=== PATIENT | female | born 1965 | race Caucasian/White ===

== ENCOUNTER 2016-09-25 17:52 | Emergency (ER) | payer MEDICARE, OTHER ==
[2016-09-25 17:58] VITALS: BP 140/72; PULSE 78; RESP 16; TEMP 98.2
--- NOTE | 2016-09-25 20:16 | ED ---
General Adult HPI - General Chief complaint: Chest Pain Stated complaint: chest pain Time Seen by Provider: 09/25/16 20:15 Source: patient, RN notes reviewed, old records reviewed Mode of arrival: ambulatory Limitations: no limitations - History of Present Illness Initial comments: This is a 51-year-old female here for evaluation of chest pain. Nonspecific chest pain. History of possible high blood pressure possible high cholesterol asked history of smoking may be high cholesterol. Patient takes no medication is not follow-up with family doctor. Patient's 3 stressful situations up-to- date cause pain in her back. No shortness of breath. No diaphoresis patient at this time is chest pain-free. States she is having increased stress lately - Related Data Home Medications Medication Instructions Recorded Confirmed Diazepam [Valium] 5 mg PO TID PRN 03/16/14 09/25/16 Fish Oil/Dha/Epa [Fish Oil 1,200 1 cap PO QAM 09/30/15 09/25/16 mg Fish Oil] Latanoprost Ophth [Xalatan 0.005%] 1 drops BOTH EYES DAILY 09/30/15 09/25/16 Olopatadine HCl [Pataday] 1 drop BOTH EYES DAILY 09/30/15 09/25/16 Aspirin 81 mg PO DAILY 02/17/16 09/25/16 Acetaminophen Tab [Tylenol Tab] 325 mg PO Q6H PRN 09/25/16 09/25/16 Albuterol Inhaler [Ventolin Hfa 2 puff INHALATION RT-Q6H PRN 09/25/16 09/25/16 Inhaler] Ergocalciferol [Vitamin D2] 50,000 unit PO Q14D 09/25/16 09/25/16 Fluticasone Nasal [place] [Flonase 1 spray EA NOSTRIL DAILY 09/25/16 09/25/16 Nasal [place]] Ibuprofen [Motrin] 600 mg PO DAILY PRN 09/25/16 09/25/16 Naphazoline HCl/Glycerin [Clear 1 drop BOTH EYES QID PRN 09/25/16 09/25/16 Eyes Max Redness Rlf Drp] Allergies Allergy/AdvReac Type Severity Reaction Status Date / Time cashew nut Allergy Unknown Verified 09/25/16 20:40 cocoa Allergy Dyspnea Verified 09/25/16 20:40 and heart racing corn Allergy Inflammatio Verified 09/25/16 20:40 n erythromycin base Allergy Swelling, Verified 09/25/16 20:40 [Erythromycin Base] itching & arthraligia latex Allergy Dyspnea Verified 09/25/16 20:40 strawberry Allergy Unknown Verified 09/25/16 20:40 wheat Allergy Constipatio Verified 09/25/16 20:40 n Review of Systems ROS Statement: Those systems with pertinent positive or pertinent negative responses have been documented in the HPI. ROS Other: All systems not noted in ROS Statement are negative. Past Medical History Past Medical History: Asthma, COPD, Deep Vein Thrombosis (DVT), Eye Disorder, GERD/Reflux, Memory Impairment, Myocardial Infarction ([place]) Additional Past Medical History / Comment(s): glaucoma, multiple concussions, bilateral tinnunitus, DVT in ankles & inside of thighs after hysterectomy; fungal infections "off & on diflucan for 7 years", hx. irregular heart beat-to have stress test & echo soon Last Myocardial Infarction Date:: 04/2006 History of Any Multi-Drug Resistant Organisms: None Reported Past Surgical History: Hysterectomy, Tonsillectomy Additional Past Surgical History / Comment(s): egd Past Anesthesia/Blood Transfusion Reactions: Motion Sickness Past Psychological History: ADD/ADHD, Depression Additional Psychological History / Comment(s): "cognitive disorder" Smoking Status: Former smoker Past Alcohol Use History: None Reported Additional Past Alcohol Use History / Comment(s): smoking: Started 1979 stopped 2007 Past Drug Use History: None Reported Additional Drug Use History / Comment(s): cocaine 04/2004 - 06/2004, 11/2004-2005 - Past Family History Mother Additional Family Medical History / Comment(s): depression Father Family Medical History: Coronary Artery Disease (CAD) General Exam Limitations: no limitations General appearance: alert, in no apparent distress Head exam: Present: atraumatic, normocephalic, normal inspection Eye exam: Present: normal appearance, PERRL, EOMI. Absent: scleral icterus, conjunctival injection, periorbital swelling ENT exam: Present: normal exam, mucous membranes moist Neck exam: Present: normal inspection. Absent: tenderness, meningismus, lymphadenopathy Respiratory exam: Present: normal lung sounds bilaterally. Absent: respiratory distress, wheezes, rales, rhonchi, stridor Cardiovascular Exam: Present: regular rate, normal rhythm, normal heart sounds. Absent: systolic murmur, diastolic murmur, rubs, gallop, clicks GI/Abdominal exam: Present: soft, normal bowel sounds. Absent: distended, tenderness, guarding, rebound, rigid Extremities exam: Present: normal inspection, full ROM, normal capillary refill. Absent: tenderness, pedal edema, joint swelling, calf tenderness Back exam: Present: normal inspection Neurological exam: Present: alert, oriented X3, CN II-XII intact Psychiatric exam: Present: normal affect, normal mood Skin exam: Present: warm, dry, intact, normal color. Absent: rash Course Vital Signs 09/25/16 17:54 Temperature 98.2 F Pulse Rate 78 Respiratory 16 Rate Blood Pressure 140/72 O2 Sat by Pulse 98 Oximetry - Reevaluation(s) Reevaluation #1: 09/25/16 21:45 Patient had lab drawn at 2-1/2 hours, troponin is negative EKG is negative EKG Findings - EKG Comments: EKG Findings:: EKG shows normal sinus rhythm rate of 64, DC 170, QRS 90, QTC 427 Medical Decision Making - Medical Decision Making 51 female here for evaluation of nonspecific chest pain anxiety reaction. Patient will be discharged home - Lab Data Result diagrams: 09/25/16 20:56 09/25/16 20:56 Lab Results 09/25/16 09/25/16 09/25/16 Range/Units 20:56 20:56 20:56 WBC 7.3 (3.8-10.6) k/uL RBC 4.77 (3.80-5.40) m/uL Hgb 14.6 (11.4-16.0) gm/dL Hct 42.4 (34.0-46.0) % MCV 88.9 (80.0-100.0) fL MCH 30.6 (25.0-35.0) pg MCHC 34.4 (31.0-37.0) g/dL RDW 13.6 (11.5-15.5) % Plt Count 260 (150-450) k/uL Neutrophils % 43 % Lymphocytes % 42 % Monocytes % 6 % Eosinophils % 3 % Basophils % 1 % Neutrophils # 3.1 (1.3-7.7) k/uL Lymphocytes # 3.1 (1.0-4.8) k/uL Monocytes # 0.4 (0-1.0) k/uL Eosinophils # 0.2 (0-0.7) k/uL Basophils # 0.1 (0-0.2) k/uL PT (9.0-12.0) sec INR (<1.1) APTT (22.0-30.0) sec D-Dimer (<0.60) mg/L FEU Sodium 142 (137-145) mmol/L Potassium 3.8 (3.5-5.1) mmol/L Chloride 107 (98-107) mmol/L Carbon Dioxide 28 (22-30) mmol/L Anion Gap 7 mmol/L BUN 19 H (7-17) mg/dL Creatinine 0.90 (0.52-1.04) mg/dL Est GFR (MDRD) Af Amer >60 (>60 ml/min/1.73 sqM) Est GFR (MDRD) Non-Af >60 (>60 ml/min/1.73 sqM) Glucose 84 (74-99) mg/dL Calcium 9.6 (8.4-10.2) mg/dL Magnesium 2.2 (1.6-2.3) mg/dL Total Bilirubin 0.4 (0.2-1.3) mg/dL AST 16 (14-36) U/L ALT 29 (9-52) U/L Alkaline Phosphatase 94 (38-126) U/L Total Creatine Kinase 67 (30-135) U/L CK-MB (CK-2) 0.7 (0.0-2.4) ng/mL CK-MB (CK-2) Rel Index 1.0 Troponin I <0.012 (0.000-0.034) ng/mL Total Protein 7.1 (6.3-8.2) g/dL Albumin 4.2 (3.5-5.0) g/dL Lipase 216 (23-300) U/L 09/25/16 Range/Units 20:56 WBC (3.8-10.6) k/uL RBC (3.80-5.40) m/uL Hgb (11.4-16.0) gm/dL Hct (34.0-46.0) % MCV (80.0-100.0) fL MCH (25.0-35.0) pg MCHC (31.0-37.0) g/dL RDW (11.5-15.5) % Plt Count (150-450) k/uL Neutrophils % % Lymphocytes % % Monocytes % % Eosinophils % % Basophils % % Neutrophils # (1.3-7.7) k/uL Lymphocytes # (1.0-4.8) k/uL Monocytes # (0-1.0) k/uL Eosinophils # (0-0.7) k/uL Basophils # (0-0.2) k/uL PT 10.3 (9.0-12.0) sec INR 1.0 (<1.1) APTT 25.3 (22.0-30.0) sec D-Dimer 0.25 (<0.60) mg/L FEU Sodium (137-145) mmol/L Potassium (3.5-5.1) mmol/L Chloride (98-107) mmol/L Carbon Dioxide (22-30) mmol/L Anion Gap mmol/L BUN (7-17) mg/dL Creatinine (0.52-1.04) mg/dL Est GFR (MDRD) Af Amer (>60 ml/min/1.73 sqM) Est GFR (MDRD) Non-Af (>60 ml/min/1.73 sqM) Glucose (74-99) mg/dL Calcium (8.4-10.2) mg/dL Magnesium (1.6-2.3) mg/dL Total Bilirubin (0.2-1.3) mg/dL AST (14-36) U/L ALT (9-52) U/L Alkaline Phosphatase (38-126) U/L Total Creatine Kinase (30-135) U/L CK-MB (CK-2) (0.0-2.4) ng/mL CK-MB (CK-2) Rel Index Troponin I (0.000-0.034) ng/mL Total Protein (6.3-8.2) g/dL Albumin (3.5-5.0) g/dL Lipase (23-300) U/L - Radiology Data Radiology results: report reviewed (Chest x-ray is negative for acute disease), image reviewed Disposition Clinical Impression: Chest pain, Atypical chest pain Disposition: HOME SELF-CARE Condition: Good Instructions: Chest Pain (ED)
[2016-09-25 21:08] LABS: Basophils # (A) 0.1 k/uL (0-0.2); Basophils % (A) 1 %; CH 30.9; CHCM 34.9; Eosinophils # (A) 0.2 k/uL (0-0.7); Eosinophils % (A) 3 %; HCT 42.4 % (34.0-46.0); HDW 2.88; HGB 14.6 gm/dL (11.4-16.0); Luc # (Auto) 0.31; Luc % (Auto) 4; Lymphocytes # (A) 3.1 k/uL (1.0-4.8); Lymphocytes % (A) 42 %; MCH 30.6 pg (25.0-35.0); MCHC 34.4 g/dL (31.0-37.0); MCV 88.9 fL (80.0-100.0); Mean Platelet Volume 6.8; Monocytes # (A) 0.4 k/uL (0-1.0); Monocytes % (A) 6 %; Neutrophils # (A) 3.1 k/uL (1.3-7.7); Neutrophils % (A) 43 %; RBC 4.77 m/uL (3.80-5.40); RDW 13.6 % (11.5-15.5); WBC 7.3 k/uL (3.8-10.6); WBC (Perox) 7.39
[2016-09-25 21:15] LABS: ALT 29 U/L (9-52); AST 16 U/L (14-36); Alkaline Phosphatase 94 U/L (38-126); Anion Gap 7 mmol/L; Blood Urea Nitrogen 19 mg/dL (7-17); Calcium 9.6 mg/dL (8.4-10.2); Carbon Dioxide 28 mmol/L (22-30); Chloride 107 mmol/L (98-107); Glucose 84 mg/dL (74-99); Magnesium 2.2 mg/dL (1.6-2.3); Non-African American GFR(MDRD) >60 (>60 ml/min/1.73 sqM); Potassium 3.8 mmol/L (3.5-5.1); Sodium 142 mmol/L (137-145); Total Bilirubin 0.4 mg/dL (0.2-1.3); Total Protein 7.1 g/dL (6.3-8.2)
[2016-09-25 21:19] LABS: Partial Thromboplastin Time 25.3 sec (22.0-30.0); Prothrombin Time 10.3 sec (9.0-12.0)
--- NOTE | 2016-09-25 21:25 | XR ---
EXAMINATION TYPE: XR chest 2V DATE OF EXAM: 09/25/2016 9:15 PM COMPARISON: 06/08/2015 HISTORY: Chest pain TECHNIQUE: Frontal and lateral views of the chest are obtained. FINDINGS: Heart and mediastinum are normal. Lungs are clear. Diaphragm is normal. Bony thorax appear s normal. IMPRESSION: Normal chest. No change
[2016-09-25 21:27] LABS: Creatine Kinase 67 U/L (30-135)
[2016-09-25 21:40] LABS: Creatine Kinase MB 0.7 ng/mL (0.0-2.4); Troponin I <0.012 ng/mL (0.000-0.034)
== END 2016-09-25 22:06 | disposition home or self-care (01) ==
LOC: EC 17:52
DX: R07.89 Other chest pain (principal); J45.909 Unspecified asthma, uncomplicated; J44.9 Chronic obstructive pulmonary disease, unspecified; Z87.891 Personal history of nicotine dependence; Z79.82 Long term (current) use of aspirin; Z79.899 Other long term (current) drug therapy; Z91.018 Allergy to other foods; Z88.1 Allergy status to other antibiotic agents; Z86.69 Personal history of other diseases of the nervous system and sense organs
CPT/HCPCS: 36415; 71020; 80053; 82550; 82553; 83690; 83735; 84484; 85025; 85379; 85610; 85730; 99285

== ENCOUNTER 2016-11-13 08:13 | Emergency (ER) | payer MEDICARE, OTHER ==
--- NOTE | 2016-11-13 08:41 | ED ---
General Adult HPI - General Chief complaint: Extremity Problem,Nontraumatic Stated complaint: rt calf pain Time Seen by Provider: 11/13/16 08:29 Source: patient, RN notes reviewed Mode of arrival: ambulatory Limitations: no limitations - History of Present Illness Initial comments: Patient 51-year-old female who presents emergency room today with chief complaint of having some pain to the posterior right calf. She admits that she did not sleep very well last night woke up this morning noticed some pain to the right calf when she was ambulating. States it seems to be a little bit better at this time but still feeling it with certain movements. Denies any injury or trauma. She does admit that she also felt a little nauseated this morning. She states she took a probiotic waited 45 minutes and a breakfast is beginning to feel better at this time. She denies any other complaints currently. She does admit to a history of blood clot after hysterectomy. States she is currently not on any blood thinners. Patient denies any recent fever, chills, shortness of breath, chest pain, back pain, abdominal pain, vomiting, numbness or tingling, dysuria or hematuria, constipation or diarrhea, headaches or visual changes, or any other complaints. - Related Data Home Medications Medication Instructions Recorded Confirmed Diazepam [Valium] 5 mg PO TID PRN 03/16/14 11/13/16 Fish Oil/Dha/Epa [Fish Oil 1,200 1 cap PO QAM 09/30/15 11/13/16 mg Fish Oil] Latanoprost Ophth [Xalatan 0.005%] 1 drops BOTH EYES HS 09/30/15 11/13/16 Olopatadine HCl [Pataday] 1 drop BOTH EYES DAILY 09/30/15 11/13/16 Aspirin 81 mg PO DAILY 02/17/16 11/13/16 Acetaminophen Tab [Tylenol Tab] 325 mg PO Q6H PRN 09/25/16 11/13/16 Albuterol Inhaler [Ventolin Hfa 2 puff INHALATION RT-Q6H PRN 09/25/16 11/13/16 Inhaler] Ergocalciferol [Vitamin D2] 50,000 unit PO Q14D 09/25/16 11/13/16 Fluticasone Nasal [place] [Flonase 1 spray EA NOSTRIL DAILY 09/25/16 11/13/16 Nasal [place]] Ibuprofen [Motrin] 600 mg PO DAILY PRN 09/25/16 11/13/16 Naphazoline HCl/Glycerin [Clear 1 drop BOTH EYES QID PRN 09/25/16 11/13/16 Eyes Max Redness Rlf Drp] Allergies Allergy/AdvReac Type Severity Reaction Status Date / Time cashew nut Allergy Unknown Verified 11/13/16 08:44 cocoa Allergy Dyspnea Verified 11/13/16 08:44 and heart racing corn Allergy Inflammatio Verified 11/13/16 08:44 n erythromycin base Allergy Swelling, Verified 11/13/16 08:44 [Erythromycin Base] itching & arthraligia latex Allergy Dyspnea Verified 11/13/16 08:44 strawberry Allergy Unknown Verified 11/13/16 08:44 wheat Allergy Constipatio Verified 11/13/16 08:44 n Review of Systems ROS Statement: Those systems with pertinent positive or pertinent negative responses have been documented in the HPI. ROS Other: All systems not noted in ROS Statement are negative. Past Medical History Past Medical History: Asthma, COPD, Deep Vein Thrombosis (DVT), Eye Disorder, GERD/Reflux, Memory Impairment, Myocardial Infarction ([place]) Additional Past Medical History / Comment(s): glaucoma, multiple concussions, bilateral tinnunitus, DVT in ankles & inside of thighs after hysterectomy; fungal infections "off & on diflucan for 7 years", hx. irregular heart beat-to have stress test & echo soon Last Myocardial Infarction Date:: 04/2006 History of Any Multi-Drug Resistant Organisms: None Reported Past Surgical History: Hysterectomy, Tonsillectomy Additional Past Surgical History / Comment(s): egd Past Anesthesia/Blood Transfusion Reactions: Motion Sickness Past Psychological History: ADD/ADHD, Depression Additional Psychological History / Comment(s): "cognitive disorder" Smoking Status: Former smoker Past Alcohol Use History: None Reported Additional Past Alcohol Use History / Comment(s): smoking: Started 1979 stopped 2007 Past Drug Use History: None Reported Additional Drug Use History / Comment(s): cocaine 04/2004 - 06/2004, 11/2004-2005 - Past Family History Mother Additional Family Medical History / Comment(s): depression Father Family Medical History: Coronary Artery Disease (CAD) General Exam - General Exam Comments Initial Comments: General: The patient is awake and alert, in no distress, and does not appear acutely ill. Eye: Pupils are equal, round and reactive to light, extra-ocular movements are intact. No nystagmus. There is normal conjunctiva bilaterally. No signs of icterus. Ears, nose, mouth and throat: There are moist mucous membranes and no oral lesions. Neck: The neck is supple, there is no tenderness or JVD. Cardiovascular: There is a regular rate and rhythm. No murmur, rub or gallop is appreciated. Respiratory: Lungs are clear to auscultation, respirations are non-labored, breath sounds are equal. No wheezes, stridor, rales, or rhonchi. Musculoskeletal: Normal ROM. Mild tenderness to the posterior aspect of the proximal right calf. No Swelling appreciated. Strength 5/5. Sensation intact. Pulses equal bilaterally 2+. Neurological: A&O x 3. CN II-XII intact, There are no obvious motor or sensory deficits. Coordination appears grossly intact. Speech is normal. Skin: Skin is warm and dry and no rashes or lesions are noted. Psychiatric: Cooperative, appropriate mood & affect, normal judgment. Limitations: no limitations Course Vital Signs 11/13/16 11/13/16 08:25 09:24 Temperature 97.1 F L Pulse Rate 87 72 Respiratory 16 18 Rate Blood Pressure 135/72 113/61 O2 Sat by Pulse 97 98 Oximetry Medical Decision Making - Medical Decision Making Patient's ultrasound negative for any evidence of DVT. Results were discussed with the patient. Patient declined nausea medication for her nausea symptoms. She states she feels better after she ate breakfast. Patient will be discharged home advised follow-up family doctor advised increased fluids. Advised return for any other concerns. Disposition Clinical Impression: Muscle strain Disposition: HOME SELF-CARE Condition: Good Instructions: Muscle Strain (ED) Additional Instructions: Please use medication as discussed. Please follow-up with family doctor in the next 2 days of symptoms have not improved. Please return to emergency room if the symptoms increase or worsen or for any other concerns. Referrals: Albina Fu MD [Primary Care Provider] - 1-2 days Time of Disposition: 09:37
--- NOTE | 2016-11-13 09:30 | US ---
EXAMINATION TYPE: US venous doppler duplex LE RT DATE OF EXAM: 11/13/2016 9:12 AM COMPARISON: NONE CLINICAL HISTORY: Pain. Patient reports tightness behind knee SIDE PERFORMED: Right TECHNIQUE: The lower extremity deep venous system is examined utilizing real time linear array sonog chapo with graded compression, doppler sonography and color-flow sonography. VESSELS IMAGED: External Iliac Vein (EIV) Common Femoral Vein Deep Femoral Vein Greater Saphenous Vein * Femoral Vein Popliteal Vein Small Saphenous Vein * Proximal Calf Veins (* superficial vessels) Right Leg: Negative for DVT No popliteal fossa lesion is identified. IMPRESSION: THIS EXAMINATION IS NEGATIVE FOR DVT WITHIN THE RIGHT LEG.
[2016-11-13 10:08] VITALS: BP 113/58; PULSE 62; RESP 16; TEMP 97.7
== END 2016-11-13 10:06 | disposition home or self-care (01) ==
LOC: EC 08:13
DX: S86.911A Strain of unspecified muscle(s) and tendon(s) at lower leg level, right leg, initial encounter (principal); R11.0 Nausea; J45.909 Unspecified asthma, uncomplicated; J44.9 Chronic obstructive pulmonary disease, unspecified; H40.9 Unspecified glaucoma; Z87.891 Personal history of nicotine dependence; Z79.899 Other long term (current) drug therapy; Z91.018 Allergy to other foods; Z88.1 Allergy status to other antibiotic agents; Z91.040 Latex allergy status; X58.XXXA Exposure to other specified factors, initial encounter
CPT/HCPCS: 99283

== ENCOUNTER 2017-01-28 23:23 | Observation (INO) | payer MEDICARE, OTHER ==
[2017-01-28 23:28] VITALS: RESP 18
[2017-01-28] MEDS ORDERED: HEPARIN SODIUM,PORCINE 5,000 UNIT/ML 1 ML VIAL IV ONE (23:36)
[2017-01-28] MEDS ORDERED: ASPIRIN 81 MG PO STA (23:36)
[2017-01-28] MEDS ORDERED: NITROGLYCERIN SL TABS 0.4 MG TAB SUBLINGUAL PRN (23:36)
[2017-01-28] MEDS ORDERED: HEPARIN SODIUM,PORCINE 5,000 UNIT/ML 1 ML VIAL IV PRN (23:36)
[2017-01-28] MEDS ORDERED: SODIUM CHLORIDE 0.9% 1,000 ML IV STA (23:36)
[2017-01-28] MEDS ORDERED: LORazepam 2 MG/ML SYRINGE IV STA (23:38)
--- NOTE | 2017-01-28 23:40 | ED ---
General Adult HPI - General Chief complaint: Chest Pain Stated complaint: Back Pain/Heart Palp Time Seen by Provider: 01/28/17 23:30 Source: patient, RN notes reviewed, old records reviewed Mode of arrival: ambulatory Limitations: no limitations - History of Present Illness Initial comments: This is a 51-year-old female here for evaluation of chest pain. Patient is anterior chest pain ranger backward into her shoulders. Patient does have a for anxiety, patient has history of DVT. Patient has history of COPD and asthma. Hasn't had symptoms was earlier today that resolved and recurred again tonight. Mild shortness of breath worse with exertion. No recent fever or cough or congestion. She has had prior cardiac workup which she believes was negative. No recent change in medication although she seems take aspirin which she has not been doing - Related Data Home Medications Medication Instructions Recorded Confirmed Diazepam [Valium] 5 mg PO TID PRN 03/16/14 11/13/16 Fish Oil/Dha/Epa [Fish Oil 1,200 1 cap PO QAM 09/30/15 11/13/16 mg Fish Oil] Latanoprost Ophth [Xalatan 0.005%] 1 drops BOTH EYES HS 09/30/15 11/13/16 Olopatadine HCl [Pataday] 1 drop BOTH EYES DAILY 09/30/15 11/13/16 Aspirin 81 mg PO DAILY 02/17/16 11/13/16 Acetaminophen Tab [Tylenol Tab] 325 mg PO Q6H PRN 09/25/16 11/13/16 Albuterol Inhaler [Ventolin Hfa 2 puff INHALATION RT-Q6H PRN 09/25/16 11/13/16 Inhaler] Ergocalciferol [Vitamin D2] 50,000 unit PO Q14D 09/25/16 11/13/16 Fluticasone Nasal [place] [Flonase 1 spray EA NOSTRIL DAILY 09/25/16 11/13/16 Nasal [place]] Ibuprofen [Motrin] 600 mg PO DAILY PRN 09/25/16 11/13/16 Naphazoline HCl/Glycerin [Clear 1 drop BOTH EYES QID PRN 09/25/16 11/13/16 Eyes Max Redness Rlf Drp] Allergies Allergy/AdvReac Type Severity Reaction Status Date / Time cashew nut Allergy Unknown Verified 08/24/17 23:27 cocoa Allergy Dyspnea Verified 01/28/17 23:27 and heart racing corn Allergy Inflammatio Verified 01/28/17 23:27 n erythromycin base Allergy Swelling, Verified 01/28/17 23:27 [Erythromycin Base] itching & arthraligia latex Allergy Dyspnea Verified 01/28/17 23:27 strawberry Allergy Unknown Verified 01/28/17 23:27 wheat Allergy Constipatio Verified 01/28/17 23:27 n Review of Systems ROS Statement: Those systems with pertinent positive or pertinent negative responses have been documented in the HPI. ROS Other: All systems not noted in ROS Statement are negative. Past Medical History Past Medical History: Asthma, COPD, Deep Vein Thrombosis (DVT), Eye Disorder, GERD/Reflux, Memory Impairment, Myocardial Infarction ([place]) Additional Past Medical History / Comment(s): glaucoma, multiple concussions, bilateral tinnunitus, DVT in ankles & inside of thighs after hysterectomy; fungal infections "off & on diflucan for 7 years", hx. irregular heart beat-to have stress test & echo soon Last Myocardial Infarction Date:: 04/2006 History of Any Multi-Drug Resistant Organisms: None Reported Past Surgical History: Hysterectomy, Tonsillectomy Additional Past Surgical History / Comment(s): egd Past Anesthesia/Blood Transfusion Reactions: Motion Sickness Past Psychological History: ADD/ADHD, Anxiety, Depression Smoking Status: Former smoker Past Alcohol Use History: None Reported Past Drug Use History: None Reported - Past Family History Mother Additional Family Medical History / Comment(s): depression Father Family Medical History: Coronary Artery Disease (CAD) General Exam Limitations: no limitations General appearance: alert, in no apparent distress, anxious Head exam: Present: atraumatic, normocephalic, normal inspection Eye exam: Present: normal appearance, PERRL, EOMI. Absent: scleral icterus, conjunctival injection, periorbital swelling ENT exam: Present: normal exam, mucous membranes moist Neck exam: Present: normal inspection. Absent: tenderness, meningismus, lymphadenopathy Respiratory exam: Present: normal lung sounds bilaterally. Absent: respiratory distress, wheezes, rales, rhonchi, stridor Cardiovascular Exam: Present: regular rate, normal rhythm, normal heart sounds. Absent: systolic murmur, diastolic murmur, rubs, gallop, clicks GI/Abdominal exam: Present: soft, normal bowel sounds. Absent: distended, tenderness, guarding, rebound, rigid Extremities exam: Present: normal inspection, full ROM, normal capillary refill. Absent: tenderness, pedal edema, joint swelling, calf tenderness Back exam: Present: normal inspection Neurological exam: Present: alert, oriented X3, CN II-XII intact Psychiatric exam: Present: normal affect, normal mood Skin exam: Present: warm, dry, intact, normal color. Absent: rash Course Vital Signs 01/28/17 23:24 Temperature 98.1 F Pulse Rate 78 Respiratory 18 Rate Blood Pressure 151/68 O2 Sat by Pulse 98 Oximetry - Reevaluation(s) Reevaluation #1: 01/28/17 23:39 Medical records reviewed Reevaluation #2: 01/28/17 23:39 Patient still chest pain despite despite anxiolysis Medical Decision Making - Medical Decision Making [id number] and ER for evaluation of chest pain, anxiety. Patient has history of anxiety, coming in today with what she feels like is having heart attack. EKG and troponin are negative times, patient will be admitted for cardiac observation - Radiology Data Radiology results: report reviewed (Chest x-ray is negative for acute disease), image reviewed Critical Care Time Critical Care Time: Yes Total Critical Care Time: 31 Disposition Clinical Impression: Chest pain Disposition: ADMITTED IP TO THIS HOSP Condition: Undetermined Instructions: Chest Pain (ED) Referrals: Albina Fu MD [Primary Care Provider] - 1-2 days
[2017-01-28] MEDS ORDERED: HEPARIN SODIUM,PORCINE/D5W PMX 25,000 UNIT in DEXTROSE/WATER 1 500ML.BAG IV SCH (23:45)
[2017-01-29 00:14] LABS: Basophils # (A) 0.1 k/uL (0-0.2); Basophils % (A) 2 %; CH 31.8; CHCM 34.3; Eosinophils # (A) 0.4 k/uL (0-0.7); Eosinophils % (A) 5 %; HCT 45.2 % (34.0-46.0); HDW 2.61; HGB 14.8 gm/dL (11.4-16.0); Luc # (Auto) 0.25; Luc % (Auto) 3; Lymphocytes # (A) 3.1 k/uL (1.0-4.8); Lymphocytes % (A) 40 %; MCH 30.6 pg (25.0-35.0); MCHC 32.8 g/dL (31.0-37.0); MCV 93.2 fL (80.0-100.0); Mean Platelet Volume 7.2; Monocytes # (A) 0.5 k/uL (0-1.0); Monocytes % (A) 6 %; Neutrophils # (A) 3.4 k/uL (1.3-7.7); Neutrophils % (A) 44 %; RBC 4.85 m/uL (3.80-5.40); RDW 14.5 % (11.5-15.5); WBC 7.7 k/uL (3.8-10.6); WBC (Perox) 7.25
--- NOTE | 2017-01-29 00:19 | XR ---
EXAM: XR Chest, 2 Views CLINICAL HISTORY: Chest pain. TECHNIQUE: Frontal and lateral views of the chest. COMPARISON: Chest radiograph dated 09/25/16. FINDINGS: Lungs: No airspace consolidation. Pleural space: No significant pleural effusion. No pneumothorax. Heart: Normal cardiac silhouette. Mediastinum: Unremarkable. Bones/joints: Degenerative changes of the thoracolumbar spine. IMPRESSION: No acute findings.
[2017-01-29 00:21] LABS: ALT 39 U/L (9-52); AST 21 U/L (14-36); Alkaline Phosphatase 104 U/L (38-126); Anion Gap 10 mmol/L; Blood Urea Nitrogen 19 mg/dL (7-17); Calcium 9.8 mg/dL (8.4-10.2); Carbon Dioxide 23 mmol/L (22-30); Chloride 109 mmol/L (98-107); Glucose 112 mg/dL (74-99); Magnesium 2.2 mg/dL (1.6-2.3); Non-African American GFR(MDRD) >60 (>60 ml/min/1.73 sqM); Potassium 4.1 mmol/L (3.5-5.1); Sodium 142 mmol/L (137-145); Total Bilirubin 0.5 mg/dL (0.2-1.3); Total Protein 7.2 g/dL (6.3-8.2)
[2017-01-29 00:23] LABS: Partial Thromboplastin Time 25.8 sec (22.0-30.0)
[2017-01-29 00:29] LABS: Creatine Kinase 76 U/L (30-135)
[2017-01-29 00:42] LABS: Creatine Kinase MB 0.6 ng/mL (0.0-2.4); Troponin I <0.012 ng/mL (0.000-0.034)
[2017-01-29 01:39] VITALS: BMI 34.2
[2017-01-29 06:10] LABS: Mean Platelet Volume 7.1
[2017-01-29 06:29] LABS: Cholesterol 171 mg/dL (<200); HDL Cholesterol 46 mg/dL (40-60)
[2017-01-29 06:37] LABS: Creatine Kinase 61 U/L (30-135)
[2017-01-29 06:49] LABS: Creatine Kinase MB 0.6 ng/mL (0.0-2.4); Troponin I <0.012 ng/mL (0.000-0.034)
[2017-01-29] MEDS ORDERED: ALBUTEROL NEBULIZED 2.5 MG/3 ML INHALATION PRN (08:14)
[2017-01-29] MEDS ORDERED: ARTIFICIAL TEARS-HYPROMELLOSE DROPS 15 ML BTL BOTH EYES PRN (08:14)
[2017-01-29] MEDS ORDERED: DIAZEPAM 5 MG TAB PO PRN (08:14)
[2017-01-29] MEDS ORDERED: ACETAMINOPHEN TAB 325 MG TAB PO PRN (08:14)
[2017-01-29] MEDS ORDERED: ASPIRIN 325 MG TAB PO SCH (09:00)
[2017-01-29] MEDS ORDERED: KETOTIFEN 0.025% OPHTH DROPS 5 ML BTL BOTH EYES SCH (09:00)
[2017-01-29] MEDS ORDERED: ATORVASTATIN 80 MG TAB PO SCH (09:00)
[2017-01-29] MEDS ORDERED: FLUTICASONE 50MCG/SPRAY NASAL 16GM EA NOSTRIL SCH (09:00)
[2017-01-29 09:13] VITALS: TEMP 97
[2017-01-29 11:17] LABS: Creatine Kinase 58 U/L (30-135)
[2017-01-29 11:31] LABS: Creatine Kinase MB 0.6 ng/mL (0.0-2.4); Troponin I <0.012 ng/mL (0.000-0.034)
[2017-01-29 11:58] VITALS: BP 121/63; PULSE 74
--- NOTE | 2017-01-29 12:10 | P.CRDCN ---
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 irregular heart beat-to have stress test & echo soon Last Myocardial Infarction Date:: 04/2006 History of Any Multi-Drug Resistant Organisms: None Reported Past Surgical History: Hysterectomy, Tonsillectomy Additional Past Surgical History / Comment(s): egd Past Anesthesia/Blood Transfusion Reactions: Motion Sickness Past Psychological History: ADD/ADHD, Anxiety, Depression Additional Psychological History / Comment(s): DYSLEXIA Smoking Status: Former smoker Past Alcohol Use History: None Reported Additional Past Alcohol Use History / Comment(s): smoking: Started 1979 stopped 2007 Past Drug Use History: None Reported Additional Drug Use History / Comment(s): cocaine 04/2004 - 06/2004, 11/2004-2005 - Past Family History Mother Additional Family Medical History / Comment(s): depression Father Family Medical History: Coronary Artery Disease (CAD) Medications and Allergies Home Medications Medication Instructions Recorded Confirmed Type Latanoprost Ophth [Xalatan 0.005%] 1 drops BOTH EYES HS 09/30/15 01/29/17 History Albuterol Inhaler [Ventolin Hfa 2 puff INHALATION RT-Q6H PRN 09/25/16 01/29/17 History Inhaler] Ergocalciferol [Vitamin D2] 50,000 unit PO Q14D 09/25/16 01/29/17 History Naphazoline HCl/Glycerin [Clear 1 drop BOTH EYES QID PRN 09/25/16 01/29/17 History Eyes Max Redness Rlf Drp] Allergies Allergy/AdvReac Type Severity Reaction Status Date / Time cashew nut Allergy Unknown Verified 01/29/17 08:27 cocoa Allergy Dyspnea Verified 01/29/17 08:27 and heart racing corn Allergy Inflammatio Verified 01/29/17 08:27 n erythromycin base Allergy Swelling, Verified 01/29/17 08:27 [Erythromycin Base] itching & arthraligia latex Allergy Dyspnea Verified 01/29/17 08:27 strawberry Allergy Unknown Verified 01/29/17 08:27 wheat Allergy Constipatio Verified 01/29/17 08:27 n Physical Exam Vitals: Vital Signs Temp Pulse Pulse Resp BP BP Pulse Ox 01/29/17 11:56 74 18 121/63 97 01/29/17 08:00 97 F L 70 18 121/73 97 01/29/17 04:00 96.3 F L 69 18 137/72 96 01/29/17 00:48 98.4 F 75 18 150/77 98 01/29/17 00:45 96.3 F L 74 18 138/80 95 01/29/17 00:06 78 01/28/17 23:59 85 18 137/93 96 01/28/17 23:24 98.1 F 78 18 151/68 98 Intake and Output 01/28/17 01/29/17 01/29/17 22:59 06:59 14:59 Intake Total 152.008 Output Total 1200 Balance -1047.992 Intake: Intake, IV Titration 152.008 Amount Heparin Sodium,Porcine/ 152.008 D5w Pmx 25,000 unit In Dextrose/Water 1 500ml. bag @ 12 UNITS/KG/HR 18.5 mls/hr IV .Q24H [facility] Rx#: [id number] Output: Urine 1200 Other: Voiding Method Toilet # Voids 1 1 # Bowel Movements 0 Weight 80.1 kg Results 01/29/17 05:52 01/28/17 23:55 Cardiac Enzymes 01/28/17 01/28/17 01/29/17 Range/Units 23:55 23:55 05:52 AST 21 (14-36) U/L CK-MB (CK-2) 0.6 0.6 (0.0-2.4) ng/mL Troponin I <0.012 <0.012 (0.000-0.034) ng/mL 01/29/17 Range/Units 10:37 AST (14-36) U/L CK-MB (CK-2) 0.6 (0.0-2.4) ng/mL Troponin I <0.012 (0.000-0.034) ng/mL Coagulation 01/28/17 01/29/17 Range/Units 23:55 05:52 PT 10.0 (9.0-12.0) sec APTT 25.8 39.0 H (22.0-30.0) sec Lipids 01/29/17 Range/Units 05:52 Triglycerides 127 (<150) mg/dL Cholesterol 171 (<200) mg/dL HDL Cholesterol 46 (40-60) mg/dL CBC 01/28/17 01/29/17 Range/Units 23:55 05:52 WBC 7.7 (3.8-10.6) k/uL RBC 4.85 (3.80-5.40) m/uL Hgb 14.8 (11.4-16.0) gm/dL Hct 45.2 (34.0-46.0) % Plt Count 289 244 (150-450) k/uL Comprehensive Metabolic Panel 01/28/17 Range/Units 23:55 Sodium 142 (137-145) mmol/L Potassium 4.1 (3.5-5.1) mmol/L Chloride 109 H (98-107) mmol/L Carbon Dioxide 23 (22-30) mmol/L BUN 19 H (7-17) mg/dL Creatinine 0.70 (0.52-1.04) mg/dL Glucose 112 H (74-99) mg/dL Calcium 9.8 (8.4-10.2) mg/dL AST 21 (14-36) U/L ALT 39 (9-52) U/L Alkaline Phosphatase 104 (38-126) U/L Total Protein 7.2 (6.3-8.2) g/dL Albumin 4.5 (3.5-5.0) g/dL Current Medications Generic Name Dose Route Start Last Admin Trade Name Freq PRN Reason Stop Dose Admin Acetaminophen 325 mg 01/29/17 08:14 Tylenol Tab PO Q6H PRN Pain Albuterol Sulfate 2.5 mg 01/29/17 08:14 Ventolin Nebulized INHALATION RT-Q6H PRN Cough Artificial Tears 1 drops 01/29/17 08:14 Artificial Tear Drops BOTH EYES QID PRN Dry Eye(s) Aspirin 325 mg 01/29/17 09:00 01/29/17 08:59 Aspirin PO 325 mg DAILY [facility] Administration Atorvastatin Calcium 80 mg 01/29/17 09:00 01/29/17 08:59 Lipitor PO 80 mg DAILY [facility] Administration Diazepam 5 mg 01/29/17 08:14 Valium PO TID PRN Anxiety Fluticasone Propionate 1 spray 01/29/17 09:00 01/29/17 09:01 Flonase Nasal [place] EA NOSTRIL Not Given DAILY [facility] Ketotifen Fumarate 1 drops 01/29/17 09:00 01/29/17 09:01 Zaditor BOTH EYES Not Given DAILY [facility] Latanoprost 1 drops 01/29/17 21:00 Xalatan 0.005% BOTH EYES HS [facility] Nitroglycerin 0.4 mg 01/28/17 23:36 Nitrostat SUBLINGUAL Q5M PRN Chest Pain Intake and Output 01/28/17 01/29/17 01/29/17 22:59 06:59 14:59 Intake Total 152.008 Output Total 1200 Balance -1047.992 Intake: Intake, IV Titration 152.008 Amount Heparin Sodium,Porcine/ 152.008 D5w Pmx 25,000 unit In Dextrose/Water 1 500ml. bag @ 12 UNITS/KG/HR 18.5 mls/hr IV .Q24H [facility] Rx#: [id number] Output: Urine 1200 Other: Voiding Method Toilet # Voids 1 1 # Bowel Movements 0 Weight 80.1 kg 01/29/17 05:52 01/28/17 23:55
--- NOTE | 2017-01-29 13:29 | P.CRDCN ---
History of Present Illness Consult date: 01/29/17 Reason for Consult (text): chest pain Chief complaint: back pain History of present illness: This is a pleasant 51-year-old female patient with a history of COPD, asthma, GERD, questionable history of [place] and previous episodes of chest discomfort. She presented to the emergency department after complaining of low back pain by left arm and ankle pain and subsequently upper back pain. EKG on admission showed normal sinus rhythm, troponins negative 3, chest x-ray was negative for acute cardiopulmonary process. Cardiac testing from previous admission in February 2016 was reviewed patient underwent regular stress echo at that time that was negative for stress-induced ischemia. Upon examination, patient is resting comfortably in bed. She denies further complaints of back arm or ankle pain. Denies complaints of shortness of breath, dizziness, palpitations or syncope. Her vital signs are stable blood pressure is normal. Past Medical History Past Medical History: Asthma, COPD, Deep Vein Thrombosis (DVT), Eye Disorder, GERD/Reflux, Memory Impairment, Myocardial Infarction ([place]) Additional Past Medical History / Comment(s): glaucoma, multiple concussions, bilateral tinnunitus, DVT in ankles & inside of thighs after hysterectomy; fungal infections "off & on diflucan for 7 years", hx. irregular heart beat-to have stress test & echo soon Last Myocardial Infarction Date:: 04/2006 History of Any Multi-Drug Resistant Organisms: None Reported Past Surgical History: Hysterectomy, Tonsillectomy Additional Past Surgical History / Comment(s): egd Past Anesthesia/Blood Transfusion Reactions: Motion Sickness Past Psychological History: ADD/ADHD, Anxiety, Depression Additional Psychological History / Comment(s): DYSLEXIA Smoking Status: Former smoker Past Alcohol Use History: None Reported Additional Past Alcohol Use History / Comment(s): smoking: Started 1979 stopped 2007 Past Drug Use History: None Reported Additional Drug Use History / Comment(s): cocaine 04/2004 - 06/2004, 11/2004-2005 - Past Family History Mother Additional Family Medical History / Comment(s): depression Father Family Medical History: Coronary Artery Disease (CAD) Medications and Allergies Home Medications Medication Instructions Recorded Confirmed Type Latanoprost Ophth [Xalatan 0.005%] 1 drops BOTH EYES HS 09/30/15 01/29/17 History Albuterol Inhaler [Ventolin Hfa 2 puff INHALATION RT-Q6H PRN 09/25/16 01/29/17 History Inhaler] Ergocalciferol [Vitamin D2 50,000 unit PO Q14D 09/25/16 01/29/17 History (DRISDOL)] Naphazoline HCl/Glycerin [Clear 1 drop BOTH EYES QID PRN 09/25/16 01/29/17 History Eyes Max Redness Rlf Drp] Allergies Allergy/AdvReac Type Severity Reaction Status Date / Time cashew nut Allergy Unknown Verified 01/29/17 08:27 cocoa Allergy Dyspnea Verified 01/29/17 08:27 and heart racing corn Allergy Inflammatio Verified 01/29/17 08:27 n erythromycin base Allergy Swelling, Verified 01/29/17 08:27 [Erythromycin Base] itching & arthraligia latex Allergy Dyspnea Verified 01/29/17 08:27 strawberry Allergy Unknown Verified 01/29/17 08:27 wheat Allergy Constipatio Verified 01/29/17 08:27 n Physical Exam Vitals: Vital Signs Temp Pulse Pulse Resp BP BP Pulse Ox 01/29/17 11:56 74 18 121/63 97 01/29/17 08:00 97 F L 70 18 121/73 97 01/29/17 04:00 96.3 F L 69 18 137/72 96 01/29/17 00:48 98.4 F 75 18 150/77 98 01/29/17 00:45 96.3 F L 74 18 138/80 95 01/29/17 00:06 78 01/28/17 23:59 85 18 137/93 96 01/28/17 23:24 98.1 F 78 18 151/68 98 Intake and Output 01/28/17 01/29/17 01/29/17 22:59 06:59 14:59 Intake Total 152.008 Output Total 1200 Balance -1047.992 Intake: Intake, IV Titration 152.008 Amount Heparin Sodium,Porcine/ 152.008 D5w Pmx 25,000 unit In Dextrose/Water 1 500ml. bag @ 12 UNITS/KG/HR 18.5 mls/hr IV .Q24H [facility] Rx#: [id number] Output: Urine 1200 Other: Voiding Method Toilet # Voids 1 1 # Bowel Movements 0 Weight 80.1 kg PHYSICAL EXAMINATION: HEENT: Head is atraumatic, normocephalic. Pupils equal, round. Neck is supple. There is no elevated jugular venous pressure. HEART EXAMINATION: Heart sounds regular, S1 and S2 normal. No murmur or gallop heard. CHEST EXAMINATION: Lungs are clear to auscultation and precussion. No chest wall tenderness is noted on palpation or with deep breathing. ABDOMEN: Soft, nontender. Bowel sounds are heard. No organomegaly noted. EXTREMITIES: 2+ peripheral pulses with no evidence of peripheral edema and no calf tenderness noted. NEUROLOGIC patient is awake, alert and oriented x3. . Results 01/29/17 05:52 01/28/17 23:55 Cardiac Enzymes 01/28/17 01/28/17 01/29/17 Range/Units 23:55 23:55 05:52 AST 21 (14-36) U/L CK-MB (CK-2) 0.6 0.6 (0.0-2.4) ng/mL Troponin I <0.012 <0.012 (0.000-0.034) ng/mL 01/29/17 Range/Units 10:37 AST (14-36) U/L CK-MB (CK-2) 0.6 (0.0-2.4) ng/mL Troponin I <0.012 (0.000-0.034) ng/mL Coagulation 01/28/17 01/29/17 Range/Units 23:55 05:52 PT 10.0 (9.0-12.0) sec APTT 25.8 39.0 H (22.0-30.0) sec Lipids 01/29/17 Range/Units 05:52 Triglycerides 127 (<150) mg/dL Cholesterol 171 (<200) mg/dL HDL Cholesterol 46 (40-60) mg/dL CBC 01/28/17 01/29/17 Range/Units 23:55 05:52 WBC 7.7 (3.8-10.6) k/uL RBC 4.85 (3.80-5.40) m/uL Hgb 14.8 (11.4-16.0) gm/dL Hct 45.2 (34.0-46.0) % Plt Count 289 244 (150-450) k/uL Comprehensive Metabolic Panel 01/28/17 Range/Units 23:55 Sodium 142 (137-145) mmol/L Potassium 4.1 (3.5-5.1) mmol/L Chloride 109 H (98-107) mmol/L Carbon Dioxide 23 (22-30) mmol/L BUN 19 H (7-17) mg/dL Creatinine 0.70 (0.52-1.04) mg/dL Glucose 112 H (74-99) mg/dL Calcium 9.8 (8.4-10.2) mg/dL AST 21 (14-36) U/L ALT 39 (9-52) U/L Alkaline Phosphatase 104 (38-126) U/L Total Protein 7.2 (6.3-8.2) g/dL Albumin 4.5 (3.5-5.0) g/dL Current Medications Generic Name Dose Route Start Last Admin Trade Name Freq PRN Reason Stop Dose Admin Acetaminophen 325 mg 01/29/17 08:14 Tylenol Tab PO Q6H PRN Pain Albuterol Sulfate 2.5 mg 01/29/17 08:14 Ventolin Nebulized INHALATION RT-Q6H PRN Cough Artificial Tears 1 drops 01/29/17 08:14 Artificial Tear Drops BOTH EYES QID PRN Dry Eye(s) Aspirin 325 mg 01/29/17 09:00 01/29/17 08:59 Aspirin PO 325 mg DAILY [facility] Administration Atorvastatin Calcium 80 mg 01/29/17 09:00 01/29/17 08:59 Lipitor PO 80 mg DAILY [facility] Administration Diazepam 5 mg 01/29/17 08:14 Valium PO TID PRN Anxiety Fluticasone Propionate 1 spray 01/29/17 09:00 01/29/17 09:01 Flonase Nasal [place] EA NOSTRIL Not Given DAILY [facility] Ketotifen Fumarate 1 drops 01/29/17 09:00 01/29/17 09:01 Zaditor BOTH EYES Not Given DAILY [facility] Latanoprost 1 drops 01/29/17 21:00 Xalatan 0.005% BOTH EYES HS [facility] Nitroglycerin 0.4 mg 01/28/17 23:36 Nitrostat SUBLINGUAL Q5M PRN Chest Pain Intake and Output 01/28/17 01/29/17 01/29/17 22:59 06:59 14:59 Intake Total 152.008 Output Total 1200 Balance -1047.992 Intake: Intake, IV Titration 152.008 Amount Heparin Sodium,Porcine/ 152.008 D5w Pmx 25,000 unit In Dextrose/Water 1 500ml. bag @ 12 UNITS/KG/HR 18.5 mls/hr IV .Q24H [facility] Rx#: [id number] Output: Urine 1200 Other: Voiding Method Toilet # Voids 1 1 # Bowel Movements 0 Weight 80.1 kg 01/29/17 05:52 01/28/17 23:55 EKG Interpretations (text) Normal sinus rhythm Assessment and Plan Plan: Assessment and plan #1 neck pain, troponins negative 3 and normal stress echo in February 2016. #2 history of GERD #3 COPD From cardiology perspective, obtain a 2-D echo with Doppler. 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 HVAC MECHANICAL ENGINEER note has been reviewed, I agree with a documented findings and plan of care. Patient was seen and examined.
--- NOTE | 2017-01-29 14:39 | P.HPIM ---
History of Present Illness H&P Date: 01/29/17 Chief Complaint: Chest pain, back pain, leg pain HISTORY AND PHYSICAL AND DISCHARGE SUMMARY: This is a 51-year-old female patient of Dr. Joseph with a past mental history significant for [place], asthma and COPD, DVT completed course of anticoagulation, glaucoma, gastroesophageal reflux disease, memory impairment thought to be due to head concussion and/or drug related, remote history of tobacco use and dependence, history of cocaine use with abstinent since 2005. Patient states that yesterday she developed low back pain and she thought if she ate something she might feel better so she had some cereal and a doughnut. She went to [place] and apparently she had more pain. She did have episode of sharp pain in the morning and took 2 aspirin. She also had sharp pains on and off in bilateral thighs. She had chest pain last Wednesday and Wednesday as well. She did take another dose of 2 baby aspirins and then came into [facility] emergency center for evaluation. She states she had a stress test done at cardiology office a couple months ago and she does not recall the name of her hot dip galvanizer. Troponins were negative on 3 draws. Triglyceride 127, cholesterol 171, LDL 100 and HDL 46. Chest x-ray shows no acute findings. EKG was in normal sinus rhythm. Patient was seen by Dr. Martino from cardiology and cleared for discharge home. Patient has been instructed to follow-up with Dr. Fu and with her hot dip galvanizer. Review of Systems All systems: negative Constitutional: Denies chills, Denies fever Eyes: denies blurred vision, denies pain Ears, nose, mouth and throat: Denies headache, Denies sore throat Cardiovascular: Reports chest pain, Denies shortness of breath Respiratory: Denies cough Gastrointestinal: Denies abdominal pain, Denies diarrhea, Denies nausea, Denies vomiting Genitourinary: Denies dysuria, Denies hematuria Musculoskeletal: Reports low back pain, Denies myalgias Integumentary: Denies pruritus, Denies rash Neurological: Denies numbness, Denies weakness Psychiatric: Denies anxiety, Denies depression Endocrine: Denies fatigue, Denies weight change Past Medical History Past Medical History: Asthma, COPD, Deep Vein Thrombosis (DVT), Eye Disorder, GERD/Reflux, Memory Impairment, Myocardial Infarction ([place]) Additional Past Medical History / Comment(s): glaucoma, multiple concussions, bilateral tinnunitus, DVT in ankles & inside of thighs after hysterectomy; fungal infections "off & on diflucan for 7 years", hx. irregular heart beat Last Myocardial Infarction Date:: 04/2006 History of Any Multi-Drug Resistant Organisms: None Reported Past Surgical History: Hysterectomy, Tonsillectomy Additional Past Surgical History / Comment(s): egd Past Anesthesia/Blood Transfusion Reactions: Motion Sickness Past Psychological History: ADD/ADHD, Anxiety, Depression Additional Psychological History / Comment(s): DYSLEXIA Smoking Status: Former smoker Past Alcohol Use History: None Reported Additional Past Alcohol Use History / Comment(s): smoked one and half packs per day from 1979 stopped 2007 Past Drug Use History: None Reported Additional Drug Use History / Comment(s): cocaine 04/2004 - 06/2004, 11/2004-2005 - Past Family History Mother Additional Family Medical History / Comment(s): Mother at age 31 as she was hit by a motor vehicle with history of depression. Father Family Medical History: Coronary Artery Disease (CAD) Additional Family Medical History / Comment(s): Father at age 54 after his third heart surgery. Sister(s) Additional Family Medical History / Comment(s): Patient has 3 sisters and one from a staph infection. Brother(s) Additional Family Medical History / Comment(s): Patient has 2 brothers and one has history of blood clots and anxiety. Patient has 3 children with no major medical problems. Medications and Allergies Home Medications Medication Instructions Recorded Confirmed Type Latanoprost Ophth [Xalatan 0.005%] 1 drops BOTH EYES HS 09/29/01/29/17 History Albuterol Inhaler [Ventolin Hfa 2 puff INHALATION RT-Q6H PRN 09/25/16 01/29/17 History Inhaler] Ergocalciferol [Vitamin D2 50,000 unit PO Q14D 09/25/16 01/29/17 History (DRISDOL)] Naphazoline HCl/Glycerin [Clear 1 drop BOTH EYES QID PRN 09/25/16 01/29/17 History Eyes Max Redness Rlf Drp] Allergies Allergy/AdvReac Type Severity Reaction Status Date / Time cashew nut Allergy Unknown Verified 01/29/17 08:27 cocoa Allergy Dyspnea Verified 01/29/17 08:27 and heart racing corn Allergy Inflammatio Verified 01/29/17 08:27 n erythromycin base Allergy Swelling, Verified 01/29/17 08:27 [Erythromycin Base] itching & arthraligia latex Allergy Dyspnea Verified 01/29/17 08:27 strawberry Allergy Unknown Verified 01/29/17 08:27 wheat Allergy Constipatio Verified 01/29/17 08:27 n Physical Exam Vitals: Vital Signs Temp Pulse Pulse Resp BP BP Pulse Ox 01/29/17 11:56 74 18 121/63 97 01/29/17 08:00 97 F L 70 18 121/73 97 01/29/17 04:00 96.3 F L 69 18 137/72 96 01/29/17 00:48 98.4 F 75 18 150/77 98 01/29/17 00:45 96.3 F L 74 18 138/80 95 01/29/17 00:06 78 01/28/17 23:59 85 18 137/93 96 01/28/17 23:24 98.1 F 78 18 151/68 98 Intake and Output 01/28/17 01/29/17 01/29/17 22:59 06:59 14:59 Intake Total 152.008 Output Total 1200 Balance -1047.992 Intake: Intake, IV Titration 152.008 Amount Heparin Sodium,Porcine/ 152.008 D5w Pmx 25,000 unit In Dextrose/Water 1 500ml. bag @ 12 UNITS/KG/HR 18.5 mls/hr IV .Q24H [facility] Rx#: [id number] Output: Urine 1200 Other: Voiding Method Toilet # Voids 1 1 # Bowel Movements 0 Weight 80.1 kg Gen: This is a 51-year-old obese female. She is sitting up in bed and appears to be in no acute distress. HEENT: Head is atraumatic, normocephalic. Pupils equal, round. Sclerae is anicteric. NECK: Supple. No JVD. No lymphadenopathy. No thyromegaly. LUNGS: Clear to auscultation. No wheezes or rhonchi. No intercostal retractions. HEART: Regular rate and rhythm. No murmur. ABDOMEN: Soft. Bowel sounds are present. No masses. No tenderness. EXTREMITIES: No pedal edema. No calf tenderness. NEUROLOGICAL: Patient is awake, alert and oriented x3. Cranial nerves 2 through 12 are grossly intact. Results CBC & Chem 7: 01/29/17 05:52 01/28/17 23:55 Labs: Abnormal Lab Results - Last 24 Hours (Table) 01/28/17 01/29/17 01/29/17 Range/Units 23:55 05:52 05:52 APTT 39.0 H (22.0-30.0) sec Chloride 109 H (98-107) mmol/L BUN 19 H (7-17) mg/dL Glucose 112 H (74-99) mg/dL LDL Cholesterol, Calc 100 H (0-99) mg/dL Thrombosis Risk Factor Assmnt - DVT/VTE Prophylaxis DVT/VTE Prophylaxis: Pharmacologic Prophylaxis ordered - Choose All That Apply Each Factor Represents 1 point: Age 41-60 years, Obesity (BMI >25) Each Risk Factor Represents 3 Points: History of DVT/PE Thrombosis Risk Factor Assessment Total Risk Factor Score: 5 Thrombosis Risk Factor Assessment Level: High Risk Assessment and Plan Plan: 1. Chest pain last week. Patient to follow-up with her hot dip galvanizer and primary care. 2. Low back pain which is improved without treatment. 3. Bilateral thigh pain possibly related to the low back pain the patient states it did not happen at the same time. Further workup as an outpatient. 4. Glaucoma. Continue eyedrops. 5. Mild intermittent asthma and possible COPD with previous history of smoking , stable without exacerbation. Patient placed on the observation unit. Discharge plan: Return home Impression and plan of care have been directed as dictated by the signing physician. Jazzy Bianchi nurse practitioner acting as scribe for signing physician.
--- NOTE | 2017-01-29 16:47 | ECHOF ---
Referral Reason:chest pain MEASUREMENTS -------- HEIGHT: 152.4 cm WEIGHT: 79.8 kg BP: 137/72 RVIDd: 2.6 cm (< 3.3) IVSd: 1.0 cm (0.6 - 1.1) LVIDd: 3.4 cm (3.9 - 5.3) LVPWd: 1.3 cm (0.6 - 1.1) IVSs: 1.3 cm LVIDs: 2.8 cm LVPWs: 1.4 cm LA Diam: 2.9 cm (2.7 - 3.8) LAESV Index (A-L): 23.47 ml/m Ao Diam: 3.1 cm (2.0 - 3.7) AV Cusp: 1.8 cm (1.5 - 2.6) LA Diam: 3.1 cm (2.7 - 3.8) MV EXCURSION: 12.451 mm (> 18.000) MV EF SLOPE: 75 mm/s (70 - 150) EPSS: 0.4 cm MV E Ralph: 0.62 m/s MV DecT: 268 ms MV A Ralph: 0.65 m/s MV E/A Ratio: 0.95 RAP: 5.00 mmHg RVSP: 13.38 mmHg FINDINGS -------- Sinus rhythm. This was a technically good study. LV size, wall thickness and systolic function are normal, with an EF greater than 55%. The right ventricle is normal in size. The left atrial size is normal. The right atrial size is normal. The aortic valve is trileaflet, and appears structurally normal. No aortic stenosis or regurgitation. Mild mitral regurgitation is present. Mild tricuspid regurgitation present. There is no evidence of pulmonary hypertension. The right ventricular systolic pressure, as measured by Doppler, is 13.38mmHg. There is no pulmonic regurgitation present. The aortic root size is normal. There is no pericardial effusion. CONCLUSIONS -------- 1. LV size, wall thickness and systolic function are normal, with an EF greater than 55%. 2. There is no pericardial effusion. 3. The right ventricle is normal in size. 4. The aortic valve is trileaflet, and appears structurally normal. No aortic stenosis or regurgitation. 5. Mild mitral regurgitation is present. 6. Mild tricuspid regurgitation present. 7. There is no evidence of pulmonary hypertension. 8. The right ventricular systolic pressure, as measured by Doppler, is 13.38mmHg. 9. There is no pulmonic regurgitation present. 10. The aortic root size is normal. SWEATBAND CUTTING MACHINE OPERATOR: Lela Villa RDCS
[2017-01-29] MEDS ORDERED: LATANOPROST 0.005% OPHTH DROPS 2.5 ML BTL BOTH EYES SCH (21:00)
== END 2017-01-29 14:09 | disposition home or self-care (01) ==
LOC: EC 23:23 → 6SEL 23:39
PROVIDERS: ADMIT Family Medicine; ATTEND Family Medicine
DX: R07.89 Other chest pain (principal); M54.5 Low back pain; M79.651 Pain in right thigh; M79.652 Pain in left thigh; H40.9 Unspecified glaucoma; J45.20 Mild intermittent asthma, uncomplicated; M54.2 Cervicalgia; M54.6 Pain in thoracic spine; Z87.891 Personal history of nicotine dependence; K21.9 Gastro-esophageal reflux disease without esophagitis; Z88.1 Allergy status to other antibiotic agents; Z91.040 Latex allergy status; Z91.018 Allergy to other foods; Z82.49 Family history of ischemic heart disease and other diseases of the circulatory system; F41.9 Anxiety disorder, unspecified; I25.2 Old myocardial infarction; E66.9 Obesity, unspecified; Z68.34 Body mass index [BMI] 34.0-34.9, adult; Z86.718 Personal history of other venous thrombosis and embolism; Z79.82 Long term (current) use of aspirin; Z79.51 Long term (current) use of inhaled steroids; Z79.899 Other long term (current) drug therapy; Z81.8 Family history of other mental and behavioral disorders
CPT/HCPCS: 99291; 96361 ×2; 96376 ×2; 96365; 96366; 36415; 93005; 93306; 83880; 80061; 80053; 82550 ×2; 82553 ×2; 83690; 83735; 84484 ×2; 85025; 85049; 85610; 85730 ×2; 71020; G0378 ×2; J1644 ×2

== ENCOUNTER 2017-05-31 17:35 | Emergency (ER) | payer MEDICARE, OTHER ==
[2017-05-31] MEDS ORDERED: SODIUM CHLORIDE 0.9% 1,000 ML IV STA ×2 (17:38)
[2017-05-31 17:41] VITALS: RESP 18; TEMP 97.2
--- NOTE | 2017-05-31 17:41 | ED ---
Chest Pain HPI - General Stated Complaint: chest pain Time Seen by Provider: 05/31/17 17:35 Source: patient, EMS, RN notes reviewed, old records reviewed Mode of arrival: EMS - History of Present Illness Initial Comments: This is a 52-year-old female with a history of heart disease who is brought in because of the onset of sharp chest pain prior to admission 10/10 severity and lasted about 5 seconds. It was substernal nonradiating. Per paramedics there was some reproducibility to palpation over the mid sternum. Patient has any fevers chills nausea vomiting sweats she does believe she ate some mushrooms today because her have an upset stomach she did take 2 Benadryl's. Patient complains of dry mouth. She also believes she may have messed up the floor and her stomach by medication she was taking. She did take up higher today but did not take her other probiotics. She has any fevers chills nausea vomiting sweats cough or phlegm production. Per paramedics she does have a history of anxiety and was in a stressful situation apparently today with a lot of family members present. She has no complaints of any chest pain this time she was noted be tachycardic on the initial presentation of paramedics now the heart rate is much improved. Area was apparently as high as 150. MD Complaint: chest pain - Related Data Home Medications Medication Instructions Recorded Confirmed Latanoprost Ophth [Xalatan 0.005%] 1 drops BOTH EYES HS 09/30/15 05/31/17 Albuterol Inhaler [Ventolin Hfa 2 puff INHALATION RT-Q6H PRN 09/25/16 05/31/17 Inhaler] Ergocalciferol [Vitamin D2 50,000 unit PO Q14D 09/25/16 05/31/17 (DRISDOL)] Aspirin 81 mg PO DAILY 05/19/17 05/31/17 Diazepam [Valium] 5 mg PO BID PRN 05/19/17 05/31/17 Multivitamins, Thera [Multivitamin 1 tab PO DAILY 05/19/17 05/31/17 (formulary)] Olopatadine HCl [Pataday] 1 drop BOTH EYES DAILY 05/19/17 05/31/17 Tetrahydrozoline 0.05% Ophth 1 drop BOTH EYES QID PRN 05/19/17 05/31/17 [Visine Eye Drops] Cider Vinegar [Apple Cider Vinegar] 300 mg PO DAILY 05/31/17 05/31/17 Cyanocobalamin (Vitamin B-12) 1,000 mcg PO DAILY 05/31/17 05/31/17 [Vitamin B-12] [place]-3 Fatty Acids/Fish Oil [Fish 1 cap PO DAILY 05/31/17 05/31/17 Oil 1,000 mg Softgel] Previous Rx's Medication Instructions Recorded Potassium Chloride ER [K-Dur 20] 20 meq PO BID #14 tab 05/31/17 Allergies Allergy/AdvReac Type Severity Reaction Status Date / Time cashew nut Allergy Unknown Verified 05/31/17 18:12 chocolate flavor Allergy Dyspnea & Verified 05/31/17 18:12 heart racing cocoa Allergy Dyspnea Verified 05/31/17 18:12 and heart racing corn Allergy Inflammatio Verified 05/31/17 18:12 n erythromycin base Allergy Swelling, Verified 05/31/17 18:12 [Erythromycin Base] itching & arthraligia latex Allergy Dyspnea Verified 05/31/17 18:12 strawberry Allergy Unknown Verified 05/31/17 18:12 wheat Allergy Constipatio Verified 05/31/17 18:12 n Review of Systems ROS Statement: Those systems with pertinent positive or pertinent negative responses have been documented in the HPI. ROS Other: All systems not noted in ROS Statement are negative. EKG Findings - EKG Results: EKG: interpreted by KEREN, sinus rhythm (Sinus tachycardia with a rate of 117. We'll 162 QRS duration 94 daily since QTC 348/45 sinus tachycardiac be right bundle-branch block nonspecific ST configuration.) Past Medical History Past Medical History: Asthma, COPD, Deep Vein Thrombosis (DVT), Eye Disorder, GERD/Reflux, Memory Impairment, Myocardial Infarction ([place]) Additional Past Medical History / Comment(s): glaucoma, multiple concussions, bilateral tinnunitus, DVT in ankles & inside of thighs after hysterectomy; fungal infections "off & on diflucan for 7 years", hx. irregular heart beat Last Myocardial Infarction Date:: 04/2006 History of Any Multi-Drug Resistant Organisms: None Reported Past Surgical History: Hysterectomy, Tonsillectomy Additional Past Surgical History / Comment(s): egd Past Anesthesia/Blood Transfusion Reactions: Motion Sickness Past Psychological History: ADD/ADHD, Anxiety, Depression Smoking Status: Former smoker Past Alcohol Use History: None Reported Past Drug Use History: None Reported - Past Family History Mother Additional Family Medical History / Comment(s): Mother at age 31 as she was hit by a motor vehicle with history of depression. Father Family Medical History: Coronary Artery Disease (CAD) Additional Family Medical History / Comment(s): Father at age 54 after his third heart surgery. Sister(s) Additional Family Medical History / Comment(s): Patient has 3 sisters and one from a staph infection. Brother(s) Additional Family Medical History / Comment(s): Patient has 2 brothers and one has history of blood clots and anxiety. Patient has 3 children with no major medical problems. General Exam - General Exam Comments Initial Comments: This is a well-developed well-nourished awake alert oriented 3 female she is anxious General appearance: alert, anxious Head exam: Present: atraumatic, normocephalic, normal inspection Eye exam: Present: normal appearance, PERRL, EOMI. Absent: scleral icterus, conjunctival injection, periorbital swelling ENT exam: Present: mucous membranes dry Neck exam: Present: normal inspection. Absent: tenderness, meningismus, lymphadenopathy Respiratory exam: Present: normal lung sounds bilaterally. Absent: respiratory distress, wheezes, rales, rhonchi, stridor Cardiovascular Exam: Present: normal rhythm, tachycardia, normal heart sounds. Absent: systolic murmur, diastolic murmur, rubs, gallop, clicks GI/Abdominal exam: Present: soft, normal bowel sounds. Absent: distended, tenderness, guarding, rebound, rigid Extremities exam: Present: normal inspection, full ROM, normal capillary refill. Absent: tenderness, pedal edema, joint swelling, calf tenderness Back exam: Present: normal inspection Neurological exam: Present: alert, oriented X3, CN II-XII intact Psychiatric exam: Present: normal affect, normal mood Skin exam: Present: warm, dry, intact, normal color. Absent: rash Course Vital Signs 05/31/17 05/31/17 05/31/17 17:35 18:11 18:44 Temperature 97.2 F L Pulse Rate 110 H 100 Pulse Rate [ 126 H Admitting Interviewer ] Respiratory 18 18 Rate Blood Pressure 163/81 133/72 O2 Sat by Pulse 99 99 Oximetry Chest Pain MDM - MDM The patient is feeling much improved this time I did discuss the findings with her. The presentation is consistent with an anxiety reaction. She will be discharged she also has hypokalemia she'll be placed on potassium supplementation Disposition Clinical Impression: Anxiety, Hypokalemia, Dehydration Disposition: HOME SELF-CARE Condition: Good Instructions: Chest Pain (ED), Anxiety (ED), Dehydration (ED), Hypokalemia (ED) Prescriptions: Potassium Chloride ER [K-Dur 20] 20 meq PO BID #14 tab Referrals: Albina Fu MD [Primary Care Provider] - 1-2 days
[2017-05-31 18:00] LABS: Basophils # (A) 0.1 k/uL (0-0.2); Basophils % (A) 1 %; CHCM 34.7; Eosinophils # (A) 0.3 k/uL (0-0.7); Eosinophils % (A) 4 %; HCT 41.6 % (34.0-46.0); HDW 2.89; HGB 14.1 gm/dL (11.4-16.0); Luc # (Auto) 0.24; Luc % (Auto) 3; Lymphocytes % (A) 49 %; MCH 30.3 pg (25.0-35.0); MCHC 33.8 g/dL (31.0-37.0); MCV 89.8 fL (80.0-100.0); Mean Platelet Volume 6.8; Monocytes # (A) 0.3 k/uL (0-1.0); Monocytes % (A) 4 %; Neutrophils # (A) 3.2 k/uL (1.3-7.7); Neutrophils % (A) 40 %; RBC 4.64 m/uL (3.80-5.40); RDW 13.2 % (11.5-15.5); WBC 8.2 k/uL (3.8-10.6)
[2017-05-31 18:08] LABS: ALT 36 U/L (9-52); AST 17 U/L (14-36); Alkaline Phosphatase 96 U/L (38-126); Amylase 56 U/L (30-110); Anion Gap 13 mmol/L; Blood Urea Nitrogen 17 mg/dL (7-17); Calcium 9.7 mg/dL (8.4-10.2); Carbon Dioxide 22 mmol/L (22-30); Chloride 106 mmol/L (98-107); Glucose 196 mg/dL (74-99); Magnesium 1.9 mg/dL (1.6-2.3); Non-African American GFR(MDRD) >60 (>60 ml/min/1.73 sqM); Sodium 141 mmol/L (137-145); Total Bilirubin 0.3 mg/dL (0.2-1.3); Total Protein 6.6 g/dL (6.3-8.2)
[2017-05-31 18:18] LABS: Partial Thromboplastin Time 24.2 sec (22.0-30.0); Prothrombin Time 9.9 sec (9.0-12.0)
[2017-05-31 18:25] LABS: Creatine Kinase 88 U/L (30-135)
[2017-05-31] MEDS ORDERED: POTASSIUM CHLORIDE ER 20 MEQ TAB.ER PO STA (18:36)
--- NOTE | 2017-05-31 18:36 | XR ---
EXAMINATION TYPE: XR chest 2V DATE OF EXAM: 05/31/2017 COMPARISON: 05/19/2017 INDICATION: Chest pain TECHNIQUE: Frontal and lateral views of the chest are obtained. FINDINGS: The heart size is normal. The pulmonary vasculature is normal. The lungs are clear. IMPRESSION: 1. No acute pulmonary process.
[2017-05-31 18:37] LABS: Creatine Kinase MB 1.1 ng/mL (0.0-2.4); Troponin I <0.012 ng/mL (0.000-0.034)
[2017-05-31 18:44] VITALS: BP 133/72; PULSE 100
== END 2017-05-31 19:12 | disposition home or self-care (01) ==
LOC: EC 17:35
DX: E86.0 Dehydration (principal); E87.6 Hypokalemia; F41.9 Anxiety disorder, unspecified; R07.2 Precordial pain; H40.9 Unspecified glaucoma; I25.2 Old myocardial infarction; Z87.891 Personal history of nicotine dependence; Z79.82 Long term (current) use of aspirin; Z79.899 Other long term (current) drug therapy; Z88.1 Allergy status to other antibiotic agents; Z91.02 Food additives allergy status; Z91.018 Allergy to other foods; Z91.040 Latex allergy status; Z82.49 Family history of ischemic heart disease and other diseases of the circulatory system; Z81.8 Family history of other mental and behavioral disorders
CPT/HCPCS: 36415; 71020; 80053; 82150; 82550; 82553; 83690; 83735; 83880; 84484; 85025; 85379; 85610; 85730; 93005; 96360; 99285

== ENCOUNTER 2017-06-16 01:53 | Emergency (ER) | payer MEDICARE, OTHER ==
[2017-06-16 02:07] VITALS: TEMP 97.5
[2017-06-16] MEDS ORDERED: MECLIZINE 12.5 MG TAB PO STA (02:31)
--- NOTE | 2017-06-16 02:43 | ED ---
Dizziness HPI - General Chief Complaint: Dizziness Stated Complaint: "not feeling well" Time Seen by Provider: 06/16/17 02:17 Source: patient, RN notes reviewed Mode of arrival: ambulatory Limitations: no limitations - History of Present Illness Initial Comments: This is a 52-year-old female who states she's had some intermittent dizziness for the past 2-3 days and about 1:20 AM this morning she felt not quite right she felt dizzy especially with moving her left eye she stated she ate some rice caking blueberries and did not feel any better she states. She states she has some slight fever yesterday of fevers chills or sweats today no sinusitis symptoms reported no rhinorrhea cough or earache sore throat. She has no other complaints this time denies any focal deficits. MD Complaint: dizziness - Related Data Home Medications Medication Instructions Recorded Confirmed Latanoprost Ophth [Xalatan 0.005%] 1 drops BOTH EYES HS 09/30/15 06/16/17 Albuterol Inhaler [Ventolin Hfa 2 puff INHALATION RT-Q6H PRN 09/25/16 06/16/17 Inhaler] Aspirin 81 mg PO DAILY 05/19/17 06/16/17 Diazepam [Valium] 5 mg PO BID PRN 05/19/17 06/16/17 Olopatadine HCl [Pataday] 1 drop BOTH EYES DAILY 05/19/17 06/16/17 Tetrahydrozoline 0.05% Ophth 1 drop BOTH EYES QID PRN 05/19/17 06/16/17 [Visine Eye Drops] Cider Vinegar [Apple Cider Vinegar] 300 mg PO DAILY 05/31/17 06/16/17 Cyanocobalamin (Vitamin B-12) 1,000 mcg PO DAILY 05/31/17 06/16/17 [Vitamin B-12] [place]-3 Fatty Acids/Fish Oil [Fish 1 cap PO DAILY 05/31/17 06/16/17 Oil 1,000 mg Softgel] Previous Rx's Medication Instructions Recorded Meclizine [Antivert] 25 mg PO TID #20 tab 06/16/17 Allergies Allergy/AdvReac Type Severity Reaction Status Date / Time cashew nut Allergy Unknown Verified 05/31/17 18:12 chocolate flavor Allergy Dyspnea & Verified 05/31/17 18:12 heart racing cocoa Allergy Dyspnea Verified 05/31/17 18:12 and heart racing corn Allergy Inflammatio Verified 05/31/17 18:12 n erythromycin base Allergy Swelling, Verified 05/31/17 18:12 [Erythromycin Base] itching & arthraligia latex Allergy Dyspnea Verified 05/31/17 18:12 strawberry Allergy Unknown Verified 05/31/17 18:12 wheat Allergy Constipatio Verified 05/31/17 18:12 n Review of Systems ROS Statement: Those systems with pertinent positive or pertinent negative responses have been documented in the HPI. ROS Other: All systems not noted in ROS Statement are negative. Past Medical History Past Medical History: Asthma, COPD, Deep Vein Thrombosis (DVT), Eye Disorder, GERD/Reflux, Memory Impairment, Myocardial Infarction ([place]) Additional Past Medical History / Comment(s): glaucoma, multiple concussions, bilateral tinnunitus, DVT in ankles & inside of thighs after hysterectomy; fungal infections "off & on diflucan for 7 years", hx. irregular heart beat Last Myocardial Infarction Date:: 04/2006 History of Any Multi-Drug Resistant Organisms: None Reported Past Surgical History: Hysterectomy, Tonsillectomy Additional Past Surgical History / Comment(s): egd Past Anesthesia/Blood Transfusion Reactions: Motion Sickness Past Psychological History: ADD/ADHD, Anxiety, Depression Smoking Status: Former smoker Past Alcohol Use History: None Reported Past Drug Use History: None Reported - Past Family History Mother Additional Family Medical History / Comment(s): Mother at age 31 as she was hit by a motor vehicle with history of depression. Father Family Medical History: Coronary Artery Disease (CAD) Additional Family Medical History / Comment(s): Father at age 54 after his third heart surgery. Sister(s) Additional Family Medical History / Comment(s): Patient has 3 sisters and one from a staph infection. Brother(s) Additional Family Medical History / Comment(s): Patient has 2 brothers and one has history of blood clots and anxiety. Patient has 3 children with no major medical problems. General Exam - General Exam Comments Initial Comments: This is a well-developed well-nourished awake alert oriented 3 female Limitations: no limitations General appearance: alert, in no apparent distress Head exam: Present: atraumatic, normocephalic, normal inspection Eye exam: Present: normal appearance, PERRL, EOMI. Absent: scleral icterus, conjunctival injection, periorbital swelling ENT exam: Present: normal exam, mucous membranes moist Neck exam: Present: normal inspection. Absent: tenderness, meningismus, lymphadenopathy Respiratory exam: Present: normal lung sounds bilaterally. Absent: respiratory distress, wheezes, rales, rhonchi, stridor Cardiovascular Exam: Present: regular rate, normal rhythm, normal heart sounds. Absent: systolic murmur, diastolic murmur, rubs, gallop, clicks GI/Abdominal exam: Present: soft, normal bowel sounds. Absent: distended, tenderness, guarding, rebound, rigid Extremities exam: Present: normal inspection, full ROM, normal capillary refill. Absent: tenderness, pedal edema, joint swelling, calf tenderness Back exam: Present: normal inspection Neurological exam: Present: alert, oriented X3, CN II-XII intact Psychiatric exam: Present: normal affect, normal mood Skin exam: Present: warm, dry, intact, normal color. Absent: rash Course Vital Signs 06/16/17 02:03 Temperature 97.5 F L Pulse Rate 65 Respiratory 20 Rate Blood Pressure 144/74 O2 Sat by Pulse 98 Oximetry EKG Findings - EKG Results: EKG: interpreted by DEVONTE VELIZ, sinus rhythm, normal axis, normal QRS, normal ST/ T, no acute changes (Normal sinus rhythm rate is 64 [place] interval 170 QRS duration 92 QT since QTC of 414/427 this is a normal-appearing EKG.) Medical Decision Making - Medical Decision Making I did discuss the findings with the patient she presents with evidence of vertigo likely from a URI she'll be placed on Antivert she is discharged follow- up with her doctor return when necessary Disposition Clinical Impression: Vertigo, Upper respiratory infection, Dizziness Disposition: HOME SELF-CARE Condition: Good Instructions: Dizziness (ED), Vertigo (ED) Prescriptions: Meclizine [Antivert] 25 mg PO TID #20 tab Referrals: Albina Fu MD [Primary Care Provider] - 1-2 days
[2017-06-16 02:51] LABS: Glucose,Whole Blood 121 mg/dL (75-99)
[2017-06-16 02:52] VITALS: BP 128/78; PULSE 66; RESP 18
== END 2017-06-16 03:11 | disposition home or self-care (01) ==
LOC: EC 01:53
DX: R42 Dizziness and giddiness (principal); J06.9 Acute upper respiratory infection, unspecified; Z87.891 Personal history of nicotine dependence; Z88.1 Allergy status to other antibiotic agents; Z91.040 Latex allergy status; Z91.018 Allergy to other foods; Z91.02 Food additives allergy status; Z79.82 Long term (current) use of aspirin; Z79.899 Other long term (current) drug therapy
CPT/HCPCS: 36415; 99284

== ENCOUNTER 2017-06-19 12:13 | Emergency (ER) | payer MEDICARE, OTHER ==
--- NOTE | 2017-06-19 13:13 | ED ---
Headache HPI - General Chief Complaint: Headache Stated Complaint: Facial Numbness Left Side Time Seen by Provider: 06/19/17 12:59 Mode of arrival: ambulatory Limitations: no limitations - History of Present Illness Initial Comments: 52-year-old female complaining of left-sided head pain for the last 3-4 weeks. Patient states it got worse over last few days. Patient having pain on her temporal region. She denies any visual changes. Patient did state she felt dizzy earlier today but that has subsided. No neck pain no shortness of breath no chest pain. Patient denies any jaw clenching her TMJ in the recent past. No recent dental cleaning no recent fevers. Patient denies any sinus congestion. No hearing loss or pain on that side. Patient states she ate normal today. But felt like she needed to a little more when the symptoms occurred today. Patient follows with family doctor Dr. Fu on a regular basis. Patient does have a history of drug abuse. Patient denies any syncopal episode no passing out. No visual changes however patient does admit to needing glasses she just cannot see the eye doctor until September of this year. -: week(s) Onset Description: gradual Location: left, frontal, temporal Severity scale (1-10): 7 Quality: aching, constant Improves With: nothing Context: occurred at rest Treatments Prior to Arrival: other (Yoana) - Related Data Home Medications Medication Instructions Recorded Confirmed Latanoprost Ophth [Xalatan 0.005%] 1 drops BOTH EYES HS 09/30/15 06/19/17 Albuterol Inhaler [Ventolin Hfa 2 puff INHALATION RT-Q6H PRN 09/25/16 06/19/17 Inhaler] Aspirin 81 mg PO DAILY 05/19/17 06/19/17 Diazepam [Valium] 5 mg PO BID PRN 05/19/17 06/19/17 Olopatadine HCl [Pataday] 1 drop BOTH EYES DAILY 05/19/17 06/19/17 Tetrahydrozoline 0.05% Ophth 1 drop BOTH EYES QID PRN 05/19/17 06/19/17 [Visine Eye Drops] Cider Vinegar [Apple Cider Vinegar] 300 mg PO DAILY 05/31/17 06/19/17 Cyanocobalamin (Vitamin B-12) 1,000 mcg PO DAILY 05/31/17 06/19/17 [Vitamin B-12] [place]-3 Fatty Acids/Fish Oil [Fish 1 cap PO DAILY 05/31/17 06/19/17 Oil 1,000 mg Softgel] Yoana 500 mg PO ONCE 06/19/17 06/19/17 L.acidoph,Paracasei, B.lactis 1 cap PO ONCE 06/19/17 06/19/17 [Probiotic] Previous Rx's Medication Instructions Recorded Meclizine [Antivert] 25 mg PO TID #20 tab 06/16/17 Allergies Allergy/AdvReac Type Severity Reaction Status Date / Time cashew nut Allergy Unknown Verified 06/19/17 12:54 chocolate flavor Allergy Dyspnea & Verified 06/19/17 12:54 heart racing cocoa Allergy Dyspnea Verified 06/19/17 12:54 and heart racing corn Allergy Inflammatio Verified 06/19/17 12:54 n erythromycin base Allergy Swelling, Verified 06/19/17 12:54 [Erythromycin Base] itching & arthraligia latex Allergy Dyspnea Verified 06/19/17 12:54 strawberry Allergy Unknown Verified 06/19/17 12:54 wheat Allergy Constipatio Verified 06/19/17 12:54 n Review of Systems ROS Statement: Those systems with pertinent positive or pertinent negative responses have been documented in the HPI. ROS Other: All systems not noted in ROS Statement are negative. Constitutional: Denies: fever, chills ENT: Denies: ear pain Respiratory: Denies: as per HPI, cough, dyspnea Cardiovascular: Denies: chest pain, palpitations Endocrine: Denies: fatigue Gastrointestinal: Denies: abdominal pain, nausea, vomiting Neurological: Reports: headache. Denies: weakness, numbness, paresthesias, abnormal gait, vertigo Psychiatric: Reports: anxiety Past Medical History Past Medical History: Asthma, COPD, Deep Vein Thrombosis (DVT), Eye Disorder, GERD/Reflux, Memory Impairment, Myocardial Infarction ([place]) Additional Past Medical History / Comment(s): glaucoma, multiple concussions, bilateral tinnunitus, DVT in ankles & inside of thighs after hysterectomy; fungal infections "off & on diflucan for 7 years", hx. irregular heart beat Last Myocardial Infarction Date:: 04/2006 History of Any Multi-Drug Resistant Organisms: None Reported Past Surgical History: Hysterectomy, Tonsillectomy Additional Past Surgical History / Comment(s): egd Past Anesthesia/Blood Transfusion Reactions: Motion Sickness Past Psychological History: ADD/ADHD, Anxiety, Depression Smoking Status: Former smoker Past Alcohol Use History: None Reported Past Drug Use History: None Reported - Past Family History Mother Additional Family Medical History / Comment(s): Mother at age 31 as she was hit by a motor vehicle with history of depression. Father Family Medical History: Coronary Artery Disease (CAD) Additional Family Medical History / Comment(s): Father at age 54 after his third heart surgery. Sister(s) Additional Family Medical History / Comment(s): Patient has 3 sisters and one from a staph infection. Brother(s) Additional Family Medical History / Comment(s): Patient has 2 brothers and one has history of blood clots and anxiety. Patient has 3 children with no major medical problems. General Exam Limitations: no limitations General appearance: alert, in no apparent distress Head exam: Present: atraumatic, normocephalic, normal inspection Eye exam: Present: normal appearance, PERRL, EOMI. Absent: scleral icterus, conjunctival injection, periorbital swelling ENT exam: Present: normal exam, mucous membranes moist Neck exam: Present: normal inspection. Absent: tenderness, meningismus, lymphadenopathy Respiratory exam: Present: normal lung sounds bilaterally. Absent: respiratory distress, wheezes, rales, rhonchi, stridor Cardiovascular Exam: Present: regular rate, normal rhythm, normal heart sounds. Absent: systolic murmur, diastolic murmur, rubs, gallop, clicks GI/Abdominal exam: Present: soft, normal bowel sounds. Absent: distended, tenderness, guarding, rebound, rigid Extremities exam: Present: normal inspection, full ROM, normal capillary refill. Absent: tenderness, pedal edema, joint swelling, calf tenderness Back exam: Present: normal inspection Neurological exam: Present: alert, oriented X3, CN II-XII intact, reflexes normal Psychiatric exam: Present: normal affect, normal mood Skin exam: Present: warm, dry, intact, normal color. Absent: rash Course Vital Signs 06/19/17 06/19/17 12:40 13:33 Temperature 98.1 F Pulse Rate 90 74 Respiratory 20 18 Rate Blood Pressure 128/78 125/59 O2 Sat by Pulse 98 93 L Oximetry Medical Decision Making - Medical Decision Making Reviewed all labs and diagnostic testing. Anything within normal limits. CT was within normal limits. Patient aware and feels relief. Patient states her symptoms are about the same just feels a little discomfort on the left side. Patient does admit that she knows she needs new glasses however she can see the eye doctor until September of this year. - Lab Data Result diagrams: 06/19/17 13:25 06/19/17 13:25 Lab Results 06/19/17 06/19/17 06/19/17 Range/Units 13:25 13:25 13:25 WBC 5.5 (3.8-10.6) k/uL RBC 4.79 (3.80-5.40) m/uL Hgb 14.4 (11.4-16.0) gm/dL Hct 42.9 (34.0-46.0) % MCV 89.4 (80.0-100.0) fL MCH 30.1 (25.0-35.0) pg MCHC 33.7 (31.0-37.0) g/dL RDW 14.7 (11.5-15.5) % Plt Count 259 (150-450) k/uL Neutrophils % 51 % Lymphocytes % 35 % Monocytes % 6 % Eosinophils % 4 % Basophils % 2 % Neutrophils # 2.8 (1.3-7.7) k/uL Lymphocytes # 1.9 (1.0-4.8) k/uL Monocytes # 0.3 (0-1.0) k/uL Eosinophils # 0.2 (0-0.7) k/uL Basophils # 0.1 (0-0.2) k/uL Sodium 143 (137-145) mmol/L Potassium 3.8 (3.5-5.1) mmol/L Chloride 106 (98-107) mmol/L Carbon Dioxide 26 (22-30) mmol/L Anion Gap 11 mmol/L BUN 12 (7-17) mg/dL Creatinine 0.66 (0.52-1.04) mg/dL Est GFR (MDRD) Af Amer >60 (>60 ml/min/1.73 sqM) Est GFR (MDRD) Non-Af >60 (>60 ml/min/1.73 sqM) Glucose 99 (74-99) mg/dL Calcium 10.2 (8.4-10.2) mg/dL Total Bilirubin 0.6 (0.2-1.3) mg/dL AST 17 (14-36) U/L ALT 26 (9-52) U/L Alkaline Phosphatase 75 (38-126) U/L Total Protein 6.9 (6.3-8.2) g/dL Albumin 4.2 (3.5-5.0) g/dL TSH 1.190 (0.465-4.680) mIU/L Urine Color Light Yellow Urine Appearance Clear (Clear) Urine pH 7.0 (5.0-8.0) Ur Specific [place] 1.005 (1.001-1.035) Urine Protein Negative (Negative) Urine Glucose (UA) Negative (Negative) Urine Ketones Negative (Negative) Urine Blood Trace H (Negative) Urine Nitrite Negative (Negative) Urine Bilirubin Negative (Negative) Urine Urobilinogen <2.0 (<2.0) mg/dL Ur Leukocyte Esterase Trace H (Negative) Urine RBC 4 (0-5) /hpf Urine WBC 2 (0-5) /hpf Ur Squamous Epith Cells 1 (0-4) /hpf Urine Bacteria Rare H (None) /hpf Urine Mucus Rare H (None) /hpf Disposition Clinical Impression: Headache Disposition: HOME SELF-CARE Condition: Good Referrals: Albian Fu MD [Primary Care Provider] - 1-2 days Dominga Barragan MD [STAFF PHYSICIAN] - 1-2 days Time of Disposition: 15:00
[2017-06-19 13:41] LABS: Basophils # (A) 0.1 k/uL (0-0.2); Basophils % (A) 2 %; Eosinophils # (A) 0.2 k/uL (0-0.7); Eosinophils % (A) 4 %; HCT 42.9 % (34.0-46.0); HGB 14.4 gm/dL (11.4-16.0); Lymphocytes # (A) 1.9 k/uL (1.0-4.8); Lymphocytes % (A) 35 %; MCH 30.1 pg (25.0-35.0); MCHC 33.7 g/dL (31.0-37.0); MCV 89.4 fL (80.0-100.0); Mean Platelet Volume 7.2; Monocytes # (A) 0.3 k/uL (0-1.0); Monocytes % (A) 6 %; Neutrophils # (A) 2.8 k/uL (1.3-7.7); Neutrophils % (A) 51 %; Platelet Count 259 k/uL (150-450); RBC 4.79 m/uL (3.80-5.40); RDW 14.7 % (11.5-15.5); WBC 5.5 k/uL (3.8-10.6)
[2017-06-19 13:49] LABS: Appearance,Urine Clear (Clear); Bacteria,Urine Rare /hpf; Bilirubin,Urine Negative (Negative); Blood,Urine Trace (Negative); Color,Urine Light Yellow; Glucose,Urine (UA) Negative (Negative); Ketones,Urine Negative (Negative); Leukocyte Esterase,Urine Trace (Negative); Mucus,Urine Rare /hpf; Nitrite,Urine Negative (Negative); Protein,Urine Negative (Negative); RBC,Urine 4 /hpf (0-5); Specific Gravity,Urine 1.005 (1.001-1.035); Squamous Epithelial Cell,Urine 1 /hpf (0-4); Urobilinogen,Urine <2.0 mg/dL (<2.0); WBC,Urine 2 /hpf (0-5)
[2017-06-19 13:50] LABS: ALT 26 U/L (9-52); AST 17 U/L (14-36); Albumin 4.2 g/dL (3.5-5.0); Alkaline Phosphatase 75 U/L (38-126); Anion Gap 11 mmol/L; Blood Urea Nitrogen 12 mg/dL (7-17); Calcium 10.2 mg/dL (8.4-10.2); Carbon Dioxide 26 mmol/L (22-30); Chloride 106 mmol/L (98-107); Glucose 99 mg/dL (74-99); Potassium 3.8 mmol/L (3.5-5.1); Sodium 143 mmol/L (137-145); Total Bilirubin 0.6 mg/dL (0.2-1.3); Total Protein 6.9 g/dL (6.3-8.2)
--- NOTE | 2017-06-19 14:11 | CT ---
EXAMINATION TYPE: CT brain wo con DATE OF EXAM: 06/19/2017 COMPARISON: Previous study dated 05/19/2017. HISTORY: Dizziness, left side facial numbness CT DLP: 1076 mGycm Automated exposure control for dose reduction was used. FINDINGS: Central structures are midline. There is no evidence of hydrocephalus. No acute focal lesion, mass ef fect or midline shift is seen. I do not see evidence of intracranial blood. Visualized portions of the paranasal sinuses and mastoids are clear. No depressed skull fracture is s een. IMPRESSION: NORMAL CT SCAN OF THE BRAIN.
[2017-06-19 15:24] VITALS: BP 120/69; PULSE 66; RESP 20; TEMP 97.9
== END 2017-06-19 15:28 | disposition home or self-care (01) ==
LOC: EC 12:13
DX: R51 Headache (principal); Z87.891 Personal history of nicotine dependence; Z86.69 Personal history of other diseases of the nervous system and sense organs; Z79.82 Long term (current) use of aspirin; Z79.899 Other long term (current) drug therapy; Z91.018 Allergy to other foods; Z88.1 Allergy status to other antibiotic agents; Z91.040 Latex allergy status
CPT/HCPCS: 36415; 70450; 80053; 81001; 84443; 85025; 99284

== ENCOUNTER → 2017-08-09 | Outpatient (CLI) | payer MEDICARE, OTHER ==
--- NOTE | 2017-08-09 09:58 | US ---
EXAMINATION TYPE: US carotid duplex BILAT DATE OF EXAM: 08/09/2017 COMPARISON: NONE CLINICAL HISTORY: G45.9 TIA. Left head pain and numbness, No hx of TIA EXAM MEASUREMENTS: RIGHT: Peak Systolic Velocity (PSV) cm/sec ----- Right CCA: 64.5 ----- Right ICA: 96.9 ----- Right ECA: 74.6 ICA/CCA ratio: 1.5 RIGHT: End Diastole cm/sec ----- Right CCA: 20.9 ----- Right ICA: 45.2 ----- Right ECA: 10.9 LEFT: Peak Systolic Velocity (PSV) cm/sec ----- Left CCA: 62.5 ----- Left ICA: 78.7 ----- Left ECA: 55.2 ICA/CCA ratio: 1.3 LEFT: End Diastole cm/sec ----- Left CCA: 21.5 ----- Left ICA: 36.9 ----- Left ECA: 9.0 VERTEBRALS (direction of flow): Right Vertebral: Antegrade Left Vertebral: Antegrade Rhythm: Normal Grayscale images show no significant focal plaque at carotid bulb level bilaterally. IMPRESSION: No hemodynamically significant stenosis is seen in either internal carotid artery.
--- NOTE | 2017-08-11 10:06 | ECHOS ---
- Stress Test Note Stress Test Results/Findings: Exam Performed: stress echo exercise Exam Date: 08/09/17 Reason for Exam: CHEST PAIN Height: 5 ft 2 in Weight: 75.296 kg Protocol: [place] Stage: 2 Duration of Exercise: 6:00 Resting Heart Rate: 84 Resting Blood Pressure: 121/83 Maximum Achieved Heart Rate: 149 Maximum Achieved Blood Pressure: 144/89 85% PMHR: 145 100% PMHR: 170 METS: 7.1 Technologist Comment: Stress Test Results/Findings: This is a 52-year-old female with history of chest pain, palpitations being evaluated for cardiac status. Patient has history of diabetes and hypercholesterolemia. Base line EKG showed sinus rhythm with normal IL interval and QRS duration. Blood pressure at rest is 120/80. On baseline EKG, Occasional PVCs were noted. Patient walked on the [place] protocol for 6 minutes achieving a maximum of 149 with a blood pressure 111/73. EKGs taken during and after the exercise did not reveal any changes to suggest ischemia. Patient did not experience any chest pain. Significant artifacts were noted during exercise. ECHO DATA: Baseline echo images show normal wall motion and thickening. Exercise echo images showed augmentation of wall motion and thickening in all the segments. FINAL IMPRESSION: #1. Negative stress test #2. Negative stress echo. #3. Patient did not express any chest pain. #4. Rare PVCs are noted MTDD
== END | disposition home or self-care (01) ==
LOC: RADUSMAIN 09:06
PROVIDERS: ATTEND Family Medicine
DX: G45.9 Transient cerebral ischemic attack, unspecified (principal); R07.9 Chest pain, unspecified
CPT/HCPCS: 93017; 93350; 93880

== ENCOUNTER → 2017-08-10 | Outpatient (CLI) | payer MEDICARE, OTHER ==
--- NOTE | 2017-08-09 13:57 | P.STRESS ---
- Stress Test Note Stress Test Results/Findings: Exam Performed: Exam Date: Reason for Exam: Height: Weight: Protocol: Stage: Duration of Exercise: Resting Heart Rate: Resting Blood Pressure: Maximum Achieved Heart Rate: Maximum Achieved Blood Pressure: 85% PMHR: 100% PMHR: METS: Technologist Comment: Stress Test Results/Findings: This is a 52-year-old female with history of hypercholesteremia, family history ischemic heart disease being evaluated for chest pain and palpitations. Baseline EKG showed sinus rhythm with normal CA interval, QRS duration. Blood pressure at rest is 120/80 with pulse rate of 84. See her walk on the [place] protocol for 6 minutes achieving a maximal to 149 with blood pressure 111/ 73. EKGs taken during and after the exercise did not reveal any changes to suggest ischemia. Patient did not experience any chest pain. Echo data: Baseline echo images showed normal wall motion and thickening. Exercise echo images showed augmentation of the wall motion and thickening in all the segments. Final impression: #1. Negative stress test #2. Negative stress echo
--- NOTE | 2017-08-10 19:36 | MR ---
EXAMINATION TYPE: MR brain wo con DATE OF EXAM: 08/10/2017 COMPARISON: Correlation CT 06/19/2017 HISTORY: 52-year-old female Headaches, not feeling well, Transient cerebral ischemic attack TECHNIQUE: Multiplanar, multisequence images of the brain and brainstem were acquired without IV con trast. Diffusion weighted imaging is performed. The technologist notes that the study was ordered wit h contrast. The patient declined IV contrast administration. FINDINGS: No evidence for acute infarction, hemorrhage, mass, mass effect, midline shift, herniation, effacemen t of basal cisterns, or extra-axial fluid collection. The ventricles and sulci are age-appropriate. Major intracranial flow voids are intact. Seizures/FLAIR weighted sequences show mild to moderate scattered foci of bright white matter change in the subcortical and deep white matter of both cerebral hemispheres numbering approximately 25 in t he left cerebral hemisphere and 20 in the right cerebral hemisphere. Midline structures demonstrate normal morphology. The craniocervical junction is normal. Leftward nasal septal deviation. Mild mucosal thickening ethmoid air cells and maxillary sinuses. Pat ient is slightly hyperdense suggesting underlying strabismus. Trapped fluid in the right mastoid air cells. IMPRESSION: 1. Note that the patient declined IV contrast administration. 2. [id number] scattered burden of T2 bright white matter change. Nonspecific findings, most lik rona relating to changes of chronic small vessel ischemic disease. Given the patient's history of head aches, areas of ischemic demyelination relating to chronic migraines is a differential consideration. 3. No acute intracranial abnormality seen. 4. Trapped fluid in the right mastoid air cells. Correlate for any mastoid pain to exclude mastoiditi s. 5. Mild chronic ethmoid and maxillary sinus disease.
== END | disposition home or self-care (01) ==
LOC: RADMRIMAIN 17:43
PROVIDERS: ATTEND Family Medicine
DX: R90.89 Other abnormal findings on diagnostic imaging of central nervous system (principal)
CPT/HCPCS: 70551

== ENCOUNTER → 2017-09-14 | Outpatient (CLI) | payer MEDICARE, OTHER ==
--- NOTE | 2017-09-14 10:40 | XR ---
EXAMINATION TYPE: XR lumbosacral spine min 4V DATE OF EXAM: 09/14/2017 COMPARISON: 09/20/2014 HISTORY: 52 year-old female low back pain TECHNIQUE: 5 views FINDINGS: Slight rightward truncal shift. 5 lumbar type vertebral bodies. No pars interarticularis defect is id entified. Facet arthropathy mid to lower lumbar spine. Mild endplate spondylosis throughout. Vertebra l body heights are maintained. New trace grade 1 anterolisthesis at L4-L5. IMPRESSION: Facet arthropathy mid to lower lumbar spine. New trace grade 1 anterolisthesis at L4-L5.
== END | disposition home or self-care (01) ==
LOC: RADXRMAIN 10:02
PROVIDERS: ATTEND Internal Medicine
DX: M43.16 Spondylolisthesis, lumbar region (principal); M46.96 Unspecified inflammatory spondylopathy, lumbar region
CPT/HCPCS: 72110

== ENCOUNTER → 2017-12-27 | Outpatient (CLI) | payer MEDICARE, OTHER ==
--- NOTE | 2017-12-27 17:19 | XR ---
EXAMINATION TYPE: XR thoracic spine complete DATE OF EXAM: 12/27/2017 COMPARISON: NONE HISTORY: Back pain TECHNIQUE: 3 views FINDINGS: Vertebra have normal alignment. Posterior elements are intact. There is no paraspinal mass. There is mild spurring of the endplates. I see no compression fracture. IMPRESSION: Negative thoracic spine exam. Mild spurring. Spondylotic changes noted in the lower cervi trever spine.
== END | disposition home or self-care (01) ==
LOC: RADXRMAIN 16:45
PROVIDERS: ATTEND Internal Medicine
DX: M77.8 Other enthesopathies, not elsewhere classified (principal); M47.812 Spondylosis without myelopathy or radiculopathy, cervical region
CPT/HCPCS: 72072

== ENCOUNTER 2018-03-25 16:50 | Emergency (ER) | payer MEDICARE, OTHER ==
[2018-03-25 17:09] VITALS: TEMP 98.7
[2018-03-25] MEDS ORDERED: SODIUM CHLORIDE 0.9% 1,000 ML IV ONE (17:37)
[2018-03-25] MEDS ORDERED: LORazepam 2 MG/ML INJ IV STA (17:37)
--- NOTE | 2018-03-25 18:00 | ED ---
Anxiety HPI - General Chief Complaint: Anxiety Stated Complaint: abn heart rate Time Seen by Provider: 03/25/18 17:14 Source: EMS Mode of arrival: EMS - History of Present Illness Initial Comments: 53-year-old female patient presents to the emergency department today with complaints of increased anxiety and paranoia. Patient states that today instead of taking her Valium for her chronic back pain she decided to do marijuana edible chocolate. Patient states that she feels fearful. Patient states that she called an ambulance when the symptoms started shortly after eating the edible. Patient denies any chest pain, shortness of breath, dizziness, weakness, nausea, or vomiting. States that she feels very anxious. Patient states she has eaten these before usually during the holidays, states that they've made her feel exactly the same as she is feeling now. Patient denies any recent rash, fever, chills, abdominal pain, nausea, vomiting, diarrhea, constipation, numbness, tingling, dizziness, weakness, hematuria, dysuria, urinary urgency, urinary frequency, headache, visual changes, or any other complaints. - Related Data Home Medications: Home Medications Medication Instructions Recorded Confirmed Latanoprost Ophth [Xalatan 0.005%] 1 drops BOTH EYES HS 09/30/15 03/25/18 Olopatadine HCl [Pataday] 1 drop BOTH EYES DAILY 05/19/17 03/25/18 Escitalopram Oxalate [Lexapro] 10 mg PO DAILY 03/25/18 03/25/18 Meloxicam [Mobic] 15 mg PO DAILY 03/25/18 03/25/18 Allergies/Adverse Reactions: Allergies Allergy/AdvReac Type Severity Reaction Status Date / Time cashew nut Allergy Unknown Verified 03/25/18 17:36 chocolate flavor Allergy Dyspnea & Verified 03/25/18 17:36 heart racing cocoa Allergy Dyspnea Verified 03/25/18 17:36 and heart racing corn Allergy Inflammatio Verified 03/25/18 17:36 n erythromycin base Allergy Swelling, Verified 03/25/18 17:36 [Erythromycin Base] itching & arthraligia latex Allergy Dyspnea Verified 03/25/18 17:36 strawberry Allergy Unknown Verified 03/25/18 17:36 wheat Allergy Constipatio Verified 03/25/18 17:36 n Review of Systems ROS Statement: Those systems with pertinent positive or pertinent negative responses have been documented in the HPI. ROS Other: All systems not noted in ROS Statement are negative. Past Medical History Past Medical History: Asthma, COPD, Deep Vein Thrombosis (DVT), Eye Disorder, GERD/Reflux, Memory Impairment, Myocardial Infarction (OK) Additional Past Medical History / Comment(s): glaucoma, multiple concussions, bilateral tinnunitus, DVT in ankles & inside of thighs after hysterectomy; fungal infections "off & on diflucan for 7 years", hx. irregular heart beat Last Myocardial Infarction Date:: 04/2006 History of Any Multi-Drug Resistant Organisms: None Reported Past Surgical History: Hysterectomy, Tonsillectomy Additional Past Surgical History / Comment(s): egd Past Anesthesia/Blood Transfusion Reactions: Motion Sickness Past Psychological History: ADD/ADHD, Anxiety, Depression Smoking Status: Former smoker Past Alcohol Use History: None Reported Past Drug Use History: Marijuana - Past Family History Mother Additional Family Medical History / Comment(s): Mother at age 31 as she was hit by a motor vehicle with history of depression. Father Family Medical History: Coronary Artery Disease (CAD) Additional Family Medical History / Comment(s): Father at age 54 after his third heart surgery. Sister(s) Additional Family Medical History / Comment(s): Patient has 3 sisters and one from a staph infection. Brother(s) Additional Family Medical History / Comment(s): Patient has 2 brothers and one has history of blood clots and anxiety. Patient has 3 children with no major medical problems. General Exam Limitations: no limitations General appearance: alert, in no apparent distress, other (This is a well- developed, well-nourished adult female patient in no acute distress. Vital signs upon presentation are temperature 98.7F, pulse 124, respirations 18, blood pressure 168/65, pulse ox 100% on room air.) Respiratory exam: Present: normal lung sounds bilaterally. Absent: respiratory distress, wheezes, rales, rhonchi, stridor Cardiovascular Exam: Present: regular rate, normal rhythm, normal heart sounds. Absent: systolic murmur, diastolic murmur, rubs, gallop, clicks GI/Abdominal exam: Present: soft, normal bowel sounds. Absent: distended, tenderness, guarding, rebound, rigid Neurological exam: Present: alert, oriented X3, CN II-XII intact Psychiatric exam: Present: normal affect, normal mood Skin exam: Present: warm, dry, intact, normal color. Absent: rash Course Vital Signs 03/25/18 03/25/18 17:03 18:34 Temperature 98.7 F 98.7 F Pulse Rate 124 H 98 Respiratory 18 16 Rate Blood Pressure 168/65 127/87 O2 Sat by Pulse 100 100 Oximetry Medical Decision Making - Medical Decision Making 53-year-old female patient presented to the emergency department today for complaints of increased anxiety and fearful thoughts after ingesting edible marijuana chocolate. Physical examination is relatively unremarkable. Patient is neurologically intact. EKG showed normal sinus rhythm with no ectopy. Patient was given Ativan IV fluids here in the department. Upon reevaluation she is feeling better. Vital signs have improved. She'll be discharged home at this time with instructions to avoid cannabis use in the future. She is instructed to follow-up with her primary care physician for recheck in 1-2 days. Return parameters discussed in detail. She verbalizes understanding and agrees with this plan. - EKG Data -: EKG Interpreted by Me EKG Comments: EKG obtained at 1803 shows normal sinus rhythm with a ventricular rate of 100, MT interval 148, QRS duration 86, QT 348, QTC 448. Did compared to EKG obtained in June 2017, changes appear to be consistent. Disposition Clinical Impression: Marijuana intoxication Disposition: HOME SELF-CARE Condition: Good Instructions: Cannabis Abuse (ED) Additional Instructions: Avoid use of cannabis in the future. Follow-up with her primary care physician for recheck in 1-2 days. Return here immediately for any new, worsening, or concerning symptoms. Is patient prescribed a controlled substance at d/c from ED?: No Referrals: Bernard Mcdonnell MD [Primary Care Provider] - 1-2 days Time of Disposition: 18:41
[2018-03-25 18:36] VITALS: BP 127/87; PULSE 98; RESP 16
== END 2018-03-25 18:55 | disposition home or self-care (01) ==
LOC: EC 16:50
DX: F12.929 Cannabis use, unspecified with intoxication, unspecified (principal); F41.9 Anxiety disorder, unspecified; F32.9 Major depressive disorder, single episode, unspecified; I25.2 Old myocardial infarction; Z86.718 Personal history of other venous thrombosis and embolism; Z79.1 Long term (current) use of non-steroidal anti-inflammatories (NSAID); Z79.899 Other long term (current) drug therapy; Z88.1 Allergy status to other antibiotic agents; Z91.040 Latex allergy status; Z91.018 Allergy to other foods; Z87.891 Personal history of nicotine dependence
CPT/HCPCS: 93005; 99284; 96374; 96361; J2060

== ENCOUNTER 2018-04-03 20:17 | Emergency (ER) | payer MEDICARE, OTHER ==
[2018-04-03 20:26] VITALS: RESP 18
[2018-04-03] MEDS ORDERED: SODIUM CHLORIDE 0.9% 500 ML 500 ML IV STA (20:45)
[2018-04-03 21:31] LABS: Appearance,Urine Clear (Clear); Bacteria,Urine Rare /hpf; Bilirubin,Urine Negative (Negative); Blood,Urine Small (Negative); Color,Urine Light Yellow; Glucose,Urine (UA) Negative (Negative); Ketones,Urine Negative (Negative); Leukocyte Esterase,Urine Trace (Negative); Nitrite,Urine Negative (Negative); PH, Urine 6.5 (5.0-8.0); Protein,Urine Negative (Negative); RBC,Urine 2 /hpf (0-5); Specific Gravity,Urine 1.004 (1.001-1.035); Squamous Epithelial Cell,Urine <1 /hpf (0-4); Urobilinogen,Urine <2.0 mg/dL (<2.0); WBC,Urine 2 /hpf (0-5)
[2018-04-03 21:34] LABS: ALT 33 U/L (9-52); AST 27 U/L (14-36); Alkaline Phosphatase 85 U/L (38-126); Anion Gap 7 mmol/L; Blood Urea Nitrogen 19 mg/dL (7-17); Calcium 9.8 mg/dL (8.4-10.2); Carbon Dioxide 25 mmol/L (22-30); Chloride 106 mmol/L (98-107); Glucose 118 mg/dL (74-99); Magnesium 2.3 mg/dL (1.6-2.3); Potassium 4.1 mmol/L (3.5-5.1); Sodium 138 mmol/L (137-145); Total Bilirubin 0.5 mg/dL (0.2-1.3); Total Protein 6.8 g/dL (6.3-8.2)
--- NOTE | 2018-04-03 21:35 | XR ---
EXAMINATION TYPE: XR chest 2V DATE OF EXAM: 04/03/2018 COMPARISON: 05/31/2017 HISTORY: Asthma and COPD TECHNIQUE: Frontal and lateral views of the chest are obtained. FINDINGS: Heart and mediastinum are normal. Lungs are clear. Diaphragm is normal. There are chest le ads. Bony thorax is intact. IMPRESSION: Normal chest. No change.
[2018-04-03 21:37] LABS: Basophils % (A) 1 %; Eosinophils # (A) 0.1 k/uL (0-0.7); Eosinophils % (A) 2 %; HCT 45.2 % (34.0-46.0); HGB 14.7 gm/dL (11.4-16.0); Lymphocytes # (A) 2.3 k/uL (1.0-4.8); Lymphocytes % (A) 40 %; MCH 30.3 pg (25.0-35.0); MCHC 32.6 g/dL (31.0-37.0); MCV 92.8 fL (80.0-100.0); Mean Platelet Volume 6.8; Monocytes # (A) 0.4 k/uL (0-1.0); Monocytes % (A) 7 %; Neutrophils # (A) 2.7 k/uL (1.3-7.7); Neutrophils % (A) 48 %; Platelet Count 237 k/uL (150-450); RBC 4.87 m/uL (3.80-5.40); RDW 13.6 % (11.5-15.5); Urn Cannabinoid Scrn Not Detected (NotDetected); WBC 5.6 k/uL (3.8-10.6)
[2018-04-03 21:38] LABS: Amphetamine Screen,Urine Not Detected (NotDetected); Barbiturate Screen,Urine Not Detected (NotDetected); Benzodiazepines Screen,Urine Detected (NotDetected); Cocaine Screen,Urine Not Detected (NotDetected); Methadone Screen, Urine Not Detected (NotDetected); Opiate Screen,Urine Not Detected (NotDetected); Oxycodone Screen, Urine Not Detected (NotDetected); Phencyclidine Screen,Urine Not Detected (NotDetected); Prothrombin Time 9.9 sec (9.0-12.0); Tricyclic Antidepressant,Urine Not Detected (NotDetected)
[2018-04-03 21:39] LABS: Partial Thromboplastin Time 24.4 sec (22.0-30.0)
[2018-04-03 21:40] LABS: Creatine Kinase 56 U/L (30-135)
[2018-04-03 21:53] LABS: Creatine Kinase MB 0.6 ng/mL (0.0-2.4); Troponin I <0.012 ng/mL (0.000-0.034)
--- NOTE | 2018-04-03 22:34 | CT ---
EXAMINATION TYPE: CT brain wo con DATE OF EXAM: 04/03/2018 COMPARISON: 06/19/2017 HISTORY: HTN, PALPATATIONS dizziness CT DLP: 960.4 mGycm Automated exposure control for dose reduction was used. FINDINGS: Ventricles and sulci appear normal. There is no mass effect nor midline shift. There is no sign of in tracranial hemorrhage. Calvarium is intact. IMPRESSION: NEGATIVE CT SCAN OF THE BRAIN. NO CHANGE.
--- NOTE | 2018-04-03 23:16 | ED ---
General Adult HPI - General Source: patient Mode of arrival: ambulatory Limitations: no limitations <Karly Fuentes - Last Filed: 04/04/18 03:14> <Aneta Hernandez - Last Filed: 04/04/18 05:59> - General Chief complaint: Arrhythmia/Palpitations Stated complaint: HTN Time Seen by Provider: 04/03/18 20:36 - History of Present Illness Initial comments: 53-year-old female patient presents to the emergency department today with complaints of an odd feeling to the left side of her head and intermittent palpitations. Patient states that the sensation in her head feels like numbness however she is able to feel the area when touched. Patient denies any headache , blurred, or double vision. States that occasionally she has been having racing heart. States that she has been taking aspirin when she gets a sensation and it does seem to help. She denies any chest pain, shortness of breath, nausea, vomiting, dizziness, or weakness. Patient states symptoms started about a week ago after ingesting a chocolate cannabis edible. Patient states that it worsened when she took her Valium the next day. States that she has stopped taking the Valium and the cannabis but she still has symptoms. Patient denies any recent rash, fever, chills, abdominal pain, diarrhea, constipation, back pain, hematuria, dysuria, urinary urgency, urinary frequency , or any other complaints. (Karly Fuentes) - Related Data Home Medications Medication Instructions Recorded Confirmed Latanoprost Ophth [Xalatan 0.005%] 1 drops BOTH EYES HS 09/30/15 03/25/18 Olopatadine HCl [Pataday] 1 drop BOTH EYES DAILY 05/19/17 03/25/18 Escitalopram Oxalate [Lexapro] 10 mg PO DAILY 03/25/18 03/25/18 Meloxicam [Mobic] 15 mg PO DAILY 03/25/18 03/25/18 Allergies Allergy/AdvReac Type Severity Reaction Status Date / Time cashew nut Allergy Unknown Verified 04/03/18 20:26 chocolate flavor Allergy Dyspnea & Verified 04/03/18 20:26 heart racing cocoa Allergy Dyspnea Verified 04/03/18 20:26 and heart racing corn Allergy Inflammatio Verified 04/03/18 20:26 n erythromycin base Allergy Swelling, Verified 04/03/18 20:26 [Erythromycin Base] itching & arthraligia latex Allergy Dyspnea Verified 04/03/18 20:26 strawberry Allergy Unknown Verified 04/03/18 20:26 wheat Allergy Constipatio Verified 04/03/18 20:26 n Review of Systems ROS Other: All systems not noted in ROS Statement are negative. <Karly Fuentes - Last Filed: 04/04/18 03:14> ROS Other: All systems not noted in ROS Statement are negative. <Aneta Hernandez - Last Filed: 04/04/18 05:59> ROS Statement: Those systems with pertinent positive or pertinent negative responses have been documented in the HPI. Past Medical History Past Medical History: Asthma, COPD, Deep Vein Thrombosis (DVT), Eye Disorder, GERD/Reflux, Memory Impairment, Myocardial Infarction ([place]) Additional Past Medical History / Comment(s): glaucoma, multiple concussions, bilateral tinnunitus, DVT in ankles & inside of thighs after hysterectomy; fungal infections "off & on diflucan for 7 years", hx. irregular heart beat Last Myocardial Infarction Date:: 04/2006 History of Any Multi-Drug Resistant Organisms: None Reported Past Surgical History: Hysterectomy, Tonsillectomy Additional Past Surgical History / Comment(s): egd Past Anesthesia/Blood Transfusion Reactions: Motion Sickness Past Psychological History: ADD/ADHD, Anxiety, Depression Smoking Status: Former smoker Past Alcohol Use History: None Reported Past Drug Use History: Marijuana - Past Family History Mother Additional Family Medical History / Comment(s): Mother at age 31 as she was hit by a motor vehicle with history of depression. Father Family Medical History: Coronary Artery Disease (CAD) Additional Family Medical History / Comment(s): Father at age 54 after his third heart surgery. Sister(s) Additional Family Medical History / Comment(s): Patient has 3 sisters and one from a staph infection. Brother(s) Additional Family Medical History / Comment(s): Patient has 2 brothers and one has history of blood clots and anxiety. Patient has 3 children with no major medical problems. <Karly Fuentes - Last Filed: 04/04/18 03:14> General Exam Limitations: no limitations General appearance: alert, in no apparent distress, other (This is a well- developed, well-nourished adult female patient in no acute distress. Vital signs upon presentation are temperature 98.2F, pulse 94, respirations 18, blood pressure 120/69, pulse ox 100% on room air.) Eye exam: Present: normal appearance, PERRL, EOMI. Absent: scleral icterus, conjunctival injection, nystagmus, periorbital swelling ENT exam: Present: normal exam, normal oropharynx, mucous membranes moist Respiratory exam: Present: normal lung sounds bilaterally. Absent: respiratory distress, wheezes, rales, rhonchi, stridor Cardiovascular Exam: Present: regular rate, normal rhythm, normal heart sounds. Absent: systolic murmur, diastolic murmur, rubs, gallop, clicks GI/Abdominal exam: Present: soft, normal bowel sounds. Absent: distended, tenderness, guarding, rebound, rigid Neurological exam: Present: alert, oriented X3, CN II-XII intact Expanded Speech: Present: fluid speech Cranial nerves: EOM's Intact: Normal, Tongue Deviation: Normal, Nystagmus: Normal Cerebellar function: Finger to Nose: Normal Motor strength exam: RUE: 5, LUE: 5, RLE: 5, LLE: 5 Psychiatric exam: Present: normal mood, anxious Skin exam: Present: warm, dry, intact, normal color. Absent: rash <Karly Fuentes - Last Filed: 04/04/18 03:14> Vital Signs 04/03/18 04/03/18 04/03/18 20:23 22:00 23:45 Temperature 98.2 F 97.3 F L Pulse Rate 94 82 76 Respiratory 18 18 18 Rate Blood Pressure 120/69 121/90 126/78 O2 Sat by Pulse 100 97 97 Oximetry EKG Findings - EKG Comments: EKG Findings:: EKG obtained at 2031 shows normal sinus rhythm with a ventricular rate of 83, WA interval 158, QRS duration 90, QT 358, QTC 420. No evidence of ST elevation or depression. <Karly Fuentes - Last Filed: 04/04/18 03:14> Medical Decision Making - Lab Data Result diagrams: 04/03/18 20:57 04/03/18 20:57 - Radiology Data Radiology results: report reviewed, image reviewed <Karly Fuentes - Last Filed: 04/04/18 03:14> - Lab Data Result diagrams: 04/03/18 20:57 04/03/18 20:57 <Aneta Hernandez - Last Filed: 04/04/18 05:59> - Medical Decision Making 53-year-old female patient presented to the emergency department today for evaluation of numbness sensation to the left side of her face and head and palpitations. Physical examination is unremarkable. Patient was neurologically intact with no focal deficits. Labs reviewed and are unremarkable. EKG showed normal sinus rhythm with no ectopy. CT of the brain was performed with no evidence of acute intracranial abnormalities. Chest x- ray showed no acute cardiopulmonary abnormalities. Did discuss findings and results with the patient. She'll be discharged home to follow-up with neurology for further evaluation. She is also instructed to follow-up with her primary care physician for recheck in 1-2 days. She does have an appointment tomorrow. Return parameters are discussed in detail. She verbalizes understanding and agrees with this plan (Karly Fuentes) I was available for consultation in the emergency department. The history and physical exam were done by the midlevel provider. I was consulted for this patient's care. I reviewed the case with the midlevel provider and based on their presentation of the patient, I agree with the assessment, medical decision making and plan of care as documented. (Aneta Hernandez) - Lab Data Lab Results 04/03/18 04/03/18 04/03/18 Range/Units 20:57 20:57 20:57 WBC 5.6 (3.8-10.6) k/uL RBC 4.87 (3.80-5.40) m/uL Hgb 14.7 (11.4-16.0) gm/dL Hct 45.2 (34.0-46.0) % MCV 92.8 (80.0-100.0) fL MCH 30.3 (25.0-35.0) pg MCHC 32.6 (31.0-37.0) g/dL RDW 13.6 (11.5-15.5) % Plt Count 237 (150-450) k/uL Neutrophils % 48 % Lymphocytes % 40 % Monocytes % 7 % Eosinophils % 2 % Basophils % 1 % Neutrophils # 2.7 (1.3-7.7) k/uL Lymphocytes # 2.3 (1.0-4.8) k/uL Monocytes # 0.4 (0-1.0) k/uL Eosinophils # 0.1 (0-0.7) k/uL Basophils # 0.0 (0-0.2) k/uL PT (9.0-12.0) sec INR (<1.2) APTT (22.0-30.0) sec Sodium 138 (137-145) mmol/L Potassium 4.1 (3.5-5.1) mmol/L Chloride 106 (98-107) mmol/L Carbon Dioxide 25 (22-30) mmol/L Anion Gap 7 mmol/L BUN 19 H (7-17) mg/dL Creatinine 0.64 (0.52-1.04) mg/dL Est GFR (CKD-EPI)AfAm >90 (>60 ml/min/1.73 sqM) Est GFR (CKD-EPI)NonAf >90 (>60 ml/min/1.73 sqM) Glucose 118 H (74-99) mg/dL Calcium 9.8 (8.4-10.2) mg/dL Magnesium 2.3 (1.6-2.3) mg/dL Total Bilirubin 0.5 (0.2-1.3) mg/dL AST 27 (14-36) U/L ALT 33 (9-52) U/L Alkaline Phosphatase 85 (38-126) U/L Total Creatine Kinase 56 (30-135) U/L CK-MB (CK-2) 0.6 (0.0-2.4) ng/mL CK-MB (CK-2) Rel Index 1.1 Troponin I <0.012 (0.000-0.034) ng/mL Total Protein 6.8 (6.3-8.2) g/dL Albumin 4.0 (3.5-5.0) g/dL TSH 1.610 (0.465-4.680) mIU/L Urine Color Urine Appearance (Clear) Urine pH (5.0-8.0) Ur Specific [place] (1.001-1.035) Urine Protein (Negative) Urine Glucose (UA) (Negative) Urine Ketones (Negative) Urine Blood (Negative) Urine Nitrite (Negative) Urine Bilirubin (Negative) Urine Urobilinogen (<2.0) mg/dL Ur Leukocyte Esterase (Negative) Urine RBC (0-5) /hpf Urine WBC (0-5) /hpf Ur Squamous Epith Cells (0-4) /hpf Urine Bacteria (None) /hpf Urine Opiates Screen (NotDetected) Ur Oxycodone Screen (NotDetected) Urine Methadone Screen (NotDetected) Ur Propoxyphene Screen (NotDetected) Ur Barbiturates Screen (NotDetected) U Tricyclic Antidepress (NotDetected) Ur Phencyclidine Scrn (NotDetected) Ur Amphetamines Screen (NotDetected) U Methamphetamines Scrn (NotDetected) U Benzodiazepines Scrn (NotDetected) Urine Cocaine Screen (NotDetected) U Marijuana (THC) Screen (NotDetected) 04/03/18 04/03/18 Range/Units 20:57 20:57 WBC (3.8-10.6) k/uL RBC (3.80-5.40) m/uL Hgb (11.4-16.0) gm/dL Hct (34.0-46.0) % MCV (80.0-100.0) fL MCH (25.0-35.0) pg MCHC (31.0-37.0) g/dL RDW (11.5-15.5) % Plt Count (150-450) k/uL Neutrophils % % Lymphocytes % % Monocytes % % Eosinophils % % Basophils % % Neutrophils # (1.3-7.7) k/uL Lymphocytes # (1.0-4.8) k/uL Monocytes # (0-1.0) k/uL Eosinophils # (0-0.7) k/uL Basophils # (0-0.2) k/uL PT 9.9 (9.0-12.0) sec INR 1.0 (<1.2) APTT 24.4 (22.0-30.0) sec Sodium (137-145) mmol/L Potassium (3.5-5.1) mmol/L Chloride (98-107) mmol/L Carbon Dioxide (22-30) mmol/L Anion Gap mmol/L BUN (7-17) mg/dL Creatinine (0.52-1.04) mg/dL Est GFR (CKD-EPI)AfAm (>60 ml/min/1.73 sqM) Est GFR (CKD-EPI)NonAf (>60 ml/min/1.73 sqM) Glucose (74-99) mg/dL Calcium (8.4-10.2) mg/dL Magnesium (1.6-2.3) mg/dL Total Bilirubin (0.2-1.3) mg/dL AST (14-36) U/L ALT (9-52) U/L Alkaline Phosphatase (38-126) U/L Total Creatine Kinase (30-135) U/L CK-MB (CK-2) (0.0-2.4) ng/mL CK-MB (CK-2) Rel Index Troponin I (0.000-0.034) ng/mL Total Protein (6.3-8.2) g/dL Albumin (3.5-5.0) g/dL TSH (0.465-4.680) mIU/L Urine Color Light Yellow Urine Appearance Clear (Clear) Urine pH 6.5 (5.0-8.0) Ur Specific [place] 1.004 (1.001-1.035) Urine Protein Negative (Negative) Urine Glucose (UA) Negative (Negative) Urine Ketones Negative (Negative) Urine Blood Small H (Negative) Urine Nitrite Negative (Negative) Urine Bilirubin Negative (Negative) Urine Urobilinogen <2.0 (<2.0) mg/dL Ur Leukocyte Esterase Trace H (Negative) Urine RBC 2 (0-5) /hpf Urine WBC 2 (0-5) /hpf Ur Squamous Epith Cells <1 (0-4) /hpf Urine Bacteria Rare H (None) /hpf Urine Opiates Screen Not Detected (NotDetected) Ur Oxycodone Screen Not Detected (NotDetected) Urine Methadone Screen Not Detected (NotDetected) Ur Propoxyphene Screen Not Detected (NotDetected) Ur Barbiturates Screen Not Detected (NotDetected) U Tricyclic Antidepress Not Detected (NotDetected) Ur Phencyclidine Scrn Not Detected (NotDetected) Ur Amphetamines Screen Not Detected (NotDetected) U Methamphetamines Scrn Not Detected (NotDetected) U Benzodiazepines Scrn Detected H (NotDetected) Urine Cocaine Screen Not Detected (NotDetected) U Marijuana (THC) Screen Not Detected (NotDetected) - Radiology Data Two-view x-ray of the chest is obtained. Heart mediastinum are normal. Lungs are clear. Diaphragm is normal. There are chest leads. Bony thorax is intact. Impression by Dr. Wright shows normal chest with no change. CT brain without contrast was obtained. Ventricles and sulci appear normal. There is no mass effect or midline shift. There is no sign of intracranial hemorrhage. Calvarium is intact. Impression by Dr. Wright shows negative computed tomography scan of the brain. No change. (Karly Fuentes) Disposition Is patient prescribed a controlled substance at d/c from ED?: No Time of Disposition: 23:16 <Karly Fuentes - Last Filed: 04/04/18 03:14> <Aneta Hernandez - Last Filed: 04/04/18 05:59> Clinical Impression: Facial paresthesia, Palpitations Disposition: HOME SELF-CARE Condition: Good Instructions: Heart Palpitations (ED), Paresthesia (ED) Additional Instructions: Follow up with neurologist for recheck as soon as possible. Follow up with your primary care physician for recheck in 1-2 days. Return here immediately for any new, worsening, or concerning symptoms. Referrals: Bernard Mcdonnell MD [Primary Care Provider] - 1-2 days Nery Nye MD [STAFF PHYSICIAN] - 1-2 days
[2018-04-03 23:46] VITALS: BP 126/78; PULSE 76; TEMP 97.3
== END 2018-04-03 23:45 | disposition home or self-care (01) ==
LOC: EC 20:17
DX: R00.2 Palpitations (principal); R20.2 Paresthesia of skin; F41.9 Anxiety disorder, unspecified; F32.9 Major depressive disorder, single episode, unspecified; I25.2 Old myocardial infarction; Z79.1 Long term (current) use of non-steroidal anti-inflammatories (NSAID); Z79.899 Other long term (current) drug therapy; Z91.018 Allergy to other foods; Z88.1 Allergy status to other antibiotic agents; Z91.040 Latex allergy status; Z86.718 Personal history of other venous thrombosis and embolism; Z87.891 Personal history of nicotine dependence; Z90.710 Acquired absence of both cervix and uterus
CPT/HCPCS: 36415; 70450; 71046; 80053; 80306; 81001; 82550; 82553; 83735; 84443; 84484; 85025; 85610; 85730; 93005; 96360; 99285

== ENCOUNTER 2018-06-10 06:28 | Emergency (ER) | payer MEDICARE, OTHER ==
--- NOTE | 2018-06-10 07:14 | ED ---
General Adult HPI - General Chief complaint: Neuro Symptoms/Deficit Stated complaint: numbness,headache Time Seen by Provider: 06/10/18 07:00 Source: patient, RN notes reviewed Mode of arrival: EMS Limitations: no limitations - History of Present Illness Initial comments: This is a 53-year-old female who presents emergency Department with a past medical history significant for anxiety and asthma. Patient states she woke up at about 3 AM this morning after having had a nightmare felt her heart racing felt tension in her neck and was having which she believes now was a panic attack. Patient states after being up and talking to her daughter and trying to drink some tender and water her symptoms did not resolve. Patient states her panic got worse she started having a little bit of a left-sided headache which is now resolved. Patient states after the headache she had some tingling in her fingers but no numbness and no weakness. Patient states the tingling has happened before and it normally goes away like it did today. Patient denies any fever chills or cough. Patient denies any slurred speech. Patient denies any difficulty ambulatory or moving any of her extremities. Patient denies any abdominal pain patient denies nausea vomiting diarrhea. Patient denies any chest pain difficulty breathing shortest breath per patient denies any recent fever chills or cough. Currently patient has no symptoms. Patient states she's had panic attacks in the past and this is very similar. - Related Data Home Medications Medication Instructions Recorded Confirmed Latanoprost Ophth [Xalatan 0.005%] 1 drops BOTH EYES HS 09/30/15 03/25/18 Olopatadine HCl [Pataday] 1 drop BOTH EYES DAILY 05/19/17 03/25/18 Escitalopram Oxalate [Lexapro] 10 mg PO DAILY 03/25/18 03/25/18 Meloxicam [Mobic] 15 mg PO DAILY 03/25/18 03/25/18 Allergies Allergy/AdvReac Type Severity Reaction Status Date / Time cashew nut Allergy Unknown Verified 06/10/18 06:37 chocolate flavor Allergy Dyspnea & Verified 06/10/18 06:37 heart racing cocoa Allergy Dyspnea Verified 06/10/18 06:37 and heart racing corn Allergy Inflammatio Verified 06/10/18 06:37 n erythromycin base Allergy Swelling, Verified 06/10/18 06:37 [Erythromycin Base] itching & arthraligia latex Allergy Dyspnea Verified 06/10/18 06:37 strawberry Allergy Unknown Verified 06/10/18 06:37 wheat Allergy Constipatio Verified 06/10/18 06:37 n Review of Systems ROS Statement: Those systems with pertinent positive or pertinent negative responses have been documented in the HPI. ROS Other: All systems not noted in ROS Statement are negative. Past Medical History Past Medical History: Asthma, COPD, Deep Vein Thrombosis (DVT), Eye Disorder, GERD/Reflux, Memory Impairment, Myocardial Infarction ([place]) Additional Past Medical History / Comment(s): glaucoma, multiple concussions, bilateral tinnunitus, DVT in ankles & inside of thighs after hysterectomy; fungal infections "off & on diflucan for 7 years", hx. irregular heart beat Last Myocardial Infarction Date:: 04/2006 History of Any Multi-Drug Resistant Organisms: None Reported Past Surgical History: Hysterectomy, Tonsillectomy Additional Past Surgical History / Comment(s): egd Past Anesthesia/Blood Transfusion Reactions: Motion Sickness Past Psychological History: ADD/ADHD, Anxiety, Depression Smoking Status: Former smoker Past Alcohol Use History: None Reported Past Drug Use History: Marijuana - Past Family History Mother Additional Family Medical History / Comment(s): Mother at age 31 as she was hit by a motor vehicle with history of depression. Father Family Medical History: Coronary Artery Disease (CAD) Additional Family Medical History / Comment(s): Father at age 54 after his third heart surgery. Sister(s) Additional Family Medical History / Comment(s): Patient has 3 sisters and one from a staph infection. Brother(s) Additional Family Medical History / Comment(s): Patient has 2 brothers and one has history of blood clots and anxiety. Patient has 3 children with no major medical problems. General Exam - General Exam Comments Initial Comments: GENERAL: Patient is well-developed and well-nourished. Patient is nontoxic and well- hydrated and is in no acute distress. ENT: Neck is soft and supple. No significant lymphadenopathy is noted. Oropharynx is clear. Moist mucous membranes. Neck has full range of motion without eliciting any pain. EYES: The sclera were anicteric and conjunctiva were pink and moist. Extraocular movements were intact and pupils were equal round and reactive to light. Eyelids were unremarkable. PULMONARY: Unlabored respirations. Good breath sounds bilaterally. No audible rales rhonchi or wheezing was noted. CARDIOVASCULAR: There is a regular rate and rhythm without any murmurs gallops or rubs. ABDOMEN: Soft and nontender with normal bowel sounds. No palpable organomegaly was noted. There is no palpable pulsatile mass. SKIN: Skin is clear with no lesions or rashes and otherwise unremarkable. NEUROLOGIC: Patient is alert and oriented x3. Cranial nerves II through XII are grossly intact. Motor and sensory are also intact. Normal speech, volume and content. Symmetrical smile. MUSCULOSKELETAL: Normal extremities with adequate strength and full range of motion. No lower extremity swelling or edema. No calf tenderness. LYMPHATICS: No significant lymphadenopathy is noted PSYCHIATRIC: Normal psychiatric evaluation. Limitations: no limitations Course Vital Signs 06/10/18 06/10/18 06:30 06:46 Temperature 97.5 F L Pulse Rate 101 H Pulse Rate [ 102 H [employer] ] Respiratory 20 Rate Blood Pressure 133/91 O2 Sat by Pulse 99 Oximetry Medical Decision Making - Medical Decision Making EKG shows normal sinus rhythm at 87 bpm UT interval is 164 QRS is 92 QT interval 32 QTC is 459 per patient's EKG shows no ST segment elevation or depression or T wave abnormalities are noted. I will back into the room to reevaluate the patient she did not want a CAT scan of her head because she had no symptoms at this time. Patient states this happens to her often and she used to take Xanax but Xanax gave her more anxiety. Patient states she now takes Valium but has had to cut down to about a milligram only because she takes more she has panic attack. Patient states she feels good at this time and has been without symptoms for about an hour and does not want any further workup. - Lab Data Result diagrams: 06/10/18 06:54 06/10/18 06:54 Lab Results 06/10/18 06/10/18 Range/Units 06:54 06:54 WBC 8.4 (3.8-10.6) k/uL RBC 4.83 (3.80-5.40) m/uL Hgb 14.3 (11.4-16.0) gm/dL Hct 44.5 (34.0-46.0) % MCV 92.2 (80.0-100.0) fL MCH 29.7 (25.0-35.0) pg MCHC 32.2 (31.0-37.0) g/dL RDW 13.2 (11.5-15.5) % Plt Count 303 (150-450) k/uL Neutrophils % 44 % Lymphocytes % 42 % Monocytes % 5 % Eosinophils % 5 % Basophils % 1 % Neutrophils # 3.7 (1.3-7.7) k/uL Lymphocytes # 3.5 (1.0-4.8) k/uL Monocytes # 0.4 (0-1.0) k/uL Eosinophils # 0.4 (0-0.7) k/uL Basophils # 0.1 (0-0.2) k/uL Sodium 141 (137-145) mmol/L Potassium 3.7 (3.5-5.1) mmol/L Chloride 107 (98-107) mmol/L Carbon Dioxide 25 (22-30) mmol/L Anion Gap 9 mmol/L BUN 21 H (7-17) mg/dL Creatinine 0.62 (0.52-1.04) mg/dL Est GFR (CKD-EPI)AfAm >90 (>60 ml/min/1.73 sqM) Est GFR (CKD-EPI)NonAf >90 (>60 ml/min/1.73 sqM) Glucose 112 H (74-99) mg/dL Calcium 9.5 (8.4-10.2) mg/dL Total Bilirubin 0.5 (0.2-1.3) mg/dL AST 17 (14-36) U/L ALT 22 (9-52) U/L Alkaline Phosphatase 98 (38-126) U/L Total Protein 6.9 (6.3-8.2) g/dL Albumin 4.2 (3.5-5.0) g/dL Disposition Clinical Impression: Anxiety Disposition: HOME SELF-CARE Condition: Good Instructions: Anxiety (ED) Is patient prescribed a controlled substance at d/c from ED?: No Referrals: Bernard Mcdonnell MD [Primary Care Provider] - 1-2 days Time of Disposition: 07:58
[2018-06-10 07:33] LABS: Basophils # (A) 0.1 k/uL (0-0.2); Basophils % (A) 1 %; Eosinophils # (A) 0.4 k/uL (0-0.7); Eosinophils % (A) 5 %; HCT 44.5 % (34.0-46.0); HGB 14.3 gm/dL (11.4-16.0); Lymphocytes # (A) 3.5 k/uL (1.0-4.8); Lymphocytes % (A) 42 %; MCH 29.7 pg (25.0-35.0); MCHC 32.2 g/dL (31.0-37.0); MCV 92.2 fL (80.0-100.0); Mean Platelet Volume 6.4; Monocytes # (A) 0.4 k/uL (0-1.0); Monocytes % (A) 5 %; Neutrophils # (A) 3.7 k/uL (1.3-7.7); Neutrophils % (A) 44 %; Platelet Count 303 k/uL (150-450); RBC 4.83 m/uL (3.80-5.40); RDW 13.2 % (11.5-15.5); WBC 8.4 k/uL (3.8-10.6)
[2018-06-10 07:43] LABS: ALT 22 U/L (9-52); AST 17 U/L (14-36); Albumin 4.2 g/dL (3.5-5.0); Alkaline Phosphatase 98 U/L (38-126); Anion Gap 9 mmol/L; Blood Urea Nitrogen 21 mg/dL (7-17); Calcium 9.5 mg/dL (8.4-10.2); Carbon Dioxide 25 mmol/L (22-30); Chloride 107 mmol/L (98-107); Glucose 112 mg/dL (74-99); Potassium 3.7 mmol/L (3.5-5.1); Sodium 141 mmol/L (137-145); Total Bilirubin 0.5 mg/dL (0.2-1.3); Total Protein 6.9 g/dL (6.3-8.2)
[2018-06-10 08:18] VITALS: BP 116/78; PULSE 80; RESP 18; TEMP 98.2
== END 2018-06-10 08:17 | disposition home or self-care (01) ==
LOC: EC 06:28
DX: F41.9 Anxiety disorder, unspecified (principal); F32.9 Major depressive disorder, single episode, unspecified; I25.2 Old myocardial infarction; Z79.1 Long term (current) use of non-steroidal anti-inflammatories (NSAID); Z79.899 Other long term (current) drug therapy; Z91.018 Allergy to other foods; Z88.1 Allergy status to other antibiotic agents; Z91.040 Latex allergy status; Z87.891 Personal history of nicotine dependence; Z86.718 Personal history of other venous thrombosis and embolism
CPT/HCPCS: 36415; 80053; 85025; 99284

== ENCOUNTER → 2018-10-27 | Outpatient (CLI) | payer MEDICARE, OTHER ==
--- NOTE | 2018-10-27 16:05 | US ---
EXAMINATION TYPE: US venous doppler duplex LE RT DATE OF EXAM: 10/27/2018 3:40 PM COMPARISON: NONE CLINICAL HISTORY: M79.661 pain, R22.41 sweeling. SIDE PERFORMED: Right TECHNIQUE: The lower extremity deep venous system is examined utilizing real time linear array sonog chapo with graded compression, doppler sonography and color-flow sonography. VESSELS IMAGED: External Iliac Vein (EIV) Common Femoral Vein Deep Femoral Vein Greater Saphenous Vein * Femoral Vein Popliteal Vein Small Saphenous Vein * Proximal Calf Veins (* superficial vessels) Right Leg: Negative for DVT IMPRESSION: 1. Right lower extremity ultrasound negative for deep venous thrombosis.
== END ==
LOC: RADUSWWP 15:38
PROVIDERS: ATTEND Internal Medicine
DX: M79.661 Pain in right lower leg (principal); R22.41 Localized swelling, mass and lump, right lower limb

== ENCOUNTER 2019-01-11 09:12 | Emergency (ER) | payer MEDICARE, OTHER ==
[2019-01-11 09:17] VITALS: TEMP 97.4
[2019-01-11] MEDS ORDERED: SODIUM CHLORIDE 0.9% 1,000 ML IV STA (09:26)
[2019-01-11] MEDS ORDERED: LORazepam 1 MG TAB PO STA (09:38)
--- NOTE | 2019-01-11 09:41 | ED ---
General Adult HPI - General Chief complaint: Arrhythmia/Palpitations Stated complaint: high pulse/poss High BP Time Seen by Provider: 01/11/19 09:18 Source: patient, RN notes reviewed, old records reviewed Mode of arrival: ambulatory Limitations: no limitations - History of Present Illness Initial comments: Patient is a 53-year-old female with a history of anxiety. She presents today for evaluation with complaints of high heart rate today as well some nausea. She bleeds related to eating avocado puffs in the salt in the avocado pups. Patient reports she took an aspirin prior to arrival not caused her to come down. 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 Patient states that she does have a history of anxiety questions us today could be related to an anxiety or panic attack. Lives in evaluating the Patient she stated she started to get that feeling again. Patient is on be in normal sinus rhythm but did have some mild tachycardia. Patient denies any chest pain this time. She denies any associated shortness of breath or abdominal pain. She does question she may have urinary tract infection and she's had some dysuria for the past few days. - Related Data Home Medications Medication Instructions Recorded Confirmed Latanoprost Ophth [Xalatan 0.005%] 1 drops BOTH EYES HS 09/30/15 01/11/19 Olopatadine HCl [Pataday] 1 drop BOTH EYES DAILY 05/19/17 01/11/19 Albuterol Sulfate [Proair Hfa] 2 puff INHALATION RT-Q6H PRN 01/11/19 01/11/19 Aspirin [Adult Low Dose Aspirin EC] 81 mg PO DAILY 01/11/19 01/11/19 Biotin 5 mg PO DAILY 01/11/19 01/11/19 Carboxymethylcellulose Sodium 1 drop BOTH EYES DAILY PRN 01/11/19 01/11/19 [Refresh Tears] Magnesium 200 mg PO DAILY 01/11/19 01/11/19 Multivitamins, Thera [Multivitamin 1 tab PO DAILY 01/11/19 01/11/19 (formulary)] Vitamin E 100 unit PO DAILY 01/11/19 01/11/19 Previous Rx's Medication Instructions Recorded LORazepam [Ativan] 0.5 mg PO TID 3 Days #9 tab 08/07/19 Nitrofurantoin Monohyd/M-Cryst 100 mg PO Q12HR #14 cap 01/11/19 [Macrobid] Allergies Allergy/AdvReac Type Severity Reaction Status Date / Time cashew nut Allergy Unknown Verified 01/11/19 10:11 erythromycin base Allergy Swelling, Verified 01/11/19 10:11 [Erythromycin Base] itching & arthraligia strawberry Allergy Unknown Verified 01/11/19 10:11 chocolate flavor AdvReac Dyspnea & Verified 01/11/19 10:11 heart racing cocoa AdvReac Dyspnea Verified 01/11/19 10:11 and heart racing corn AdvReac Inflammatio Verified 01/11/19 10:11 n latex AdvReac Dyspnea Verified 01/11/19 10:11 wheat AdvReac Constipatio Verified 01/11/19 10:11 n Review of Systems ROS Statement: Those systems with pertinent positive or pertinent negative responses have been documented in the HPI. ROS Other: All systems not noted in ROS Statement are negative. Past Medical History Past Medical History: Asthma, COPD, Deep Vein Thrombosis (DVT), Eye Disorder, GERD/Reflux, Memory Impairment, Myocardial Infarction ([place]) Additional Past Medical History / Comment(s): glaucoma, multiple concussions, bilateral tinnunitus, DVT in ankles & inside of thighs after hysterectomy; fungal infections "off & on diflucan for 7 years", hx. irregular heart beat Last Myocardial Infarction Date:: 04/2006 History of Any Multi-Drug Resistant Organisms: None Reported Past Surgical History: Hysterectomy, Tonsillectomy Additional Past Surgical History / Comment(s): egd Past Anesthesia/Blood Transfusion Reactions: Motion Sickness Past Psychological History: ADD/ADHD, Anxiety, Depression Smoking Status: Former smoker Past Alcohol Use History: None Reported Past Drug Use History: Marijuana - Past Family History Mother Additional Family Medical History / Comment(s): Mother at age 31 as she was hit by a motor vehicle with history of depression. Father Family Medical History: Coronary Artery Disease (CAD) Additional Family Medical History / Comment(s): Father at age 54 after his third heart surgery. Sister(s) Additional Family Medical History / Comment(s): Patient has 3 sisters and one from a staph infection. Brother(s) Additional Family Medical History / Comment(s): Patient has 2 brothers and one has history of blood clots and anxiety. Patient has 3 children with no major medical problems. General Exam - General Exam Comments Initial Comments: Is a 53-year-old female. Alert and oriented 3. No distress. Patient appears somewhat anxious. Limitations: no limitations General appearance: alert Head exam: Present: atraumatic, normocephalic, normal inspection Eye exam: Present: normal appearance, PERRL, EOMI. Absent: scleral icterus, conjunctival injection, periorbital swelling ENT exam: Present: normal exam, mucous membranes moist Neck exam: Present: normal inspection. Absent: tenderness, meningismus, ly mphadenopathy Respiratory exam: Present: normal lung sounds bilaterally. Absent: respiratory distress, wheezes, rales, rhonchi, stridor Cardiovascular Exam: Present: regular rate, normal rhythm, normal heart sounds. Absent: systolic murmur, diastolic murmur, rubs, gallop, clicks GI/Abdominal exam: Present: soft, normal bowel sounds. Absent: distended, tenderness, guarding, rebound, rigid Extremities exam: Present: normal inspection, full ROM, normal capillary refill. Absent: tenderness, pedal edema, joint swelling, calf tenderness Back exam: Present: normal inspection Neurological exam: Present: alert, oriented X3, CN II-XII intact Skin exam: Present: warm, dry, intact, normal color. Absent: rash Course Vital Signs 01/11/19 09:14 Temperature 97.4 F L Pulse Rate 88 Respiratory 18 Rate Blood Pressure 121/85 O2 Sat by Pulse 98 Oximetry EKG Findings - EKG Comments: EKG Findings:: EKG showed normal sinus rhythm normal EKG. Ventricular rate 81 bpm. Intervals 150 ms. QRS duration 92 ms. QT QTc is 380/450 ms. Medical Decision Making - Medical Decision Making This is a 53-year-old female who presents today after some anxiety, she is presenting with high heart rate. She stated her symptoms seem be related to taking increased salt intake. She's had a habitus happen before and it seemed related to anxiety. While in ER she did have a panic attack Patient is given 0.5 mg of Ativan. Lab work and EKG reviewed and unremarkable. Patient distal better at this time. I discussed the patient's symptoms are likely anxiety induced. She also does have smiles UTI she complains of dysuria. We'll treat the Patient with Macrobid. Discussed follow-up with PCP. - Lab Data Result diagrams: 01/11/19 09:55 01/11/19 09:55 Lab Results 01/11/19 01/11/19 01/11/19 Range/Units 09:55 09:55 09:55 WBC 6.3 (3.8-10.6) k/uL RBC 4.71 (3.80-5.40) m/uL Hgb 14.8 (11.4-16.0) gm/dL Hct 42.6 (34.0-46.0) % MCV 90.5 (80.0-100.0) fL MCH 31.3 (25.0-35.0) pg MCHC 34.6 (31.0-37.0) g/dL RDW 13.2 (11.5-15.5) % Plt Count 276 (150-450) k/uL Neutrophils % 47 % Lymphocytes % 37 % Monocytes % 6 % Eosinophils % 5 % Basophils % 1 % Neutrophils # 3.0 (1.3-7.7) k/uL Lymphocytes # 2.3 (1.0-4.8) k/uL Monocytes # 0.4 (0-1.0) k/uL Eosinophils # 0.3 (0-0.7) k/uL Basophils # 0.1 (0-0.2) k/uL PT 10.0 (9.0-12.0) sec INR 0.9 (<1.2) APTT 25.2 (22.0-30.0) sec Sodium 145 (137-145) mmol/L Potassium 3.5 (3.5-5.1) mmol/L Chloride 109 H (98-107) mmol/L Carbon Dioxide 26 (22-30) mmol/L Anion Gap 10 mmol/L BUN 18 H (7-17) mg/dL Creatinine 0.61 (0.52-1.04) mg/dL Est GFR (CKD-EPI)AfAm >90 (>60 ml/min/1.73 sqM) Est GFR (CKD-EPI)NonAf >90 (>60 ml/min/1.73 sqM) Glucose 111 H (74-99) mg/dL Calcium 9.6 (8.4-10.2) mg/dL Magnesium 2.1 (1.6-2.3) mg/dL Total Bilirubin 0.4 (0.2-1.3) mg/dL AST 18 (14-36) U/L ALT 23 (9-52) U/L Alkaline Phosphatase 89 (38-126) U/L Troponin I (0.000-0.034) ng/mL Total Protein 7.0 (6.3-8.2) g/dL Albumin 4.2 (3.5-5.0) g/dL TSH 2.260 (0.465-4.680) mIU/L Urine Color Urine Appearance (Clear) Urine pH (5.0-8.0) Ur Specific [place] (1.001-1.035) Urine Protein (Negative) Urine Glucose (UA) (Negative) Urine Ketones (Negative) Urine Blood (Negative) Urine Nitrite (Negative) Urine Bilirubin (Negative) Urine Urobilinogen (<2.0) mg/dL Ur Leukocyte Esterase (Negative) Urine RBC (0-5) /hpf Urine WBC (0-5) /hpf Ur Squamous Epith Cells (0-4) /hpf Urine Bacteria (None) /hpf Urine Mucus (None) /hpf 01/11/19 01/11/19 Range/Units 09:55 09:55 WBC (3.8-10.6) k/uL RBC (3.80-5.40) m/uL Hgb (11.4-16.0) gm/dL Hct (34.0-46.0) % MCV (80.0-100.0) fL MCH (25.0-35.0) pg MCHC (31.0-37.0) g/dL RDW (11.5-15.5) % Plt Count (150-450) k/uL Neutrophils % % Lymphocytes % % Monocytes % % Eosinophils % % Basophils % % Neutrophils # (1.3-7.7) k/uL Lymphocytes # (1.0-4.8) k/uL Monocytes # (0-1.0) k/uL Eosinophils # (0-0.7) k/uL Basophils # (0-0.2) k/uL PT (9.0-12.0) sec INR (<1.2) APTT (22.0-30.0) sec Sodium (137-145) mmol/L Potassium (3.5-5.1) mmol/L Chloride (98-107) mmol/L Carbon Dioxide (22-30) mmol/L Anion Gap mmol/L BUN (7-17) mg/dL Creatinine (0.52-1.04) mg/dL Est GFR (CKD-EPI)AfAm (>60 ml/min/1.73 sqM) Est GFR (CKD-EPI)NonAf (>60 ml/min/1.73 sqM) Glucose (74-99) mg/dL Calcium (8.4-10.2) mg/dL Magnesium (1.6-2.3) mg/dL Total Bilirubin (0.2-1.3) mg/dL AST (14-36) U/L ALT (9-52) U/L Alkaline Phosphatase (38-126) U/L Troponin I <0.012 (0.000-0.034) ng/mL Total Protein (6.3-8.2) g/dL Albumin (3.5-5.0) g/dL TSH (0.465-4.680) mIU/L Urine Color Light Yellow Urine Appearance Clear (Clear) Urine pH 5.5 (5.0-8.0) Ur Specific [place] 1.010 (1.001-1.035) Urine Protein Negative (Negative) Urine Glucose (UA) Negative (Negative) Urine Ketones Negative (Negative) Urine Blood Small H (Negative) Urine Nitrite Negative (Negative) Urine Bilirubin Negative (Negative) Urine Urobilinogen <2.0 (<2.0) mg/dL Ur Leukocyte Esterase Large H (Negative) Urine RBC 6 H (0-5) /hpf Urine WBC 8 H (0-5) /hpf Ur Squamous Epith Cells 1 (0-4) /hpf Urine Bacteria Occasional H (None) /hpf Urine Mucus Rare H (None) /hpf Disposition Clinical Impression: Anxiety, UTI (urinary tract infection) Disposition: HOME SELF-CARE Condition: Good Instructions (If sedation given, give patient instructions): Panic Disorder (ED) Additional Instructions: Patient has a follow-up with her primary care physician. Return to the emergency department if any alarming signs or symptoms occur. Prescriptions: LORazepam [Ativan] 0.5 mg PO TID 3 Days #9 tab Nitrofurantoin Monohyd/M-Cryst [Macrobid] 100 mg PO Q12HR #14 cap Is patient prescribed a controlled substance at d/c from ED?: No Referrals: Bernard Mcdonnell MD [Primary Care Provider] - 1-2 days Time of Disposition: 11:56
[2019-01-11 10:04] LABS: Basophils # (A) 0.1 k/uL (0-0.2); Basophils % (A) 1 %; Eosinophils # (A) 0.3 k/uL (0-0.7); Eosinophils % (A) 5 %; HCT 42.6 % (34.0-46.0); HGB 14.8 gm/dL (11.4-16.0); Lymphocytes # (A) 2.3 k/uL (1.0-4.8); Lymphocytes % (A) 37 %; MCH 31.3 pg (25.0-35.0); MCHC 34.6 g/dL (31.0-37.0); MCV 90.5 fL (80.0-100.0); Mean Platelet Volume 6.6; Monocytes # (A) 0.4 k/uL (0-1.0); Monocytes % (A) 6 %; Neutrophils % (A) 47 %; Platelet Count 276 k/uL (150-450); RBC 4.71 m/uL (3.80-5.40); RDW 13.2 % (11.5-15.5); WBC 6.3 k/uL (3.8-10.6)
[2019-01-11 10:09] LABS: Appearance,Urine Clear (Clear); Bacteria,Urine Occasional /hpf; Bilirubin,Urine Negative (Negative); Blood,Urine Small (Negative); Color,Urine Light Yellow; Glucose,Urine (UA) Negative (Negative); Ketones,Urine Negative (Negative); Leukocyte Esterase,Urine Large (Negative); Mucus,Urine Rare /hpf; Nitrite,Urine Negative (Negative); PH, Urine 5.5 (5.0-8.0); Protein,Urine Negative (Negative); RBC,Urine 6 /hpf (0-5); Squamous Epithelial Cell,Urine 1 /hpf (0-4); Urobilinogen,Urine <2.0 mg/dL (<2.0); WBC,Urine 8 /hpf (0-5)
[2019-01-11 10:13] LABS: ALT 23 U/L (9-52); AST 18 U/L (14-36); African American GFR (CKD) >90 (>60 ml/min/1.73 sqM); Albumin 4.2 g/dL (3.5-5.0); Alkaline Phosphatase 89 U/L (38-126); Anion Gap 10 mmol/L; Blood Urea Nitrogen 18 mg/dL (7-17); Calcium 9.6 mg/dL (8.4-10.2); Carbon Dioxide 26 mmol/L (22-30); Chloride 109 mmol/L (98-107); Glucose 111 mg/dL (74-99); Magnesium 2.1 mg/dL (1.6-2.3); Potassium 3.5 mmol/L (3.5-5.1); Sodium 145 mmol/L (137-145); Total Bilirubin 0.4 mg/dL (0.2-1.3)
[2019-01-11 10:15] LABS: INR 0.9 (<1.2); Partial Thromboplastin Time 25.2 sec (22.0-30.0)
[2019-01-11 12:20] VITALS: PULSE 77
[2019-01-11 12:28] VITALS: BP 125/83; RESP 18
== END 2019-01-11 12:26 | disposition home or self-care (01) ==
LOC: EC 09:12
DX: N39.0 Urinary tract infection, site not specified (principal); F41.9 Anxiety disorder, unspecified; J44.9 Chronic obstructive pulmonary disease, unspecified; I25.2 Old myocardial infarction; Z79.82 Long term (current) use of aspirin; Z79.899 Other long term (current) drug therapy; Z91.018 Allergy to other foods; Z88.1 Allergy status to other antibiotic agents; Z91.040 Latex allergy status; Z87.891 Personal history of nicotine dependence; Z86.718 Personal history of other venous thrombosis and embolism
CPT/HCPCS: 36415; 80053; 81001; 83735; 84443; 84484; 85025; 85610; 85730; 93005; 96360; 96361; 99285

== ENCOUNTER 2019-02-16 02:44 | Emergency (ER) | payer MEDICARE, OTHER ==
--- NOTE | 2019-02-16 03:16 | ED ---
SOB HPI - General Chief Complaint: Shortness of Breath Stated Complaint: Diff Breathing, Back Pain Time Seen by Provider: 02/16/19 03:04 Source: patient, family Mode of arrival: ambulatory Limitations: no limitations - History of Present Illness Initial Comments: 's patient is a 53-year-old woman who presents to have evaluation for some chest pain that developed tonight after she had exposure to fumes at work. The patient states that she had some dull upper chest/back pain. She had this develop after being exposed to fumes which had a funny taste. She did try taking her inhaler but symptoms did not resolve. When asked about shortness of breath she states that there is maybe some minimal shortness of breath. She is not having cough or any sputum. No fever or chills. No upper airway symptoms. MD Complaint: shortness of breath, chest pain -: hour(s) Quality: dull Consistency: constant Improves With: nothing Worsens With: nothing Context: smoke/fume exposure - Related Data Home Medications Medication Instructions Recorded Confirmed Latanoprost Ophth [Xalatan 0.005%] 1 drops BOTH EYES HS 09/30/15 01/11/19 Olopatadine HCl [Pataday] 1 drop BOTH EYES DAILY 05/19/17 01/11/19 Albuterol Sulfate [Proair Hfa] 2 puff INHALATION RT-Q6H PRN 01/11/19 01/11/19 Aspirin [Adult Low Dose Aspirin EC] 81 mg PO DAILY 01/11/19 01/11/19 Biotin 5 mg PO DAILY 01/11/19 01/11/19 Carboxymethylcellulose Sodium 1 drop BOTH EYES DAILY PRN 01/11/19 01/11/19 [Refresh Tears] Magnesium 200 mg PO DAILY 01/11/19 01/11/19 Multivitamins, Thera [Multivitamin 1 tab PO DAILY 01/11/19 01/11/19 (formulary)] Vitamin E 100 unit PO DAILY 01/11/19 01/11/19 Previous Rx's Medication Instructions Recorded LORazepam [Ativan] 0.5 mg PO TID 3 Days #9 tab 01/11/19 Nitrofurantoin Monohyd/M-Cryst 100 mg PO Q12HR #14 cap 01/11/19 [Macrobid] Allergies Allergy/AdvReac Type Severity Reaction Status Date / Time cashew nut Allergy Unknown Verified 02/16/19 02:50 erythromycin base Allergy Swelling, Verified 02/16/19 02:50 [Erythromycin Base] itching & arthraligia strawberry Allergy Unknown Verified 02/16/19 02:50 chocolate flavor AdvReac Dyspnea & Verified 02/16/19 02:50 heart racing cocoa AdvReac Dyspnea Verified 02/16/19 02:50 and heart racing corn AdvReac Inflammatio Verified 02/16/19 02:50 n latex AdvReac Dyspnea Verified 02/16/19 02:50 wheat AdvReac Constipatio Verified 02/16/19 02:50 n Review of Systems ROS Statement: Those systems with pertinent positive or pertinent negative responses have been documented in the HPI. ROS Other: All systems not noted in ROS Statement are negative. Constitutional: Denies: fever, chills Respiratory: Reports: dyspnea. Denies: cough, wheezes Cardiovascular: Denies: chest pain, palpitations, edema, syncope Gastrointestinal: Denies: abdominal pain, nausea, vomiting Musculoskeletal: Reports: back pain Skin: Denies: rash Neurological: Denies: headache, weakness, numbness Past Medical History Past Medical History: Asthma, COPD, Deep Vein Thrombosis (DVT), Eye Disorder, GERD/Reflux, Memory Impairment, Myocardial Infarction ([place]) Additional Past Medical History / Comment(s): glaucoma, multiple concussions, bilateral tinnunitus, DVT in ankles & inside of thighs after hysterectomy; fungal infections "off & on diflucan for 7 years", hx. irregular heart beat Last Myocardial Infarction Date:: 04/2006 History of Any Multi-Drug Resistant Organisms: None Reported Past Surgical History: Hysterectomy, Tonsillectomy Additional Past Surgical History / Comment(s): egd Past Anesthesia/Blood Transfusion Reactions: Motion Sickness Past Psychological History: ADD/ADHD, Anxiety, Depression Smoking Status: Former smoker Past Alcohol Use History: None Reported Past Drug Use History: Marijuana - Past Family History Mother Additional Family Medical History / Comment(s): Mother at age 31 as she was hit by a motor vehicle with history of depression. Father Family Medical History: Coronary Artery Disease (CAD) Additional Family Medical History / Comment(s): Father at age 54 after his third heart surgery. Sister(s) Additional Family Medical History / Comment(s): Patient has 3 sisters and one from a staph infection. Brother(s) Additional Family Medical History / Comment(s): Patient has 2 brothers and one has history of blood clots and anxiety. Patient has 3 children with no major medical problems. General Exam Limitations: no limitations General appearance: alert, in no apparent distress Head exam: Present: atraumatic, normocephalic ENT exam: Present: normal oropharynx Respiratory exam: Present: normal lung sounds bilaterally. Absent: respiratory distress, wheezes, rales, rhonchi, stridor, chest wall tenderness, accessory muscle use, decreased breath sounds, prolonged expiratory Cardiovascular Exam: Present: regular rate, normal rhythm, normal heart sounds. Absent: systolic murmur, diastolic murmur, rubs, gallop GI/Abdominal exam: Present: soft Extremities exam: Present: normal inspection, normal capillary refill. Absent: pedal edema, calf tenderness Back exam: Present: normal inspection. Absent: CVA tenderness (R), CVA tenderness (L) Neurological exam: Present: alert Skin exam: Present: warm, dry, intact, normal color. Absent: rash Course Vital Signs 02/16/19 02/16/19 02:45 05:05 Temperature 97.5 F L Pulse Rate 74 72 Respiratory 20 16 Rate Blood Pressure 126/83 109/69 O2 Sat by Pulse 97 97 Oximetry Disposition Clinical Impression: Industrial fumes exposure Disposition: HOME SELF-CARE Condition: Good Instructions (If sedation given, give patient instructions): Reactive Airways Disease ([place]) Is patient prescribed a controlled substance at d/c from ED?: No Referrals: Bernard Mcdonnell MD [Primary Care Provider] - 1-2 days
--- NOTE | 2019-02-16 03:46 | XR ---
EXAM: XR Chest, 2 Views CLINICAL HISTORY: ITS.REASON XR Reason: smoke exposure TECHNIQUE: Frontal and lateral views of the chest. COMPARISON: 04/03/18 FINDINGS: Lungs: No consolidation or mass. Pleural space: No effusion. Heart: No cardiomegaly. Mediastinum: Unremarkable. Bones/joints: No acute findings. IMPRESSION: No acute cardiopulmonary process.
[2019-02-16 05:07] VITALS: BP 109/69; PULSE 72; RESP 16
[2019-02-16 05:33] VITALS: TEMP 98
== END 2019-02-16 05:33 | disposition home or self-care (01) ==
LOC: EC 02:44
DX: Z77.098 Contact with and (suspected) exposure to other hazardous, chiefly nonmedicinal, chemicals (principal); R06.02 Shortness of breath; R07.9 Chest pain, unspecified; M54.9 Dorsalgia, unspecified; R06.00 Dyspnea, unspecified; J44.9 Chronic obstructive pulmonary disease, unspecified; I25.2 Old myocardial infarction; Z79.82 Long term (current) use of aspirin; Z91.018 Allergy to other foods; Z91.040 Latex allergy status; Z88.1 Allergy status to other antibiotic agents; Z87.891 Personal history of nicotine dependence; Z86.718 Personal history of other venous thrombosis and embolism
CPT/HCPCS: 71046; 99284

== ENCOUNTER → 2019-04-27 | Outpatient (CLI) | payer MEDICARE, OTHER ==
[2019-04-27 15:32] LABS: HCT 42.2 % (34.0-46.0); HGB 14.1 gm/dL (11.4-16.0); MCH 30.8 pg (25.0-35.0); MCHC 33.4 g/dL (31.0-37.0); MCV 92.1 fL (80.0-100.0); Mean Platelet Volume 5.9; Platelet Count 280 k/uL (150-450); RBC 4.58 m/uL (3.80-5.40); RDW 13.2 % (11.5-15.5); WBC 6.9 k/uL (3.8-10.6)
[2019-04-27 21:38] LABS: African American GFR (CKD) 98.2 (60.0-200.0); Anion Gap 9.7 mmol/L (4.00-12.00); Carbon Dioxide 26.3 mmol/L (21.6-31.8); Non-African American GFR(CKD) 84.8 (60.0-200.0); Potassium 4.1 mmol/L (3.5-5.5)
== END ==
LOC: LABWHC1 14:11
PROVIDERS: ATTEND Internal Medicine Cardiovascular Disease
DX: R06.02 Shortness of breath (principal)
CPT/HCPCS: 36415; 80051; 82565; 84520; 85027

== ENCOUNTER 2019-09-28 19:24 | Emergency (ER) | payer MEDICARE, OTHER ==
[2019-09-28 19:34] VITALS: TEMP 98.1
[2019-09-28] MEDS ORDERED: LORazepam 1 MG TAB PO STA (20:27)
[2019-09-28 20:45] LABS: Basophils # (A) 0.1 k/uL (0-0.2); Basophils % (A) 1 %; Eosinophils # (A) 0.2 k/uL (0-0.7); Eosinophils % (A) 4 %; HCT 42.6 % (34.0-46.0); Lymphocytes # (A) 2.4 k/uL (1.0-4.8); Lymphocytes % (A) 40 %; MCH 30.1 pg (25.0-35.0); MCHC 32.8 g/dL (31.0-37.0); MCV 91.9 fL (80.0-100.0); Mean Platelet Volume 7.4; Monocytes # (A) 0.4 k/uL (0-1.0); Monocytes % (A) 6 %; Neutrophils # (A) 2.8 k/uL (1.3-7.7); Neutrophils % (A) 47 %; Platelet Count 248 k/uL (150-450); RBC 4.63 m/uL (3.80-5.40); RDW 13.4 % (11.5-15.5)
[2019-09-28 20:53] LABS: ALT 19 U/L (4-34); AST 19 U/L (14-36); African American GFR (CKD) >90 (>60 ml/min/1.73 sqM); Albumin 4.3 g/dL (3.5-5.0); Alkaline Phosphatase 88 U/L (38-126); Anion Gap 7 mmol/L; Blood Urea Nitrogen 17 mg/dL (7-17); Calcium 10.7 mg/dL (8.4-10.2); Carbon Dioxide 29 mmol/L (22-30); Chloride 105 mmol/L (98-107); Glucose 121 mg/dL (74-99); Non-African American GFR(CKD) >90 (>60 ml/min/1.73 sqM); Potassium 3.6 mmol/L (3.5-5.1); Sodium 141 mmol/L (137-145); Total Bilirubin 0.5 mg/dL (0.2-1.3); Total Protein 6.8 g/dL (6.3-8.2)
--- NOTE | 2019-09-28 21:04 | ED ---
General Adult HPI - General Chief complaint: Neuro Symptoms/Deficit Stated complaint: Lt side head numbness Source: patient, RN notes reviewed, old records reviewed Mode of arrival: ambulatory Limitations: no limitations - History of Present Illness Initial comments: This is a 54-year-old female presents emergency department stating that she thinks her anxiety is getting the best of her. Patient states over the last 2 weeks she's been under quite a bit of stress and she started having some tingling in her fingers occasionally and tingling in her face occasionally. Patient states she has not had any chest pain or difficulty breathing shortness of breath. Patient states she did get some chest tightness earlier in the week but not any today. Patient states it's typical of her anxiety. Patient states she didn't telemedicine conference with the nurse practitioner that works her doctor's office and they agree that she was having a anxiety attack. Patient denies any recent fever chills or cough per patient denies any lightheadedness or dizziness. Patient states currently she just has a little tingling to the side of her left face which she has normal sensation and normal movement of her face. Patient denies any other symptoms at this time. - Related Data Home Medications Medication Instructions Recorded Confirmed Latanoprost Ophth [Xalatan 0.005%] 1 drops BOTH EYES HS 09/30/15 01/11/19 Olopatadine HCl [Pataday] 1 drop BOTH EYES DAILY 05/19/17 01/11/19 Albuterol Sulfate [Proair Hfa] 2 puff INHALATION RT-Q6H PRN 01/11/19 01/11/19 Aspirin [Adult Low Dose Aspirin EC] 81 mg PO DAILY 01/11/19 01/11/19 Biotin 5 mg PO DAILY 01/11/19 01/11/19 Carboxymethylcellulose Sodium 1 drop BOTH EYES DAILY PRN 01/11/19 01/11/19 [Refresh Tears] Magnesium 200 mg PO DAILY 01/11/19 01/11/19 Multivitamins, Thera [Multivitamin 1 tab PO DAILY 01/11/19 01/11/19 (formulary)] Vitamin E 100 unit PO DAILY 01/11/19 01/11/19 Previous Rx's Medication Instructions Recorded LORazepam [Ativan] 0.5 mg PO TID 3 Days #9 tab 01/11/19 Nitrofurantoin Monohyd/M-Cryst 100 mg PO Q12HR #14 cap 01/11/19 [Macrobid] Allergies Allergy/AdvReac Type Severity Reaction Status Date / Time cashew nut Allergy Unknown Verified 09/28/19 19:33 erythromycin base Allergy Swelling, Verified 09/28/19 19:33 [Erythromycin Base] itching & arthraligia strawberry Allergy Unknown Verified 09/28/19 19:33 chocolate flavor AdvReac Dyspnea & Verified 09/28/19 19:33 heart racing cocoa AdvReac Dyspnea Verified 09/28/19 19:33 and heart racing corn AdvReac Inflammatio Verified 09/28/19 19:33 n latex AdvReac Dyspnea Verified 09/28/19 19:33 wheat AdvReac Constipatio Verified 09/28/19 19:33 n Review of Systems ROS Statement: Those systems with pertinent positive or pertinent negative responses have been documented in the HPI. ROS Other: All systems not noted in ROS Statement are negative. Past Medical History Past Medical History: Asthma, COPD, Deep Vein Thrombosis (DVT), Eye Disorder, GERD/Reflux, Memory Impairment, Myocardial Infarction ([place]) Additional Past Medical History / Comment(s): glaucoma, multiple concussions, bilateral tinnunitus, DVT in ankles & inside of thighs after hysterectomy; fungal infections "off & on diflucan for 7 years", hx. irregular heart beat Last Myocardial Infarction Date:: 04/2006 History of Any Multi-Drug Resistant Organisms: None Reported Past Surgical History: Hysterectomy, Tonsillectomy Additional Past Surgical History / Comment(s): egd Past Anesthesia/Blood Transfusion Reactions: Motion Sickness Past Psychological History: ADD/ADHD, Anxiety, Depression Smoking Status: Former smoker Past Alcohol Use History: None Reported Past Drug Use History: Marijuana - Past Family History Mother Additional Family Medical History / Comment(s): Mother at age 31 as she was hit by a motor vehicle with history of depression. Father Family Medical History: Coronary Artery Disease (CAD) Additional Family Medical History / Comment(s): Father at age 54 after his third heart surgery. Sister(s) Additional Family Medical History / Comment(s): Patient has 3 sisters and one from a staph infection. Brother(s) Additional Family Medical History / Comment(s): Patient has 2 brothers and one has history of blood clots and anxiety. Patient has 3 children with no major medical problems. General Exam - General Exam Comments Initial Comments: GENERAL: Patient is well-developed and well-nourished. Patient is nontoxic and well- hydrated and is in no acute distress. ENT: Neck is soft and supple. No significant lymphadenopathy is noted. Oropharynx is clear. Moist mucous membranes. Neck has full range of motion without eliciting any pain. EYES: The sclera were anicteric and conjunctiva were pink and moist. Extraocular movements were intact and pupils were equal round and reactive to light. Eyelids were unremarkable. PULMONARY: Unlabored respirations. Good breath sounds bilaterally. No audible rales rhonchi or wheezing was noted. CARDIOVASCULAR: There is a regular rate and rhythm without any murmurs gallops or rubs. ABDOMEN: Soft and nontender with normal bowel sounds. SKIN: Skin is clear with no lesions or rashes and otherwise unremarkable. NEUROLOGIC: Patient is alert and oriented x3. Cranial nerves II through XII are grossly in tact. Motor and sensory are also intact. Normal speech, volume and content. Symmetrical smile. MUSCULOSKELETAL: Normal extremities with adequate strength and full range of motion. LYMPHATICS: No significant lymphadenopathy is noted PSYCHIATRIC: Patient is moderately anxious Limitations: no limitations Course Vital Signs 09/28/19 09/28/19 19:29 20:57 Temperature 98.1 F Pulse Rate 66 74 Respiratory 18 20 Rate Blood Pressure 132/79 129/73 O2 Sat by Pulse 99 97 Oximetry Medical Decision Making - Medical Decision Making EKG shows normal sinus rhythm at 63 bpm [place] interval is on a 64 QRS is 92 QT interval 400 QTC is 49 per patient's EKG shows no ST segment elevation or depression. I will back into room to reevaluate the patient on 2 different occasions and after she received the Ativan patient was asymptomatic. Patient was actually requesting at this time to go home. - Lab Data Result diagrams: 09/28/19 20:37 09/28/19 20:37 Lab Results 09/28/19 09/28/19 Range/Units 20:37 20:37 WBC 6.0 (3.8-10.6) k/uL RBC 4.63 (3.80-5.40) m/uL Hgb 14.0 (11.4-16.0) gm/dL Hct 42.6 (34.0-46.0) % MCV 91.9 (80.0-100.0) fL MCH 30.1 (25.0-35.0) pg MCHC 32.8 (31.0-37.0) g/dL RDW 13.4 (11.5-15.5) % Plt Count 248 (150-450) k/uL Neutrophils % 47 % Lymphocytes % 40 % Monocytes % 6 % Eosinophils % 4 % Basophils % 1 % Neutrophils # 2.8 (1.3-7.7) k/uL Lymphocytes # 2.4 (1.0-4.8) k/uL Monocytes # 0.4 (0-1.0) k/uL Eosinophils # 0.2 (0-0.7) k/uL Basophils # 0.1 (0-0.2) k/uL Sodium 141 (137-145) mmol/L Potassium 3.6 (3.5-5.1) mmol/L Chloride 105 (98-107) mmol/L Carbon Dioxide 29 (22-30) mmol/L Anion Gap 7 mmol/L BUN 17 (7-17) mg/dL Creatinine 0.57 (0.52-1.04) mg/dL Est GFR (CKD-EPI)AfAm >90 (>60 ml/min/1.73 sqM) Est GFR (CKD-EPI)NonAf >90 (>60 ml/min/1.73 sqM) Glucose 121 H (74-99) mg/dL Calcium 10.7 H (8.4-10.2) mg/dL Total Bilirubin 0.5 (0.2-1.3) mg/dL AST 19 (14-36) U/L ALT 19 (4-34) U/L Alkaline Phosphatase 88 (38-126) U/L Total Protein 6.8 (6.3-8.2) g/dL Albumin 4.3 (3.5-5.0) g/dL Disposition Clinical Impression: Anxiety Disposition: HOME SELF-CARE Condition: Good Instructions (If sedation given, give patient instructions): Anxiety (ED) Is patient prescribed a controlled substance at d/c from ED?: No Referrals: Dontae Carmichael Jr, [Primary Care Provider] - 1-2 days Time of Disposition: 21:20
[2019-09-28 22:03] VITALS: BP 125/81; PULSE 65; RESP 16
== END 2019-09-28 22:04 | disposition home or self-care (01) ==
LOC: EC 19:24
DX: F41.9 Anxiety disorder, unspecified (principal); H40.9 Unspecified glaucoma; I25.2 Old myocardial infarction; Z79.82 Long term (current) use of aspirin; Z91.018 Allergy to other foods; Z91.040 Latex allergy status; Z88.1 Allergy status to other antibiotic agents; Z87.19 Personal history of other diseases of the digestive system; Z87.891 Personal history of nicotine dependence; Z86.718 Personal history of other venous thrombosis and embolism; Z90.710 Acquired absence of both cervix and uterus; Z90.89 Acquired absence of other organs
CPT/HCPCS: 36415; 80053; 85025; 93005; 99284

== ENCOUNTER 2019-10-01 01:11 | Emergency (ER) | payer MEDICARE ==
[2019-10-01 01:23] VITALS: PULSE 68; RESP 18; TEMP 97.6
--- NOTE | 2019-10-01 02:15 | CT ---
EXAMINATION TYPE: CT brain wo con DATE OF EXAM: 10/01/2019 COMPARISON: None HISTORY: Facial numbness CT DLP: 1149.40 mGycm Automated exposure control for dose reduction was used. Ventricles and sulci appear normal. There is no mass effect nor midline shift. There is no sign of in tracranial hemorrhage. The calvarium is intact. There is no evidence of cerebral edema. IMPRESSION: Negative CT scan of the brain.
--- NOTE | 2019-10-01 02:17 | XR ---
EXAMINATION TYPE: XR chest 2V DATE OF EXAM: 10/01/2019 COMPARISON: 02/16/2019 HISTORY: Short of breath TECHNIQUE: FINDINGS: Heart and mediastinum are normal. Lungs are clear. Diaphragm is normal. Bony thorax appears normal. IMPRESSION: Normal chest. There is clearing of minimal atelectasis left lower lung field compared to old exam.
[2019-10-01 02:28] LABS: Basophils # (A) 0.1 k/uL (0-0.2); Basophils % (A) 1 %; Eosinophils # (A) 0.3 k/uL (0-0.7); Eosinophils % (A) 3 %; HCT 45.9 % (34.0-46.0); HGB 15.1 gm/dL (11.4-16.0); Lymphocytes # (A) 3.7 k/uL (1.0-4.8); Lymphocytes % (A) 40 %; MCV 94.2 fL (80.0-100.0); Mean Platelet Volume 7.3; Monocytes # (A) 0.6 k/uL (0-1.0); Monocytes % (A) 6 %; Neutrophils # (A) 4.4 k/uL (1.3-7.7); Neutrophils % (A) 48 %; Platelet Count 245 k/uL (150-450); RBC 4.88 m/uL (3.80-5.40); RDW 13.4 % (11.5-15.5); WBC 9.3 k/uL (3.8-10.6)
[2019-10-01 02:41] LABS: D-Dimer 0.26 mg/L FEU (<0.60); Partial Thromboplastin Time 25.5 sec (22.0-30.0)
[2019-10-01 02:43] LABS: ALT 20 U/L (4-34); AST 22 U/L (14-36); African American GFR (CKD) >90 (>60 ml/min/1.73 sqM); Albumin 4.5 g/dL (3.5-5.0); Alkaline Phosphatase 98 U/L (38-126); Anion Gap 6 mmol/L; Blood Urea Nitrogen 22 mg/dL (7-17); Calcium 10.1 mg/dL (8.4-10.2); Carbon Dioxide 27 mmol/L (22-30); Chloride 105 mmol/L (98-107); Glucose 101 mg/dL (74-99); Non-African American GFR(CKD) >90 (>60 ml/min/1.73 sqM); Potassium 4.2 mmol/L (3.5-5.1); Sodium 138 mmol/L (137-145); Total Bilirubin 0.5 mg/dL (0.2-1.3); Total Protein 7.3 g/dL (6.3-8.2)
[2019-10-01 02:51] VITALS: BP 119/76
--- NOTE | 2019-10-01 03:15 | ED ---
General Adult HPI - General Chief complaint: Neuro Symptoms/Deficit Stated complaint: SOB, RT leg pain Time Seen by Provider: 10/01/19 01:20 Source: patient Mode of arrival: ambulatory Limitations: no limitations - History of Present Illness Initial comments: The patient is a 54-year-old female past medical history of asthma, COPD and DVTs who presents emergency room with report that today she "just didn't feel right". States that throughout the day she has been having chest palpitations and a sensation as if she is going to pass out. Denies chest pain. States that she did take 3 aspirins today which were 81 mg and it would temporarily improve her symptoms. She also reports to a left-sided facial numbness which has been chronic for several years. She also reports to feeling "foggy". Patient denies any blunt trauma. No fevers or chills. No sick contacts or similar symptoms. Denies shortness of breath or cough.. No change in her bowel or bladder habits. Patient does have a history of DVT. Denies any calf pain or swelling. Denies any abdominal pain no ripping or tearing sensation to her back. There are no alleviating, precipitating or modifying factors. - Related Data Home Medications Medication Instructions Recorded Confirmed Latanoprost Ophth [Xalatan 0.005%] 1 drop BOTH EYES HS 09/30/15 09/28/19 Olopatadine HCl [Pataday] 1 drop BOTH EYES DAILY 05/19/17 09/28/19 Albuterol Sulfate [Proair Hfa] 2 puff INHALATION RT-Q6H PRN 01/11/19 09/28/19 Aspirin [Adult Low Dose Aspirin EC] 81 mg PO DAILY 01/11/19 09/28/19 Carboxymethylcellulose Sodium 1 drop BOTH EYES DAILY PRN 01/11/19 09/28/19 [Refresh Tears] Multivitamins, Thera [Multivitamin 1 tab PO DAILY 01/11/19 09/28/19 (formulary)] [place]'s Wort 300 mg PO DAILY 09/28/19 09/28/19 diphenhydrAMINE HCL [Benadryl] 12.5 mg PO HS PRN 09/28/19 09/28/19 Previous Rx's Medication Instructions Recorded LORazepam [Ativan] 0.5 mg PO TID 3 Days #9 tab 01/11/19 Allergies Allergy/AdvReac Type Severity Reaction Status Date / Time cashew nut Allergy Unknown Verified 10/06/19 01:21 erythromycin base Allergy Swelling, Verified 10/06/19 01:21 [Erythromycin Base] itching & arthraligia strawberry Allergy Unknown Verified 10/06/19 01:21 chocolate flavor AdvReac Dyspnea & Verified 10/06/19 01:21 heart racing cocoa AdvReac Dyspnea Verified 10/06/19 01:21 and heart racing corn AdvReac Inflammatio Verified 10/06/19 01:21 n latex AdvReac Dyspnea Verified 10/06/19 01:21 wheat AdvReac Constipatio Verified 10/06/19 01:21 n Review of Systems ROS Statement: Those systems with pertinent positive or pertinent negative responses have been documented in the HPI. ROS Other: All systems not noted in ROS Statement are negative. Past Medical History Past Medical History: Asthma, COPD, Deep Vein Thrombosis (DVT), Eye Disorder, GERD/Reflux, Memory Impairment, Myocardial Infarction ([place]) Additional Past Medical History / Comment(s): glaucoma, multiple concussions, bilateral tinnunitus, DVT in ankles & inside of thighs after hysterectomy; fungal infections "off & on diflucan for 7 years", hx. irregular heart beat Last Myocardial Infarction Date:: 04/2006 History of Any Multi-Drug Resistant Organisms: None Reported Past Surgical History: Hysterectomy, Tonsillectomy Additional Past Surgical History / Comment(s): egd Past Anesthesia/Blood Transfusion Reactions: Motion Sickness Past Psychological History: ADD/ADHD, Anxiety, Depression Smoking Status: Former smoker Past Alcohol Use History: None Reported - Past Family History Mother Additional Family Medical History / Comment(s): Mother at age 31 as she was hit by a motor vehicle with history of depression. Father Family Medical History: Coronary Artery Disease (CAD) Additional Family Medical History / Comment(s): Father at age 54 after his third heart surgery. Sister(s) Additional Family Medical History / Comment(s): Patient has 3 sisters and one from a staph infection. Brother(s) Additional Family Medical History / Comment(s): Patient has 2 brothers and one has history of blood clots and anxiety. Patient has 3 children with no major medical problems. General Exam Limitations: no limitations General appearance: alert, in no apparent distress Head exam: Present: atraumatic, normocephalic, normal inspection Eye exam: Present: normal appearance, PERRL, EOMI. Absent: scleral icterus, c onjunctival injection, periorbital swelling ENT exam: Present: normal exam, mucous membranes moist, other (Intact light senstation and 2 point discrimination in the trigeminal distribution of the face.) Neck exam: Present: normal inspection. Absent: tenderness, meningismus, lymphadenopathy Respiratory exam: Present: normal lung sounds bilaterally. Absent: respiratory distress, wheezes, rales, rhonchi, stridor Cardiovascular Exam: Present: regular rate, normal rhythm, normal heart sounds. Absent: systolic murmur, diastolic murmur, rubs, gallop, clicks GI/Abdominal exam: Present: soft, normal bowel sounds. Absent: distended, tenderness, guarding, rebound, rigid Extremities exam: Present: normal inspection, full ROM, normal capillary refill. Absent: tenderness, pedal edema, joint swelling, calf tenderness Back exam: Present: normal inspection Neurological exam: Present: alert, oriented X3, CN II-XII intact Psychiatric exam: Present: normal affect, normal mood Skin exam: Present: warm, dry, intact, normal color. Absent: rash Course Vital Signs 10/01/19 10/01/19 01:16 02:51 Temperature 97.6 F 97.6 F Pulse Rate 68 68 Respiratory 18 18 Rate Blood Pressure 126/83 119/76 O2 Sat by Pulse 98 98 Oximetry EKG Findings - EKG Comments: EKG Findings:: EKG demonstrated normal sinus rhythm with a ventricular rate of 65. ME interval 170. QRS 90. QTC of 4:30. No acute ST segment elevations or depressions concerning for ischemic changes Medical Decision Making - Medical Decision Making Upon arrival the patient is placed into room 11. A thorough history of physical exam was performed. The EKG was performed. Laboratory studies were conducted. D-dimer is negative at 0.26. Troponin is also negative. I did offer CT of the patient's head is she is reporting to this left-sided facial numbness which is negative. The patient does not have any extremity numbness, speech difficulties or facial droop. Chest x-ray demonstrates normal chest. Clearing of minimal atelectasis in the left lower lung clark. I did discuss results with the patient. I discussed the diagnosis, differential treatment options. The patient will to feeling improved at this time. She has a stress test scheduled on the . I do feel this is the next to evaluate the patient's symptoms. At this time the patient will be discharged home. She continues to deny any chest pain. She has any new or worsening symptoms she should return to the emergency room. Patient was then discharged home in stable condition - Lab Data Result diagrams: 10/01/19 02:20 10/01/19 02:20 Lab Results 10/01/19 10/01/19 10/01/19 Range/Units 02:20 02:20 02:20 WBC 9.3 (3.8-10.6) k/uL RBC 4.88 (3.80-5.40) m/uL Hgb 15.1 (11.4-16.0) gm/dL Hct 45.9 (34.0-46.0) % MCV 94.2 (80.0-100.0) fL MCH 31.0 (25.0-35.0) pg MCHC 33.0 (31.0-37.0) g/dL RDW 13.4 (11.5-15.5) % Plt Count 245 (150-450) k/uL Neutrophils % 48 % Lymphocytes % 40 % Monocytes % 6 % Eosinophils % 3 % Basophils % 1 % Neutrophils # 4.4 (1.3-7.7) k/uL Lymphocytes # 3.7 (1.0-4.8) k/uL Monocytes # 0.6 (0-1.0) k/uL Eosinophils # 0.3 (0-0.7) k/uL Basophils # 0.1 (0-0.2) k/uL PT 10.0 (9.0-12.0) sec INR 1.0 (<1.2) APTT 25.5 (22.0-30.0) sec D-Dimer 0.26 (<0.60) mg/L FEU Sodium 138 (137-145) mmol/L Potassium 4.2 (3.5-5.1) mmol/L Chloride 105 (98-107) mmol/L Carbon Dioxide 27 (22-30) mmol/L Anion Gap 6 mmol/L BUN 22 H (7-17) mg/dL Creatinine 0.71 (0.52-1.04) mg/dL Est GFR (CKD-EPI)AfAm >90 (>60 ml/min/1.73 sqM) Est GFR (CKD-EPI)NonAf >90 (>60 ml/min/1.73 sqM) Glucose 101 H (74-99) mg/dL Calcium 10.1 (8.4-10.2) mg/dL Total Bilirubin 0.5 (0.2-1.3) mg/dL AST 22 (14-36) U/L ALT 20 (4-34) U/L Alkaline Phosphatase 98 (38-126) U/L Troponin I (0.000-0.034) ng/mL Total Protein 7.3 (6.3-8.2) g/dL Albumin 4.5 (3.5-5.0) g/dL 10/01/19 Range/Units 02:20 WBC (3.8-10.6) k/uL RBC (3.80-5.40) m/uL Hgb (11.4-16.0) gm/dL Hct (34.0-46.0) % MCV (80.0-100.0) fL MCH (25.0-35.0) pg MCHC (31.0-37.0) g/dL RDW (11.5-15.5) % Plt Count (150-450) k/uL Neutrophils % % Lymphocytes % % Monocytes % % Eosinophils % % Basophils % % Neutrophils # (1.3-7.7) k/uL Lymphocytes # (1.0-4.8) k/uL Monocytes # (0-1.0) k/uL Eosinophils # (0-0.7) k/uL Basophils # (0-0.2) k/uL PT (9.0-12.0) sec INR (<1.2) APTT (22.0-30.0) sec D-Dimer (<0.60) mg/L FEU Sodium (137-145) mmol/L Potassium (3.5-5.1) mmol/L Chloride (98-107) mmol/L Carbon Dioxide (22-30) mmol/L Anion Gap mmol/L BUN (7-17) mg/dL Creatinine (0.52-1.04) mg/dL Est GFR (CKD-EPI)AfAm (>60 ml/min/1.73 sqM) Est GFR (CKD-EPI)NonAf (>60 ml/min/1.73 sqM) Glucose (74-99) mg/dL Calcium (8.4-10.2) mg/dL Total Bilirubin (0.2-1.3) mg/dL AST (14-36) U/L ALT (4-34) U/L Alkaline Phosphatase (38-126) U/L Troponin I <0.012 (0.000-0.034) ng/mL Total Protein (6.3-8.2) g/dL Albumin (3.5-5.0) g/dL Disposition Clinical Impression: Pre-syncope, Palpitations, Numbness and tingling of left side of face Disposition: HOME SELF-CARE Condition: Stable Instructions (If sedation given, give patient instructions): Heart Palpitations (ED) Additional Instructions: Please follow up at your scheduled stress test on the . Return to the ED for any new or worsening symptoms. Is patient prescribed a controlled substance at d/c from ED?: No Referrals: Dontae Carmichael Jr, [Primary Care Provider] - 1-2 days Time of Disposition: 03:37
== END 2019-10-01 03:44 | disposition home or self-care (01) ==
LOC: EC 01:11
DX: R00.2 Palpitations (principal); R55 Syncope and collapse; R20.2 Paresthesia of skin; R20.0 Anesthesia of skin; J98.11 Atelectasis; J44.9 Chronic obstructive pulmonary disease, unspecified; I25.2 Old myocardial infarction; H40.9 Unspecified glaucoma; F32.9 Major depressive disorder, single episode, unspecified; F41.9 Anxiety disorder, unspecified; Z79.51 Long term (current) use of inhaled steroids; Z79.82 Long term (current) use of aspirin; Z79.899 Other long term (current) drug therapy; Z87.891 Personal history of nicotine dependence; Z91.018 Allergy to other foods; Z88.1 Allergy status to other antibiotic agents; Z91.040 Latex allergy status; Z86.718 Personal history of other venous thrombosis and embolism; Z90.710 Acquired absence of both cervix and uterus
CPT/HCPCS: 36415; 70450; 71046; 80053; 84484; 85025; 85379; 85610; 85730; 93005; 99285

== ENCOUNTER 2019-10-06 00:55 | Emergency (ER) | payer MEDICARE ==
[2019-10-06 01:21] VITALS: TEMP 97.6
--- NOTE | 2019-10-06 02:01 | ED ---
General Adult HPI - General Chief complaint: Extremity Problem,Nontraumatic Stated complaint: L sd pain/numbness Time Seen by Provider: 10/06/19 01:35 Source: patient Mode of arrival: ambulatory Limitations: no limitations - History of Present Illness -: hour(s) Location: chest Radiation: non-radiation Quality: sharp Consistency: intermittent Improves with: none Worsens with: none Associated Symptoms: denies other symptoms - Related Data Home Medications Medication Instructions Recorded Confirmed Latanoprost Ophth [Xalatan 0.005%] 1 drop BOTH EYES HS 09/30/15 09/28/19 Olopatadine HCl [Pataday] 1 drop BOTH EYES DAILY 05/19/17 09/28/19 Albuterol Sulfate [Proair Hfa] 2 puff INHALATION RT-Q6H PRN 01/11/19 09/28/19 Aspirin [Adult Low Dose Aspirin EC] 81 mg PO DAILY 01/11/19 09/28/19 Carboxymethylcellulose Sodium 1 drop BOTH EYES DAILY PRN 01/11/19 09/28/19 [Refresh Tears] Multivitamins, Thera [Multivitamin 1 tab PO DAILY 01/11/19 09/28/19 (formulary)] Castana's Wort 300 mg PO DAILY 09/28/19 09/28/19 diphenhydrAMINE HCL [Benadryl] 12.5 mg PO HS PRN 09/28/19 09/28/19 Previous Rx's Medication Instructions Recorded LORazepam [Ativan] 0.5 mg PO TID 3 Days #9 tab 01/11/19 Allergies Allergy/AdvReac Type Severity Reaction Status Date / Time cashew nut Allergy Unknown Verified 10/06/19 01:21 erythromycin base Allergy Swelling, Verified 10/06/19 01:21 [Erythromycin Base] itching & arthraligia strawberry Allergy Unknown Verified 10/06/19 01:21 chocolate flavor AdvReac Dyspnea & Verified 10/06/19 01:21 heart racing cocoa AdvReac Dyspnea Verified 10/06/19 01:21 and heart racing corn AdvReac Inflammatio Verified 10/06/19 01:21 n latex AdvReac Dyspnea Verified 10/06/19 01:21 wheat AdvReac Constipatio Verified 10/06/19 01:21 n Review of Systems ROS Statement: Those systems with pertinent positive or pertinent negative responses have been documented in the HPI. ROS Other: All systems not noted in ROS Statement are negative. Constitutional: Denies: fever, chills ENT: Denies: throat pain Respiratory: Denies: cough, dyspnea, wheezes, hemoptysis Cardiovascular: Reports: chest pain. Denies: palpitations, orthopnea, edema, syncope Gastrointestinal: Denies: abdominal pain, nausea, vomiting, diarrhea Genitourinary: Denies: dysuria, hematuria Musculoskeletal: Denies: back pain Skin: Denies: rash Neurological: Denies: headache, weakness, numbness Past Medical History Past Medical History: Asthma, COPD, Deep Vein Thrombosis (DVT), Eye Disorder, GERD/Reflux, Memory Impairment, Myocardial Infarction ([place]) Additional Past Medical History / Comment(s): glaucoma, multiple concussions, bilateral tinnunitus, DVT in ankles & inside of thighs after hysterectomy; fungal infections "off & on diflucan for 7 years", hx. irregular heart beat Last Myocardial Infarction Date:: 04/2006 History of Any Multi-Drug Resistant Organisms: None Reported Past Surgical History: Hysterectomy, Tonsillectomy Additional Past Surgical History / Comment(s): egd Past Anesthesia/Blood Transfusion Reactions: Motion Sickness Past Psychological History: ADD/ADHD, Anxiety, Depression Smoking Status: Former smoker Past Alcohol Use History: None Reported Past Drug Use History: None Reported - Past Family History Mother Additional Family Medical History / Comment(s): Mother at age 31 as she was hit by a motor vehicle with history of depression. Father Family Medical History: Coronary Artery Disease (CAD) Additional Family Medical History / Comment(s): Father at age 54 after his third heart surgery. Sister(s) Additional Family Medical History / Comment(s): Patient has 3 sisters and one from a staph infection. Brother(s) Additional Family Medical History / Comment(s): Patient has 2 brothers and one has history of blood clots and anxiety. Patient has 3 children with no major medical problems. General Exam Limitations: no limitations General appearance: alert, in no apparent distress Head exam: Present: atraumatic, normocephalic Eye exam: Present: normal appearance. Absent: scleral icterus, conjunctival injection Respiratory exam: Present: normal lung sounds bilaterally. Absent: respiratory distress, wheezes, rales, rhonchi, stridor, chest wall tenderness Cardiovascular Exam: Present: regular rate, normal rhythm, normal heart sounds. Absent: systolic murmur, diastolic murmur, rubs, gallop GI/Abdominal exam: Present: soft. Absent: distended, tenderness, guarding, rebound, rigid, mass Extremities exam: Present: normal inspection, normal capillary refill. Absent: pedal edema, calf tenderness Back exam: Present: normal inspection. Absent: CVA tenderness (R), CVA tenderness (L) Neurological exam: Present: alert Skin exam: Present: warm, dry, intact, normal color. Absent: rash Course Vital Signs 10/06/19 10/06/19 10/06/19 01:10 02:30 05:15 Temperature 97.6 F Pulse Rate 78 78 84 Respiratory 14 18 18 Rate Blood Pressure 123/74 110/65 120/81 O2 Sat by Pulse 98 99 96 Oximetry EKG Findings - EKG Results: EKG: interpreted by KEREN, sinus rhythm (Rate 73 bpm), normal axis, normal QRS, normal ST/T, no acute changes - [place], Pacemaker, Normal: Normal tracing: normal tracing Medical Decision Making - Medical Decision Making This patient's 54-year-old woman presenting with an exacerbation of chest pains that she states she has intermittently going back quite some time. Her initial evaluation is negative and I did discuss admission for serial cardiac enzymes and telemetry but patient declines this and will follow-up. We discussed return parameters as well as further care. - Lab Data Result diagrams: 10/06/19 01:43 10/06/19 01:43 Lab Results 10/06/19 10/06/19 10/06/19 Range/Units 01:43 01:43 01:43 WBC 7.9 (3.8-10.6) k/uL RBC 4.79 (3.80-5.40) m/uL Hgb 15.1 (11.4-16.0) gm/dL Hct 44.5 (34.0-46.0) % MCV 92.8 (80.0-100.0) fL MCH 31.6 (25.0-35.0) pg MCHC 34.0 (31.0-37.0) g/dL RDW 13.4 (11.5-15.5) % Plt Count 241 (150-450) k/uL Neutrophils % 42 % Lymphocytes % 42 % Monocytes % 7 % Eosinophils % 4 % Basophils % 1 % Neutrophils # 3.3 (1.3-7.7) k/uL Lymphocytes # 3.3 (1.0-4.8) k/uL Monocytes # 0.5 (0-1.0) k/uL Eosinophils # 0.3 (0-0.7) k/uL Basophils # 0.1 (0-0.2) k/uL PT 9.8 (9.0-12.0) sec INR 0.9 (<1.2) APTT 26.0 (22.0-30.0) sec Sodium 139 (137-145) mmol/L Potassium 4.2 (3.5-5.1) mmol/L Chloride 106 (98-107) mmol/L Carbon Dioxide 25 (22-30) mmol/L Anion Gap 8 mmol/L BUN 18 H (7-17) mg/dL Creatinine 0.80 (0.52-1.04) mg/dL Est GFR (CKD-EPI)AfAm >90 (>60 ml/min/1.73 sqM) Est GFR (CKD-EPI)NonAf 85 (>60 ml/min/1.73 sqM) Glucose 85 (74-99) mg/dL Calcium 10.2 (8.4-10.2) mg/dL Magnesium 2.3 (1.6-2.3) mg/dL Total Bilirubin 0.4 (0.2-1.3) mg/dL AST 20 (14-36) U/L ALT 18 (4-34) U/L Alkaline Phosphatase 109 (38-126) U/L Troponin I (0.000-0.034) ng/mL Total Protein 7.1 (6.3-8.2) g/dL Albumin 4.4 (3.5-5.0) g/dL 10/06/19 Range/Units 01:43 WBC (3.8-10.6) k/uL RBC (3.80-5.40) m/uL Hgb (11.4-16.0) gm/dL Hct (34.0-46.0) % MCV (80.0-100.0) fL MCH (25.0-35.0) pg MCHC (31.0-37.0) g/dL RDW (11.5-15.5) % Plt Count (150-450) k/uL Neutrophils % % Lymphocytes % % Monocytes % % Eosinophils % % Basophils % % Neutrophils # (1.3-7.7) k/uL Lymphocytes # (1.0-4.8) k/uL Monocytes # (0-1.0) k/uL Eosinophils # (0-0.7) k/uL Basophils # (0-0.2) k/uL PT (9.0-12.0) sec INR (<1.2) APTT (22.0-30.0) sec Sodium (137-145) mmol/L Potassium (3.5-5.1) mmol/L Chloride (98-107) mmol/L Carbon Dioxide (22-30) mmol/L Anion Gap mmol/L BUN (7-17) mg/dL Creatinine (0.52-1.04) mg/dL Est GFR (CKD-EPI)AfAm (>60 ml/min/1.73 sqM) Est GFR (CKD-EPI)NonAf (>60 ml/min/1.73 sqM) Glucose (74-99) mg/dL Calcium (8.4-10.2) mg/dL Magnesium (1.6-2.3) mg/dL Total Bilirubin (0.2-1.3) mg/dL AST (14-36) U/L ALT (4-34) U/L Alkaline Phosphatase (38-126) U/L Troponin I <0.012 (0.000-0.034) ng/mL Total Protein (6.3-8.2) g/dL Albumin (3.5-5.0) g/dL Disposition Clinical Impression: Chest pain Disposition: HOME SELF-CARE Condition: Good Instructions (If sedation given, give patient instructions): Chest Pain (ED) Is patient prescribed a controlled substance at d/c from ED?: No Referrals: Dontae Carmichael Jr, [Primary Care Provider] - 1-2 days
[2019-10-06 02:50] LABS: Basophils # (A) 0.1 k/uL (0-0.2); Basophils % (A) 1 %; Eosinophils # (A) 0.3 k/uL (0-0.7); Eosinophils % (A) 4 %; HCT 44.5 % (34.0-46.0); HGB 15.1 gm/dL (11.4-16.0); Lymphocytes # (A) 3.3 k/uL (1.0-4.8); Lymphocytes % (A) 42 %; MCH 31.6 pg (25.0-35.0); MCV 92.8 fL (80.0-100.0); Mean Platelet Volume 7.8; Monocytes # (A) 0.5 k/uL (0-1.0); Monocytes % (A) 7 %; Neutrophils # (A) 3.3 k/uL (1.3-7.7); Neutrophils % (A) 42 %; Platelet Count 241 k/uL (150-450); RBC 4.79 m/uL (3.80-5.40); RDW 13.4 % (11.5-15.5); WBC 7.9 k/uL (3.8-10.6)
[2019-10-06 03:00] VITALS: RESP 18
--- NOTE | 2019-10-06 03:01 | XR ---
EXAMINATION TYPE: XR chest 2V DATE OF EXAM: 10/06/2019 COMPARISON: 10/01/2019 HISTORY: Chest pain TECHNIQUE: FINDINGS: Heart and mediastinum are normal. There is small area of atelectasis in the lingula left up per lobe. The other lung clark are clear. There are chest leads. Bony thorax is intact. IMPRESSION: Mild subsegmental atelectasis appears new compared to recent exam.. Normal heart.
[2019-10-06 03:02] LABS: ALT 18 U/L (4-34); AST 20 U/L (14-36); African American GFR (CKD) >90 (>60 ml/min/1.73 sqM); Albumin 4.4 g/dL (3.5-5.0); Alkaline Phosphatase 109 U/L (38-126); Anion Gap 8 mmol/L; Blood Urea Nitrogen 18 mg/dL (7-17); Calcium 10.2 mg/dL (8.4-10.2); Carbon Dioxide 25 mmol/L (22-30); Chloride 106 mmol/L (98-107); Glucose 85 mg/dL (74-99); Magnesium 2.3 mg/dL (1.6-2.3); Non-African American GFR(CKD) 85 (>60 ml/min/1.73 sqM); Potassium 4.2 mmol/L (3.5-5.1); Sodium 139 mmol/L (137-145); Total Bilirubin 0.4 mg/dL (0.2-1.3); Total Protein 7.1 g/dL (6.3-8.2)
[2019-10-06 03:13] LABS: INR 0.9 (<1.2); Prothrombin Time 9.8 sec (9.0-12.0)
[2019-10-06 05:16] VITALS: BP 120/81; PULSE 84
== END 2019-10-06 05:15 | disposition home or self-care (01) ==
LOC: EC 00:55
DX: R07.9 Chest pain, unspecified (principal); J44.9 Chronic obstructive pulmonary disease, unspecified; I25.2 Old myocardial infarction; Z79.82 Long term (current) use of aspirin; Z79.899 Other long term (current) drug therapy; Z88.1 Allergy status to other antibiotic agents; Z91.040 Latex allergy status; Z91.018 Allergy to other foods; Z86.718 Personal history of other venous thrombosis and embolism; Z87.891 Personal history of nicotine dependence
CPT/HCPCS: 36415; 71046; 80053; 83735; 84484; 85025; 85610; 85730; 93005; 99285

== ENCOUNTER → 2019-11-07 | Outpatient (CLI) | payer MEDICARE ==
[2019-11-07 14:56] LABS: Basophils # (A) 0.1 k/uL (0-0.2); Basophils % (A) 1 %; Eosinophils # (A) 0.3 k/uL (0-0.7); Eosinophils % (A) 5 %; HCT 42.5 % (34.0-46.0); HGB 14.1 gm/dL (11.4-16.0); Lymphocytes # (A) 2.2 k/uL (1.0-4.8); Lymphocytes % (A) 39 %; MCHC 33.2 g/dL (31.0-37.0); MCV 93.6 fL (80.0-100.0); Mean Platelet Volume 7.6; Monocytes # (A) 0.3 k/uL (0-1.0); Monocytes % (A) 6 %; Neutrophils # (A) 2.6 k/uL (1.3-7.7); Neutrophils % (A) 46 %; Platelet Count 229 k/uL (150-450); RBC 4.54 m/uL (3.80-5.40); RDW 13.3 % (11.5-15.5); WBC 5.6 k/uL (3.8-10.6)
[2019-11-07 20:02] LABS: Total Bilirubin 0.5 mg/dL (0.2-1.2)
== END | disposition home or self-care (01) ==
LOC: LABWHC1 13:26
PROVIDERS: ATTEND Family Medicine
DX: R10.11 Right upper quadrant pain (principal)
CPT/HCPCS: 36415; 82247; 84450; 84460; 85025

== ENCOUNTER → 2019-11-21 | Outpatient (CLI) | payer SELFPAY ==
--- NOTE | 2019-11-21 13:18 | US ---
EXAMINATION TYPE: US abdomen limited DATE OF EXAM: 11/21/2019 COMPARISON: NONE CLINICAL HISTORY: RUQ ABD PAIN R10.11. 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 angiomyolipoma Main Portal Vein: prominent and measures at upper limits of normal with range between 1.4 and 1.3cm A /P. IMPRESSION: 1. Vascular calcification versus angiomyolipoma right kidney. Nonspecific prominence of the main port al vein.
== END | disposition home or self-care (01) ==
LOC: RADUSWWP 12:16
PROVIDERS: ATTEND Family Medicine
DX: R10.11 Right upper quadrant pain (principal); K81.9 Cholecystitis, unspecified
CPT/HCPCS: 76705

== ENCOUNTER 2020-03-07 08:19 | Observation (INO) | payer MEDICARE, OTHER ==
[2020-03-07] MEDS ORDERED: LORazepam 2 MG/ML INJ IV STA (08:44)
--- NOTE | 2020-03-07 08:53 | ED ---
Chest Pain HPI - General Chief Complaint: Chest Pain Stated Complaint: CHEST PAIN Time Seen by Provider: 03/07/20 08:29 Source: patient Mode of arrival: ambulatory Limitations: no limitations - History of Present Illness Initial Comments: 55-year-old female presenting today for chief complaint of chest discomfort. She states that since 7:30AM when she woke up she has had a discomfort in her chest she states it comes and goes and is like a pressure more so than a sharp pain, Denies radiation, or SOB. Denies arm or jaw pain, denies ripping tearing back pain, nausea, vomiting. Patient admits to right leg pain, denies swelling, she states pain is on the medical aspect of the right upper calf. Denies known history of cancer, exogenous hormone use, current smoking history, hx of DVT/PE, pain with deep inspiration, extremity injury, surgeries or immobilization. Patient appears in no distress on arrival, she is not diaphoretic with negative levign sign. - Related Data Home Medications Medication Instructions Recorded Confirmed Latanoprost Ophth [Xalatan 0.005%] 1 drop BOTH EYES HS 09/30/15 03/07/20 Aspirin [Adult Low Dose Aspirin EC] 81 mg PO DAILY 01/11/19 03/07/20 Carboxymethylcellulose Sodium 1 drop BOTH EYES DAILY PRN 01/11/19 03/07/20 [Refresh Tears] Multivitamins, Thera [Multivitamin 1 tab PO DAILY 01/11/19 03/07/20 (formulary)] diphenhydrAMINE HCL [Benadryl] 12.5 mg PO HS PRN 09/28/19 03/07/20 Black Cohosh Root [Black Cohosh] 200 mg PO DAILY 03/07/20 03/07/20 Garlic 1 tab PO HS 03/07/20 03/07/20 Olopatadine HCl [Pazeo] 1 drop BOTH EYES DAILY PRN 03/07/20 03/07/20 [place] 1 tab PO DAILY 03/07/20 03/07/20 Allergies Allergy/AdvReac Type Severity Reaction Status Date / Time cashew nut Allergy Unknown Verified 03/07/20 09:44 erythromycin base Allergy Swelling, Verified 03/07/20 09:44 [Erythromycin Base] itching & arthraligia strawberry Allergy Unknown Verified 03/07/20 09:44 chocolate flavor AdvReac Dyspnea & Verified 03/07/20 09:44 heart racing cocoa AdvReac Dyspnea Verified 03/07/20 09:44 and heart racing corn AdvReac Inflammatio Verified 03/07/20 09:44 n latex AdvReac Dyspnea Verified 03/07/20 09:44 wheat AdvReac Constipatio Verified 03/07/20 09:44 n Review of Systems ROS Statement: Those systems with pertinent positive or pertinent negative responses have been documented in the HPI. ROS Other: All systems not noted in ROS Statement are negative. Past Medical History Past Medical History: Asthma, COPD, Deep Vein Thrombosis (DVT), Eye Disorder, GERD/Reflux, Memory Impairment, Myocardial Infarction ([place]) Additional Past Medical History / Comment(s): glaucoma, multiple concussions, bilateral tinnunitus, DVT in ankles & inside of thighs after hysterectomy; fungal infections "off & on diflucan for 7 years", hx. irregular heart beat Last Myocardial Infarction Date:: 04/2006 History of Any Multi-Drug Resistant Organisms: None Reported Past Surgical History: Hysterectomy, Tonsillectomy Additional Past Surgical History / Comment(s): egd Past Anesthesia/Blood Transfusion Reactions: Motion Sickness Past Psychological History: ADD/ADHD, Anxiety, Depression Smoking Status: Former smoker Past Alcohol Use History: None Reported Past Drug Use History: None Reported - Past Family History Mother Additional Family Medical History / Comment(s): Mother at age 31 as she was hit by a motor vehicle with history of depression. Father Family Medical History: Coronary Artery Disease (CAD) Additional Family Medical History / Comment(s): Father at age 54 after his third heart surgery. Sister(s) Additional Family Medical History / Comment(s): Patient has 3 sisters and one from a staph infection. Brother(s) Additional Family Medical History / Comment(s): Patient has 2 brothers and one has history of blood clots and anxiety. Patient has 3 children with no major medical problems. General Exam - General Exam Comments Initial Comments: General: The patient is awake and alert, in no distress Eye: +3 mm pupils are equal, round and reactive to light, extra-ocular movements are intact. No nystagmus. There is normal conjunctiva bilaterally. No signs of icterus. Ears, nose, mouth and throat: There are moist mucous membranes and no oral lesions. Neck: The neck is supple, there is no tenderness or JVD. Cardiovascular: There is a regular rate and rhythm. No murmur, rub or gallop is appreciated. Respiratory: Lungs are clear to auscultation, respirations are non-labored, breath sounds are equal. No wheezes, stridor, rales, or rhonchi. Gastrointestinal: Soft, non-distended, non-tender abdomen without masses or organomegaly noted. There is no rebound or guarding present. Musculoskeletal: Normal ROM, no tenderness. Strength 5/5. Sensation intact. Radial and DP pulses equal bilaterally 2+. Neurological: A&O x 3. CN II-XII intact grossly, There are no obvious motor or sensory deficits. Coordination appears grossly intact. Speech is normal. Skin: Skin is warm and dry and no rashes or lesions are noted. No calf swelling, there is pain to the medial superfical calf tenderness, no redness, no masses palpable. Psychiatric: Cooperative, appropriate mood & affect, normal judgment. Limitations: no limitations Course Vital Signs 03/07/20 08:20 Temperature 97.5 F L Pulse Rate 61 Respiratory 18 Rate Blood Pressure 122/78 O2 Sat by Pulse 97 Oximetry Chest Pain MDM - MDM trop (-). CXR clear. dimer (-). VS WNL. given pt age rf will admit for cp r/o. serial troponins. patient case discussed in detail with attending who is agreeable to admission and care plan. Disposition Clinical Impression: Chest pain Disposition: ADMITTED IP TO THIS HOSP Condition: Stable Is patient prescribed a controlled substance at d/c from ED?: No Referrals: Dontae Carmichael Jr, DO [Primary Care Provider] - 1-2 days Time of Disposition: 10:38 Decision to Admit Reason: Admit from EC Decision Date: 03/07/20 Decision Time: 10:38
[2020-03-07 09:13] LABS: Basophils # (A) 0.1 k/uL (0-0.2); Basophils % (A) 1 %; Eosinophils # (A) 0.2 k/uL (0-0.7); Eosinophils % (A) 4 %; HCT 44.2 % (34.0-46.0); HGB 14.4 gm/dL (11.4-16.0); Lymphocytes # (A) 2.5 k/uL (1.0-4.8); Lymphocytes % (A) 43 %; MCH 29.6 pg (25.0-35.0); MCHC 32.5 g/dL (31.0-37.0); Mean Platelet Volume 6.8; Monocytes # (A) 0.4 k/uL (0-1.0); Monocytes % (A) 6 %; Neutrophils # (A) 2.5 k/uL (1.3-7.7); Neutrophils % (A) 43 %; Platelet Count 228 k/uL (150-450); RBC 4.85 m/uL (3.80-5.40); RDW 13.6 % (11.5-15.5); WBC 5.7 k/uL (3.8-10.6)
[2020-03-07 09:27] LABS: D-Dimer 0.24 mg/L FEU (<0.60); Partial Thromboplastin Time 25.6 sec (22.0-30.0); Prothrombin Time 10.1 sec (9.0-12.0)
[2020-03-07 09:34] LABS: ALT 20 U/L (4-34); African American GFR (CKD) >90 (>60 ml/min/1.73 sqM); Albumin 4.2 g/dL (3.5-5.0); Anion Gap 7 mmol/L; Blood Urea Nitrogen 14 mg/dL (7-17); Calcium 9.2 mg/dL (8.4-10.2); Carbon Dioxide 22 mmol/L (22-30); Chloride 111 mmol/L (98-107); Glucose 92 mg/dL (74-99); Non-African American GFR(CKD) >90 (>60 ml/min/1.73 sqM); Sodium 140 mmol/L (137-145); Total Bilirubin 1.2 mg/dL (0.2-1.3)
[2020-03-07 09:36] LABS: AST 35 U/L (14-36); Alkaline Phosphatase 72 U/L (38-126); Magnesium 2.2 mg/dL (1.6-2.3); Potassium 4.2 mmol/L (3.5-5.1)
--- NOTE | 2020-03-07 09:40 | XR ---
EXAMINATION TYPE: XR chest 2V DATE OF EXAM: 03/07/2020 COMPARISON: 10/06/2019 HISTORY: Shortness of breath TECHNIQUE: Frontal and lateral views of the chest are obtained. FINDINGS: Scattered senescent parenchymal changes noted. Hyperinflation compatible with COPD. No evidence for infiltrate. No evidence for atelectasis. Heart size is stable. Mediastinal structures are stable and grossly unremarkable. No evidence for hilar prominence. Degenerative changes dorsal spine. IMPRESSION: 1. No evidence for acute pulmonary disease.
[2020-03-07] MEDS ORDERED: NITROGLYCERIN SL TABS 0.4 MG TAB SUBLINGUAL PRN (09:41)
[2020-03-07] MEDS ORDERED: KETOTIFEN 0.025% OPHTH DROPS 5 ML BTL BOTH EYES PRN (13:59)
[2020-03-07] MEDS ORDERED: ARTIFICIAL TEARS-HYPROMELLOSE DROPS 15 ML BTL BOTH EYES PRN (13:59)
--- NOTE | 2020-03-07 14:06 | P.HPIM ---
History of Present Illness H&P Date: 03/07/20 Chief Complaint: Chest pain A 55-year-old female with past medical history of CAD, [place], asthma and COPD, DVT, glaucoma, gastroesophageal reflux disease, memory impairment, remote history of nicotine abuse, cocaine abuse with abstinence since 2005, resonant to the ER with fluctuating nonradiating chest tightness without diaphoresis. Denies nausea vomiting or diarrhea. Denies abdominal pain. Denies lightheadedness dizziness or focal deficits. Vital signs stable. Afebrile. Hematology, coagulation, chemistry unremarkable. Troponin negative 2. EKG reported normal sinus rhythm. Chest x-ray reported no acute pulmonary disease. Review of Systems ROS Statement: Those systems with pertinent positive or pertinent negative responses have been documented in the HPI. ROS Other: All systems not noted in ROS Statement are negative. Past Medical History Past Medical History: Asthma, COPD, Deep Vein Thrombosis (DVT), Eye Disorder, GERD/Reflux, Memory Impairment, Myocardial Infarction ([place]) Additional Past Medical History / Comment(s): glaucoma, multiple concussions, bilateral tinnunitus, DVT in ankles & inside of thighs after hysterectomy; fungal infections "off & on diflucan for 7 years", hx. irregular heart beat Last Myocardial Infarction Date:: 04/2006 History of Any Multi-Drug Resistant Organisms: None Reported Past Surgical History: Hysterectomy, Tonsillectomy Additional Past Surgical History / Comment(s): egd Past Anesthesia/Blood Transfusion Reactions: Motion Sickness Past Psychological History: ADD/ADHD, Anxiety, Depression Smoking Status: Former smoker Past Alcohol Use History: None Reported Past Drug Use History: None Reported - Past Family History Mother Additional Family Medical History / Comment(s): Mother at age 31 as she was hit by a motor vehicle with history of depression. Father Family Medical History: Coronary Artery Disease (CAD) Additional Family Medical History / Comment(s): Father at age 54 after his third heart surgery. Sister(s) Additional Family Medical History / Comment(s): Patient has 3 sisters and one from a staph infection. Brother(s) Additional Family Medical History / Comment(s): Patient has 2 brothers and one has history of blood clots and anxiety. Patient has 3 children with no major medical problems. Medications and Allergies Home Medications Medication Instructions Recorded Confirmed Type Latanoprost Ophth [Xalatan 0.005%] 1 drop BOTH EYES HS 09/30/15 03/07/20 History Aspirin [Adult Low Dose Aspirin EC] 81 mg PO DAILY 01/11/19 03/07/20 History Carboxymethylcellulose Sodium 1 drop BOTH EYES DAILY PRN 01/11/19 03/07/20 History [Refresh Tears] Multivitamins, Thera [Multivitamin 1 tab PO DAILY 01/11/19 03/07/20 History (formulary)] diphenhydrAMINE HCL [Benadryl] 12.5 mg PO HS PRN 09/28/19 03/07/20 History Black Cohosh Root [Black Cohosh] 200 mg PO DAILY 03/07/20 03/07/20 History Garlic 1 tab PO HS 03/07/20 03/07/20 History Olopatadine HCl [Pazeo] 1 drop BOTH EYES DAILY PRN 03/07/20 03/07/20 History [place] 1 tab PO DAILY 03/07/20 03/07/20 History Allergies Allergy/AdvReac Type Severity Reaction Status Date / Time cashew nut Allergy Unknown Verified 03/07/20 09:44 erythromycin base Allergy Swelling, Verified 03/07/20 09:44 [Erythromycin Base] itching & arthraligia strawberry Allergy Unknown Verified 03/07/20 09:44 chocolate flavor AdvReac Dyspnea & Verified 03/07/20 09:44 heart racing cocoa AdvReac Dyspnea Verified 03/07/20 09:44 and heart racing corn AdvReac Inflammatio Verified 03/07/20 09:44 n latex AdvReac Dyspnea Verified 03/07/20 09:44 wheat AdvReac Constipatio Verified 03/07/20 09:44 n Physical Exam Vitals: Vital Signs Temp Pulse Resp BP Pulse Ox 03/07/20 08:20 97.5 F L 61 18 122/78 97 Intake and Output 03/06/20 03/07/20 03/07/20 22:59 06:59 14:59 Other: Weight 72.575 kg PHYSICAL EXAM: VITAL SIGNS: As above GENERAL: Sitting up on stretcher, no acute distress. HEENT: Conjunctivae normal. eyes normal. Oral mucosa dry NECK: No JVD. No thyroid enlargement. No LNs CARDIOVASCULAR: S1, S2 regular. No murmur RESPIRATION: Breath sounds diminished in the bases. No rhonchi or crackles. No bronchial breathing. ABDOMEN: Soft, nontender . No guarding. no masses palpable. No ascites, No hepatosplenomegaly.Bowel sounds heard. LEGS: No edema. no swelling. No calf tenderness PSYCHIATRY: Alert and oriented X3, mood and affect anxious. NERVOUS SYSTEM: Cranial N 2-12 grossly normal. Moves all 4 limbs. No focal deficits. Strength and sensation grossly intact.. Skin: Warm and dry, no rash Lymphatic system. No LN neck axilla. Results CBC & Chem 7: 03/07/20 08:55 03/07/20 08:55 Labs: Abnormal Lab Results - Last 24 Hours (Table) 03/07/20 Range/Units 08:55 Chloride 111 H (98-107) mmol/L Assessment and Plan Assessment: Chest pain, ruling out acute coronary syndrome History and DVT Memory impairment, possibly related to prior concussion, possibly medication induced in a patient with history of polysubstance abuse. CAD, history of [place] ADD, ADHD Anxiety, depression Dyslexia Former nicotine dependence History of cocaine use, last used 2005 Glaucoma Mild intermittent asthma COPD Plan: Continue on current medication regime ,monitoring antidromic treatment. Cardiology consult in place. GI and DVT prophylaxis in place. Home meds have been reviewed and resumed accordingly. Discharge planning in progress for tomorrow. The impression and plan of care has been dictated as directed. : I performed a history and examination of this patient, discussed the same with the dictator. I agree with the dictator's note ,documented as a scribe. Any additional findings or plans will be noted.
[2020-03-07] MEDS: PANTOPRAZOLE 40 MG/10 ML VIAL IVP SCH (16:37)
--- NOTE | 2020-03-07 17:11 | ECHOF ---
Referral Reason:chest pain MEASUREMENTS -------- HEIGHT: 157.5 cm WEIGHT: 72.6 kg BP: 177/70 RVIDd: 3.0 cm (< 3.3) IVSd: 1.1 cm (0.6 - 1.1) LVIDd: 2.8 cm (3.9 - 5.3) LVPWd: 1.2 cm (0.6 - 1.1) IVSs: 1.3 cm LVIDs: 1.7 cm LVPWs: 1.5 cm LAESV Index (A-L): 16.21 ml/m Ao Diam: 3.3 cm (2.0 - 3.7) AV Cusp: 2.2 cm (1.5 - 2.6) MV EXCURSION: 16.703 mm (> 18.000) MV EF SLOPE: 82 mm/s (70 - 150) EPSS: 0.3 cm MV E Ralph: 0.74 m/s MV DecT: 123 ms MV A Ralph: 0.64 m/s MV E/A Ratio: 1.15 RAP: 5.00 mmHg RVSP: 16.43 mmHg FINDINGS -------- This was a technically adequate study. The left ventricular size is normal. There is borderline concentric left ventricular hypertrophy. Overall left ventricular systolic function is normal with, an EF between 55 - 60 %. The diastolic filling pattern is normal for the age of the patient 9.02. The right ventricle is normal in size. Normal LA size by volume 22+/-6 ml/m2. The right atrial size is normal. Interatrial and interventricular septum intact. The aortic valve is trileaflet and appears structurally normal. There is no evidence of aortic regu rgitation. There is no evidence of aortic stenosis. No mitral regurgitation. Mild tricuspid regurgitation present. There is no evidence of pulmonary hypertension. The right v entricular systolic pressure, as measured by Doppler, is 16.43mmHg. There is no pulmonic regurgitation present. The aortic root size is normal. Normal inferior vena cava with normal inspiratory collapse consistent with estimated right atrial pre ssure of 5 mmHg. There is no pericardial effusion. CONCLUSIONS -------- 1. The left ventricular size is normal. 2. There is borderline concentric left ventricular hypertrophy. 3. Overall left ventricular systolic function is normal with, an EF between 55 - 60 %. 4. The diastolic filling pattern is normal for the age of the patient 9.02 5. Mild tricuspid regurgitation present. THERMOCOUPLE TESTER: Ping Carbajal RDCS
[2020-03-07] MEDS ORDERED: LATANOPROST 0.005% OPHTH DROPS 2.5 ML BTL BOTH EYES SCH (21:00)
[2020-03-07] MEDS ORDERED: MELATONIN 1 MG TAB PO SCH (22:45)
[2020-03-07] MEDS ORDERED: MELATONIN 1 MG TAB PO ONE (23:00)
--- NOTE | 2020-03-08 03:28 | CONS ---
CONSULTATION CHIEF COMPLAINT: Chest pain. Annette is a 55-year-old lady who has no significant past medical history who has recently gone through menopause, comes to hospital complaining of chest pain. She states that she got up to go to the bathroom last night and at that time had chest discomfort, sharp, precordial, mild intensity with some radiation to her back. As it did not get better, she came to the hospital and got admitted from there. EKG does not reveal ischemic changes. Two sets of troponins have been negative. D-dimer is negative. At the time of my evaluation, patient is comfortable at rest and is free of symptoms. Her chest discomfort is atypical. I am going to obtain a stress echo on her tomorrow. If this is negative, we can discharge her home. If this is abnormal, we will consider further workup. She had an echocardiogram that showed normal LV function and wall motion. PAST MEDICAL HISTORY: Negative for hypertension, diabetes, dyslipidemia. MEDICATIONS: Medications include Benadryl, aspirin, garlic. ALLERGIES: The patient is allergic to LATEX, ERYTHROMYCIN, STRAWBERRY, COCOA, CASHEW NUTS. FAMILY HISTORY: Significant for coronary artery disease. SOCIAL HISTORY: Negative for smoking, EtOH abuse, or drug abuse. REVIEW OF SYSTEMS: HEENT is unremarkable. CARDIAC: As described above. RESPIRATORY: Negative. GI: Negative. GENITOURINARY: Negative: ALLERGY/IMMUNOLOGY: Negative. SKIN: Negative. MUSCULOSKELETAL: Negative. ENDOCRINE: Negative. DERMATOLOGIC: Negative. CONSTITUTIONAL: Negative. ONCOLOGICAL: Negative. INSPECTOR MISSILE: Negative. The rest of the system review is not relevant. PHYSICAL EXAMINATION: Comfortable at rest. Vital signs are stable. There is no jugular venous distention. Chest exam reveals good air entry bilaterally. Heart exam reveals first and second heart sounds. No gallop. Abdomen is soft. Examination of extremities did not reveal edema. Peripheral pulses are felt. LABS: Labs show that the tropes are negative. D-dimer is negative. EKG does not reveal ischemic changes. ASSESSMENT: Atypical chest pain. PLAN: I will obtain a stress echo on her tomorrow. If this is negative, she can be discharged home. If this is abnormal, will do further workup. The patient has a history of drug abuse, but has not had any recent history. There is a questionable history of coronary artery disease. MMODL / IJN: [id number] /
[2020-03-08] MEDS: PANTOPRAZOLE 40 MG/10 ML VIAL IVP SCH (07:46)
[2020-03-08 07:48] VITALS: BP 101/66; PULSE 75; RESP 16; TEMP 98.1
[2020-03-08] MEDS ORDERED: ASPIRIN 325 MG TAB PO SCH (09:00)
--- NOTE | 2020-03-08 11:43 | P.DS ---
Providers Date of admission: 03/07/20 11:12 Expected date of discharge: 03/08/20 Attending physician: Dontae Carmichael Consults: 03/07/20 14:48 Consult Physician Routine Consulting Provider: Woo Sheppard Consult Reason/Comments: chest pain Do you want consulting provider notified?: Yes Primary care physician: [facility] Course: Final Diagnoses: Chest pain, atypical, possibly muscle skeletal related. stress echo pending. History and DVT Memory impairment, possibly related to prior concussion, possibly medication induced in a patient with history of polysubstance abuse. CAD, history of [place] ADD, ADHD Anxiety, depression Dyslexia Former nicotine dependence History of cocaine use, last used 2005 Glaucoma Mild intermittent asthma COPD Hospital course:A 55-year-old female with past medical history of CAD, TX, asthma and COPD, DVT, glaucoma, gastroesophageal reflux disease, memory impairment, remote history of nicotine abuse, cocaine abuse with abstinence since 2005, resonant to the ER with fluctuating nonradiating chest tightness without diaphoresis. Denies nausea vomiting or diarrhea. Denies abdominal pain. Denies lightheadedness dizziness or focal deficits. Vital signs stable. Afebrile. Hematology, coagulation, chemistry unremarkable. Troponin negative 2. EKG reported normal sinus rhythm. Chest x-ray reported no acute pulmonary disease. Evaluated by cardiology, stress echo pending. Patient will be discharged home today in stable condition with guarded prognosis pending stress echo results, final DC recommendations and clearance from cardiology. The impression and plan of care has been dictated as directed. : I performed a history and examination of this patient, discussed the same with the dictator. I agree with the dictator's note ,documented as a scribe. Any additional findings or plans will be noted. Patient Condition at Discharge: Stable Plan - Discharge Summary Discharge Rx Participant: No New Discharge Prescriptions: Continue Latanoprost Ophth [Xalatan 0.005%] 1 drop BOTH EYES HS Multivitamins, Thera [Multivitamin (formulary)] 1 tab PO DAILY Aspirin [Adult Low Dose Aspirin EC] 81 mg PO DAILY Carboxymethylcellulose Sodium [Refresh Tears] 1 drop BOTH EYES DAILY PRN PRN Reason: Dry Eye(S) diphenhydrAMINE HCL [Benadryl] 12.5 mg PO HS PRN PRN Reason: Insomnia Olopatadine HCl [Pazeo] 1 drop BOTH EYES DAILY PRN PRN Reason: Allergy Symptoms [place] 1 tab PO DAILY Black Cohosh Root [Black Cohosh] 200 mg PO DAILY Garlic 1 tab PO HS Discharge Medication List Latanoprost Ophth [Xalatan 0.005%] 1 drop BOTH EYES HS 09/30/15 [History] Aspirin [Adult Low Dose Aspirin EC] 81 mg PO DAILY 01/11/19 [History] Carboxymethylcellulose Sodium [Refresh Tears] 1 drop BOTH EYES DAILY PRN 01/11/19 [History] Multivitamins, Thera [Multivitamin (formulary)] 1 tab PO DAILY 01/11/19 [History] diphenhydrAMINE HCL [Benadryl] 12.5 mg PO HS PRN 09/28/19 [History] Black Cohosh Root [Black Cohosh] 200 mg PO DAILY 03/07/20 [History] Garlic 1 tab PO HS 03/07/20 [History] Olopatadine HCl [Pazeo] 1 drop BOTH EYES DAILY PRN 03/07/20 [History] [place] 1 tab PO DAILY 03/07/20 [History] Follow up Appointment(s)/Referral(s): Dontae Carmichael Jr, [Primary Care Provider] - 1-2 days
[2020-03-08 11:55] LABS: Basophils # (A) 0.1 k/uL (0-0.2); Basophils % (A) 1 %; Eosinophils # (A) 0.2 k/uL (0-0.7); Eosinophils % (A) 3 %; HCT 42.9 % (34.0-46.0); HGB 14.1 gm/dL (11.4-16.0); Lymphocytes # (A) 2.4 k/uL (1.0-4.8); Lymphocytes % (A) 37 %; MCH 30.2 pg (25.0-35.0); MCV 91.6 fL (80.0-100.0); Monocytes # (A) 0.4 k/uL (0-1.0); Monocytes % (A) 6 %; Neutrophils # (A) 3.4 k/uL (1.3-7.7); Neutrophils % (A) 52 %; Platelet Count 217 k/uL (150-450); RBC 4.68 m/uL (3.80-5.40); RDW 13.7 % (11.5-15.5); WBC 6.6 k/uL (3.8-10.6)
--- NOTE | 2020-03-08 12:14 | ECHOS ---
STRESS ECHOCARDIOGRAM DATE OF SERVICE: 03/08/2020 INDICATION: Chest pain. MEDICATIONS: See list. BASELINE HEART RATE: 62 BASELINE BLOOD PRESSURE: 113/70 MAXIMUM HEART RATE: 153 MAXIMUM BLOOD PRESSURE: 171/79 85% MPHR: 142 100% MPHR: 167 METS: 7.1 MAXIMUM STAGE REACHED: 2 TOTAL EXERCISE TIME: 6 minutes CLINICAL INFORMATION: Chest pain. RESULTS: Baseline EKG shows sinus rhythm, normal axis, normal intervals. Patient exercised on Papo protocol for a total of 6 minutes achieving 7 METS, 91% of predicted maximal heart rate without chest pain or diagnostic ST-segment depression. Baseline echo shows normal left ventricular size, wall motion systolic function. Postexercise, there is normal hyperdynamic response of all segments of myocardium noted. CONCLUSIONS: 1. Average exercise tolerance. 2. Negative stress test by EKG criteria. 3. Negative stress echo. MMJOSIEL / IJN: [id number] /
[2020-03-08 13:09] LABS: African American GFR (CKD) >90 (>60 ml/min/1.73 sqM); Anion Gap 3 mmol/L; Blood Urea Nitrogen 17 mg/dL (7-17); Calcium 9.3 mg/dL (8.4-10.2); Carbon Dioxide 28 mmol/L (22-30); Chloride 107 mmol/L (98-107); Cholesterol 204 mg/dL (<200); Glucose 108 mg/dL (74-99); HDL Cholesterol 45 mg/dL (40-60); LDL Cholesterol,Calculated 134 mg/dL (0-99); Non-African American GFR(CKD) >90 (>60 ml/min/1.73 sqM); Potassium 3.9 mmol/L (3.5-5.1); Sodium 138 mmol/L (137-145); Triglycerides 123 mg/dL (<150)
--- NOTE | 2020-03-08 14:00 | P.PN ---
Subjective Progress Note Date: 03/08/20 CHIEF COMPLAINT: Chest pain HISTORY OF PRESENT ILLNESS: The patient underwent stress echocardiogram today which was negative for ischemia. The patient denies any further episodes of chest pain or pressure. Denies shortness of breath. Vital signs are stable. PHYSICAL EXAM: VITAL SIGNS: Reviewed. GENERAL: Well-developed in no acute distress. NECK: Supple. No JVD or thyromegaly LUNGS: Respirations even and unlabored. Lungs essentially clear to auscultation bilaterally. HEART: Regular rate and rhythm. S1 and S2 heard. EXTREMITIES: Normal range of motion. No clubbing or cyanosis. Peripheral pulses intact. No lower extremity edema ASSESSMENT: Chest pain, atypical PLAN: Stable for discharge from a cardiac perspective. Will defer to internal medicine Patient to follow-up outpatient with Dr. Sheppard Nurse practitioner note has been reviewed by physician. Signing provider agrees with the documented findings, assessment, and plan of care. Objective - Vital Signs Vital signs: Vital Signs Temp 98.1 F 03/08/20 07:47 Pulse 75 03/08/20 07:51 Resp 16 03/08/20 07:51 BP 101/66 03/08/20 07:47 Pulse Ox 96 03/08/20 07:47 Intake & Output 03/07/20 03/08/20 03/08/20 18:59 06:59 18:59 Weight 72.575 kg 72.57 kg Other: Voiding Method Toilet Toilet # Voids 1 1 - Labs CBC & Chem 7: 03/08/20 11:20 03/08/20 11:20 Labs: Abnormal Lab Results - Last 24 Hours (Table) 03/08/20 Range/Units 11:20 Glucose 108 H (74-99) mg/dL Cholesterol 204 H (<200) mg/dL LDL Cholesterol, Calc 134 H (0-99) mg/dL
== END 2020-03-08 12:40 ==
LOC: EC 08:19 → 3NCARDOBS 11:12 → 1SOBS 14:14
PROVIDERS: ADMIT Family Medicine; ATTEND Family Medicine
DX: R07.89 Other chest pain (principal); R07.2 Precordial pain; M79.661 Pain in right lower leg; R41.3 Other amnesia; I25.10 Atherosclerotic heart disease of native coronary artery without angina pectoris; F90.9 Attention-deficit hyperactivity disorder, unspecified type; F41.9 Anxiety disorder, unspecified; F32.9 Major depressive disorder, single episode, unspecified; R48.0 Dyslexia and alexia; H40.9 Unspecified glaucoma; J45.20 Mild intermittent asthma, uncomplicated; J44.9 Chronic obstructive pulmonary disease, unspecified; K21.9 Gastro-esophageal reflux disease without esophagitis; I25.2 Old myocardial infarction; H93.13 Tinnitus, bilateral; I10 Essential (primary) hypertension; E11.9 Type 2 diabetes mellitus without complications; E78.5 Hyperlipidemia, unspecified; Z86.718 Personal history of other venous thrombosis and embolism; Z87.891 Personal history of nicotine dependence; Z79.899 Other long term (current) drug therapy; Z79.82 Long term (current) use of aspirin; Z87.820 Personal history of traumatic brain injury; Z90.710 Acquired absence of both cervix and uterus; Z86.19 Personal history of other infectious and parasitic diseases; Z86.79 Personal history of other diseases of the circulatory system; Z90.89 Acquired absence of other organs; Z98.890 Other specified postprocedural states; Z87.898 Personal history of other specified conditions; Z91.018 Allergy to other foods; Z88.1 Allergy status to other antibiotic agents; Z91.040 Latex allergy status; Z78.0 Asymptomatic menopausal state; Z81.8 Family history of other mental and behavioral disorders; Z82.49 Family history of ischemic heart disease and other diseases of the circulatory system; Z83.1 Family history of other infectious and parasitic diseases
CPT/HCPCS: 93005 ×2; 96375; 96376; 96374; 99285; 36415; 93306; 93351; 85379; 80061; 80053; 80048; 83690; 83735; 84484; 85025 ×2; 85610; 85730; 71046; G0378 ×3; J2060; C9113 ×2

== ENCOUNTER 2020-03-11 00:57 | Emergency (ER) | payer MEDICARE, OTHER ==
[2020-03-11 01:06] VITALS: BP 111/74; PULSE 78; RESP 16; TEMP 97.5
[2020-03-11 01:52] LABS: Appearance,Urine Clear (Clear); Bacteria,Urine Rare /hpf; Bilirubin,Urine Negative (Negative); Blood,Urine Small (Negative); Color,Urine Light Yellow; Glucose,Urine (UA) Negative (Negative); Ketones,Urine Negative (Negative); Leukocyte Esterase,Urine Large (Negative); Mucus,Urine Rare /hpf; Nitrite,Urine Negative (Negative); PH, Urine 5.5 (5.0-8.0); Protein,Urine Negative (Negative); RBC,Urine 2 /hpf (0-5); Squamous Epithelial Cell,Urine 1 /hpf (0-4); Urobilinogen,Urine <2.0 mg/dL (<2.0); WBC,Urine 83 /hpf (0-5)
[2020-03-11] MEDS ORDERED: CEPHALEXIN 500MG STARTER PACK 4 CAP BTL PO STA (02:08)
--- NOTE | 2020-03-11 02:10 | ED ---
Female Urogenital HPI - General Chief complaint: Urogenital Stated complaint: Blood in urine Time Seen by Provider: 03/11/20 01:08 Source: patient Mode of arrival: ambulatory Limitations: no limitations - History of Present Illness Initial comments: 55-year-old female patient presents to the emergency department today for evaluation of urinary frequency, dysuria, and fullness in the suprapubic region. Patient states that this has been going on for the last several days. States she was recently treated for urinary tract infection with Bactrim. Patient states that she is also given Diflucan with her antibiotics due to history of [place] infection. Patient denies any nausea or vomiting. Denies any back pain, fever, or chills. States that she does have intermittent episodes with blood in her urine. Patient denies any recent rash, cough, shortness of breath, chest pain, diarrhea, constipation, numbness, tingling, dizziness, weakness, headache, visual changes, or any other complaints. - Related Data Home Medications Medication Instructions Recorded Confirmed Latanoprost Ophth [Xalatan 0.005%] 1 drop BOTH EYES HS 09/30/15 03/07/20 Aspirin [Adult Low Dose Aspirin EC] 81 mg PO DAILY 01/11/19 03/07/20 Carboxymethylcellulose Sodium 1 drop BOTH EYES DAILY PRN 01/11/19 03/07/20 [Refresh Tears] Multivitamins, Thera [Multivitamin 1 tab PO DAILY 01/11/19 03/07/20 (formulary)] diphenhydrAMINE HCL [Benadryl] 12.5 mg PO HS PRN 09/28/19 03/07/20 Black Cohosh Root [Black Cohosh] 200 mg PO DAILY 03/07/20 03/07/20 Garlic 1 tab PO HS 03/07/20 03/07/20 Olopatadine HCl [Pazeo] 1 drop BOTH EYES DAILY PRN 03/07/20 03/07/20 [place] 1 tab PO DAILY 03/07/20 03/07/20 Previous Rx's Medication Instructions Recorded Cephalexin [Keflex] 500 mg PO BID #14 cap 03/11/20 Fluconazole [Diflucan] 100 mg PO ONCE #2 tablet 03/11/20 L.acidoph,Paracasei, B.lactis 1 each PO DAILY #7 capsule 03/11/20 [Probiotic] Allergies Allergy/AdvReac Type Severity Reaction Status Date / Time cashew nut Allergy Unknown Verified 03/11/20 01:06 erythromycin base Allergy Swelling, Verified 03/11/20 01:06 [Erythromycin Base] itching & arthraligia strawberry Allergy Unknown Verified 03/11/20 01:06 chocolate flavor AdvReac Dyspnea & Verified 03/11/20 01:06 heart racing cocoa AdvReac Dyspnea Verified 03/11/20 01:06 and heart racing corn AdvReac Inflammatio Verified 03/11/20 01:06 n latex AdvReac Dyspnea Verified 03/11/20 01:06 wheat AdvReac Constipatio Verified 03/11/20 01:06 n Review of Systems ROS Statement: Those systems with pertinent positive or pertinent negative responses have been documented in the HPI. ROS Other: All systems not noted in ROS Statement are negative. Past Medical History Past Medical History: Asthma, COPD, Deep Vein Thrombosis (DVT), Eye Disorder, GERD/Reflux, Osteoarthritis (OA) Additional Past Medical History / Comment(s): Current UTI with antibiotic x 2 days, pt states at times she has an irregular heart beat, bronchitis, blood in stool/spring 2019 but never had f/u d/t covid, 2001 DVT in ankles bilateral thighs post hysterectomy per pt, bilateral glaucoma, multiple concusions, bilateral tinnitis/[place], dysphagia-makes sure she chews food well/esophageal stricture with dilation, past stomach ulcer, chronic pain lower back/cervica and bilateral knees, past fungal infection/christa and was on diflucan for "years", past ETOH/crack cocaine but quit both in 2005.. Last Myocardial Infarction Date:: 04/2006 History of Any Multi-Drug Resistant Organisms: None Reported Past Surgical History: Hysterectomy, Tonsillectomy Additional Past Surgical History / Comment(s): egd with dilation Past Anesthesia/Blood Transfusion Reactions: No Reported Reaction, Motion Sickness Past Psychological History: ADD/ADHD, Anxiety, Depression Smoking Status: Former smoker Past Alcohol Use History: None Reported Past Drug Use History: None Reported - Past Family History Mother Additional Family Medical History / Comment(s): Mother at age 31 as she was hit by a motor vehicle with history of depression. Father Family Medical History: Coronary Artery Disease (CAD) Additional Family Medical History / Comment(s): Father at age 54 after his third heart surgery. Sister(s) Additional Family Medical History / Comment(s): Patient has 3 sisters and one from a staph infection. Brother(s) Additional Family Medical History / Comment(s): Patient has 2 brothers and one has history of blood clots and anxiety. Patient has 3 children with no major medical problems. General Exam Limitations: no limitations General appearance: alert, in no apparent distress, other (This is a well- developed, well-nourished adult female patient in no acute distress. Vital signs upon presentation are temperature 97.5F, pulse 78, respirations 16, blood pressure 111/74, pulse ox 95% on room air.) Respiratory exam: Present: normal lung sounds bilaterally. Absent: respiratory distress, wheezes, rales, rhonchi, stridor Cardiovascular Exam: Present: regular rate, normal rhythm, normal heart sounds. Absent: systolic murmur, diastolic murmur, rubs, gallop, clicks GI/Abdominal exam: Present: soft, normal bowel sounds. Absent: distended, tenderness, guarding, rebound, rigid Back exam: Absent: CVA tenderness (R), CVA tenderness (L) Neurological exam: Present: alert, oriented X3, CN II-XII intact Psychiatric exam: Present: normal affect, normal mood Skin exam: Present: warm, dry, intact, normal color. Absent: rash Course Vital Signs 03/11/20 01:03 Temperature 97.5 F L Pulse Rate 78 Respiratory 16 Rate Blood Pressure 111/74 O2 Sat by Pulse 95 Oximetry Medical Decision Making - Medical Decision Making 55-year-old female patient presented to the emergency department today for evaluation of hematuria, urinary frequency, and suprapubic discomfort. Physical examination revealed no CVA tenderness. Abdomen is soft and nontender. She is afebrile normal vital signs. Urinalysis was obtained and showed small amount of blood, large esterase, 83 white blood cells, rare bacteria, and rare mucous. Patient was recent and treated for UTI with Bactrim, we will treat with Keflex at this time. She does request a prescription for Diflucan. We did give prescription for probiotic as well as she states that she has stomach upset with antibiotic use. She'll be discharged follow up with her primary care physician for recheck in 1-2 days. Return parameters discussed in detail. She verbalizes understanding and agrees with this plan. - Lab Data Lab Results 03/11/20 Range/Units 01:18 Urine Color Light Yellow Urine Appearance Clear (Clear) Urine pH 5.5 (5.0-8.0) Ur Specific [place] 1.010 (1.001-1.035) Urine Protein Negative (Negative) Urine Glucose (UA) Negative (Negative) Urine Ketones Negative (Negative) Urine Blood Small H (Negative) Urine Nitrite Negative (Negative) Urine Bilirubin Negative (Negative) Urine Urobilinogen <2.0 (<2.0) mg/dL Ur Leukocyte Esterase Large H (Negative) Urine RBC 2 (0-5) /hpf Urine WBC 83 H (0-5) /hpf Ur Squamous Epith Cells 1 (0-4) /hpf Urine Bacteria Rare H (None) /hpf Urine Mucus Rare H (None) /hpf Disposition Clinical Impression: Urinary tract infection Disposition: HOME SELF-CARE Condition: Good Instructions (If sedation given, give patient instructions): Urinary Tract Infection in Women (ED) Additional Instructions: Take medications as directed. Follow up with your primary care physician for recheck in 1-2 days. Return to the emergency department immediately for any new, worsening, or concerning symptoms. Prescriptions: Fluconazole [Diflucan] 100 mg PO ONCE #2 tablet Cephalexin [Keflex] 500 mg PO BID #14 cap L.acidoph,Paracasei, B.lactis [Probiotic] 1 each PO DAILY #7 capsule Is patient prescribed a controlled substance at d/c from ED?: No Referrals: Dontae Carmichael Jr, DO [Primary Care Provider] - 1-2 days Time of Disposition: 02:09
== END 2020-03-11 02:22 | disposition home or self-care (01) ==
LOC: EC 00:57
DX: N39.0 Urinary tract infection, site not specified (principal); M19.90 Unspecified osteoarthritis, unspecified site; H40.9 Unspecified glaucoma; G89.29 Other chronic pain; M54.5 Low back pain; M54.2 Cervicalgia; M25.562 Pain in left knee; M25.561 Pain in right knee; I25.2 Old myocardial infarction; Z79.82 Long term (current) use of aspirin; Z79.899 Other long term (current) drug therapy; Z91.018 Allergy to other foods; Z88.1 Allergy status to other antibiotic agents; Z91.040 Latex allergy status; Z86.718 Personal history of other venous thrombosis and embolism; Z87.891 Personal history of nicotine dependence
CPT/HCPCS: 81001; 99283

== ENCOUNTER → 2020-05-10 | Outpatient (CLI) | payer MEDICARE, OTHER ==
--- NOTE | 2020-05-10 13:14 | US ---
EXAMINATION TYPE: US abdomen comp/pelvis limited DATE OF EXAM: 05/10/2020 COMPARISON: US Limited abdomen 2019 CLINICAL HISTORY: R31.9 Hematuria. Hematuria, frequent UTI's EXAM MEASUREMENTS: Liver Length: 13.7 cm Gallbladder Wall: 0.2 cm CBD: 0.4 cm Spleen: 10.1 cm Right Kidney: 9.9 x 4.6 x 4.3 cm Left Kidney: 10.0 x 5.4 x 4.5 cm Pancreas: visualized portions wnl, limited by overlying midline bowel gas Liver: wnl Gallbladder: wnl CBD: wnl Spleen: wnl Right Kidney: wnl Left Kidney: wnl Upper IVC: wnl Abd Aorta: visualized portions wnl, limited by overlying midline bowel gas Bladder: wnl Bilateral Jets Seen yes Bladder satisfactorily distended. IMPRESSION: Source of hematuria not identified. If symptoms persist further investigation with CT uro gram would be advised.
== END | disposition home or self-care (01) ==
LOC: RADUSWWP 12:17
PROVIDERS: ATTEND Family Medicine
DX: R31.9 Hematuria, unspecified (principal); Z88.0 Allergy status to penicillin
CPT/HCPCS: 76700; 76857

== ENCOUNTER 2020-06-13 16:48 | Emergency (ER) | payer MEDICARE, OTHER ==
[2020-06-13 16:57] VITALS: RESP 18; TEMP 99.5
--- NOTE | 2020-06-13 18:16 | ED ---
General Adult HPI - General Chief complaint: Shortness of Breath Stated complaint: Chills/nausea/blood in urine/sob Time Seen by Provider: 06/13/20 17:44 Source: patient, RN notes reviewed, old records reviewed Mode of arrival: ambulatory Limitations: no limitations - History of Present Illness Initial comments: 55-year-old female with recurrent bladder infection presenting with dysuria. She states that in the past this has been related to her from [place] which she takes for menopausal symptoms. She denies fever. She has had some nausea. Additional complaint of dyspnea which she used her albuterol inhaler and subsequently developed a generalized tremor. Patient's main complaint is dysuria, concern for both altered kidney function as well as UTI. - Related Data Home Medications Medication Instructions Recorded Confirmed Latanoprost Ophth [Xalatan 0.005%] 1 drop BOTH EYES HS 09/30/15 06/13/20 Aspirin [Adult Low Dose Aspirin EC] 81 mg PO DAILY 01/11/19 06/13/20 Carboxymethylcellulose Sodium 1 drop BOTH EYES DAILY PRN 01/11/19 06/13/20 [Refresh Tears] Multivitamins, Thera [Multivitamin 1 tab PO DAILY 01/11/19 06/13/20 (formulary)] diphenhydrAMINE HCL [Benadryl] 12.5 mg PO HS PRN 09/28/19 06/13/20 Black Cohosh Root [Black Cohosh] 200 mg PO DAILY 03/07/20 06/13/20 Garlic 1 tab PO HS 03/07/20 06/13/20 Olopatadine HCl [Pazeo] 1 drop BOTH EYES DAILY PRN 03/07/20 06/13/20 [place] 1 tab PO DAILY 03/07/20 06/13/20 Albuterol Sulfate [Ventolin HFA] 2 puff INHALATION RT-QID PRN 06/13/20 06/13/20 Ergocalciferol [Vitamin D2] 50,000 unit PO TH 06/13/20 06/13/20 Ibuprofen [Motrin] 800 mg PO BID PRN 06/13/20 06/13/20 L.acidoph,Paracasei, B.lactis 1 cap PO DAILY 06/13/20 06/13/20 [Probiotic] Melatonin 3 mg PO HS PRN 06/13/20 06/13/20 Omeprazole 20 mg PO DAILY 06/13/20 06/13/20 Previous Rx's Medication Instructions Recorded Cephalexin [Keflex] 500 mg PO Q12HR #20 cap 06/13/20 Allergies Allergy/AdvReac Type Severity Reaction Status Date / Time cashew nut Allergy Unknown Verified 06/13/20 19:33 erythromycin base Allergy Swelling, Verified 06/13/20 19:33 [Erythromycin Base] itching & arthraligia strawberry Allergy Unknown Verified 06/13/20 19:33 chocolate flavor AdvReac Dyspnea & Verified 06/13/20 19:33 heart racing cocoa AdvReac Dyspnea Verified 06/13/20 19:33 and heart racing corn AdvReac Inflammatio Verified 06/13/20 19:33 n latex AdvReac Dyspnea Verified 06/13/20 19:33 wheat AdvReac Constipatio Verified 06/13/20 19:33 n Review of Systems ROS Statement: Those systems with pertinent positive or pertinent negative responses have been documented in the HPI. ROS Other: All systems not noted in ROS Statement are negative. Past Medical History Past Medical History: Asthma, COPD, Deep Vein Thrombosis (DVT), Eye Disorder, GERD/Reflux, Osteoarthritis (OA) Additional Past Medical History / Comment(s): Current UTI with antibiotic x 2 days, pt states at times she has an irregular heart beat, bronchitis, blood in stool/spring 2019 but never had f/u d/t covid, 2001 DVT in ankles bilateral thighs post hysterectomy per pt, bilateral glaucoma, multiple concusions, bilateral tinnitis/[place], dysphagia-makes sure she chews food well/esophageal stricture with dilation, past stomach ulcer, chronic pain lower back/cervica and bilateral knees, past fungal infection/christa and was on diflucan for "years", past ETOH/crack cocaine but quit both in 2005.. Last Myocardial Infarction Date:: 04/2006 History of Any Multi-Drug Resistant Organisms: None Reported Past Surgical History: Hysterectomy, Tonsillectomy Additional Past Surgical History / Comment(s): egd with dilation Past Anesthesia/Blood Transfusion Reactions: No Reported Reaction, Motion Sickness Past Psychological History: ADD/ADHD, Anxiety, Depression Smoking Status: Former smoker Past Alcohol Use History: None Reported Past Drug Use History: None Reported - Past Family History Mother Additional Family Medical History / Comment(s): Mother at age 31 as she was hit by a motor vehicle with history of depression. Father Family Medical History: Coronary Artery Disease (CAD) Additional Family Medical History / Comment(s): Father at age 54 after his third heart surgery. Sister(s) Additional Family Medical History / Comment(s): Patient has 3 sisters and one from a staph infection. Brother(s) Additional Family Medical History / Comment(s): Patient has 2 brothers and one has history of blood clots and anxiety. Patient has 3 children with no major medical problems. General Exam Limitations: no limitations General appearance: alert, in no apparent distress Head exam: Present: atraumatic, normocephalic Eye exam: Present: normal appearance, PERRL ENT exam: Present: normal exam Neck exam: Present: normal inspection. Absent: tenderness, meningismus Respiratory exam: Present: normal lung sounds bilaterally. Absent: respiratory distress Cardiovascular Exam: Present: regular rate, normal rhythm GI/Abdominal exam: Present: soft. Absent: distended, tenderness, guarding Extremities exam: Present: normal inspection, normal capillary refill. Absent: pedal edema Neurological exam: Present: alert, oriented X3, CN II-XII intact. Absent: motor sensory deficit Psychiatric exam: Present: anxious Skin exam: Present: warm, dry, intact. Absent: cyanosis, diaphoretic Course Vital Signs 06/13/20 06/13/20 06/13/20 16:52 18:28 19:30 Temperature 99.5 F Pulse Rate 74 82 Respiratory 18 18 18 Rate Blood Pressure 112/80 123/76 O2 Sat by Pulse 98 96 Oximetry 06/13/20 20:00 Temperature Pulse Rate Respiratory 18 Rate Blood Pressure O2 Sat by Pulse Oximetry Medical Decision Making - Medical Decision Making 55-year-old female presenting with chief complaint of dysuria. X-ray was performed for an episode of dyspnea which is resolved. This is negative for any acute findings. She has a normal CBC, normal CMP, urinalysis showing 19 white cells, culture will be obtained. Patient will be started on antibiotics. She will return with worsening or changing symptoms. - Lab Data Result diagrams: 06/13/20 18:40 06/13/20 18:40 Lab Results 06/13/20 06/13/20 06/13/20 Range/Units 18:40 18:40 18:40 WBC 6.8 (3.8-10.6) k/uL RBC 4.76 (3.80-5.40) m/uL Hgb 14.9 (11.4-16.0) gm/dL Hct 43.6 (34.0-46.0) % MCV 91.5 (80.0-100.0) fL MCH 31.2 (25.0-35.0) pg MCHC 34.1 (31.0-37.0) g/dL RDW 12.8 (11.5-15.5) % Plt Count 234 (150-450) k/uL MPV 7.7 Neutrophils % 51 % Lymphocytes % 36 % Monocytes % 6 % Eosinophils % 3 % Basophils % 1 % Neutrophils # 3.5 (1.3-7.7) k/uL Lymphocytes # 2.5 (1.0-4.8) k/uL Monocytes # 0.4 (0-1.0) k/uL Eosinophils # 0.2 (0-0.7) k/uL Basophils # 0.1 (0-0.2) k/uL Sodium 140 (137-145) mmol/L Potassium 4.1 (3.5-5.1) mmol/L Chloride 107 (98-107) mmol/L Carbon Dioxide 26 (22-30) mmol/L Anion Gap 7 mmol/L BUN 18 H (7-17) mg/dL Creatinine 0.64 (0.52-1.04) mg/dL Est GFR (CKD-EPI)AfAm >90 (>60 ml/min/1.73 sqM) Est GFR (CKD-EPI)NonAf >90 (>60 ml/min/1.73 sqM) Glucose 120 H (74-99) mg/dL Calcium 9.4 (8.4-10.2) mg/dL Total Bilirubin 0.4 (0.2-1.3) mg/dL AST 26 (14-36) U/L ALT 24 (4-34) U/L Alkaline Phosphatase 90 (38-126) U/L Total Protein 6.9 (6.3-8.2) g/dL Albumin 4.2 (3.5-5.0) g/dL Urine Color Yellow Urine Appearance Clear (Clear) Urine pH 5.0 (5.0-8.0) Ur Specific [place] 1.017 (1.001-1.035) Urine Protein Negative (Negative) Urine Glucose (UA) Negative (Negative) Urine Ketones Negative (Negative) Urine Blood Small H (Negative) Urine Nitrite Negative (Negative) Urine Bilirubin Negative (Negative) Urine Urobilinogen <2.0 (<2.0) mg/dL Ur Leukocyte Esterase Large H (Negative) Urine RBC 2 (0-5) /hpf Urine WBC 19 H (0-5) /hpf Ur Squamous Epith Cells 1 (0-4) /hpf Urine Bacteria Rare H (None) /hpf Urine Mucus Rare H (None) /hpf Disposition Clinical Impression: UTI (urinary tract infection) Disposition: HOME SELF-CARE Condition: Good Instructions (If sedation given, give patient instructions): Urinary Tract Infection in Women (ED) Prescriptions: Cephalexin [Keflex] 500 mg PO Q12HR #20 cap Is patient prescribed a controlled substance at d/c from ED?: No Referrals: Dontae Carmichael Jr, [Primary Care Provider] - 1-2 days Time of Disposition: 20:40
[2020-06-13 19:35] VITALS: BP 123/76; PULSE 82
[2020-06-13 20:18] LABS: Basophils # (A) 0.1 k/uL (0-0.2); Basophils % (A) 1 %; Eosinophils # (A) 0.2 k/uL (0-0.7); Eosinophils % (A) 3 %; HCT 43.6 % (34.0-46.0); HGB 14.9 gm/dL (11.4-16.0); Lymphocytes # (A) 2.5 k/uL (1.0-4.8); Lymphocytes % (A) 36 %; MCH 31.2 pg (25.0-35.0); MCHC 34.1 g/dL (31.0-37.0); MCV 91.5 fL (80.0-100.0); Mean Platelet Volume 7.7; Monocytes # (A) 0.4 k/uL (0-1.0); Monocytes % (A) 6 %; Neutrophils # (A) 3.5 k/uL (1.3-7.7); Neutrophils % (A) 51 %; Platelet Count 234 k/uL (150-450); RBC 4.76 m/uL (3.80-5.40); RDW 12.8 % (11.5-15.5); WBC 6.8 k/uL (3.8-10.6)
[2020-06-13 20:27] LABS: Appearance,Urine Clear (Clear); Bacteria,Urine Rare /hpf; Bilirubin,Urine Negative (Negative); Blood,Urine Small (Negative); Color,Urine Yellow; Glucose,Urine (UA) Negative (Negative); Ketones,Urine Negative (Negative); Leukocyte Esterase,Urine Large (Negative); Mucus,Urine Rare /hpf; Nitrite,Urine Negative (Negative); Protein,Urine Negative (Negative); RBC,Urine 2 /hpf (0-5); Specific Gravity,Urine 1.017 (1.001-1.035); Squamous Epithelial Cell,Urine 1 /hpf (0-4); Urobilinogen,Urine <2.0 mg/dL (<2.0); WBC,Urine 19 /hpf (0-5)
[2020-06-13 20:28] LABS: ALT 24 U/L (4-34); AST 26 U/L (14-36); African American GFR (CKD) >90 (>60 ml/min/1.73 sqM); Albumin 4.2 g/dL (3.5-5.0); Alkaline Phosphatase 90 U/L (38-126); Anion Gap 7 mmol/L; Blood Urea Nitrogen 18 mg/dL (7-17); Calcium 9.4 mg/dL (8.4-10.2); Carbon Dioxide 26 mmol/L (22-30); Chloride 107 mmol/L (98-107); Glucose 120 mg/dL (74-99); Non-African American GFR(CKD) >90 (>60 ml/min/1.73 sqM); Potassium 4.1 mmol/L (3.5-5.1); Sodium 140 mmol/L (137-145); Total Bilirubin 0.4 mg/dL (0.2-1.3); Total Protein 6.9 g/dL (6.3-8.2)
--- NOTE | 2020-06-13 20:37 | XR ---
EXAMINATION: XR chest 2V DATE AND TIME: 06/13/2020 7:25 PM CLINICAL INDICATION: PHH; sob TECHNIQUE: Departmental protocol COMPARISON: 03/07/2020 FINDINGS: The lungs are clear. The pleural spaces are negative. The cardiac silhouette is not enlarged. The remainder of the mediastinal silhouette is unremarkable. The skeletal structures and soft tissues are negative for acute findings. IMPRESSION: NO ACUTE PROCESS.
== END 2020-06-13 20:40 | disposition home or self-care (01) ==
LOC: EC 16:48
DX: N39.0 Urinary tract infection, site not specified (principal); R06.00 Dyspnea, unspecified; J44.9 Chronic obstructive pulmonary disease, unspecified; K21.9 Gastro-esophageal reflux disease without esophagitis; M19.90 Unspecified osteoarthritis, unspecified site; H40.9 Unspecified glaucoma; F41.9 Anxiety disorder, unspecified; F32.9 Major depressive disorder, single episode, unspecified; F90.9 Attention-deficit hyperactivity disorder, unspecified type; Z79.51 Long term (current) use of inhaled steroids; Z79.899 Other long term (current) drug therapy; Z79.82 Long term (current) use of aspirin; Z87.891 Personal history of nicotine dependence; Z91.040 Latex allergy status; Z91.018 Allergy to other foods; Z88.1 Allergy status to other antibiotic agents
CPT/HCPCS: 36415; 71046; 80053; 81001; 85025; 87086; 99285

== ENCOUNTER 2020-07-25 21:23 | Emergency (ER) | payer MEDICARE, OTHER ==
[2020-07-25 21:34] VITALS: BP 110/79; PULSE 96; RESP 18; TEMP 99.2
[2020-07-25] MEDS ORDERED: SODIUM CHLORIDE 0.9% 1,000 ML IV STA (21:50)
--- NOTE | 2020-07-25 21:50 | ED ---
Recheck HPI - General Chief Complaint: Recheck/Abnormal Lab/Rx Stated Complaint: Coughing, diarrhea Time Seen by Provider: 07/25/20 21:47 Source: patient Mode of arrival: ambulatory Limitations: no limitations - History of Present Illness Initial Comments: 55-year-old female presents to the emergency department for multiple chief complaints. Patient states she is experiencing chills but this is somewhat normal for her because she is "always cold". Patient also reports having constipation for the past several months. States she took MiraLAX and now is having some diarrhea. States that she also tried an enema but does not believe she administered properly. Patient suspects she has the flu but denies any fevers at home. Denies exposure to cold with. [place] any chest pain or shortness of breathor cough. Denies any abdominal back pain. Denies any vaginal urinary symptoms. - Related Data Home Medications Medication Instructions Recorded Confirmed Latanoprost Ophth [Xalatan 0.005%] 1 drop BOTH EYES HS 09/30/15 06/13/20 Aspirin [Adult Low Dose Aspirin EC] 81 mg PO DAILY 01/11/19 06/13/20 Carboxymethylcellulose Sodium 1 drop BOTH EYES DAILY PRN 01/11/19 06/13/20 [Refresh Tears] Multivitamins, Thera [Multivitamin 1 tab PO DAILY 01/11/19 06/13/20 (formulary)] diphenhydrAMINE HCL [Benadryl] 12.5 mg PO HS PRN 09/28/19 06/13/20 Black Cohosh Root [Black Cohosh] 200 mg PO DAILY 03/07/20 06/13/20 Garlic 1 tab PO HS 03/07/20 06/13/20 Olopatadine HCl [Pazeo] 1 drop BOTH EYES DAILY PRN 03/07/20 06/13/20 [place] 1 tab PO DAILY 03/07/20 06/13/20 Albuterol Sulfate [Ventolin HFA] 2 puff INHALATION RT-QID PRN 06/13/20 06/13/20 Ergocalciferol [Vitamin D2] 50,000 unit PO TH 06/13/20 06/13/20 Ibuprofen [Motrin] 800 mg PO BID PRN 06/13/20 06/13/20 L.acidoph,Paracasei, B.lactis 1 cap PO DAILY 06/13/20 06/13/20 [Probiotic] Melatonin 3 mg PO HS PRN 06/13/20 06/13/20 Omeprazole 20 mg PO DAILY 06/13/20 06/13/20 Previous Rx's Medication Instructions Recorded Cephalexin [Keflex] 500 mg PO Q12HR #20 cap 06/13/20 Allergies Allergy/AdvReac Type Severity Reaction Status Date / Time cashew nut Allergy Unknown Verified 07/25/20 21:31 erythromycin base Allergy Swelling, Verified 07/25/20 21:31 [Erythromycin Base] itching & arthraligia strawberry Allergy Unknown Verified 07/25/20 21:31 chocolate flavor AdvReac Dyspnea & Verified 07/25/20 21:31 heart racing cocoa AdvReac Dyspnea Verified 07/25/20 21:31 and heart racing corn AdvReac Inflammatio Verified 07/25/20 21:31 n latex AdvReac Dyspnea Verified 07/25/20 21:31 wheat AdvReac Constipatio Verified 07/25/20 21:31 n Review of Systems ROS Statement: Those systems with pertinent positive or pertinent negative responses have been documented in the HPI. ROS Other: All systems not noted in ROS Statement are negative. Past Medical History Past Medical History: Asthma, COPD, Deep Vein Thrombosis (DVT), Eye Disorder, GERD/Reflux, Osteoarthritis (OA) Additional Past Medical History / Comment(s): Current UTI with antibiotic x 2 days, pt states at times she has an irregular heart beat, bronchitis, blood in stool/spring 2019 but never had f/u d/t covid, 2001 DVT in ankles bilateral thighs post hysterectomy per pt, bilateral glaucoma, multiple concusions, bilateral tinnitis/[place], dysphagia-makes sure she chews food well/esophageal stricture with dilation, past stomach ulcer, chronic pain lower back/cervica and bilateral knees, past fungal infection/christa and was on diflucan for "years", past ETOH/crack cocaine but quit both in 2005.. Last Myocardial Infarction Date:: 04/2006 History of Any Multi-Drug Resistant Organisms: None Reported Past Surgical History: Hysterectomy, Tonsillectomy Additional Past Surgical History / Comment(s): egd with dilation Past Anesthesia/Blood Transfusion Reactions: No Reported Reaction, Motion Sickness Past Psychological History: ADD/ADHD, Anxiety, Depression Smoking Status: Former smoker Past Alcohol Use History: None Reported Past Drug Use History: None Reported - Past Family History Mother Additional Family Medical History / Comment(s): Mother at age 31 as she was hit by a motor vehicle with history of depression. Father Family Medical History: Coronary Artery Disease (CAD) Additional Family Medical History / Comment(s): Father at age 54 after his third heart surgery. Sister(s) Additional Family Medical History / Comment(s): Patient has 3 sisters and one from a staph infection. Brother(s) Additional Family Medical History / Comment(s): Patient has 2 brothers and one has history of blood clots and anxiety. Patient has 3 children with no major medical problems. General Exam Limitations: no limitations General appearance: alert, in no apparent distress Head exam: Present: atraumatic, normocephalic, normal inspection Eye exam: Present: normal appearance, PERRL, EOMI Pupils: Present: normal accommodation ENT exam: Present: normal exam, normal oropharynx, mucous membranes moist Neck exam: Present: normal inspection, full ROM. Absent: tenderness Respiratory exam: Present: normal lung sounds bilaterally. Absent: respiratory distress Cardiovascular Exam: Present: regular rate, normal rhythm, normal heart sounds GI/Abdominal exam: Present: soft. Absent: distended, tenderness, guarding, rebound Extremities exam: Present: normal inspection, full ROM, normal capillary refill. Absent: tenderness, pedal edema, joint swelling Back exam: Present: normal inspection, full ROM. Absent: tenderness, CVA tenderness (R), CVA tenderness (L) Neurological exam: Present: alert, oriented X3 Psychiatric exam: Present: normal affect, normal mood Skin exam: Present: warm, dry, intact, normal color Course Vital Signs 07/25/20 21:29 Temperature 99.2 F Pulse Rate 96 Respiratory 18 Rate Blood Pressure 110/79 Medical Decision Making - Medical Decision Making 55-year-old female presents to the emergency department with multiple chief complaints. On physical examination, patient is resting comfortably with stable vital signs. Her abdomen is soft and nontender. CBC reveals mild leukocytosis of 12 K. CMP is showing slight elevation in bilirubin at 1.7. KUB shows no signs of constipation. I gave the patient a prescription for magnesium citrate that she can take if she ever develops any constipation. UA unremarkable. Negative influenza and Covid. Advised to follow with the primary care physician. Return parameters discussed the patient was up standing and agreeable. Case discussed with dr oquendo - Lab Data Result diagrams: 07/25/20 22:04 07/25/20 22:04 Lab Results 07/25/20 07/25/20 07/25/20 Range/Units 22:04 22:04 22:04 WBC 12.2 H (3.8-10.6) k/uL RBC 4.80 (3.80-5.40) m/uL Hgb 14.6 (11.4-16.0) gm/dL Hct 43.5 (34.0-46.0) % MCV 90.6 (80.0-100.0) fL MCH 30.4 (25.0-35.0) pg MCHC 33.6 (31.0-37.0) g/dL RDW 13.2 (11.5-15.5) % Plt Count 259 (150-450) k/uL MPV 7.5 Neutrophils % 91 % Lymphocytes % 6 % Monocytes % 2 % Eosinophils % 1 % Basophils % 0 % Neutrophils # 11.1 H (1.3-7.7) k/uL Lymphocytes # 0.8 L (1.0-4.8) k/uL Monocytes # 0.2 (0-1.0) k/uL Eosinophils # 0.1 (0-0.7) k/uL Basophils # 0.0 (0-0.2) k/uL Sodium 133 L (137-145) mmol/L Potassium 5.0 (3.5-5.1) mmol/L Chloride 102 (98-107) mmol/L Carbon Dioxide 22 (22-30) mmol/L Anion Gap 9 mmol/L BUN 16 (7-17) mg/dL Creatinine 0.56 (0.52-1.04) mg/dL Est GFR (CKD-EPI)AfAm >90 (>60 ml/min/1.73 sqM) Est GFR (CKD-EPI)NonAf >90 (>60 ml/min/1.73 sqM) Glucose 148 H (74-99) mg/dL Calcium 9.7 (8.4-10.2) mg/dL Total Bilirubin 1.7 H (0.2-1.3) mg/dL AST 52 H (14-36) U/L ALT 22 (4-34) U/L Alkaline Phosphatase 104 (38-126) U/L Total Protein 8.1 (6.3-8.2) g/dL Albumin 4.8 (3.5-5.0) g/dL Urine Color Urine Appearance (Clear) Urine pH (5.0-8.0) Ur Specific [place] (1.001-1.035) Urine Protein (Negative) Urine Glucose (UA) (Negative) Urine Ketones (Negative) Urine Blood (Negative) Urine Nitrite (Negative) Urine Bilirubin (Negative) Urine Urobilinogen (<2.0) mg/dL Ur Leukocyte Esterase (Negative) Urine RBC (0-5) /hpf Urine WBC (0-5) /hpf Ur Squamous Epith Cells (0-4) /hpf Urine Mucus (None) /hpf Influenza Type A (PCR) Not Detected (Not Detectd) Influenza Type B (PCR) Not Detected (Not Detectd) RSV (PCR) Not Detected (Not Detectd) SARS-CoV-2 (PCR) Not Detected (Not Detectd) 07/25/20 Range/Units 22:53 WBC (3.8-10.6) k/uL RBC (3.80-5.40) m/uL Hgb (11.4-16.0) gm/dL Hct (34.0-46.0) % MCV (80.0-100.0) fL MCH (25.0-35.0) pg MCHC (31.0-37.0) g/dL RDW (11.5-15.5) % Plt Count (150-450) k/uL MPV Neutrophils % % Lymphocytes % % Monocytes % % Eosinophils % % Basophils % % Neutrophils # (1.3-7.7) k/uL Lymphocytes # (1.0-4.8) k/uL Monocytes # (0-1.0) k/uL Eosinophils # (0-0.7) k/uL Basophils # (0-0.2) k/uL Sodium (137-145) mmol/L Potassium (3.5-5.1) mmol/L Chloride (98-107) mmol/L Carbon Dioxide (22-30) mmol/L Anion Gap mmol/L BUN (7-17) mg/dL Creatinine (0.52-1.04) mg/dL Est GFR (CKD-EPI)AfAm (>60 ml/min/1.73 sqM) Est GFR (CKD-EPI)NonAf (>60 ml/min/1.73 sqM) Glucose (74-99) mg/dL Calcium (8.4-10.2) mg/dL Total Bilirubin (0.2-1.3) mg/dL AST (14-36) U/L ALT (4-34) U/L Alkaline Phosphatase (38-126) U/L Total Protein (6.3-8.2) g/dL Albumin (3.5-5.0) g/dL Urine Color Colorless Urine Appearance Clear (Clear) Urine pH 6.0 (5.0-8.0) Ur Specific [place] 1.002 (1.001-1.035) Urine Protein Negative (Negative) Urine Glucose (UA) Negative (Negative) Urine Ketones Negative (Negative) Urine Blood Trace H (Negative) Urine Nitrite Negative (Negative) Urine Bilirubin Negative (Negative) Urine Urobilinogen <2.0 (<2.0) mg/dL Ur Leukocyte Esterase Negative (Negative) Urine RBC 1 (0-5) /hpf Urine WBC 1 (0-5) /hpf Ur Squamous Epith Cells <1 (0-4) /hpf Urine Mucus Rare H (None) /hpf Influenza Type A (PCR) (Not Detectd) Influenza Type B (PCR) (Not Detectd) RSV (PCR) (Not Detectd) SARS-CoV-2 (PCR) (Not Detectd) Disposition Clinical Impression: Constipation Disposition: HOME SELF-CARE Condition: Stable Instructions (If sedation given, give patient instructions): Constipation (DC), High Fiber Diet (ED) Additional Instructions: use [id number] MiraLAX and stool softeners. He is beginning to seem cit[place] fever develop constipation with no bowel movement for several days. Follow with primary care physician. Please return to the Emergency Department if symptoms worsen or any other concerns. Is patient prescribed a controlled substance at d/c from ED?: No Referrals: Dontae Carmichael Jr, DO [Primary Care Provider] - 1-2 days Time of Disposition: 23:22
[2020-07-25 22:17] LABS: Basophils % (A) 0 %; Eosinophils # (A) 0.1 k/uL (0-0.7); Eosinophils % (A) 1 %; HCT 43.5 % (34.0-46.0); HGB 14.6 gm/dL (11.4-16.0); Lymphocytes # (A) 0.8 k/uL (1.0-4.8); Lymphocytes % (A) 6 %; MCH 30.4 pg (25.0-35.0); MCHC 33.6 g/dL (31.0-37.0); MCV 90.6 fL (80.0-100.0); Mean Platelet Volume 7.5; Monocytes # (A) 0.2 k/uL (0-1.0); Monocytes % (A) 2 %; Neutrophils # (A) 11.1 k/uL (1.3-7.7); Neutrophils % (A) 91 %; Platelet Count 259 k/uL (150-450); RDW 13.2 % (11.5-15.5); WBC 12.2 k/uL (3.8-10.6)
[2020-07-25 22:24] LABS: ALT 22 U/L (4-34); AST 52 U/L (14-36); African American GFR (CKD) >90 (>60 ml/min/1.73 sqM); Albumin 4.8 g/dL (3.5-5.0); Alkaline Phosphatase 104 U/L (38-126); Anion Gap 9 mmol/L; Blood Urea Nitrogen 16 mg/dL (7-17); Calcium 9.7 mg/dL (8.4-10.2); Carbon Dioxide 22 mmol/L (22-30); Chloride 102 mmol/L (98-107); Glucose 148 mg/dL (74-99); Non-African American GFR(CKD) >90 (>60 ml/min/1.73 sqM); Sodium 133 mmol/L (137-145); Total Bilirubin 1.7 mg/dL (0.2-1.3); Total Protein 8.1 g/dL (6.3-8.2)
--- NOTE | 2020-07-25 22:38 | XR ---
EXAMINATION TYPE: XR KUB DATE OF EXAM: 07/25/2020 COMPARISON: NONE HISTORY: Constipation TECHNIQUE: 2 views upright FINDINGS: There is no sign of intestinal obstruction or pneumoperitoneum. Fecal pattern is normal. I see no sign of constipation. Lung bases are clear. There are no pathologic calcifications. IMPRESSION: Nonacute abdomen.
[2020-07-25 23:05] LABS: Appearance,Urine Clear (Clear); Bilirubin,Urine Negative (Negative); Blood,Urine Trace (Negative); Color,Urine Colorless; Glucose,Urine (UA) Negative (Negative); Ketones,Urine Negative (Negative); Leukocyte Esterase,Urine Negative (Negative); Mucus,Urine Rare /hpf; Nitrite,Urine Negative (Negative); Protein,Urine Negative (Negative); RBC,Urine 1 /hpf (0-5); Specific Gravity,Urine 1.002 (1.001-1.035); Squamous Epithelial Cell,Urine <1 /hpf (0-4); Urobilinogen,Urine <2.0 mg/dL (<2.0); WBC,Urine 1 /hpf (0-5)
[2020-07-25] MEDS ORDERED: MAGNESIUM CITRATE 296 ML BOTTLE PO ONE (23:23)
== END 2020-07-25 23:30 | disposition home or self-care (01) ==
LOC: EC 21:23
DX: K59.00 Constipation, unspecified (principal); D72.829 Elevated white blood cell count, unspecified; R74.8 Abnormal levels of other serum enzymes; J44.9 Chronic obstructive pulmonary disease, unspecified; K21.9 Gastro-esophageal reflux disease without esophagitis; M19.90 Unspecified osteoarthritis, unspecified site; F90.9 Attention-deficit hyperactivity disorder, unspecified type; F32.9 Major depressive disorder, single episode, unspecified; F41.9 Anxiety disorder, unspecified; Z79.82 Long term (current) use of aspirin; Z79.899 Other long term (current) drug therapy; Z88.1 Allergy status to other antibiotic agents; Z91.040 Latex allergy status; Z91.018 Allergy to other foods; Z20.822 Contact with and (suspected) exposure to COVID-19; Z87.891 Personal history of nicotine dependence; Z90.710 Acquired absence of both cervix and uterus
CPT/HCPCS: 36415; 74018; 80053; 81001; 85025; 87636; 96360; 99284

== ENCOUNTER 2020-08-16 07:29 | Day surgery (SDC) | payer MEDICARE, OTHER ==
[2020-08-14 16:19] VITALS: BMI 26.9
[~2020-08-16 07:29] MED LIST: LACTATED RINGERS 1,000 ML IV SCH; LIDOCAINE 1% (10MG/ML) FOR IV START INTRADERMA PRN
[2020-08-16 07:58] VITALS: RESP 16; TEMP 98.1
[2020-08-16] MEDS ORDERED: PROPOFOL 10 MG/ML 20 ML VIAL IV ONE (08:37)
--- NOTE | 2020-08-16 08:53 | P.PCN ---
Date of Procedure: 08/16/20 Procedure(s) Performed: BRIEF HISTORY: Patient is a 55-year-old pleasant white female scheduled for an elective colonoscopy as a part of screening for colorectal neoplasia. PROCEDURE PERFORMED: Colonoscopy. PREOPERATIVE DIAGNOSIS: Screening for colon cancer. IV sedation per Anesthesia. PROCEDURE: After informed consent was obtained, the patient, was brought into the endoscopy unit. IV sedation was administered by Anesthesia under continuous monitoring. Digital rectal examination was normal. Initially the Olympus CF-160 flexible video colonoscope was then inserted in the rectum, gradually advanced into the cecum without any difficulty. Careful examination was performed as the scope was gradually being withdrawn. Ileocecal valve and the appendiceal orifice were visualized and appeared normal. Prep was excellent. Mucosa of the cecum, ascending colon, transverse colon, descending colon, sigmoid colon, and rectum appeared normal. Scattered sigmoid diverticulosis. Retroflexion was performed in the rectum and all internal hemorrhoids were seen. The patient tolerated the procedure well. IMPRESSION: Normal-appearing colon from rectum to cecum with no evidence of colitis or colorectal neoplasia. Scattered sigmoid diverticulosis. Small internal hemorrhoids. RECOMMENDATIONS: Findings of this examination were discussed with the patient is a family. She was advised to have a repeat screening colonoscopy in 10 years..
[2020-08-16 09:11] VITALS: BP 106/67; PULSE 88
== END 2020-08-16 10:00 | disposition home or self-care (01) ==
LOC: ORWHC2ENDO 07:29
PROVIDERS: ATTEND Internal Medicine Gastroenterology
DX: Z12.11 Encounter for screening for malignant neoplasm of colon (principal); K57.30 Diverticulosis of large intestine without perforation or abscess without bleeding; K64.8 Other hemorrhoids; K08.409 Partial loss of teeth, unspecified cause, unspecified class; K08.89 Other specified disorders of teeth and supporting structures; R00.2 Palpitations; J44.9 Chronic obstructive pulmonary disease, unspecified; R73.03 Prediabetes; K76.0 Fatty (change of) liver, not elsewhere classified; Z88.1 Allergy status to other antibiotic agents; Z79.899 Other long term (current) drug therapy; Z79.82 Long term (current) use of aspirin; Z87.891 Personal history of nicotine dependence
CPT/HCPCS: J2704; G0121

== ENCOUNTER 2021-01-24 11:42 | Observation (INO) | payer MEDICARE, OTHER ==
--- NOTE | 2021-01-24 12:39 | ED ---
General Adult HPI - General Chief complaint: Shortness of Breath Stated complaint: not feeling well Time Seen by Provider: 01/24/21 12:14 Source: patient, RN notes reviewed Mode of arrival: wheelchair Limitations: no limitations - History of Present Illness Initial comments: Patient is a pleasant 55-year-old female presenting to the emergency department with several complaints. Patient feels fatigued. Patient feels it headache. Patient feels a little bit short of breath. Patient does have history of asthma and COPD. Patient has had odd areas of discomfort throughout her body in several locations at several different times. Patient did have an episode of chest discomfort yesterday. No chest discomfort since that time. No isolated area of weakness. No confusion. Patient states things feels slow to her. No fever but patient feels chilled. No expressive aphasia - Related Data Home Medications Medication Instructions Recorded Confirmed Latanoprost Ophth [Xalatan 0.005%] 1 drop BOTH EYES HS 09/30/15 01/24/21 Aspirin [Adult Low Dose Aspirin EC] 81 mg PO DAILY 01/11/19 01/24/21 Carboxymethylcellulose Sodium 1 drop BOTH EYES DAILY PRN 01/11/19 01/24/21 [Refresh Tears] Multivitamins, Thera [Multivitamin 1 tab PO DAILY 01/11/19 01/24/21 (formulary)] Albuterol Sulfate [Ventolin HFA] 2 puff INHALATION RT-QID PRN 06/13/20 01/24/21 Evening [place] Oil 500 mg PO DAILY 01/24/21 01/24/21 Ibuprofen [Motrin Ib] 200 mg PO Q8H PRN 01/24/21 01/24/21 Milk Thistle 150 mg PO DAILY 01/24/21 01/24/21 Olopatadine HCl [Pataday] 1 drop BOTH EYES BID PRN 01/24/21 01/24/21 Vitamin E Acetate [Vitamin E] 200 unit PO DAILY 01/24/21 01/24/21 Allergies Allergy/AdvReac Type Severity Reaction Status Date / Time cashew nut Allergy Unknown Verified 01/24/21 12:44 erythromycin base Allergy Swelling, Verified 01/24/21 12:44 [Erythromycin Base] itching & arthraligia Iodine and Iodide Containing Allergy Unknown Verified 01/24/21 12:44 Produc strawberry Allergy Unknown Verified 01/24/21 12:44 chocolate flavor AdvReac Dyspnea & Verified 01/24/21 12:44 heart racing cocoa AdvReac Dyspnea Verified 01/24/21 12:44 and heart racing corn AdvReac Inflammatio Verified 01/24/21 12:44 n diphenhydramine AdvReac "very Verified 01/24/21 12:44 [From Benadryl] sensitive" latex AdvReac Dyspnea Verified 01/24/21 12:44 melatonin AdvReac "very Verified 01/24/21 12:44 sensitive" wheat AdvReac Constipatio Verified 01/24/21 12:44 n Review of Systems ROS Statement: Those systems with pertinent positive or pertinent negative responses have been documented in the HPI. ROS Other: All systems not noted in ROS Statement are negative. Constitutional: Reports: chills. Denies: fever Eyes: Denies: eye pain ENT: Denies: ear pain Respiratory: Reports: dyspnea. Denies: cough Cardiovascular: Reports: as per HPI Endocrine: Reports: fatigue Gastrointestinal: Denies: abdominal pain Genitourinary: Denies: dysuria Musculoskeletal: Denies: back pain Skin: Denies: rash Neurological: Denies: weakness, confusion, abnormal gait Past Medical History Past Medical History: Asthma, COPD, Deep Vein Thrombosis (DVT), Eye Disorder, GERD/Reflux, Osteoarthritis (OA) Additional Past Medical History / Comment(s): pt states at times she has an irregular heart beat, 2002 DVT in ankles bilateral thighs post hysterectomy per pt, bilateral glaucoma, bilateral tinnitis/[place], dysphagia-makes sure she chews food well/esophageal stricture with dilation, past stomach ulcer, chronic pain lower back/cervica and bilateral knees, past fungal infection/christa and was on diflucan for "years", past ETOH/crack cocaine but quit both in 2005.. Last Myocardial Infarction Date:: 04/2006 History of Any Multi-Drug Resistant Organisms: None Reported Past Surgical History: Hysterectomy, Tonsillectomy Additional Past Surgical History / Comment(s): egd with dilation, D&C, eye laser for muscle Past Anesthesia/Blood Transfusion Reactions: Previous Problems w/ Anesthesia Additional Past Anesthesia/Blood Transfusion Reaction / Comment(s): past hx of trouble waking up Past Psychological History: Anxiety, Depression Smoking Status: Former smoker Past Alcohol Use History: None Reported Past Drug Use History: None Reported - Past Family History Mother Additional Family Medical History / Comment(s): Mother at age 31 as she was hit by a motor vehicle with history of depression. Father Family Medical History: Coronary Artery Disease (CAD) Additional Family Medical History / Comment(s): Father at age 54 after his third heart surgery. Sister(s) Additional Family Medical History / Comment(s): Patient has 3 sisters and one from a staph infection. Brother(s) Additional Family Medical History / Comment(s): Patient has 2 brothers and one has history of blood clots and anxiety. Patient has 3 children with no major medical problems. General Exam Limitations: no limitations General appearance: alert, in no apparent distress Head exam: Present: atraumatic, normocephalic Eye exam: Present: normal appearance, PERRL, EOMI. Absent: nystagmus ENT exam: Present: normal oropharynx Neck exam: Present: normal inspection. Absent: meningismus Respiratory exam: Present: normal lung sounds bilaterally Cardiovascular Exam: Present: regular rate, normal rhythm GI/Abdominal exam: Present: soft. Absent: tenderness Extremities exam: Present: normal inspection. Absent: pedal edema, calf tenderness Neurological exam: Present: alert Psychiatric exam: Present: normal affect, normal mood Skin exam: Present: normal color Course Vital Signs 01/24/21 01/24/21 01/24/21 11:50 12:53 13:54 Temperature 98.6 F Pulse Rate 77 69 Respiratory 18 16 18 Rate Blood Pressure 97/66 114/84 O2 Sat by Pulse 97 96 Oximetry EKG Findings - EKG Comments: EKG Findings:: Normal sinus rhythm with rate of 68. ME 158. QRS 88. QT 392. QTC 460. Normal axis. Normal QRS. No acute ST change. Medical Decision Making - Medical Decision Making Patient reevaluated and resting comfortably in bed. Patient states she has had 2 episodes of chest discomfort in the emergency department. Case was discussed with Dr. Kong, who will admit for Dr. Vu. - Lab Data Result diagrams: 01/24/21 12:50 01/24/21 12:50 Lab Results 01/24/21 01/24/21 01/24/21 Range/Units 12:50 12:50 12:50 WBC 5.4 (3.8-10.6) k/uL RBC 4.63 (3.80-5.40) m/uL Hgb 14.8 (11.4-16.0) gm/dL Hct 43.2 (34.0-46.0) % MCV 93.2 (80.0-100.0) fL MCH 32.0 (25.0-35.0) pg MCHC 34.3 (31.0-37.0) g/dL RDW 13.3 (11.5-15.5) % Plt Count 243 (150-450) k/uL MPV 7.2 Neutrophils % 46 % Lymphocytes % 40 % Monocytes % 6 % Eosinophils % 4 % Basophils % 1 % Neutrophils # 2.5 (1.3-7.7) k/uL Lymphocytes # 2.2 (1.0-4.8) k/uL Monocytes # 0.3 (0-1.0) k/uL Eosinophils # 0.2 (0-0.7) k/uL Basophils # 0.1 (0-0.2) k/uL PT 10.2 (9.0-12.0) sec INR 0.9 (<1.2) APTT 24.9 (22.0-30.0) sec D-Dimer 0.20 (<0.60) mg/L FEU Sodium (137-145) mmol/L Potassium (3.5-5.1) mmol/L Chloride (98-107) mmol/L Carbon Dioxide (22-30) mmol/L Anion Gap mmol/L BUN (7-17) mg/dL Creatinine (0.52-1.04) mg/dL Est GFR (CKD-EPI)AfAm (>60 ml/min/1.73 sqM) Est GFR (CKD-EPI)NonAf (>60 ml/min/1.73 sqM) Glucose (74-99) mg/dL Calcium (8.4-10.2) mg/dL Magnesium (1.6-2.3) mg/dL Total Bilirubin (0.2-1.3) mg/dL AST (14-36) U/L ALT (4-34) U/L Alkaline Phosphatase (38-126) U/L Troponin I (0.000-0.034) ng/mL NT-Pro-B Natriuret Pep pg/mL Total Protein (6.3-8.2) g/dL Albumin (3.5-5.0) g/dL Coronavirus (PCR) Not Detected (Not Detectd) 01/24/21 01/24/21 01/24/21 Range/Units 12:50 12:50 12:50 WBC (3.8-10.6) k/uL RBC (3.80-5.40) m/uL Hgb (11.4-16.0) gm/dL Hct (34.0-46.0) % MCV (80.0-100.0) fL MCH (25.0-35.0) pg MCHC (31.0-37.0) g/dL RDW (11.5-15.5) % Plt Count (150-450) k/uL MPV Neutrophils % % Lymphocytes % % Monocytes % % Eosinophils % % Basophils % % Neutrophils # (1.3-7.7) k/uL Lymphocytes # (1.0-4.8) k/uL Monocytes # (0-1.0) k/uL Eosinophils # (0-0.7) k/uL Basophils # (0-0.2) k/uL PT (9.0-12.0) sec INR (<1.2) APTT (22.0-30.0) sec D-Dimer (<0.60) mg/L FEU Sodium 139 (137-145) mmol/L Potassium 3.9 (3.5-5.1) mmol/L Chloride 108 H (98-107) mmol/L Carbon Dioxide 26 (22-30) mmol/L Anion Gap 5 mmol/L BUN 17 (7-17) mg/dL Creatinine 0.70 (0.52-1.04) mg/dL Est GFR (CKD-EPI)AfAm >90 (>60 ml/min/1.73 sqM) Est GFR (CKD-EPI)NonAf >90 (>60 ml/min/1.73 sqM) Glucose 95 (74-99) mg/dL Calcium 9.7 (8.4-10.2) mg/dL Magnesium 2.2 (1.6-2.3) mg/dL Total Bilirubin 0.5 (0.2-1.3) mg/dL AST 23 (14-36) U/L ALT 20 (4-34) U/L Alkaline Phosphatase 79 (38-126) U/L Troponin I <0.012 (0.000-0.034) ng/mL NT-Pro-B Natriuret Pep 78 pg/mL Total Protein 6.6 (6.3-8.2) g/dL Albumin 4.1 (3.5-5.0) g/dL Coronavirus (PCR) (Not Detectd) - Radiology Data Radiology results: image reviewed (Chest x-ray shows no acute process) Disposition Clinical Impression: Chest pain Disposition: ADMITTED IP TO THIS HOSP Is patient prescribed a controlled substance at d/c from ED?: No Referrals: Rachelle Burciaga MD [Primary Care Provider] - 1-2 days Decision Time: 15:09
[2021-01-24 13:00] LABS: Basophils # (A) 0.1 k/uL (0-0.2); Basophils % (A) 1 %; Eosinophils # (A) 0.2 k/uL (0-0.7); Eosinophils % (A) 4 %; HCT 43.2 % (34.0-46.0); HGB 14.8 gm/dL (11.4-16.0); Lymphocytes # (A) 2.2 k/uL (1.0-4.8); Lymphocytes % (A) 40 %; MCHC 34.3 g/dL (31.0-37.0); MCV 93.2 fL (80.0-100.0); Mean Platelet Volume 7.2; Monocytes # (A) 0.3 k/uL (0-1.0); Monocytes % (A) 6 %; Neutrophils # (A) 2.5 k/uL (1.3-7.7); Neutrophils % (A) 46 %; Platelet Count 243 k/uL (150-450); RBC 4.63 m/uL (3.80-5.40); RDW 13.3 % (11.5-15.5); WBC 5.4 k/uL (3.8-10.6)
[2021-01-24 13:08] LABS: ALT 20 U/L (4-34); AST 23 U/L (14-36); African American GFR (CKD) >90 (>60 ml/min/1.73 sqM); Albumin 4.1 g/dL (3.5-5.0); Alkaline Phosphatase 79 U/L (38-126); Anion Gap 5 mmol/L; Blood Urea Nitrogen 17 mg/dL (7-17); Calcium 9.7 mg/dL (8.4-10.2); Carbon Dioxide 26 mmol/L (22-30); Chloride 108 mmol/L (98-107); Glucose 95 mg/dL (74-99); Magnesium 2.2 mg/dL (1.6-2.3); Non-African American GFR(CKD) >90 (>60 ml/min/1.73 sqM); Potassium 3.9 mmol/L (3.5-5.1); Sodium 139 mmol/L (137-145); Total Bilirubin 0.5 mg/dL (0.2-1.3); Total Protein 6.6 g/dL (6.3-8.2)
[2021-01-24 13:13] LABS: INR 0.9 (<1.2); Partial Thromboplastin Time 24.9 sec (22.0-30.0); Prothrombin Time 10.2 sec (9.0-12.0)
--- NOTE | 2021-01-24 13:20 | CT ---
EXAMINATION TYPE: CT brain wo con DATE OF EXAM: 01/24/2021 COMPARISON: 10/01/2019 HISTORY: Weakness and fuzzy feeling CT DLP: 1074.4 mGycm Automated exposure control for dose reduction was used. FINDINGS: The ventricular system is midline with no evidence of displacement. There is no acute hemorrhage or m ass effect. Orbits are symmetric. The sinuses are clear. Calvarium intact. Craniocervical junction maintained. Sella turcica has a normal appearance. IMPRESSION: NO EVIDENCE OF ACUTE HEMORRHAGE OR MASS EFFECT.
--- NOTE | 2021-01-24 13:31 | XR ---
EXAMINATION TYPE: XR chest 2V DATE OF EXAM: 01/24/2021 COMPARISON: Chest x-ray June 13, 2020 HISTORY: Chest pain. TECHNIQUE: Frontal and lateral views of the chest are obtained. FINDINGS: There is no suspicious new focal air space opacity, pleural effusion, or pneumothorax seen . The cardiac silhouette size remains within normal limits. The osseous structures are intact. Ove rlying EKG leads on current study. IMPRESSION: No acute process. No significant change from prior.
[2021-01-24] MEDS ORDERED: NITROGLYCERIN SL TABS 0.4 MG TAB SUBLINGUAL PRN (15:09)
[2021-01-24] MEDS ORDERED: ASPIRIN 81 MG PO STA (15:09)
[2021-01-24] MEDS ORDERED: ARTIFICIAL TEARS-HYPROMELLOSE DROPS 15 ML BTL BOTH EYES PRN (17:32)
[2021-01-24] MEDS ORDERED: NON FORMULARY DRUG (Aspirin [Adult Low Dose Aspirin Ec] 81 MG Tablet.Dr) PO SCH (17:45)
[2021-01-24] MEDS: NITROGLYCERIN OINT 1 INCH/GM PACKET TOPICAL SCH ×2 (19:05→23:49)
[2021-01-24] MEDS: MULTIVITAMINS, THERA 1 EACH TAB PO SCH (19:05)
--- NOTE | 2021-01-24 19:51 | HP ---
HISTORY AND PHYSICAL DATE OF SERVICE: 01/24/2021 CHIEF COMPLAINTS: Shortness of breath and chest pain, not feeling well. HISTORY OF PRESENT ILLNESS: This 55-year-old woman with a past medical history of asthma, COPD, history of DVT, history of GERD, history of DJD, history of hysterectomy, history of anxiety, depression, being followed by Lorena Barr and Dr. Rachelle Burciaga in the outpatient setting, was complaining of shortness of breath. The patient also was not feeling well. Patient also had chest pain, recurrent episodes. Patient was taking aspirin. The patient had a stress test scheduled on February [address] Sheppard. There is no history of any fever, rigors or chills. No history of headache, loss of consciousness, seizures. The patient also had recent COVID-19 infection earlier in the year. PAST MEDICAL HISTORY: Asthma, COPD, DVT, history of GERD, DJD. MEDICATIONS: Home medications are Motrin, vitamin E, milk thistle, Pataday, multivitamin, Xalatan, Refresh, aspirin, Ventolin HFA. ALLERGIES: CASHEW NUTS, AZITHROMYCIN, IODINE, STRAWBERRIES, CHOCOLATE FLAVOR, COCOA, CORN, BENADRYL, LATEX, MELATONIN, WHEAT. FAMILY HISTORY: History of CAD. SOCIAL HISTORY: Previous history of smoking. No history of alcohol intake. REVIEW OF SYSTEMS: ENT: No diminished hearing. No diminished vision. CARDIOVASCULAR SYSTEM: As mentioned earlier. RESPIRATORY SYSTEM: As mentioned earlier. GI: No nausea, vomiting, diarrhea. : No dysuria. NERVOUS SYSTEM: No numbness, weakness. ALLERGY/IMMUNOLOGY: No asthma or hay fever. MUSCULOSKELETAL: As mentioned earlier. HEMATOLOGY/ONCOLOGY: No history of anemia. ENDOCRINE: As mentioned earlier. CONSTITUTIONAL: As mentioned earlier. DERMATOLOGY: Negative. RHEUMATOLOGY: Negative. PSYCHIATRY: As mentioned earlier. PHYSICAL EXAMINATION: Patient alert and oriented x3. Pulse 63, blood pressure 122/83, respiration 16, temperature 98.4, pulse ox 100% on room air. HEENT: Conjunctivae normal. NECK: No jugular venous distention. CARDIOVASCULAR: S1, S2 muffled. RESPIRATION: Breath sounds diminished at the bases. Scattered rhonchi. ABDOMEN: Soft, nontender. No mass palpable. LEGS: No edema. No swelling. NERVOUS SYSTEM: No focal deficit. LABS: CBC, BMP noted. Troponin is negative. ASSESSMENT: 1. Chest pain for evaluation; possible coronary artery disease. 2. Shortness of breath for evaluation; possibly asthma, chronic obstructive pulmonary disease exacerbation. 3. History of deep vein thrombosis. 4. Gastroesophageal reflux disease. 5. Degenerative joint disease. 6. History of irregular heartbeat. 7. History of hysterectomy. 8. History of anxiety, depression. 9. History of nicotine dependence. RECOMMENDATIONS AND DISCUSSION: In this 55-year-old woman who presented with multiple complex medical issues, we will monitor the patient closely. Symptomatic treatment. Otherwise, cardiology consultation. Resume the home medications. Prognosis is guarded because of multiple complex medical issues. Further recommendations to follow. A copy of this dictation is being forwarded to Lorena Barr, who is the primary physician. MMMAILE / SUZANNEN: [id number] /
[2021-01-24] MEDS: LATANOPROST 0.005% OPHTH DROPS 2.5 ML BTL BOTH EYES SCH (21:37)
[2021-01-24 23:59] LABS: Appearance,Urine Clear (Clear); Bacteria,Urine Rare /hpf; Bilirubin,Urine Negative (Negative); Blood,Urine Negative (Negative); Color,Urine Yellow; Glucose,Urine (UA) Negative (Negative); Ketones,Urine Negative (Negative); Leukocyte Esterase,Urine Large (Negative); Mucus,Urine Rare /hpf; Nitrite,Urine Negative (Negative); PH, Urine 6.5 (5.0-8.0); Protein,Urine Negative (Negative); RBC,Urine 1 /hpf (0-5); Specific Gravity,Urine 1.012 (1.001-1.035); Squamous Epithelial Cell,Urine 1 /hpf (0-4); Urobilinogen,Urine <2.0 mg/dL (<2.0); WBC,Urine 14 /hpf (0-5)
[2021-01-25 00:04] LABS: Amphetamine Screen,Urine Not Detected (NotDetected); Barbiturate Screen,Urine Not Detected (NotDetected); Benzodiazepines Screen,Urine Not Detected (NotDetected); Cocaine Screen,Urine Not Detected (NotDetected); Methadone Screen, Urine Not Detected (NotDetected); Opiate Screen,Urine Not Detected (NotDetected); Oxycodone Screen, Urine Not Detected (NotDetected); Phencyclidine Screen,Urine Not Detected (NotDetected); Tricyclic Antidepressant,Urine Not Detected (NotDetected); Urn Cannabinoid Scrn Not Detected (NotDetected)
[2021-01-25] MEDS: ALBUTEROL NEBULIZED 2.5 MG/3 ML INHALATION PRN (05:21)
[2021-01-25] MEDS: NITROGLYCERIN OINT 1 INCH/GM PACKET TOPICAL SCH ×3 (05:53→17:15)
[2021-01-25] MEDS: MULTIVITAMINS, THERA 1 EACH TAB PO SCH (11:05)
[2021-01-25] MEDS: ASPIRIN 325 MG TAB PO SCH (11:05)
[2021-01-25] MEDS: VITAMIN E (DL,TOCOPHERYL ACET) 400 UNIT (180 MG) CAP PO SCH (11:05)
[2021-01-25 11:56] LABS: Basophils # (A) 0.06 X 10*3/uL (0.00-0.10); Basophils % (A) 1.2 %; Eosinophils # (A) 0.24 X 10*3/uL (0.04-0.35); Eosinophils % (A) 4.8 %; HCT 40.5 % (37.2-46.3); HGB 13.8 g/dL (12.0-15.0); Lymphocytes # (A) 2.14 X 10*3/uL (0.90-5.00); MCH 31.9 pg (27.0-32.0); MCHC 34.1 g/dL (32.0-37.0); MCV 93.5 fL (80.0-97.0); Neutrophils # (A) 2.04 X 10*3/uL (1.80-7.70); Platelet Count 206 X 10*3/uL (140-440); RBC 4.33 X 10*6/uL (4.10-5.20); RDW 12.6 % (11.5-14.5); WBC 4.98 X 10*3/uL (4.50-10.00)
--- NOTE | 2021-01-25 12:41 | PN ---
PROGRESS NOTE DATE OF SERVICE: 01/25/2021 This 55-year-old woman who was admitted with chest pain is being closely monitored. Cardiology evaluated the patient and recommended a possible stress test. The patient does have chest pain today which is felt in the epigastrium, short in duration, sharp in character, without any radiation, according to her PHYSICAL EXAMINATION: Alert and oriented x3. Pulse 72, blood pressure 101/65, respiration 14, temperature 97.9, pulse ox 97% on room air. HEENT: Conjunctivae normal. NECK: No jugular venous distention. CARDIOVASCULAR: S1, S2 muffled. RESPIRATION: Breath sounds diminished at the bases. ABDOMEN: Soft. NERVOUS SYSTEM: No focal deficit. LABS: CBC within normal limits. UA shows some minimal WBC. Drug screen is negative. ASSESSMENT: 1. Chest pain for evaluation; possible coronary artery disease. 2. Shortness of breath for evaluation; possibly asthma, chronic obstructive pulmonary disease exacerbation. 3. Acute urinary tract infection, present on admission. 4. History of deep vein thrombosis. 5. Gastroesophageal reflux disease. 6. Degenerative joint disease. 7. History of irregular heartbeat. 8. History of hysterectomy. 9. History of anxiety, depression. 10.History of nicotine dependence. RECOMMENDATIONS AND DISCUSSION: I recommend to continue current medications, continue with symptomatic treatment. Otherwise at this time, closely follow with Cardiology. Otherwise, repeat labs. Possible stress test. I would also recommend a short course of IV antibiotics for the possible UTI. Obtain urine cultures for sure. Guarded prognosis. Further recommendations to follow. Discussed with the patient. MMJOSIEL / SUZANNEN: [id number] /
[2021-01-25] MEDS ORDERED: FLUCONAZOLE 150 MG TAB PO STA (12:51)
--- NOTE | 2021-01-25 13:36 | P.CRDCN ---
History of Present Illness Consult date: 01/25/21 Requesting physician: Carlos Manuel Romo Consult reason: chest pain Chief complaint: Chest pain History of present illness: This is Riki Salas NP dictating a consult on this patient on behalf of Dr. Martino. The patient was interviewed and examined. HPI: This is a pleasant 55-year-old female who presents to the hospital with chest pain. She reports that for the last couple months now she's episodes of shortness of breath and dizziness. She also reports having leg pain in her calves and thighs. She does have past medical history includes DVT, and a history of cocaine use. She also reports a history of coronary artery disease with a mild heart attack approximately 3 years ago. Upon arrival troponins are negative, d-dimer was negative. She does report that the leg pain has gone away, and is not complaining of any chest pain at this time. ROS: [No fever, chills, or rigors] [no cough, phlegm, or expectoration] [no nausea, vomiting, or diarrhea] [no hematuria, dysuria] [no musculoskelatal complaints] [no strokes or seizures] [no skin lesions] EXAMINATION: CARDIOVASCULAR: Heart regular rate and rhythm. No clicks, murmurs, rubs noted. No peripheral edema noted. Peripheral pulses are present palpable. LUNGS: Lungs diminished but clear on auscultation. Chest expansion is symmetrical. No accessory muscle use. REVIEW OF LABS, ECG & MEDICAL DATA: LABS: Hemoglobin 13.8, PT 10.2, INR 0.9, APTT 24.9, d-dimer 0.20, sodium 139, potassium 3.9, magnesium 2.2, serial troponins 3 less than 0.012, BNP 78 EKG: Normal sinus rhythm IMPRESSION/PLAN: 1. Atypical chest pain Patient was scheduled for an outpatient stress test in February, we will schedule her for a stress on January 27. Continue telemetry. 2. Bilateral leg pain Recommend investigation into the bilateral leg pain, she has a history of DVT. This should be managed by internal medicine. Thank you for the consult and allowing us to care for this patient. Past Medical History Past Medical History: Asthma, COPD, Deep Vein Thrombosis (DVT), Eye Disorder, GERD/Reflux, Osteoarthritis (OA) Additional Past Medical History / Comment(s): pt states at times she has an irregular heart beat, 2002 DVT in ankles bilateral thighs post hysterectomy per pt, bilateral glaucoma, bilateral tinnitis/KASHIA, dysphagia-makes sure she chews food well/esophageal stricture with dilation, past stomach ulcer, chronic pain lower back/cervica and bilateral knees, past fungal infection/christa and was on diflucan for "years", past ETOH/crack cocaine but quit both in 2005.. Last Myocardial Infarction Date:: 04/2006 History of Any Multi-Drug Resistant Organisms: None Reported Past Surgical History: Hysterectomy, Tonsillectomy Additional Past Surgical History / Comment(s): egd with dilation, D&C, eye laser for muscle Past Anesthesia/Blood Transfusion Reactions: Previous Problems w/ Anesthesia Additional Past Anesthesia/Blood Transfusion Reaction / Comment(s): past hx of trouble waking up Past Psychological History: Anxiety, Depression Additional Psychological History / Comment(s): . Smoking Status: Former smoker Past Alcohol Use History: None Reported Additional Past Alcohol Use History / Comment(s): Pt started smoking in 1978 and quit several times but quit for good in 2007. 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 Past Drug Use History: None Reported Additional Drug Use History / Comment(s): Pt states she was a crack cocaine addict and quit in 2005. - Past Family History Mother Additional Family Medical History / Comment(s): Mother at age 31 as she was hit by a motor vehicle with history of depression. Father Family Medical History: Coronary Artery Disease (CAD) Additional Family Medical History / Comment(s): Father at age 54 after his third heart surgery. Sister(s) Additional Family Medical History / Comment(s): Patient has 3 sisters and one from a staph infection. Brother(s) Additional Family Medical History / Comment(s): Patient has 2 brothers and one has history of blood clots and anxiety. Patient has 3 children with no major medical problems. Medications and Allergies Home Medications Medication Instructions Recorded Confirmed Type Latanoprost Ophth [Xalatan 0.005%] 1 drop BOTH EYES HS 09/30/15 01/24/21 History Aspirin [Adult Low Dose Aspirin EC] 81 mg PO DAILY 01/11/19 01/24/21 History Carboxymethylcellulose Sodium 1 drop BOTH EYES DAILY PRN 01/11/19 01/24/21 History [Refresh Tears] Multivitamins, Thera [Multivitamin 1 tab PO DAILY 01/11/19 01/24/21 History (formulary)] Albuterol Sulfate [Ventolin HFA] 2 puff INHALATION RT-QID PRN 06/13/20 01/24/21 History Evening [place] Oil 500 mg PO DAILY 01/24/21 01/24/21 History Ibuprofen [Motrin Ib] 200 mg PO Q8H PRN 01/24/21 01/24/21 History Milk Thistle 150 mg PO DAILY 01/24/21 01/24/21 History Olopatadine HCl [Pataday] 1 drop BOTH EYES BID PRN 01/24/21 01/24/21 History Vitamin E Acetate [Vitamin E] 200 unit PO DAILY 01/24/21 01/24/21 History Allergies Allergy/AdvReac Type Severity Reaction Status Date / Time cashew nut Allergy Unknown Verified 01/24/21 12:44 erythromycin base Allergy Swelling, Verified 01/24/21 12:44 [Erythromycin Base] itching & arthraligia Iodine and Iodide Containing Allergy Unknown Verified 01/24/21 12:44 Produc strawberry Allergy Unknown Verified 01/24/21 12:44 chocolate flavor AdvReac Dyspnea & Verified 01/24/21 12:44 heart racing cocoa AdvReac Dyspnea Verified 01/24/21 12:44 and heart racing corn AdvReac Inflammatio Verified 01/24/21 12:44 n diphenhydramine AdvReac "very Verified 01/24/21 12:44 [From Benadryl] sensitive" latex AdvReac Dyspnea Verified 01/24/21 12:44 melatonin AdvReac "very Verified 01/24/21 12:44 sensitive" wheat AdvReac Constipatio Verified 01/24/21 12:44 n Physical Exam Vitals: Vital Signs Temp Pulse Pulse Resp BP BP BP 01/25/21 07:00 97.9 F 72 14 101/65 01/25/21 05:31 72 01/25/21 05:21 72 01/25/21 02:00 70 16 01/25/21 01:45 97.1 F L 61 16 97/63 01/24/21 20:00 72 18 01/24/21 18:40 98.5 F 72 18 130/84 01/24/21 17:00 16 01/24/21 16:56 98.4 F 63 16 122/83 01/24/21 16:27 80 18 112/69 01/24/21 13:54 69 18 114/84 Pulse Ox 01/25/21 07:00 97 01/25/21 05:31 01/25/21 05:21 01/25/21 02:00 01/25/21 01:45 97 01/24/21 20:00 01/24/21 18:40 97 01/24/21 17:00 01/24/21 16:56 100 01/24/21 16:27 97 01/24/21 13:54 96 Intake and Output 01/24/21 01/25/21 01/25/21 22:59 06:59 14:59 Intake Total 240 Balance 240 Intake: Oral 240 Other: Voiding Method Toilet # Voids 2 # Bowel Movements 0 Weight 65.317 kg Results 01/25/21 07:13 01/24/21 12:50 Cardiac Enzymes 01/24/21 01/24/21 01/24/21 Range/Units 12:50 16:36 20:11 Troponin I <0.012 <0.012 <0.012 (0.000-0.034) ng/mL CBC 01/25/21 Range/Units 07:13 WBC 4.98 (4.50-10.00) X 10*3/uL RBC 4.33 (4.10-5.20) X 10*6/uL Hgb 13.8 (12.0-15.0) g/dL Hct 40.5 (37.2-46.3) % Plt Count 206 (140-440) X 10*3/uL Current Medications Generic Name Dose Route Start Last Admin Trade Name Freq PRN Reason Stop Dose Admin Albuterol Sulfate 2.5 mg 01/24/21 17:32 01/25/21 05:21 Albuterol Nebulized 2.5 Mg/3 Ml INHALATION 2.5 mg RT-QID PRN Administration Shortness Of Breath Artificial Tears 1 drops 01/24/21 17:32 Artificial Tears-Hypromellose Drops 15 Ml Btl BOTH EYES DAILY PRN Dry Eye(s) Aspirin 325 mg 01/25/21 09:00 01/25/21 11:05 Aspirin 325 Mg Tab PO 325 mg DAILY AZALEA Administration Ceftriaxone Sodium 1 gm/ 50 mls @ 100 mls/hr 01/25/21 12:30 Sodium Chloride IVPB Q24HR AZALEA Latanoprost 1 drops 01/24/21 21:00 01/24/21 21:37 Latanoprost 0.005% Ophth Drops 2.5 Ml Btl BOTH EYES 1 drops HS AZALEA Administration Multivitamins 1 each 01/24/21 17:45 01/25/21 11:05 Multivitamins, Thera 1 Each Tab PO 1 each DAILY AZALEA Administration Nitroglycerin 0.4 mg 01/24/21 15:09 Nitroglycerin Sl Tabs 0.4 Mg Tab SUBLINGUAL Q5M PRN Chest Pain Nitroglycerin 1 inch 01/24/21 18:00 01/25/21 11:06 Nitroglycerin Oint 1 Inch/Gm Packet TOPICAL Not Given Q6HR AZALEA Vitamin E 400 unit 01/25/21 09:00 01/25/21 11:05 Vitamin E (Dl,Tocopheryl Acet) 400 Unit (180 Mg) Cap PO 400 unit DAILY AZALEA Administration Intake and Output 01/24/21 01/25/21 01/25/21 22:59 06:59 14:59 Intake Total 240 Balance 240 Intake: Oral 240 Other: Voiding Method Toilet # Voids 2 # Bowel Movements 0 Weight 65.317 kg 01/25/21 07:13 01/24/21 12:50
[2021-01-25] MEDS: LATANOPROST 0.005% OPHTH DROPS 2.5 ML BTL BOTH EYES SCH (21:20)
[2021-01-25 22:50] LABS: African American GFR (CKD) 114.6 (60.0-200.0); Anion Gap 9.8 mmol/L (4.00-12.00); BUN/Creat Ratio 27.14 Ratio (12.00-20.00); Calcium 9.3 mg/dL (8.7-10.3); Carbon Dioxide 23.2 mmol/L (21.6-31.8); Chol/HDL Ratio 3.36; Non-African American GFR(CKD) 98.9 (60.0-200.0); Potassium 3.5 mmol/L (3.5-5.5)
[2021-01-26] MEDS: NITROGLYCERIN OINT 1 INCH/GM PACKET TOPICAL SCH ×4 (00:12→17:41)
[2021-01-26] MEDS: ASPIRIN 325 MG TAB PO SCH (09:06)
[2021-01-26] MEDS: MULTIVITAMINS, THERA 1 EACH TAB PO SCH (09:06)
[2021-01-26] MEDS: VITAMIN E (DL,TOCOPHERYL ACET) 400 UNIT (180 MG) CAP PO SCH (09:07)
[2021-01-26 10:36] LABS: Basophils # (A) 0.07 X 10*3/uL (0.00-0.10); Basophils % (A) 1.1 %; Eosinophils # (A) 0.29 X 10*3/uL (0.04-0.35); Eosinophils % (A) 4.6 %; HCT 41.8 % (37.2-46.3); Lymphocytes # (A) 2.98 X 10*3/uL (0.90-5.00); Lymphocytes % (A) 47.8 %; MCH 31.3 pg (27.0-32.0); MCHC 33.5 g/dL (32.0-37.0); MCV 93.3 fL (80.0-97.0); Mean Platelet Volume 9.9 fL (9.5-12.2); Monocytes # (A) 0.45 X 10*3/uL (0.20-1.00); Monocytes % (A) 7.2 %; Neutrophils # (A) 2.44 X 10*3/uL (1.80-7.70); Neutrophils % (A) 39.1 %; Platelet Count 231 X 10*3/uL (140-440); RBC 4.48 X 10*6/uL (4.10-5.20); RDW 12.7 % (11.5-14.5); WBC 6.24 X 10*3/uL (4.50-10.00)
[2021-01-26] MEDS: ALBUTEROL NEBULIZED 2.5 MG/3 ML INHALATION PRN (11:27)
--- NOTE | 2021-01-26 11:46 | P.PN ---
Subjective Progress Note Date: 01/26/21 Principal diagnosis: Chest pain Patient was interviewed and examined in her room in the bed. Patient is a 55-year-old female who originally presented to the hospital with chest pain. She reports no chest pain during the night, however does complain that her leg pain is starting to return. There is been no changes on her telemetry. She is scheduled for a stress test in the morning. GENERAL: Well-appearing, well-nourished and in no acute distress. NECK: Supple without JVD or thyromegaly. LUNGS: Breath sounds clear to auscultation bilaterally. Respiration equal and unlabored. No wheezes, rales or rhonchi. HEART: Regular rate and rhythm without murmurs, rubs or gallops. S1 and S2 heard. EXTREMITIES: Normal range of motion, no edema. No clubbing or cyanosis. Peripheral pulses intact and strong. VITALS: Temp 98.0, pulse 64, respiratory rate 16, blood pressure 115/74, O2 saturation 97% on room air TELEMETRY: Normal sinus rhythm LABS: Hemoglobin 14.0, sodium 144, potassium 3.5, B1 27.14, creatinine 0.7, triglycerides 100, cholesterol 185, LDL 110, HDL 55 IMPRESSION: 1. Atypical chest pain PLAN: Stress test in the a.m. Objective - Vital Signs Vital signs: Vital Signs Temp 98 F 01/26/21 06:55 Pulse 64 01/26/21 11:39 Resp 16 01/26/21 08:00 BP 115/74 01/26/21 06:55 Pulse Ox 97 01/26/21 06:55 Intake & Output 01/25/21 01/26/21 01/26/21 18:59 06:59 18:59 Intake Total 500 Balance 500 Intake: Oral 500 Other: Voiding Method Toilet Toilet # Voids 3 2 # Bowel Movements 0 - Labs CBC & Chem 7: 01/26/21 04:48 01/25/21 07:13 Labs: Abnormal Lab Results - Last 24 Hours (Table) 01/25/21 Range/Units 07:13 Chloride 111 H (96-109) mmol/L BUN/Creatinine Ratio 27.14 H (12.00-20.00) Ratio Glucose 115 H (70-110) mg/dL
[2021-01-26 12:23] LABS: African American GFR (CKD) 97.6 (60.0-200.0); Anion Gap 6.1 mmol/L (4.00-12.00); Calcium 9.4 mg/dL (8.7-10.3); Carbon Dioxide 25.9 mmol/L (21.6-31.8); Non-African American GFR(CKD) 84.2 (60.0-200.0)
[2021-01-26] MEDS ORDERED: FLUCONAZOLE 150 MG TAB PO SCH (12:45)
--- NOTE | 2021-01-26 13:20 | PN ---
PROGRESS NOTE DATE OF OF SERVICE: This 55-year-old woman who was admitted with chest pain also complains of right leg pain. No fever. No cough. Cardiology planning a dobutamine stress echo tomorrow. No chest pain. No palpitations. No fever today. PHYSICAL EXAMINATION: Alert, oriented x3. Pulse 63, blood pressure 115-75 respirations pulse ox 97% on room air. Normal respirations at the bases. No rhonchi no crackles. Abdomen is soft, nontender. No mass palpable. Legs no edema no swelling. Nervous system no focal deficits. LABS: Noted, basically within normal limits. ASSESSMENT: 1. Chest pain possibly coronary disease and unstable angina. 2. Shortness of breath, possibly asthma chronic obstructive pulmonary disease exacerbation. 3. Acute urinary tract infection present on admission. 4. History of deep vein thrombosis. 5. Gastroesophageal reflux disease. 6. DJD. 7. History of irregular heartbeat. 8. History of hysterectomy. 9. History of anxiety, depression. 10.History of nicotine dependence. RECOMMENDATIONS AND DISCUSSION: I recommend to continue current management and symptomatic treatment. Otherwise continue with the antibiotics and stress test by Cardiology. Guarded prognosis further recommendations to follow. MMODL / IJN: [id number] /
[2021-01-26] MEDS: FLUCONAZOLE 100 MG TAB PO SCH (13:23)
[2021-01-26] MEDS: LATANOPROST 0.005% OPHTH DROPS 2.5 ML BTL BOTH EYES SCH (20:03)
[2021-01-26] MEDS: MELATONIN 1 MG TAB PO SCH (23:29)
[2021-01-27] MEDS: NITROGLYCERIN OINT 1 INCH/GM PACKET TOPICAL SCH ×5 (01:24→23:28)
[2021-01-27] MEDS ORDERED: DOBUTamine DRIP for NUC MED 500 MG in DEXTROSE/WATER 1 250ML.BAG IV PRN (07:00)
--- NOTE | 2021-01-27 11:44 | P.PN ---
Subjective This is a pleasant 55-year-old female past medical history significant for osteoarthritis, gastroesophageal reflux disease and COPD. She is scheduled to undergo a stress test today. She did have an episode of chest discomfort this morning upon he cannot. She described it as a heavy pressure in the middle of her chest. Blood pressure 113/74 heart rate 71 afebrile maintaining oxygen saturation on room air. GENERAL: Well-appearing, well-nourished and in no acute distress. NECK: Supple without JVD or thyromegaly. LUNGS: Breath sounds clear to auscultation bilaterally. Respiration equal and unlabored. No wheezes, rales or rhonchi. HEART: Regular rate and rhythm without murmurs, rubs or gallops. S1 and S2 heard. EXTREMITIES: Normal range of motion, no edema. No clubbing or cyanosis. Peripheral pulses intact. ASSESSMENT Chest pain, atypical PLAN Proceed with stress test as previously ordered. If stress test is normal she can be discharged from a cardiac perspective and follow up with Dr. Martino in the office in 2 weeks. Nurse Practitioner note has been reviewed, I agree with a documented findings and plan of care. Patient was seen and examined. Objective - Vital Signs Vital signs: Vital Signs Temp 98.2 F 01/27/21 07:00 Pulse 71 01/27/21 07:00 Resp 16 01/27/21 07:00 BP 113/74 01/27/21 07:00 Pulse Ox 96 01/27/21 07:00 Intake & Output 01/26/21 01/27/21 01/27/21 18:59 06:59 18:59 Intake Total 50 Balance 50 Intake: IV 50 cefTRIAXone 1 gm In 50 Sodium Chloride 0.9% 50 ml @ 100 mls/hr IVPB Q24HR [facility] Rx#:[id number] Other: Voiding Method Toilet Toilet # Voids 3 2 # Bowel Movements 0 - Labs CBC & Chem 7: 01/26/21 04:48 01/26/21 04:48 Labs: Abnormal Lab Results - Last 24 Hours (Table) 01/26/21 Range/Units 04:48 Chloride 111 H (96-109) mmol/L BUN/Creatinine Ratio 25.00 H (12.00-20.00) Ratio
[2021-01-27] MEDS: ASPIRIN 325 MG TAB PO SCH (12:01)
[2021-01-27] MEDS: MULTIVITAMINS, THERA 1 EACH TAB PO SCH (12:01)
[2021-01-27] MEDS: FLUCONAZOLE 100 MG TAB PO SCH (12:01)
[2021-01-27] MEDS: VITAMIN E (DL,TOCOPHERYL ACET) 400 UNIT (180 MG) CAP PO SCH (12:01)
--- NOTE | 2021-01-27 16:19 | ECHOS ---
STRESS ECHOCARDIOGRAM INDICATIONS: Chest pain BASELINE HEART RATE: 64 BASELINE BLOOD PRESSURE: 100/51 MAXIMUM HEART RATE: 162 MAXIMUM BLOOD PRESSURE: 148/58 85% MPHR: 142 100% MPHR: 167 METS: NA MAXIMUM STAGE REACHED: III TOTAL EXERCISE TIME: 7:11 CLINICAL INFORMATION: Baseline EKG revealed normal sinus rhythm with nonspecific inferolateral ST-segment abnormality. Patient walked on standard Papo protocol for 7 minutes 11 seconds, achieved a maximal heart rate of 162 beats per minute. She developed fatigue and shortness of breath but did not have angina or arrhythmia. EKG did not reveal any ST- segment changes to indicate new changes, but because of resting ST-segment changes, this is considered an inconclusive stress test. By EKG criteria, this is an inconclusive stress test with fair exercise capacity without subjective symptoms of angina. Baseline echo images revealed normal wall motion and wall thickening of all segments. With peak exercise there was good augmentation of left ventricular wall motion and wall thickening of all segments, suggesting that there is no evidence of any stress-induced ischemia on this study. FINAL IMPRESSION: 1. Fair exercise capacity with a negative stress test by EKG criteria. 2. Normal stress echocardiogram without evidence of ischemia. MMODL / IJN: [id number] /
[2021-01-27] MEDS: LATANOPROST 0.005% OPHTH DROPS 2.5 ML BTL BOTH EYES SCH (19:54)
[2021-01-27] MEDS: MELATONIN 1 MG TAB PO SCH (23:10)
[2021-01-28 02:52] VITALS: RESP 16
[2021-01-28] MEDS: NITROGLYCERIN OINT 1 INCH/GM PACKET TOPICAL SCH (05:02)
[2021-01-28 08:03] VITALS: BP 94/60; PULSE 71; TEMP 97.8
[2021-01-28] MEDS: VITAMIN E (DL,TOCOPHERYL ACET) 400 UNIT (180 MG) CAP PO SCH (08:59)
[2021-01-28] MEDS: ASPIRIN 325 MG TAB PO SCH (08:59)
[2021-01-28] MEDS: FLUCONAZOLE 100 MG TAB PO SCH (08:59)
[2021-01-28] MEDS: MULTIVITAMINS, THERA 1 EACH TAB PO SCH (09:00)
--- NOTE | 2021-01-28 09:06 | P.PN ---
Subjective Progress Note Date: 01/27/21 This is a 55-year-old female who was recently admitted with chest pain and also having complaints of right leg pain and being closely monitored. Continues to have mid sternal chest discomfort and pain with palpation and is scheduled to undergo stress test echo today. Patient denies any shortness of breath or palpitations. Patient continues to have chest pain that comes and goes and states lasts a few seconds and then resolves. Patient denies any feelings of dizziness, lightheadedness, or syncope. Review of systems: Constitutional: No reports of fatigue, fever, or chills Cardiovascular: reports intermittent chest wall pain and denies palpitations, reports hard pain Respiratory: No reports of shortness of breath or cough GI: No reports of nausea, vomiting, or diarrhea : No reports of dysuria or retention Neurovascular: No reports of weakness or numbness, reports right upper thigh discomfort on occasion All medications have been reviewed Objective - Vital Signs Vital signs: Vital Signs Temp 97.8 F 01/28/21 07:00 Pulse 71 01/28/21 07:00 Resp 16 01/28/21 07:00 BP 94/60 01/28/21 07:00 Pulse Ox 96 01/28/21 07:00 Intake & Output 01/27/21 01/28/21 01/28/21 18:59 06:59 18:59 Intake Total 540 Balance 540 Weight 65.32 kg Intake: Oral 540 Other: Voiding Method Toilet # Voids 4 2 # Bowel Movements 1 - Exam Gen: This is a 55-year-old female awake, alert and oriented 3, well-developed, well-nourished. HEENT: Head is atraumatic, normocephalic. Pupils equal, round. Sclerae is anicteric. NECK: Supple. No JVD. No lymphadenopathy. No thyromegaly. LUNGS: Clear to auscultation. No wheezes or rhonchi. No intercostal retractions. HEART: Regular rate and rhythm. No murmur. ABDOMEN: Soft. Bowel sounds are present. No masses. No tenderness. EXTREMITIES: No pedal edema. No calf tenderness. NEUROLOGICAL: Patient is awake, alert and oriented x3. Cranial nerves 2 through 12 are grossly intact. - Labs CBC & Chem 7: 01/26/21 04:48 01/26/21 04:48 Assessment and Plan Assessment: Chest pain possibly coronary artery disease, unstable angina Shortness of breath, possibly asthma or chronic obstructive pulmonary disease acute exacerbation Acute urinary tract infection, present on admission History of deep vein thrombosis gastroesophageal reflux disease findings degenerative joint disease history of irregular heartbeat history of anxiety, depression History of nicotine dependence Plan: Patient is scheduled to undergo stress test with cardiology and will await report. She continues to have some right leg discomfort she states that comes and goes but is ambulating with no difficulty. Patient states that the chest pain continues and is midsternal and intermittent with a pressure like sensation. Patient also states she is having "heart pain". Will await cardiology report and continue to monitor closely. Patient continues on IV antibiotics in the form of Rocephin for an acute urinary tract infection and will transition to oral on discharge to complete the course. Possible discharge in 24 hours.
--- NOTE | 2021-01-28 09:14 | P.DS ---
Providers Date of admission: 01/24/21 15:10 Expected date of discharge: 01/28/21 Attending physician: Karon Mathis MD Consults: 01/24/21 15:09 Consult Physician Urgent Consulting Provider: Henry Dent Consult Reason/Comments: cp Do you want consulting provider notified?: Yes Primary care physician: Rachelle Burciaga Hospital Course: Final diagnosis Chest pain possibly coronary artery disease, unstable angina Shortness of breath, possibly asthma, chronic obstructive pulmonary disease acute exacerbation Acute urinary tract infection, present on admission History of DVT gastroesophageal reflux disease Degenerative joint disease History of irregular heartbeat history of hysterectomy history of anxiety, depression History of nicotine dependence Discharge disposition Patient is being discharged in a stable condition with guarded prognosis to home. Patient will follow-up with Dr. Burciaga in the outpatient setting upon discharge. Patient is to continue with oral antibiotics in the form of Ceftin 500 mg twice daily for the next 3 days to complete a course. Patient provided a prescription for Pepcid as well and instructed to follow-up with primary care provider on discharge. Patient to follow-up with cardiology outpatient as needed. Total time taken is greater than 35 minutes. Hospital course This is a 55-year-old female who was recently admitted with chest pain and also having complaints of right leg pain and being closely monitored. Continues to have mid sternal chest discomfort and pain with palpation and is scheduled to undergo stress test echo today. Patient denies any shortness of breath or palpitations. Patient continues to have chest pain that comes and goes and states lasts a few seconds and then resolves. Patient denies any feelings of dizziness, lightheadedness, or syncope. Patient underwent stress echo which was negative and normal stress echo without any evidence of ischemia noted. Currently no reports of chest pain, shortness of breath, or palpitations. Patient is afebrile. No reports of nausea or vomiting and patient is tolerating diet. Patient will be discharged home today. On exam vital signs are stable. Cardio S1, S2 are muffled. Respiratory system shows diminished breath sounds at the bases with no wheezing or rhonchi noted. Abdomen is soft and nontender. Nervous system shows no focal deficits. Please refer to medication reconciliation sheet for a list of medications. Patient Condition at Discharge: Stable Plan - Discharge Summary New Discharge Prescriptions: New Cefuroxime Axetil [Ceftin] 500 mg PO BID 3 Days #6 tab Fluconazole [Diflucan] 100 mg PO DAILY 5 Days #5 tab Famotidine [Pepcid] 20 mg PO BID 30 Days #60 tablet Continue Latanoprost Ophth [Xalatan 0.005%] 1 drop BOTH EYES HS Multivitamins, Thera [Multivitamin (formulary)] 1 tab PO DAILY Aspirin [Adult Low Dose Aspirin EC] 81 mg PO DAILY Carboxymethylcellulose Sodium [Refresh Tears] 1 drop BOTH EYES DAILY PRN PRN Reason: Dry Eye(S) Albuterol Sulfate [Ventolin HFA] 2 puff INHALATION RT-QID PRN PRN Reason: Shortness Of Breath Vitamin E Acetate [Vitamin E] 200 unit PO DAILY Evening Klemme Oil 500 mg PO DAILY Olopatadine HCl [Pataday Twice Daily Relief] 1 drop BOTH EYES BID PRN PRN Reason: Allergy Symptoms Ibuprofen [Motrin Ib] 200 mg PO Q8H PRN PRN Reason: Pain Or Fever > 100.5 Milk Thistle 150 mg PO DAILY Discharge Medication List Latanoprost Ophth [Xalatan 0.005%] 1 drop BOTH EYES HS 09/30/15 [History] Aspirin [Adult Low Dose Aspirin EC] 81 mg PO DAILY 01/11/19 [History] Carboxymethylcellulose Sodium [Refresh Tears] 1 drop BOTH EYES DAILY PRN 01/11/19 [History] Multivitamins, Thera [Multivitamin (formulary)] 1 tab PO DAILY 01/11/19 [History] Albuterol Sulfate [Ventolin HFA] 2 puff INHALATION RT-QID PRN 06/13/20 [History] Evening Klemme Oil 500 mg PO DAILY 01/24/21 [History] Ibuprofen [Motrin Ib] 200 mg PO Q8H PRN 01/24/21 [History] Milk Thistle 150 mg PO DAILY 01/24/21 [History] Olopatadine HCl [Pataday Twice Daily Relief] 1 drop BOTH EYES BID PRN 01/24/21 [History] Vitamin E Acetate [Vitamin E] 200 unit PO DAILY 01/24/21 [History] Cefuroxime Axetil [Ceftin] 500 mg PO BID 3 Days #6 tab 01/27/21 [Rx] Famotidine [Pepcid] 20 mg PO BID 30 Days #60 tablet 01/27/21 [Rx] Fluconazole [Diflucan] 100 mg PO DAILY 5 Days #5 tab 01/27/21 [Rx] Follow up Appointment(s)/Referral(s): Rachelle Burciaga MD [Primary Care Provider] - 1-2 days Activity/Diet/Wound Care/Special Instructions: activity limited until follow up Follow-up with primary care provider upon discharge Continue with antibiotics until finished Follow-up cardiology outpatient as needed Continue current diet Discharge Disposition: HOME SELF-CARE
--- NOTE | 2021-01-28 10:38 | US ---
EXAMINATION TYPE: US venous doppler duplex LE RT DATE OF EXAM: 01/28/2021 10:24 AM COMPARISON: NONE CLINICAL HISTORY: leg pain. SIDE PERFORMED: Right TECHNIQUE: The lower extremity deep venous system is examined utilizing real time linear array sonog chapo with graded compression, doppler sonography and color-flow sonography. VESSELS IMAGED: Common Femoral Vein Deep Femoral Vein Greater Saphenous Vein * Femoral Vein Popliteal Vein Small Saphenous Vein * Proximal Calf Veins (* superficial vessels) Right Leg: Negative for DVT IMPRESSION: Grayscale, color doppler, spectral doppler imaging performed of the deep veins of the lo wer extremities. There is normal flow, compressibility, vascular waveforms.
== END 2021-01-28 11:23 | disposition home or self-care (01) ==
LOC: EC 11:42 → 6NMEDSUR 15:10
PROVIDERS: ADMIT Internal Medicine; ATTEND Internal Medicine
DX: R07.89 Other chest pain (principal); M79.604 Pain in right leg; N39.0 Urinary tract infection, site not specified; R06.02 Shortness of breath; K21.9 Gastro-esophageal reflux disease without esophagitis; Z86.16 Personal history of COVID-19; J44.9 Chronic obstructive pulmonary disease, unspecified; Z88.1 Allergy status to other antibiotic agents; Z79.899 Other long term (current) drug therapy; Z79.82 Long term (current) use of aspirin; Z91.040 Latex allergy status; Z91.018 Allergy to other foods; Z88.8 Allergy status to other drugs, medicaments and biological substances; Z91.048 Other nonmedicinal substance allergy status; Z86.718 Personal history of other venous thrombosis and embolism; M19.90 Unspecified osteoarthritis, unspecified site; I25.10 Atherosclerotic heart disease of native coronary artery without angina pectoris; I25.2 Old myocardial infarction; Z87.11 Personal history of peptic ulcer disease; Z87.891 Personal history of nicotine dependence; Z90.710 Acquired absence of both cervix and uterus
CPT/HCPCS: 96365; 96366; 99285; 36415; 94640 ×2; 94760; 93005; 93351; 85379; 83880; 80061; 80053; 80048 ×2; 83605; 83735; 84484; 85025 ×3; 85610; 85730; 81001; 80306; 87635; 71046; 93971; 70450; G0378 ×5; J0696 ×3

== ENCOUNTER → 2021-02-25 | Outpatient (CLI) | payer MEDICARE, OTHER ==
[2021-02-26 13:46] LABS: T4, Free (Free Thyroxine) 1.1 ng/dL (0.80-1.80)
== END | disposition home or self-care (01) ==
LOC: LABWHC1 15:49
PROVIDERS: ATTEND Nurse Practitioner Family
DX: R41.3 Other amnesia (principal); R53.82 Chronic fatigue, unspecified
CPT/HCPCS: 36415; 82306; 82607; 84439; 84443; 84481

== ENCOUNTER → 2021-03-28 | Outpatient (CLI) | payer MEDICARE, OTHER | END | disposition home or self-care (01) | LOC: LABWHC1 16:28 | PROVIDERS: ATTEND Internal Medicine | DX: J30.9 Allergic rhinitis, unspecified (principal) | CPT/HCPCS: 36415; 86003 ==

== ENCOUNTER → 2021-04-24 | Outpatient (CLI) | payer MEDICARE, OTHER ==
--- NOTE | 2021-04-24 16:33 | CT ---
EXAMINATION TYPE: CT brain wo con DATE OF EXAM: 04/24/2021 COMPARISON: 01/24/2021 INDICATION: amnesia DLP: 1017.9 mGycm, Automated exposure control for dose reduction was used. CONTRAST: None CT of the brain is performed utilizing 3 mm thick sections through the posterior fossa and 3 mm thick sections through the remaining calvarium. Study is performed within 24 hours of arrival to the hosp [facility]. No abnormal hyperdensity is present to suggest an acute intracranial hemorrhage. No mass lesion is evident. No acute infarcts are evident. Ventricles and sulci are appropriate for the patient age. Paranasal sinuses and mastoid air cells within the [id number] are clear. IMPRESSIONS: 1. No suspicious acute intracranial changes
--- NOTE | 2021-04-24 16:46 | CT ---
EXAMINATION TYPE: CT lumbar spine wo con DATE OF EXAM: 04/24/2021 COMPARISON: HISTORY: low back pain CT DLP: 401.5 mGycm CONTRAST: CT scan of the lumbar is performed , patient injected with mL of . TECHNIQUE: CT of the lumbar spine is performed on a spiral scan at 3 mm thick sections. Reconstructed images are performed in the coronal and sagittal planes. FINDINGS: T12-L1: No focal disc herniation or significant disc bulge is evident. No spinal canal stenosis or neural foraminal stenosis is present. L1-L2: No focal disc herniation or significant disc bulge is evident. No spinal canal stenosis or n eural foraminal stenosis is present L2-L3: No focal disc herniation or significant disc bulge is evident. No spinal canal stenosis or n eural foraminal stenosis is present L3-L4: No focal disc herniation or significant disc bulge is evident. No spinal canal stenosis or n eural foraminal stenosis is present L4-L5: Minimal concentric disc bulge is present has anterior thecal sac contact. No spinal canal sten osis is present. Mild bilateral foraminal narrowing from disc bulging is present. L5-S1: No focal disc herniation or significant disc bulge is evident. No spinal canal stenosis or n eural foraminal stenosis is present Vertebral alignment appears normal. IMPRESSION: 1. Minimal disc bulge at L4-5 with intrathecal sac contact and mild bilateral foraminal narrowing.
== END ==
LOC: RADCTMAIN 15:10
PROVIDERS: ATTEND Psychiatry & Neurology Neurology
DX: M51.86 Other intervertebral disc disorders, lumbar region (principal); R41.3 Other amnesia
CPT/HCPCS: 70450; 72131

== ENCOUNTER 2021-07-10 18:10 | Emergency (ER) | payer MEDICARE, OTHER ==
[2021-07-10 18:14] VITALS: RESP 18; TEMP 97.6
--- NOTE | 2021-07-10 18:49 | ED ---
General Adult HPI - General Chief complaint: Chest Pain Stated complaint: Chest Pain Time Seen by Provider: 07/10/21 18:18 Source: patient Mode of arrival: wheelchair Limitations: no limitations - History of Present Illness Initial comments: Dictation was produced using [employer] dictation software. please excuse any grammatical, word or spelling errors. Chief Complaint: 56-year-old feel presents with sternal chest pain History of Present Illness: 56-year-old female presents with chest pain. He states that it started yesterday. She was showing some. She states that it started when she was traveling. States hurts when she moves. She does feel that is slightly worse with deep inspiration. Patient states that at rest her symptoms are significantly improved. It's when she manipulates her upper extremities. She denies that it feels dull. States the sharp and nonradiating. No associated diaphoresis or nausea. No associated shortness of breath. The ROS documented in this emergency department record has been reviewed and confirmed by me. Those systems with pertinent positive or negative responses have been documented in the HPI. All other systems are other negative and/or noncontributory. PHYSICAL EXAM: General Impression: Alert and oriented x3, not in acute distress HEENT: Normocephalic atraumatic, extra-ocular movements intact, pupils equal and reactive to light bilaterally, mucous membranes moist. Cardiovascular: Heart regular rate and rhythm Chest: Able to complete full sentences, no retractions, no tachypnea, reproducible chest pain with palpation to the anterior chest and with a push of motion with her bilateral upper extremities Abdomen: abdomen soft, non-tender, non-distended, no organomegaly Musculoskeletal: Pulses present and equal in all extremities, no peripheral edema Motor: no focal deficits noted Neurological: CN II-XII grossly intact, no focal motor or sensory deficits noted Skin: Intact with no visualized rashes Psych: Normal affect and mood ED course: 56-year-old female presents to the emergency department for chest pain signs upon arrival are within acceptable limits. Chest pain is atypical. EKG shows no signs of ischemia or infarction. Laboratory evaluation obtained. CBC, metabolic panel and troponin is negative. Chest x-ray is nonacute. Patient refusing any analgesia. Patient will be discharge. Clinical presentation consistent with chest wall strain. Patient discharged told to follow-up with primary care doctor. EKG interpretation: Ventricular rate 50, sinus bradycardia, tach,. Interval 166, QRS 90, QTc 412. No SC prolongation, no QTC prolongation, no ST or T-wave changes noted. EKG compared to 01/24/2021 showing no changes. Overall, this EKG is unremarkable - Related Data Home Medications Medication Instructions Recorded Confirmed Latanoprost Ophth [Xalatan 0.005%] 1 drop BOTH EYES HS 09/30/15 01/24/21 Aspirin [Adult Low Dose Aspirin EC] 81 mg PO DAILY 01/11/19 01/24/21 Carboxymethylcellulose Sodium 1 drop BOTH EYES DAILY PRN 01/11/19 01/24/21 [Refresh Tears] Multivitamins, Thera [Multivitamin 1 tab PO DAILY 01/11/19 01/24/21 (formulary)] Albuterol Sulfate [Ventolin HFA] 2 puff INHALATION RT-QID PRN 06/13/20 01/24/21 Evening [place] Oil 500 mg PO DAILY 01/24/21 01/24/21 Ibuprofen [Motrin Ib] 200 mg PO Q8H PRN 01/24/21 01/24/21 Milk Thistle 150 mg PO DAILY 01/24/21 01/24/21 Olopatadine HCl [Pataday Twice 1 drop BOTH EYES BID PRN 01/24/21 01/24/21 Daily Relief] Vitamin E (Dl,Tocopheryl Acet) 200 unit PO DAILY 01/24/21 01/24/21 [Vitamin E] Previous Rx's Medication Instructions Recorded Cefuroxime Axetil [Ceftin] 500 mg PO BID 3 Days #6 tab 01/27/21 Famotidine [Pepcid] 20 mg PO BID 30 Days #60 tablet 01/27/21 Fluconazole [Diflucan] 100 mg PO DAILY 5 Days #5 tab 01/27/21 Allergies Allergy/AdvReac Type Severity Reaction Status Date / Time cashew nut Allergy Unknown Verified 07/10/21 18:14 erythromycin base Allergy Swelling, Verified 07/10/21 18:14 [Erythromycin Base] itching & arthraligia Iodine and Iodide Containing Allergy Unknown Verified 07/10/21 18:14 Produc strawberry Allergy Unknown Verified 07/10/21 18:14 cocoa AdvReac Dyspnea Verified 07/10/21 18:14 and heart racing diphenhydramine AdvReac "very Verified 07/10/21 18:14 [From Benadryl] sensitive" latex AdvReac Dyspnea Verified 07/10/21 18:14 melatonin AdvReac "very Verified 07/10/21 18:14 sensitive" Review of Systems ROS Statement: Those systems with pertinent positive or pertinent negative responses have been documented in the HPI. ROS Other: All systems not noted in ROS Statement are negative. Past Medical History Past Medical History: Asthma, COPD, Deep Vein Thrombosis (DVT), Eye Disorder, GERD/Reflux, Osteoarthritis (OA) Additional Past Medical History / Comment(s): pt states at times she has an irregular heart beat, 2001 DVT in ankles bilateral thighs post hysterectomy per pt, bilateral glaucoma, bilateral tinnitis/[place], dysphagia-makes sure she chews food well/esophageal stricture with dilation, past stomach ulcer, chronic pain lower back/cervica and bilateral knees, past fungal infection/christa and was on diflucan for "years", past ETOH/crack cocaine but quit both in 2005.. Last Myocardial Infarction Date:: 04/2006 History of Any Multi-Drug Resistant Organisms: None Reported Past Surgical History: Hysterectomy, Tonsillectomy Additional Past Surgical History / Comment(s): egd with dilation, D&C, eye laser for muscle Past Anesthesia/Blood Transfusion Reactions: Previous Problems w/ Anesthesia Additional Past Anesthesia/Blood Transfusion Reaction / Comment(s): past hx of trouble waking up Past Psychological History: Anxiety, Depression Smoking Status: Former smoker Past Alcohol Use History: None Reported Past Drug Use History: None Reported - Past Family History Mother Additional Family Medical History / Comment(s): Mother at age 31 as she was hit by a motor vehicle with history of depression. Father Family Medical History: Coronary Artery Disease (CAD) Additional Family Medical History / Comment(s): Father at age 54 after his third heart surgery. Sister(s) Additional Family Medical History / Comment(s): Patient has 3 sisters and one from a staph infection. Brother(s) Additional Family Medical History / Comment(s): Patient has 2 brothers and one has history of blood clots and anxiety. Patient has 3 children with no major medical problems. General Exam Limitations: no limitations Course Vital Signs 07/10/21 18:11 Temperature 97.6 F Pulse Rate 66 Respiratory 18 Rate Blood Pressure 133/85 O2 Sat by Pulse 98 Oximetry Medical Decision Making - Lab Data Result diagrams: 07/10/21 18:44 07/10/21 18:44 Lab Results 07/10/21 07/10/21 07/10/21 Range/Units 18:44 18:44 18:44 WBC 8.1 (3.8-10.6) k/uL RBC 4.54 (3.80-5.40) m/uL Hgb 14.7 (11.4-16.0) gm/dL Hct 42.9 (34.0-46.0) % MCV 94.5 (80.0-100.0) fL MCH 32.4 (25.0-35.0) pg MCHC 34.2 (31.0-37.0) g/dL RDW 13.3 (11.5-15.5) % Plt Count 260 (150-450) k/uL MPV 7.1 Neutrophils % 56 % Lymphocytes % 35 % Monocytes % 4 % Eosinophils % 3 % Basophils % 1 % Neutrophils # 4.5 (1.3-7.7) k/uL Lymphocytes # 2.8 (1.0-4.8) k/uL Monocytes # 0.3 (0-1.0) k/uL Eosinophils # 0.2 (0-0.7) k/uL Basophils # 0.1 (0-0.2) k/uL Sodium 140 (137-145) mmol/L Potassium 3.6 (3.5-5.1) mmol/L Chloride 108 H (98-107) mmol/L Carbon Dioxide 23 (22-30) mmol/L Anion Gap 9 mmol/L BUN 27 H (7-17) mg/dL Creatinine 0.87 (0.52-1.04) mg/dL Est GFR (CKD-EPI)AfAm 88 (>60 ml/min/1.73 sqM) Est GFR (CKD-EPI)NonAf 76 (>60 ml/min/1.73 sqM) Glucose 94 (74-99) mg/dL Calcium 9.7 (8.4-10.2) mg/dL Troponin I <0.012 (0.000-0.034) ng/mL Disposition Clinical Impression: Strain of chest wall Disposition: HOME SELF-CARE Condition: Fair Instructions (If sedation given, give patient instructions): Costochondritis (ED) Is patient prescribed a controlled substance at d/c from ED?: No Referrals: Rachelle Burciaga MD [Primary Care Provider] - 1-2 days
[2021-07-10 18:59] LABS: Calcium 9.7 mg/dL (8.4-10.2); Potassium 3.6 mmol/L (3.5-5.1)
[2021-07-10 19:11] LABS: Basophils # (A) 0.1 k/uL (0-0.2); Basophils % (A) 1 %; Eosinophils # (A) 0.2 k/uL (0-0.7); Eosinophils % (A) 3 %; HCT 42.9 % (34.0-46.0); HGB 14.7 gm/dL (11.4-16.0); Lymphocytes # (A) 2.8 k/uL (1.0-4.8); Lymphocytes % (A) 35 %; MCH 32.4 pg (25.0-35.0); MCHC 34.2 g/dL (31.0-37.0); MCV 94.5 fL (80.0-100.0); Mean Platelet Volume 7.1; Monocytes # (A) 0.3 k/uL (0-1.0); Monocytes % (A) 4 %; Neutrophils # (A) 4.5 k/uL (1.3-7.7); Neutrophils % (A) 56 %; Platelet Count 260 k/uL (150-450); RBC 4.54 m/uL (3.80-5.40); RDW 13.3 % (11.5-15.5); WBC 8.1 k/uL (3.8-10.6)
--- NOTE | 2021-07-10 19:16 | XR ---
EXAMINATION TYPE: XR chest 2V DATE OF EXAM: 07/10/2021 6:51 PM COMPARISON:Chest radiographs from 01/24/2021 TECHNIQUE: Frontal and lateral views of the chest. CLINICAL INDICATION:Female, 56 years old with history of chest pain; FINDINGS: Lungs/Pleura: There is no evidence of pleural effusion, focal consolidation, or pneumothorax. Pulmonary vascularity: Unremarkable. Heart/mediastinum: Cardiomediastinal silhouette is unremarkable. Musculoskeletal:No acute osseous pathology. IMPRESSION: No acute cardiopulmonary disease/process.
[2021-07-10 19:49] VITALS: BP 116/77; PULSE 72
== END 2021-07-10 19:49 | disposition home or self-care (01) ==
LOC: EC 18:10
DX: S29.011A Strain of muscle and tendon of front wall of thorax, initial encounter (principal); J44.9 Chronic obstructive pulmonary disease, unspecified; K21.9 Gastro-esophageal reflux disease without esophagitis; M19.90 Unspecified osteoarthritis, unspecified site; F32.A Depression, unspecified; F41.9 Anxiety disorder, unspecified; Z87.891 Personal history of nicotine dependence; Z79.82 Long term (current) use of aspirin; Z79.1 Long term (current) use of non-steroidal anti-inflammatories (NSAID); Z79.51 Long term (current) use of inhaled steroids; Z79.899 Other long term (current) drug therapy; X58.XXXA Exposure to other specified factors, initial encounter; Y93.H1 Activity, digging, shoveling and raking
CPT/HCPCS: 36415; 71046; 80048; 84484; 85025; 93005; 99284

== ENCOUNTER 2022-09-03 22:59 | Emergency (ER) | payer MEDICARE, OTHER ==
[2022-09-03 23:04] VITALS: BP 176/82; PULSE 78; RESP 18; TEMP 98.6
--- NOTE | 2022-09-04 00:36 | XR ---
EXAMINATION TYPE: XR chest 2V DATE OF EXAM: 09/04/2022 COMPARISON: 07/10/2021 HISTORY: Dysrhythmia TECHNIQUE: 2 view FINDINGS: Heart and mediastinum are normal. Lungs are clear. Diaphragm is normal. Bony thorax is inta ct. IMPRESSION: Normal chest. No change.
--- NOTE | 2022-09-04 00:44 | ED ---
General Adult HPI - General Chief complaint: Arrhythmia/Palpitations Stated complaint: irregular heartbeat Time Seen by Provider: 09/03/22 23:35 Source: patient, RN notes reviewed, old records reviewed Mode of arrival: ambulatory Limitations: no limitations - History of Present Illness Initial comments: 57-year-old female presenting for evaluation of palpitations. Patient states she has had palpitations for many years but has noticed recently that this has been increasing. She also had one episode of sharp chest pain several days ago which lasted several seconds and resolved spontaneously. No current chest pain. No fever. No cough or dyspnea. - Related Data Home Medications Medication Instructions Recorded Confirmed Latanoprost Ophth [Xalatan 0.005%] 1 drop BOTH EYES HS 09/30/15 01/24/21 Aspirin [Adult Low Dose Aspirin EC] 81 mg PO DAILY 01/11/19 01/24/21 Carboxymethylcellulose Sodium 1 drop BOTH EYES DAILY PRN 01/11/19 01/24/21 [Refresh Tears] Multivitamins, Thera [Multivitamin 1 tab PO DAILY 01/11/19 01/24/21 (formulary)] Albuterol Sulfate [Ventolin HFA] 2 puff INHALATION RT-QID PRN 06/13/20 01/24/21 Evening [place] Oil 500 mg PO DAILY 01/24/21 01/24/21 Ibuprofen [Motrin Ib] 200 mg PO Q8H PRN 01/24/21 01/24/21 Milk Thistle 150 mg PO DAILY 01/24/21 01/24/21 Olopatadine HCl [Pataday Twice 1 drop BOTH EYES BID PRN 01/24/21 01/24/21 Daily Relief] Vitamin E (Dl,Tocopheryl Acet) 200 unit PO DAILY 01/24/21 01/24/21 [Vitamin E] Previous Rx's Medication Instructions Recorded Famotidine [Pepcid] 20 mg PO BID 30 Days #60 tablet 01/27/21 Fluconazole [Diflucan] 100 mg PO DAILY 5 Days #5 tab 01/27/21 cefUROXime axetiL [Ceftin] 500 mg PO BID 3 Days #6 tab 01/27/21 Allergies Allergy/AdvReac Type Severity Reaction Status Date / Time cashew nut Allergy Unknown Verified 09/03/22 23:05 erythromycin base Allergy Swelling, Verified 09/03/22 23:05 [Erythromycin Base] itching & arthraligia Iodine and Iodide Containing Allergy Unknown Verified 09/03/22 23:05 Produc strawberry Allergy Unknown Verified 09/03/22 23:05 cocoa AdvReac Dyspnea Verified 09/03/22 23:05 and heart racing diphenhydramine AdvReac "very Verified 09/03/22 23:05 [From Benadryl] sensitive" latex AdvReac Dyspnea Verified 09/03/22 23:05 melatonin AdvReac "very Verified 09/03/22 23:05 sensitive" Review of Systems ROS Statement: Those systems with pertinent positive or pertinent negative responses have been documented in the HPI. ROS Other: All systems not noted in ROS Statement are negative. Past Medical History Past Medical History: Asthma, COPD, Deep Vein Thrombosis (DVT), Eye Disorder, GERD/Reflux, Osteoarthritis (OA) Additional Past Medical History / Comment(s): pt states at times she has an irregular heart beat, 2002 DVT in ankles bilateral thighs post hysterectomy per pt, bilateral glaucoma, bilateral tinnitis/[place], dysphagia-makes sure she chews food well/esophageal stricture with dilation, past stomach ulcer, chronic pain lower back/cervica and bilateral knees, past fungal infection/[place]a and was on diflucan for "years", past ETOH/crack cocaine but quit both in 2005.. Last Myocardial Infarction Date:: 04/2006 History of Any Multi-Drug Resistant Organisms: None Reported Past Surgical History: Hysterectomy, Tonsillectomy Additional Past Surgical History / Comment(s): egd with dilation, D&C, eye laser for muscle Past Anesthesia/Blood Transfusion Reactions: Previous Problems w/ Anesthesia Additional Past Anesthesia/Blood Transfusion Reaction / Comment(s): past hx of trouble waking up Past Psychological History: Anxiety, Depression Smoking Status: Former smoker Past Alcohol Use History: None Reported Past Drug Use History: None Reported - Past Family History Mother Additional Family Medical History / Comment(s): Mother at age 31 as she was hit by a motor vehicle with history of depression. Father Family Medical History: Coronary Artery Disease (CAD) Additional Family Medical History / Comment(s): Father at age 54 after his third heart surgery. Sister(s) Additional Family Medical History / Comment(s): Patient has 3 sisters and one from a staph infection. Brother(s) Additional Family Medical History / Comment(s): Patient has 2 brothers and one has history of blood clots and anxiety. Patient has 3 children with no major medical problems. General Exam Limitations: no limitations General appearance: alert, in no apparent distress Head exam: Present: atraumatic, normocephalic Eye exam: Present: normal appearance, PERRL ENT exam: Present: normal exam Neck exam: Present: normal inspection. Absent: tenderness, meningismus Respiratory exam: Present: normal lung sounds bilaterally. Absent: respiratory distress, wheezes Cardiovascular Exam: Present: regular rate, normal rhythm GI/Abdominal exam: Present: soft. Absent: distended, tenderness, guarding Extremities exam: Present: normal inspection, normal capillary refill. Absent: pedal edema Neurological exam: Present: alert, oriented X3, CN II-XII intact. Absent: motor sensory deficit Psychiatric exam: Present: normal affect, normal mood Skin exam: Present: warm, dry, intact. Absent: cyanosis, diaphoretic Course Vital Signs 09/03/22 23:01 Temperature 98.6 F Pulse Rate 78 Respiratory 18 Rate Blood Pressure 176/82 O2 Sat by Pulse 98 Oximetry - Reevaluation(s) Reevaluation #1: 09/04/22 02:21 Patient reevaluated, resting comfortably EKG Findings - EKG Comments: EKG Findings:: EKG: Sinus rhythm rate of 68, AK interval 160, QRS duration 92, QTC [address] segment elevation - EKG Results: EKG: interpreted by KEREN Medical Decision Making - Medical Decision Making Was pt. sent in by a medical professional or institution (, PA, HOME AIDE, urgent care, hospital, or [facility]...) When possible be specific @ -[No] Did you speak to anyone other than the patient for history (EMS, parent, family, police, friend...)? What history was obtained from this source @ -[No] Did you review nursing and triage notes (agree or disagree)? Why? @ -[I reviewed and agree with nursing and triage notes] Were old charts reviewed (outside hosp., previous admission, EMS record, old EKG, old radiological studies, urgent care reports/EKG's, [facility] records)? Report findings @ -[No old charts were reviewed] Differential Diagnosis (chest pain, altered mental status, abdominal pain women, abdominal pain men, vaginal bleeding, weakness, fever, dyspnea, syncope, headache, dizziness, GI bleed, back pain, seizure, CVA, palpatations, mental health, musculoskeletal)? @ -Differential Palpitations Ventricular arrhythmias, atrial arrhythmias, myocardial infarction, anemia, thyrotoxicosis, electrolyte imbalance, hypokalemia, pulmonary embolism, pulmonary disease, drugs, alcohol, anxiety, stress.... This is not meant to be an all-inclusive list. EKG interpreted by me (3pts min.). @ -[As above] X-rays interpreted by me (1pt min.). @ -Chest x-ray reviewed, negative for acute cardiopulmonary findings CT interpreted by me (1pt min.). @ -[None done] U/S interpreted by me (1pt. min.). @ -[None done] What testing was considered but not performed or refused? (CT, X-rays, U/S, labs)? Why? @ -[None] What meds were considered but not given or refused? Why? @ -[None] Did you discuss the management of the patient with other professionals (professionals i.e. , PA, HOME AIDE, lab, RT, psych nurse, social media director, field contact technician, teacher, postal delivery officer, outpatient case manager)? Give summary @ -[No] Was smoking cessation discussed for >3mins.? @ -[No] Was critical care preformed (if so, how long)? @ -[No] Were there social determinants of health that impacted care today? How? (Homelessness, low income, unemployed, alcoholism, drug addiction, transportation, low edu. Level, literacy, decrease access to med. care, custodial, rehab)? @ -[No] Was there de-escalation of care discussed even if they declined (Discuss DNR or withdrawal of care, Hospice)? DNR status @ -[No] What co-morbidities impacted this encounter? (DM, HTN, Smoking, COPD, CAD, Cancer, CVA, ARF, Chemo, Hep., AIDS, mental health diagnosis, sleep apnea, morbid obesity)? @ -[None] Was patient admitted / discharged? Hospital course, mention meds given and route, prescriptions, significant lab abnormalities, going to OR and other pertinent info. @ -[57-year-old female with intermittent palpitations. Patient's in sinus rhythm. Laboratory testing is obtained which is unremarkable. She remains in sinus rhythm without symptoms while in the emergency department. I did recommend that she speak with her primary care physician or edge setter regarding possibility of cardiac monitoring. Patient is agreeable with discharge at this time. Return parameters discussed.] Undiagnosed new problem with uncertain prognosis? @ -[No] Drug Therapy requiring intensive monitoring for toxicity (Heparin, Nitro, Insuli n, Cardizem)? @ -[No] Were any procedures done? @ -[No] Diagnosis/symptom? @ -[Palpitation] Acute, or Chronic, or Acute on Chronic? @ -[Acute] Uncomplicated (without systemic symptoms) or Complicated (systemic symptoms)? @ -[Uncomplicate] Side effects of treatment? @ -[No] Exacerbation, Progression, or Severe Exacerbation? @ -[No] Poses a threat to life or bodily function? How? (Chest pain, [place], [place], pneumonia, PE, COPD, DKA, ARF, appy, cholecystitis, CVA, Diverticulitis, Homicidal, Suicidal, threat to staff... and all critical care pts) @ -[Yes, arrhythmia] - Lab Data Result diagrams: 09/04/22 01:21 09/04/22 01:21 Lab Results 09/04/22 09/04/22 09/04/22 Range/Units 01:21 01:21 01:21 WBC 7.4 (3.8-10.6) k/uL RBC 4.70 (3.80-5.40) m/uL Hgb 14.4 (11.4-16.0) gm/dL Hct 42.4 (34.0-46.0) % MCV 90.2 (80.0-100.0) fL MCH 30.5 (25.0-35.0) pg MCHC 33.9 (31.0-37.0) g/dL RDW 13.3 (11.5-15.5) % Plt Count 242 (150-450) k/uL MPV 7.1 Neutrophils % 45 % Lymphocytes % 39 % Monocytes % 7 % Eosinophils % 4 % Basophils % 1 % Neutrophils # 3.3 (1.3-7.7) k/uL Lymphocytes # 2.9 (1.0-4.8) k/uL Monocytes # 0.5 (0-1.0) k/uL Eosinophils # 0.3 (0-0.7) k/uL Basophils # 0.1 (0-0.2) k/uL PT 10.0 (9.0-12.0) sec INR 0.9 (<1.2) APTT 25.6 (22.0-30.0) sec Sodium 141 (137-145) mmol/L Potassium 3.9 (3.5-5.1) mmol/L Chloride 105 (98-107) mmol/L Carbon Dioxide 27 (22-30) mmol/L Anion Gap 9 mmol/L BUN 25 H (7-17) mg/dL Creatinine 0.71 (0.52-1.04) mg/dL Est GFR (CKD-EPI)AfAm >90 (>60 ml/min/1.73 sqM) Est GFR (CKD-EPI)NonAf >90 (>60 ml/min/1.73 sqM) Glucose 95 (74-99) mg/dL Calcium 9.7 (8.4-10.2) mg/dL Magnesium 2.1 (1.6-2.3) mg/dL Total Bilirubin 0.4 (0.2-1.3) mg/dL AST 23 (14-36) U/L ALT 31 (4-34) U/L Alkaline Phosphatase 107 (38-126) U/L Troponin I (0.000-0.034) ng/mL Total Protein 7.1 (6.3-8.2) g/dL Albumin 4.4 (3.5-5.0) g/dL 09/04/22 Range/Units 01:21 WBC (3.8-10.6) k/uL RBC (3.80-5.40) m/uL Hgb (11.4-16.0) gm/dL Hct (34.0-46.0) % MCV (80.0-100.0) fL MCH (25.0-35.0) pg MCHC (31.0-37.0) g/dL RDW (11.5-15.5) % Plt Count (150-450) k/uL MPV Neutrophils % % Lymphocytes % % Monocytes % % Eosinophils % % Basophils % % Neutrophils # (1.3-7.7) k/uL Lymphocytes # (1.0-4.8) k/uL Monocytes # (0-1.0) k/uL Eosinophils # (0-0.7) k/uL Basophils # (0-0.2) k/uL PT (9.0-12.0) sec INR (<1.2) APTT (22.0-30.0) sec Sodium (137-145) mmol/L Potassium (3.5-5.1) mmol/L Chloride (98-107) mmol/L Carbon Dioxide (22-30) mmol/L Anion Gap mmol/L BUN (7-17) mg/dL Creatinine (0.52-1.04) mg/dL Est GFR (CKD-EPI)AfAm (>60 ml/min/1.73 sqM) Est GFR (CKD-EPI)NonAf (>60 ml/min/1.73 sqM) Glucose (74-99) mg/dL Calcium (8.4-10.2) mg/dL Magnesium (1.6-2.3) mg/dL Total Bilirubin (0.2-1.3) mg/dL AST (14-36) U/L ALT (4-34) U/L Alkaline Phosphatase (38-126) U/L Troponin I <0.012 (0.000-0.034) ng/mL Total Protein (6.3-8.2) g/dL Albumin (3.5-5.0) g/dL Disposition Clinical Impression: Palpitations Disposition: HOME SELF-CARE Condition: Good Instructions (If sedation given, give patient instructions): Heart Palpitations (ED) Is patient prescribed a controlled substance at d/c from ED?: No Referrals: Rachelle Burciaga MD [Primary Care Provider] - 1-2 days Woo Sheppard MD [STAFF PHYSICIAN] - 1-2 days Time of Disposition: 02:23
[2022-09-04 01:59] LABS: ALT 31 U/L (4-34); AST 23 U/L (14-36); African American GFR (CKD) >90 (>60 ml/min/1.73 sqM); Albumin 4.4 g/dL (3.5-5.0); Alkaline Phosphatase 107 U/L (38-126); Anion Gap 9 mmol/L; Blood Urea Nitrogen 25 mg/dL (7-17); Calcium 9.7 mg/dL (8.4-10.2); Carbon Dioxide 27 mmol/L (22-30); Chloride 105 mmol/L (98-107); Glucose 95 mg/dL (74-99); Magnesium 2.1 mg/dL (1.6-2.3); Non-African American GFR(CKD) >90 (>60 ml/min/1.73 sqM); Potassium 3.9 mmol/L (3.5-5.1); Sodium 141 mmol/L (137-145); Total Bilirubin 0.4 mg/dL (0.2-1.3); Total Protein 7.1 g/dL (6.3-8.2)
[2022-09-04 02:01] LABS: Basophils # (A) 0.1 k/uL (0-0.2); Basophils % (A) 1 %; Eosinophils # (A) 0.3 k/uL (0-0.7); Eosinophils % (A) 4 %; HCT 42.4 % (34.0-46.0); HGB 14.4 gm/dL (11.4-16.0); Lymphocytes # (A) 2.9 k/uL (1.0-4.8); Lymphocytes % (A) 39 %; MCH 30.5 pg (25.0-35.0); MCHC 33.9 g/dL (31.0-37.0); MCV 90.2 fL (80.0-100.0); Mean Platelet Volume 7.1; Monocytes # (A) 0.5 k/uL (0-1.0); Monocytes % (A) 7 %; Neutrophils # (A) 3.3 k/uL (1.3-7.7); Neutrophils % (A) 45 %; Platelet Count 242 k/uL (150-450); RDW 13.3 % (11.5-15.5); WBC 7.4 k/uL (3.8-10.6)
[2022-09-04 02:07] LABS: INR 0.9 (<1.2); Partial Thromboplastin Time 25.6 sec (22.0-30.0)
== END 2022-09-04 02:48 | disposition home or self-care (01) ==
LOC: EC 22:59
DX: R00.2 Palpitations (principal); J45.909 Unspecified asthma, uncomplicated; K21.9 Gastro-esophageal reflux disease without esophagitis; Z91.018 Allergy to other foods; Z88.1 Allergy status to other antibiotic agents; Z79.82 Long term (current) use of aspirin; Z91.040 Latex allergy status; Z90.710 Acquired absence of both cervix and uterus; Z90.89 Acquired absence of other organs; Z88.8 Allergy status to other drugs, medicaments and biological substances; Z87.891 Personal history of nicotine dependence; Z79.899 Other long term (current) drug therapy
CPT/HCPCS: 36415; 71046; 80053; 83735; 84484; 85025; 85610; 85730; 93005; 99285

== ENCOUNTER 2022-10-11 01:16 | Observation (INO) | payer MEDICARE, OTHER ==
[2022-10-11] MEDS ORDERED: SODIUM CHLORIDE 0.9% 500 ML 500 ML IV STA (02:19)
[2022-10-11] MEDS ORDERED: KETOROLAC 15 MG/ML 1 ML VIAL IM STA (02:19)
[2022-10-11 02:32] LABS: Appearance,Urine Clear (Clear); Bacteria,Urine Rare /hpf; Bilirubin,Urine Negative (Negative); Blood,Urine Small (Negative); Color,Urine Light Yellow; Glucose,Urine (UA) Negative (Negative); Ketones,Urine Negative (Negative); Leukocyte Esterase,Urine Large (Negative); Mucus,Urine Rare /hpf; Nitrite,Urine Negative (Negative); Protein,Urine Negative (Negative); RBC,Urine 12 /hpf (0-5); Specific Gravity,Urine 1.015 (1.001-1.035); Squamous Epithelial Cell,Urine 2 /hpf (0-4); Urobilinogen,Urine <2.0 mg/dL (<2.0); WBC,Urine 55 /hpf (0-5)
--- NOTE | 2022-10-11 02:44 | ED ---
General Adult HPI - General Chief complaint: Back Pain/Injury Stated complaint: headache,not feeling well Time Seen by Provider: 10/11/22 01:57 Source: patient, RN notes reviewed, old records reviewed Mode of arrival: ambulatory Limitations: no limitations - History of Present Illness Initial comments: 57-year-old female presents emergency room with complaints of shortness of breath tonight while she was working 2C2P. States that she took 3 aspirin after she started to have some palpitations. She states she also had a left- sided headache with some dizziness. She denies any fevers or nausea vomiting or diarrhea. Denies any cough. 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 She does have a history of a myocardial infarction in April 2006. Previous smoker. -: days(s) Location: head, chest Severity scale (1-10): 7 Associated Symptoms: chest pain, headaches, shortness of breath, other (dizziness palpitations) - Related Data Home Medications Medication Instructions Recorded Confirmed Latanoprost Ophth [Xalatan 0.005%] 1 drop BOTH EYES HS 09/30/15 01/24/21 Aspirin [Adult Low Dose Aspirin EC] 81 mg PO DAILY 01/11/19 01/24/21 Carboxymethylcellulose Sodium 1 drop BOTH EYES DAILY PRN 01/11/19 01/24/21 [Refresh Tears] Multivitamins, Thera [Multivitamin 1 tab PO DAILY 01/11/19 01/24/21 (formulary)] Albuterol Sulfate [Ventolin HFA] 2 puff INHALATION RT-QID PRN 06/13/20 01/24/21 Evening [place] Oil 500 mg PO DAILY 01/24/21 01/24/21 Ibuprofen [Motrin Ib] 200 mg PO Q8H PRN 01/24/21 01/24/21 Milk Thistle 150 mg PO DAILY 01/24/21 01/24/21 Olopatadine HCl [Pataday Twice 1 drop BOTH EYES BID PRN 01/24/21 01/24/21 Daily Relief] Vitamin E (Dl,Tocopheryl Acet) 200 unit PO DAILY 01/24/21 01/24/21 [Vitamin E] Previous Rx's Medication Instructions Recorded Famotidine [Pepcid] 20 mg PO BID 30 Days #60 tablet 01/27/21 Fluconazole [Diflucan] 100 mg PO DAILY 5 Days #5 tab 01/27/21 cefUROXime axetiL [Ceftin] 500 mg PO BID 3 Days #6 tab 01/27/21 Allergies Allergy/AdvReac Type Severity Reaction Status Date / Time cashew nut Allergy Unknown Verified 09/03/22 23:05 erythromycin base Allergy Swelling, Verified 09/03/22 23:05 [Erythromycin Base] itching & arthraligia Iodine and Iodide Containing Allergy Unknown Verified 09/03/22 23:05 Produc strawberry Allergy Unknown Verified 09/03/22 23:05 cocoa AdvReac Dyspnea Verified 09/03/22 23:05 and heart racing diphenhydramine AdvReac "very Verified 09/03/22 23:05 [From Benadryl] sensitive" latex AdvReac Dyspnea Verified 09/03/22 23:05 melatonin AdvReac "very Verified 09/03/22 23:05 sensitive" Review of Systems ROS Statement: Those systems with pertinent positive or pertinent negative responses have been documented in the HPI. ROS Other: All systems not noted in ROS Statement are negative. Past Medical History Past Medical History: Asthma, COPD, Deep Vein Thrombosis (DVT), Eye Disorder, GERD/Reflux, Osteoarthritis (OA) Additional Past Medical History / Comment(s): pt states at times she has an irregular heart beat, 2002 DVT in ankles bilateral thighs post hysterectomy per pt, bilateral glaucoma, bilateral tinnitis/[place], dysphagia-makes sure she chews food well/esophageal stricture with dilation, past stomach ulcer, chronic pain lower back/cervica and bilateral knees, past fungal infection/christa and was on diflucan for "years", past ETOH/crack cocaine but quit both in 2005.. Last Myocardial Infarction Date:: 04/2006 History of Any Multi-Drug Resistant Organisms: None Reported Past Surgical History: Hysterectomy, Tonsillectomy Additional Past Surgical History / Comment(s): egd with dilation, D&C, eye laser for muscle Past Anesthesia/Blood Transfusion Reactions: Previous Problems w/ Anesthesia Additional Past Anesthesia/Blood Transfusion Reaction / Comment(s): past hx of trouble waking up Past Psychological History: Anxiety, Depression Smoking Status: Former smoker Past Alcohol Use History: None Reported Past Drug Use History: None Reported - Past Family History Mother Additional Family Medical History / Comment(s): Mother at age 31 as she was hit by a motor vehicle with history of depression. Father Family Medical History: Coronary Artery Disease (CAD) Additional Family Medical History / Comment(s): Father at age 54 after his third heart surgery. Sister(s) Additional Family Medical History / Comment(s): Patient has 3 sisters and one from a staph infection. Brother(s) Additional Family Medical History / Comment(s): Patient has 2 brothers and one has history of blood clots and anxiety. Patient has 3 children with no major medical problems. General Exam Limitations: no limitations General appearance: alert, in no apparent distress Head exam: Present: atraumatic Eye exam: Present: normal appearance. Absent: scleral icterus, conjunctival injection, periorbital swelling ENT exam: Present: mucous membranes moist Neck exam: Present: full ROM. Absent: tenderness, meningismus Respiratory exam: Present: normal lung sounds bilaterally. Absent: respiratory distress, accessory muscle use Cardiovascular Exam: Present: regular rate GI/Abdominal exam: Present: soft Extremities exam: Present: normal capillary refill Back exam: Absent: paraspinal tenderness, vertebral tenderness Neurological exam: Present: alert, oriented X3 Psychiatric exam: Present: normal affect, normal mood Skin exam: Present: warm, dry, normal color. Absent: cyanosis, diaphoretic Course Vital Signs 10/11/22 01:36 Temperature 97.8 F Pulse Rate 97 Respiratory 16 Rate Blood Pressure 146/77 O2 Sat by Pulse 98 Oximetry EKG Findings - EKG Comments: EKG Findings:: EKG shows sinus bradycardia with a ventricular rate of 52, CO interval 0.191, QRS 0.98, QTc 0.425, normal axis, no significant change compared to old 09/04/2022. - EKG Results: EKG: interpreted by KEREN, sinus rhythm Medical Decision Making - Medical Decision Making Patient's chief complaint tonight is shortness of breath with palpitations and chest pain. Patient took 3 baby aspirin prior to arrival today. Did have a left-sided headache with some dizziness as well. Denies any fevers nausea vomiting or diarrhea. No abdominal pain. Denies burning with urination or dysuria. Chest x-ray interpreted by me shows no evidence of focal consolidation. Heart normal size. EKG interpreted by me shows sinus bradycardia with a ventricular rate of 52, CO interval 0.191, QRS 0.98, QTc 0.425, normal axis, CBC and electrolytes are unremarkable. D-dimer is negative at 0.23. Troponin negative at 0.012. Urinalysis shows large leukocyte esterase, 55 white blood cells and rare bacteria. She was given a gram of Rocephin Patient did have a stress echo performed 01/27/2021 normal stress echocardiogram without evidence of ischemia. Family history of coronary artery disease. History of asthma, COPD, DVT, GERD, osteoarthritis, MD, anxiety, depression Was pt. sent in by a medical professional or institution (, PA, PROJECT DEVELOPER, urgent care, hospital, or skilled nursing...) When possible be specific @ -[No] Did you speak to anyone other than the patient for history (EMS, parent, family, police, friend...)? What history was obtained from this source @ -[No] Did you review nursing and triage notes (agree or disagree)? Why? @ -Patient is not here for dysuria or burning with urination. She states that she is here for chest pain, palpitations, dizziness and headache. Were old charts reviewed (outside hosp., previous admission, EMS record, old EKG, old radiological studies, urgent care reports/EKG's, skilled nursing records)? Report findings @ -Yes as above Differential Diagnosis (chest pain, altered mental status, abdominal pain women, abdominal pain men, vaginal bleeding, weakness, fever, dyspnea, syncope, headache, dizziness, GI bleed, back pain, seizure, CVA, palpatations, mental health, musculoskeletal)? @ -Differential Chest Pain: Stable Angina, Unstable Angina, STEMI, NSTEMI Aortic Dissection, Pneumothorax, Musculoskeletal, Esophageal Spasm GERD, Cholecystitis, Pancreatitis, Zoster, this is not meant to be an all-inclusive list. EKG interpreted by me (3pts min.). @ -[As above] X-rays interpreted by me (1pt min.). @ -Yes as above CT interpreted by me (1pt min.). @ -[None done] U/S interpreted by me (1pt. min.). @ -[None done] What testing was considered but not performed or refused? (CT, X-rays, U/S, labs)? Why? @ -[None] What meds were considered but not given or refused? Why? @ -Aspirin was considered however patient states took 3 baby aspirin prior to arrival Did you discuss the management of the patient with other professionals (professionals i.e. , PA, PROJECT DEVELOPER, lab, RT, psych nurse, protective services social worker, computer tester, teacher, supervisor dog license officer, clinical case manager)? Give summary @ -[No] Was smoking cessation discussed for >3mins.? @ -[No] Was critical care preformed (if so, how long)? @ -[No] Were there social determinants of health that impacted care today? How? (Homelessness, low income, unemployed, alcoholism, drug addiction, transportation, low edu. Level, literacy, decrease access to med. care, [facility], rehab)? @ -[No] Was there de-escalation of care discussed even if they declined (Discuss DNR or withdrawal of care, Hospice)? DNR status @ -[No] What co-morbidities impacted this encounter? (DM, HTN, Smoking, COPD, CAD, Cancer, CVA, ARF, Chemo, Hep., AIDS, mental health diagnosis, sleep apnea, morb id obesity)? @ -COPD, asthma, DVT, GERD, MD, anxiety, depression Was patient admitted / discharged? Hospital course, mention meds given and route, prescriptions, significant lab abnormalities, going to OR and other pertinent info. @ -Admitted Undiagnosed new problem with uncertain prognosis? @ -[No] Drug Therapy requiring intensive monitoring for toxicity (Heparin, Nitro, Insulin, Cardizem)? @ -[No] Were any procedures done? @ -[No] Diagnosis/symptom? @ -Chest pain, palpitations, shortness of breath, dizziness, UTI Acute, or Chronic, or Acute on Chronic? @ -Acute Uncomplicated (without systemic symptoms) or Complicated (systemic symptoms)? @ -complicated Side effects of treatment? @ -[No] Exacerbation, Progression, or Severe Exacerbation? @ -[No] Poses a threat to life or bodily function? How? (Chest pain, [place], MD, pneumonia, PE, COPD, DKA, ARF, appy, cholecystitis, CVA, Diverticulitis, Homicidal, Suicidal, threat to staff... and all critical care pts) @ -Yes chest pain could evolve into an acute cardiac event including MD and/or cardiac arrest and - Lab Data Result diagrams: 10/11/22 03:00 10/11/22 03:00 Lab Results 10/11/22 10/11/22 10/11/22 Range/Units 02:00 03:00 03:00 WBC 6.8 (3.8-10.6) k/uL RBC 4.54 (3.80-5.40) m/uL Hgb 13.9 (11.4-16.0) gm/dL Hct 40.9 (34.0-46.0) % MCV 90.0 (80.0-100.0) fL MCH 30.5 (25.0-35.0) pg MCHC 33.9 (31.0-37.0) g/dL RDW 13.6 (11.5-15.5) % Plt Count 208 (150-450) k/uL MPV 7.3 Neutrophils % 42 % Lymphocytes % 44 % Monocytes % 5 % Eosinophils % 4 % Basophils % 1 % Neutrophils # 2.9 (1.3-7.7) k/uL Lymphocytes # 3.0 (1.0-4.8) k/uL Monocytes # 0.4 (0-1.0) k/uL Eosinophils # 0.3 (0-0.7) k/uL Basophils # 0.0 (0-0.2) k/uL PT 10.1 (9.0-12.0) sec INR 1.0 (<1.2) APTT 25.7 (22.0-30.0) sec D-Dimer 0.23 (<0.60) mg/L FEU Sodium (137-145) mmol/L Potassium (3.5-5.1) mmol/L Chloride (98-107) mmol/L Carbon Dioxide (22-30) mmol/L Anion Gap mmol/L BUN (7-17) mg/dL Creatinine (0.52-1.04) mg/dL Est GFR (CKD-EPI)AfAm (>60 ml/min/1.73 sqM) Est GFR (CKD-EPI)NonAf (>60 ml/min/1.73 sqM) Glucose (74-99) mg/dL Calcium (8.4-10.2) mg/dL Magnesium (1.6-2.3) mg/dL Total Bilirubin (0.2-1.3) mg/dL AST (14-36) U/L ALT (4-34) U/L Alkaline Phosphatase (38-126) U/L Troponin I (0.000-0.034) ng/mL Total Protein (6.3-8.2) g/dL Albumin (3.5-5.0) g/dL Urine Color Light Yellow Urine Appearance Clear (Clear) Urine pH 6.0 (5.0-8.0) Ur Specific [place] 1.015 (1.001-1.035) Urine Protein Negative (Negative) Urine Glucose (UA) Negative (Negative) Urine Ketones Negative (Negative) Urine Blood Small H (Negative) Urine Nitrite Negative (Negative) Urine Bilirubin Negative (Negative) Urine Urobilinogen <2.0 (<2.0) mg/dL Ur Leukocyte Esterase Large H (Negative) Urine RBC 12 H (0-5) /hpf Urine WBC 55 H (0-5) /hpf Ur Squamous Epith Cells 2 (0-4) /hpf Urine Bacteria Rare H (None) /hpf Urine Mucus Rare H (None) /hpf 10/11/22 10/11/22 Range/Units 03:00 03:00 WBC (3.8-10.6) k/uL RBC (3.80-5.40) m/uL Hgb (11.4-16.0) gm/dL Hct (34.0-46.0) % MCV (80.0-100.0) fL MCH (25.0-35.0) pg MCHC (31.0-37.0) g/dL RDW (11.5-15.5) % Plt Count (150-450) k/uL MPV Neutrophils % % Lymphocytes % % Monocytes % % Eosinophils % % Basophils % % Neutrophils # (1.3-7.7) k/uL Lymphocytes # (1.0-4.8) k/uL Monocytes # (0-1.0) k/uL Eosinophils # (0-0.7) k/uL Basophils # (0-0.2) k/uL PT (9.0-12.0) sec INR (<1.2) APTT (22.0-30.0) sec D-Dimer (<0.60) mg/L FEU Sodium 140 (137-145) mmol/L Potassium 3.4 L (3.5-5.1) mmol/L Chloride 105 (98-107) mmol/L Carbon Dioxide 26 (22-30) mmol/L Anion Gap 9 mmol/L BUN 24 H (7-17) mg/dL Creatinine 0.61 (0.52-1.04) mg/dL Est GFR (CKD-EPI)AfAm >90 (>60 ml/min/1.73 sqM) Est GFR (CKD-EPI)NonAf >90 (>60 ml/min/1.73 sqM) Glucose 93 (74-99) mg/dL Calcium 9.0 (8.4-10.2) mg/dL Magnesium 2.3 (1.6-2.3) mg/dL Total Bilirubin 0.4 (0.2-1.3) mg/dL AST 24 (14-36) U/L ALT 30 (4-34) U/L Alkaline Phosphatase 94 (38-126) U/L Troponin I <0.012 (0.000-0.034) ng/mL Total Protein 6.7 (6.3-8.2) g/dL Albumin 4.0 (3.5-5.0) g/dL Urine Color Urine Appearance (Clear) Urine pH (5.0-8.0) Ur Specific [place] (1.001-1.035) Urine Protein (Negative) Urine Glucose (UA) (Negative) Urine Ketones (Negative) Urine Blood (Negative) Urine Nitrite (Negative) Urine Bilirubin (Negative) Urine Urobilinogen (<2.0) mg/dL Ur Leukocyte Esterase (Negative) Urine RBC (0-5) /hpf Urine WBC (0-5) /hpf Ur Squamous Epith Cells (0-4) /hpf Urine Bacteria (None) /hpf Urine Mucus (None) /hpf Disposition Clinical Impression: Chest pain, Palpitations, Shortness of breath, UTI (urinary tract infection) Disposition: ADMITTED IP TO THIS HOSP Referrals: Rachelle Burciaga MD [Primary Care Provider] - 1-2 days Decision Date: 10/11/22 Decision Time: 04:15
[2022-10-11] MEDS ORDERED: cefTRIAXone IN SWFI 1,000 MG/10 ML SYRINGE IVP STA (03:13)
[2022-10-11 03:22] LABS: Basophils % (A) 1 %; Eosinophils # (A) 0.3 k/uL (0-0.7); Eosinophils % (A) 4 %; HCT 40.9 % (34.0-46.0); HGB 13.9 gm/dL (11.4-16.0); Lymphocytes % (A) 44 %; MCH 30.5 pg (25.0-35.0); MCHC 33.9 g/dL (31.0-37.0); Mean Platelet Volume 7.3; Monocytes # (A) 0.4 k/uL (0-1.0); Monocytes % (A) 5 %; Neutrophils # (A) 2.9 k/uL (1.3-7.7); Neutrophils % (A) 42 %; Platelet Count 208 k/uL (150-450); RBC 4.54 m/uL (3.80-5.40); RDW 13.6 % (11.5-15.5); WBC 6.8 k/uL (3.8-10.6)
[2022-10-11 03:33] LABS: Partial Thromboplastin Time 25.7 sec (22.0-30.0); Prothrombin Time 10.1 sec (9.0-12.0)
[2022-10-11 03:38] LABS: ALT 30 U/L (4-34); AST 24 U/L (14-36); African American GFR (CKD) >90 (>60 ml/min/1.73 sqM); Alkaline Phosphatase 94 U/L (38-126); Anion Gap 9 mmol/L; Blood Urea Nitrogen 24 mg/dL (7-17); Carbon Dioxide 26 mmol/L (22-30); Chloride 105 mmol/L (98-107); Glucose 93 mg/dL (74-99); Magnesium 2.3 mg/dL (1.6-2.3); Non-African American GFR(CKD) >90 (>60 ml/min/1.73 sqM); Potassium 3.4 mmol/L (3.5-5.1); Sodium 140 mmol/L (137-145); Total Bilirubin 0.4 mg/dL (0.2-1.3); Total Protein 6.7 g/dL (6.3-8.2)
[2022-10-11] MEDS ORDERED: NALOXONE 0.4 MG/ML 1 ML VIAL IV PRN (04:02)
[2022-10-11] MEDS ORDERED: ACETAMINOPHEN TAB 325 MG TAB PO PRN (04:02)
--- NOTE | 2022-10-11 05:59 | XR ---
EXAM: XR Chest, 2 Views CLINICAL HISTORY: ITS.REASON XR Reason: Chest Pain TECHNIQUE: Frontal and lateral views of the chest. COMPARISON: 09/04/2022 FINDINGS: Lungs: No consolidation. No overt edema. Pleural space: No pleural effusion. No pneumothorax. Heart: Unremarkable. No cardiomegaly. Bones/joints: Unremarkable. No fracture or malalignment. IMPRESSION: No acute cardiopulmonary abnormality.
--- NOTE | 2022-10-11 12:33 | P.CRDCN ---
History of Present Illness Consult date: 10/11/22 Requesting physician: Oscar Cormier Reason for Consult (text): chest pain Chief complaint: palpitations History of present illness: This is a 57-year-old female who follows in the office with Dr. Sheppard. Has a history of prior nicotine dependence quit about 14 years ago, history of crack cocaine abuse quit in August 2005, questionable history of [place] in 2005 with no testing was performed at that time according to the patient. She's been complaining recently of palpitations, feeling an irregular heart rhythm and recently underwent outpatient event monitor which according to her was normal. She presented to the emergency department due to worsening palpitations she also had one episode of brief left-sided chest pain that lasted just a couple seconds. She's been having some shortness of breath but attributes this to her COPD and asthma. EKG on admission was unremarkable and troponins of the negative 3. Blood pressure was 146/77 on admission but patient says she normally runs low blood pressure this morning is 108/68 which is more her normal. She did undergo a stress echocardiogram in 2020 that was normal. On examination she is resting comfortably in bed. She was overall feeling quite a bit better. Denies further complaints of chest pain. Her palpitations have subsided. She's had no orthopnea, PND or edema. Past Medical History Past Medical History: Asthma, COPD, Deep Vein Thrombosis (DVT), Eye Disorder, GERD/Reflux, Osteoarthritis (OA) Additional Past Medical History / Comment(s): pt states at times she has an irregular heart beat, 2001 DVT in ankles bilateral thighs post hysterectomy per pt, bilateral glaucoma, bilateral tinnitis/[place], dysphagia-makes sure she chews food well/esophageal stricture with dilation, past stomach ulcer, chronic pain lower back/cervica and bilateral knees, past fungal infection/christa and was on diflucan for "years", past ETOH/crack cocaine but quit both in 2005.. Last Myocardial Infarction Date:: 04/2006 History of Any Multi-Drug Resistant Organisms: None Reported Past Surgical History: Hysterectomy, Tonsillectomy Additional Past Surgical History / Comment(s): egd with dilation, D&C, eye laser for muscle Past Anesthesia/Blood Transfusion Reactions: Previous Problems w/ Anesthesia Additional Past Anesthesia/Blood Transfusion Reaction / Comment(s): past hx of trouble waking up Past Psychological History: Anxiety, Depression Additional Psychological History / Comment(s): . Smoking Status: Former smoker Past Alcohol Use History: None Reported Additional Past Alcohol Use History / Comment(s): Pt started smoking in 1978 and quit several times but quit for good in 2007. 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 Past Drug Use History: None Reported Additional Drug Use History / Comment(s): Pt states she was a crack cocaine addict and quit in 2005. - Past Family History Mother Additional Family Medical History / Comment(s): Mother at age 31 as she was hit by a motor vehicle with history of depression. Father Family Medical History: Coronary Artery Disease (CAD) Additional Family Medical History / Comment(s): Father at age 54 after his third heart surgery. Sister(s) Additional Family Medical History / Comment(s): Patient has 3 sisters and one from a staph infection. Brother(s) Additional Family Medical History / Comment(s): Patient has 2 brothers and one has history of blood clots and anxiety. Patient has 3 children with no major medical problems. Medications and Allergies Home Medications Medication Instructions Recorded Confirmed Type Latanoprost Ophth [Xalatan 0.005%] 1 drop BOTH EYES HS 09/30/15 01/24/21 History Aspirin [Adult Low Dose Aspirin EC] 81 mg PO DAILY 01/11/19 01/24/21 History Carboxymethylcellulose Sodium 1 drop BOTH EYES DAILY PRN 01/11/19 01/24/21 History [Refresh Tears] Multivitamins, Thera [Multivitamin 1 tab PO DAILY 01/11/19 01/24/21 History (formulary)] Albuterol Sulfate [Ventolin HFA] 2 puff INHALATION RT-QID PRN 06/13/20 01/24/21 History Evening [place] Oil 500 mg PO DAILY 01/24/21 01/24/21 History Ibuprofen [Motrin Ib] 200 mg PO Q8H PRN 01/24/21 01/24/21 History Milk Thistle 150 mg PO DAILY 01/24/21 01/24/21 History Olopatadine HCl [[place] Twice 1 drop BOTH EYES BID PRN 01/24/21 01/24/21 History Daily Relief] Vitamin E (Dl,Tocopheryl Acet) 200 unit PO DAILY 01/24/21 01/24/21 History [Vitamin E] Famotidine [Pepcid] 20 mg PO BID 30 Days #60 tablet 01/27/21 Rx Fluconazole [Diflucan] 100 mg PO DAILY 5 Days #5 tab 01/27/21 Rx cefUROXime axetiL [Ceftin] 500 mg PO BID 3 Days #6 tab 01/27/21 Rx Allergies Allergy/AdvReac Type Severity Reaction Status Date / Time cashew nut Allergy Unknown Verified 09/03/22 23:05 erythromycin base Allergy Swelling, Verified 09/03/22 23:05 [Erythromycin Base] itching & arthraligia Iodine and Iodide Containing Allergy Unknown Verified 09/03/22 23:05 Produc strawberry Allergy Unknown Verified 09/03/22 23:05 cocoa AdvReac Dyspnea Verified 09/03/22 23:05 and heart racing diphenhydramine AdvReac "very Verified 09/03/22 23:05 [From Benadryl] sensitive" latex AdvReac Dyspnea Verified 09/03/22 23:05 melatonin AdvReac "very Verified 09/03/22 23:05 sensitive" Physical Exam Vitals: Vital Signs Temp Pulse Pulse Resp BP BP Pulse Ox 10/11/22 07:00 97.8 F 59 L 18 108/68 95 10/11/22 03:30 56 L 16 133/76 99 10/11/22 03:19 0 L 16 10/11/22 01:36 97.8 F 97 16 146/77 98 Intake and Output 10/10/22 10/11/22 10/11/22 22:59 06:59 14:59 Intake Total 120 Balance 120 Intake: Oral 120 Other: # Voids 1 0 Weight 71.2 kg PHYSICAL EXAMINATION: HEENT: Head is atraumatic, normocephalic. Pupils equal, round. Neck is supple. There is no elevated jugular venous pressure. HEART EXAMINATION: Heart sounds regular, S1 and S2 normal. No murmur or gallop heard. CHEST EXAMINATION: Lungs are clear to auscultation and precussion. No chest wall tenderness is noted on palpation or with deep breathing. ABDOMEN: Soft, nontender. Bowel sounds are heard. No organomegaly noted. EXTREMITIES: 2+ peripheral pulses with no evidence of peripheral edema and no calf tenderness noted. NEUROLOGIC patient is awake, alert and oriented x3. . Results 10/11/22 03:00 10/11/22 03:00 Cardiac Enzymes 10/11/22 10/11/22 10/11/22 Range/Units 03:00 03:00 06:11 AST 24 (14-36) U/L Troponin I <0.012 <0.012 (0.000-0.034) ng/mL 10/11/22 Range/Units 10:23 AST (14-36) U/L Troponin I <0.012 (0.000-0.034) ng/mL Coagulation 10/11/22 Range/Units 03:00 PT 10.1 (9.0-12.0) sec APTT 25.7 (22.0-30.0) sec CBC 10/11/22 Range/Units 03:00 WBC 6.8 (3.8-10.6) k/uL RBC 4.54 (3.80-5.40) m/uL Hgb 13.9 (11.4-16.0) gm/dL Hct 40.9 (34.0-46.0) % Plt Count 208 (150-450) k/uL Comprehensive Metabolic Panel 10/11/22 Range/Units 03:00 Sodium 140 (137-145) mmol/L Potassium 3.4 L (3.5-5.1) mmol/L Chloride 105 (98-107) mmol/L Carbon Dioxide 26 (22-30) mmol/L BUN 24 H (7-17) mg/dL Creatinine 0.61 (0.52-1.04) mg/dL Glucose 93 (74-99) mg/dL Calcium 9.0 (8.4-10.2) mg/dL AST 24 (14-36) U/L ALT 30 (4-34) U/L Alkaline Phosphatase 94 (38-126) U/L Total Protein 6.7 (6.3-8.2) g/dL Albumin 4.0 (3.5-5.0) g/dL Current Medications Generic Name Dose Route Start Last Admin Trade Name Freq PRN Reason Stop Dose Admin Acetaminophen 650 mg 10/11/22 04:02 Acetaminophen Tab 325 Mg Tab PO Q6HR PRN Mild Pain or Fever > 100.5 Naloxone HCl 0.2 mg 10/11/22 04:02 Naloxone 0.4 Mg/Ml 1 Ml Vial IV Q2M PRN Opioid Reversal Intake and Output 10/10/22 10/11/22 10/11/22 22:59 06:59 14:59 Intake Total 120 Balance 120 Intake: Oral 120 Other: # Voids 1 0 Weight 71.2 kg 10/11/22 03:00 10/11/22 03:00 Assessment and Plan Assessment: #1 palpitations, no malignant arrhythmia noted on telemetry #2 chest pain, atypical, acute coronary event is ruled out, troponins negative 3 and EKG unremarkable #3 questionable history of [place] in 2005 #4 prior crack cocaine abuse, in remission for 17 years #5 para nicotine dependence, quit 14 years ago Plan: From cardiology's perspective we will schedule the patient for 2-D echo with Doppler study to assess cardiac structure and function. We will also schedule the patient undergoes stress echocardiogram in the morning. Continue to monitor the patient on telemetry. Further recommendations to follow. WAITER AND CASHIER note has been reviewed, I agree with a documented findings and plan of care. Patient was seen and examined.
--- NOTE | 2022-10-11 14:01 | P.HPIM ---
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 Patient normally follows up with Dr. Barr for palpitations and had a conveyor monitor placed that was removed a few days ago. Patient was complaining of chest pressure as well as shortness of breath associated with it. She was also complaining of headache Lab work done in the ER showed white count 6.8, hemoglobin 13.9, platelet count 208, sodium 140, potassium 3.4, BUN 24, creatinine 0.61, Initial EKG done showed no acute segment changes, sinus bradycardia with a rate of 52 Chest x-ray showed no acute cardiopulmonary process Patient was admitted for further evaluation and treatment REVIEW OF SYSTEMS: CONSTITUTIONAL: No fever, no malaise, no fatigue. HEENT: No recent visual problems or hearing problems. Denied any sore throat. CARDIOVASCULAR: As mentioned in HPI PULMONARY: No cough, no hemoptysis. GASTROINTESTINAL: No diarrhea, no nausea, no vomiting, no abdominal pain. NEUROLOGICAL: No headaches, no weakness, no numbness. HEMATOLOGICAL: Denies any bleeding or petechiae. GENITOURINARY: Denies any burning micturition, frequency, or urgency. MUSCULOSKELETAL/RHEUMATOLOGICAL: Denies any joint pain, swelling, or any muscle pain. ENDOCRINE: Denies any polyuria or polydipsia. The rest of the 14-point review of systems is negative. PHYSICAL EXAMINATION: GENERAL: The patient is alert and oriented x3, not in any acute distress. Well developed, well nourished. HEENT: Pupils are round and equally reacting to light. EOMI. No scleral icterus. No conjunctival pallor. Normocephalic, atraumatic. No pharyngeal erythema. No thyromegaly. CARDIOVASCULAR: S1 and S2 present. No murmurs, rubs, or gallops. PULMONARY: Chest is clear to auscultation, no wheezing or crackles. ABDOMEN: Soft, nontender, nondistended, normoactive bowel sounds. No palpable organomegaly. MUSCULOSKELETAL: No joint swelling or deformity. EXTREMITIES: No cyanosis, clubbing, or pedal edema. NEUROLOGICAL: Gross neurological examination did not reveal any focal deficits. SKIN: No rashes. Assessment and plan Chest pain Palpitations Hypokalemia Plan; Monitor vital signs Monitor CBC Monitor CMP Serial troponin 2-D echo ordered Cardiology consulted DVT prophylaxis: Past Medical History Past Medical History: Asthma, COPD, Deep Vein Thrombosis (DVT), Eye Disorder, GERD/Reflux, Osteoarthritis (OA) Additional Past Medical History / Comment(s): pt states at times she has an irregular heart beat, 2002 DVT in ankles bilateral thighs post hysterectomy per pt, bilateral glaucoma, bilateral tinnitis/INAJA, dysphagia-makes sure she chews food well/esophageal stricture with dilation, past stomach ulcer, chronic pain lower back/cervica and bilateral knees, past fungal infection/christa and was on diflucan for "years", past ETOH/crack cocaine but quit both in 2005.. Last Myocardial Infarction Date:: 04/2006 History of Any Multi-Drug Resistant Organisms: None Reported Past Surgical History: Hysterectomy, Tonsillectomy Additional Past Surgical History / Comment(s): egd with dilation, D&C, eye laser for muscle Past Anesthesia/Blood Transfusion Reactions: Previous Problems w/ Anesthesia Additional Past Anesthesia/Blood Transfusion Reaction / Comment(s): past hx of trouble waking up Past Psychological History: Anxiety, Depression Additional Psychological History / Comment(s): . Smoking Status: Former smoker Past Alcohol Use History: None Reported Additional Past Alcohol Use History / Comment(s): Pt started smoking in 1978 and quit several times but quit for good in 2007. 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 Past Drug Use History: None Reported Additional Drug Use History / Comment(s): Pt states she was a crack cocaine addict and quit in 2005. - Past Family History Mother Additional Family Medical History / Comment(s): Mother at age 31 as she was hit by a motor vehicle with history of depression. Father Family Medical History: Coronary Artery Disease (CAD) Additional Family Medical History / Comment(s): Father at age 54 after his third heart surgery. Sister(s) Additional Family Medical History / Comment(s): Patient has 3 sisters and one from a staph infection. Brother(s) Additional Family Medical History / Comment(s): Patient has 2 brothers and one has history of blood clots and anxiety. Patient has 3 children with no major medical problems. Medications and Allergies Home Medications Medication Instructions Recorded Confirmed Type Latanoprost Ophth [Xalatan 0.005%] 1 drop BOTH EYES HS 09/30/15 10/11/22 History Carboxymethylcellulose Sodium 1 drop BOTH EYES DAILY PRN 01/11/19 10/11/22 History [Refresh Tears] Multivitamins, Thera [Multivitamin 1 tab PO DAILY 01/11/19 10/11/22 History (formulary)] Ascorbic Acid [Vitamin C] 1,000 mg PO DAILY 10/11/22 10/11/22 History Calcium Carbonate [Calcium] 600 mg PO DAILY 10/11/22 10/11/22 History Cholecalciferol [Vitamin D3 (25 25 mcg PO DAILY 10/11/22 10/11/22 History Mcg = 1000 Iu)] Cyanocobalamin (Vitamin B-12) 1,000 mcg PO DAILY 10/11/22 10/11/22 History [Vitamin B-12] Olopatadine HCl [Pataday Once 1 drop BOTH EYES DAILY 10/11/22 10/11/22 History Daily Relief] Allergies Allergy/AdvReac Type Severity Reaction Status Date / Time cashew nut Allergy Unknown Verified 10/11/22 13:52 erythromycin base Allergy Swelling, Verified 10/11/22 13:52 [Erythromycin Base] itching & arthraligia Iodine and Iodide Containing Allergy Unknown Verified 10/11/22 13:52 Produc strawberry Allergy Unknown Verified 10/11/22 13:52 cocoa AdvReac Dyspnea Verified 10/11/22 13:52 and heart racing diphenhydramine AdvReac "very Verified 10/11/22 13:52 [From Benadryl] sensitive" latex AdvReac Dyspnea Verified 10/11/22 13:52 melatonin AdvReac "very Verified 10/11/22 13:52 sensitive" Physical Exam Vitals: Vital Signs Temp Pulse Pulse Resp BP BP Pulse Ox 10/11/22 07:00 97.8 F 59 L 18 108/68 95 10/11/22 03:30 56 L 16 133/76 99 10/11/22 03:19 0 L 16 10/11/22 01:36 97.8 F 97 16 146/77 98 Intake and Output 10/10/22 10/11/22 10/11/22 22:59 06:59 14:59 Intake Total 120 Balance 120 Intake: Oral 120 Other: # Voids 1 0 Weight 71.2 kg Results CBC & Chem 7: 10/11/22 03:00 10/11/22 03:00 Labs: Abnormal Lab Results - Last 24 Hours (Table) 10/11/22 10/11/22 Range/Units 02:00 03:00 Potassium 3.4 L (3.5-5.1) mmol/L BUN 24 H (7-17) mg/dL Urine Blood Small H (Negative) Ur Leukocyte Esterase Large H (Negative) Urine RBC 12 H (0-5) /hpf Urine WBC 55 H (0-5) /hpf Urine Bacteria Rare H (None) /hpf Urine Mucus Rare H (None) /hpf
[2022-10-11] MEDS ORDERED: LATANOPROST 0.005% OPHTH DROPS 2.5 ML BTL BOTH EYES SCH (21:00)
[2022-10-12 08:19] VITALS: BP 147/83; PULSE 79; RESP 18; TEMP 98
[2022-10-12] MEDS ORDERED: CHOLECALCIFEROL 25 MCG (1000 IU) TABLET PO SCH (09:00)
[2022-10-12] MEDS ORDERED: KETOTIFEN 0.025% OPHTH DROPS 5 ML BTL BOTH EYES SCH (09:00)
[2022-10-12] MEDS ORDERED: CYANOCOBALAMIN 500 MCG TAB PO SCH (09:00)
[2022-10-12] MEDS ORDERED: CALCIUM CARBONATE 500 MG CHEWABLE PO SCH (09:00)
[2022-10-12] MEDS ORDERED: ASCORBIC ACID 500 MG TAB PO SCH (09:00)
[2022-10-12] MEDS ORDERED: MULTIVITAMINS, THERA 1 EACH TAB PO SCH (09:00)
--- NOTE | 2022-10-12 10:56 | P.PN ---
Subjective Progress Note Date: 10/12/22 HISTORY OF PRESENT ILLNESS: 10/11/2022 This is a 57-year-old female who follows in the office with Dr. Sheppard. Has a history of prior nicotine dependence quit about 14 years ago, history of crack cocaine abuse quit in August 2005, questionable history of IN in 2005 with no testing was performed at that time according to the patient. She's been complaining recently of palpitations, feeling an irregular heart rhythm and recently underwent outpatient event monitor which according to her was normal. She presented to the emergency department due to worsening palpitations she also had one episode of brief left-sided chest pain that lasted just a couple seconds. She's been having some shortness of breath but attributes this to her COPD and asthma. EKG on admission was unremarkable and troponins of the negative 3. Blood pressure was 146/77 on admission but patient says she normally runs low blood pressure this morning is 108/68 which is more her normal. She did undergo a stress echocardiogram in 2020 that was normal. On examination she is resting comfortably in bed. She was overall feeling quite a bit better. Denies further complaints of chest pain. Her palpitations have subsided. She's had no orthopnea, PND or edema. 10/12/2022 Patient examined this morning at the bedside. Patient denies any further episodes of chest pain or pressure. She denies shortness of breath. Vital signs are stable. PHYSICAL EXAM: VITAL SIGNS: Reviewed. GENERAL: Well-developed in no acute distress. NECK: Supple. No JVD or thyromegaly LUNGS: Respirations even and unlabored. Lungs essentially clear to auscultation bilaterally. HEART: Regular rate and rhythm. S1 and S2 heard. EXTREMITIES: Normal range of motion. No clubbing or cyanosis. Peripheral pulses intact. No lower extremity edema ASSESSMENT: Palpitations Chest pain, atypical, acute coronary event has been ruled out Questionable history of IN in 2005 Prior crack cocaine abuse, in remission for 17 years Former nicotine dependence, quit 14 years ago PLAN: 2-D echo has been ordered. Await results Patient will undergo stress echocardiogram today If negative, she may be discharged home from a cardiac perspective Nurse practitioner note has been reviewed by physician. Signing provider agrees with the documented findings, assessment, and plan of care. Objective - Vital Signs Vital signs: Vital Signs Temp 98 F 10/12/22 07:00 Pulse 79 10/12/22 07:00 Resp 18 10/12/22 07:00 BP 147/83 10/12/22 07:00 Pulse Ox 97 10/12/22 07:00 FiO2 Intake & Output 10/11/22 10/12/22 10/12/22 18:59 06:59 18:59 Intake Total 480 Balance 480 Intake: Oral 480 Other: # Voids 1 1 - Labs CBC & Chem 7: 10/11/22 03:00 10/11/22 03:00 Labs: Microbiology - Last 24 Hours (Table) 10/11/22 02:00 Urine Culture - Preliminary Urine,Voided
--- NOTE | 2022-10-12 11:40 | CA ---
Stress Echo Report Annette Anaya Age: 57 Gender: F : 1965 Exam Date: 10/12/2022 10:25 Exam Location: [facility] Ht (in): 62 Wt (lb): 156 Ordering Physician: Kori Desir Referring Physician: [id number] Dale Diesel Service Technician: ESTRELLITA Technologist Procedure CPT: Indication: Chest Pain ICD-9 Codes: Rhythm: Patient History: Chest pain shortness of breath and palpitations Cardiac Medications: Medications in past 24 hours: Contrast: Stress Results Protocol: Papo Total dose(mL): Exercise Duration (min:sec): Max ST Depression (mm): Angina Score: Ashford Score: METS: 7.1 Resting HR: 58 Resting BP: 117 / 73 Peak HR: 154 Peak BP: 181 / 90 Max Predicted HR: 165 93 % Max Predicted HR Target HR: 140 Double Product: 53816 Stress Summary: BP Response: Reason for Termination: Reached target heart rate or work-load Cardiac Symptoms: None ECG Analysis Resting ECG: Stress ECG: Arrhythmia: Echo Analysis Resting Echo: Peak Echo Analysis: MEASUREMENTS (Male/Female) Normal Values CONCLUSIONS Patient underwent exercise stress echo with a Papo protocol treadmill stress test. Patient exercised into Stage 2 for a total of 6 minutes and 8 seconds reaching a total of 7.1 METS. Patient's maximum heart rate was 154 which represented 93 % age- predicted maximum heart rate. Stress EKG portion: At baseline patient's EKG showed normal sinus rhythm, normal axis, no significant ST or T wave abnormalities. At peak exercise, EKG showed rare PVCs, minimal 0.[address] depressions which are nondiagnostic. Stress echo portion: 2-D echocardiogram was performed in the parasternal long, personal short, apical 2 and apical four-chamber views at rest, peak exercise and in recovery. At baseline, echocardiogram showed left ventricular ejection fraction 55 % without wall motion abnormalities. With peak exercise, echocardiogram shows improvement in left ventricular ejection fraction, increase contractility, decrease in left ventricular end systolic dimension without wall motion abnormalities consistent with a normal response to exercise. Conclusions: 1. Normal EKG and echo response to exercise without evidence of inducible ischemia. 2. Fair exercise capacity. Dr. Hugo Soto DO (Electronically Signed) Final Date: 12 Oct 2022 11:40
--- NOTE | 2022-10-12 12:58 | P.DS ---
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 Patient normally follows up with Dr. Barr for palpitations and had a youth nutritional monitor placed that was removed a few days ago. Patient was complaining of chest pressure as well as shortness of breath associated with it. She was also complaining of headache Lab work done in the ER showed white count 6.8, hemoglobin 13.9, platelet count 208, sodium 140, potassium 3.4, BUN 24, creatinine 0.61, Initial EKG done showed no acute segment changes, sinus bradycardia with a rate of 52 Chest x-ray showed no acute cardiopulmonary process Patient was admitted for further evaluation and treatment Cardiology evaluated the patient ordered a stress echo 10/12. Patient seen and examined. Stress echo done this morning was negative for any ischemia. Cardiology cleared the Discharge PHYSICAL EXAMINATION: GENERAL: The patient is alert and oriented x3, not in any acute distress. Well developed, well nourished. HEENT: Pupils are round and equally reacting to light. EOMI. No scleral icterus. No conjunctival pallor. Normocephalic, atraumatic. No pharyngeal erythema. No thyromegaly. CARDIOVASCULAR: S1 and S2 present. No murmurs, rubs, or gallops. PULMONARY: Chest is clear to auscultation, no wheezing or crackles. ABDOMEN: Soft, nontender, nondistended, normoactive bowel sounds. No palpable organomegaly. MUSCULOSKELETAL: No joint swelling or deformity. EXTREMITIES: No cyanosis, clubbing, or pedal edema. NEUROLOGICAL: Gross neurological examination did not reveal any focal deficits. SKIN: No rashes. Patient Condition at Discharge: Good Plan - Discharge Summary New Discharge Prescriptions: Continue Latanoprost Ophth [Xalatan 0.005%] 1 drop BOTH EYES HS Multivitamins, Thera [Multivitamin (formulary)] 1 tab PO DAILY Carboxymethylcellulose Sodium [Refresh Tears] 1 drop BOTH EYES DAILY PRN PRN Reason: Dry Eye(S) Olopatadine HCl [Pataday Once Daily Relief] 1 drop BOTH EYES DAILY Cholecalciferol [Vitamin D3 (25 Mcg = 1000 Iu)] 25 mcg PO DAILY Calcium Carbonate [Calcium] 600 mg PO DAILY Cyanocobalamin (Vitamin B-12) [Vitamin B-12] 1,000 mcg PO DAILY Ascorbic Acid [Vitamin C] 1,000 mg PO DAILY Discharge Medication List Latanoprost Ophth [Xalatan 0.005%] 1 drop BOTH EYES HS 09/30/15 [History] Carboxymethylcellulose Sodium [Refresh Tears] 1 drop BOTH EYES DAILY PRN 01/11/19 [History] Multivitamins, Thera [Multivitamin (formulary)] 1 tab PO DAILY 01/11/19 [History] Ascorbic Acid [Vitamin C] 1,000 mg PO DAILY 10/11/22 [History] Calcium Carbonate [Calcium] 600 mg PO DAILY 10/11/22 [History] Cholecalciferol [Vitamin D3 (25 Mcg = 1000 Iu)] 25 mcg PO DAILY 10/11/22 [History] Cyanocobalamin (Vitamin B-12) [Vitamin B-12] 1,000 mcg PO DAILY 10/11/22 [History] Olopatadine HCl [Pataday Once Daily Relief] 1 drop BOTH EYES DAILY 10/11/22 [History] Follow up Appointment(s)/Referral(s): Rachelle Burciaga MD [Primary Care Provider] - 1-2 days Woo Sheppard MD [STAFF PHYSICIAN] - 10/22/22 1:45 pm Discharge Disposition: HOME SELF-CARE
--- NOTE | 2022-10-13 09:02 | CA ---
Transthoracic Echo Report Name: Annette Anaya Age: 57 Gender: F : 1965 Exam Date: 10/12/2022 10:38 Exam Location: [facility] Ht (in): 62 Wt (lb): 157 Ordering Physician: Kori Desir Attending/Referring Phys: [id number], Thang Die Maintenance Ping Carbajal RDCS Procedure CPT: Indications: palpitations Cardiac Hx: Technical Quality: Fair Contrast 1: Total Dose (mL): Contrast 2: Total Dose (mL): MEASUREMENTS (Male / Female) Normal Values 2D ECHO LV Diastolic Diameter PLAX 3.6 cm 4.2 - 5.9 / 3.9 - 5.3 cm LV Systolic Diameter PLAX 2.2 cm IVS Diastolic Thickness 1.2 cm 0.6 - 1.0 / 0.6 - 0.9 cm LVPW Diastolic Thickness 1.2 cm 0.6 - 1.0 / 0.6 - 0.9 cm LV Relative Wall Thickness 0.7 RV Internal Dim ED PLAX 3.5 cm LA Volume 38.2 cm??? 18 - 58 / 22 - 52 cm??? M-MODE Aortic Root Diameter MM 3.3 cm LA Systolic Diameter MM 3.2 cm LA Ao Ratio MM 0.9 AV Cusp Separation MM 2.1 cm DOPPLER AV Peak Velocity 100.4 cm/s AV Peak Gradient 4.0 mmHg AV Mean Velocity 73.3 cm/s AV Mean Gradient 2.4 mmHg AV Velocity Time Integral 19.2 cm LVOT Peak Velocity 77.7 cm/s LVOT Peak Gradient 2.4 mmHg LVOT Velocity Time Integral 16.7 cm MV Area PHT 3.6 cm??? Mitral E Point Velocity 52.8 cm/s Mitral A Point Velocity 73.4 cm/s Mitral E to A Ratio 0.7 MV Deceleration Time 208.3 ms MV E' Velocity 11.2 cm/s Mitral E to MV E' Ratio 4.7 TR Peak Velocity 198.0 cm/s TR Peak Gradient 15.7 mmHg Right Ventricular Systolic Press 20.3 mmHg FINDINGS Left Ventricle Mildly increased left ventricular wall thickness. Left ventricular cavity size normal. Normal left ventricular systolic function with no obvious regional wall motion abnormalities. Left ventricular ejection fraction is estimated at 50-55 %. Right Ventricle Mild right ventricular dilatation. Right ventricular systolic pressure within normal limits. Right Atrium Normal right atrial size. Left Atrium Normal left atrial size. Mitral Valve Structurally normal mitral valve. Trace to mild mitral regurgitation. Aortic Valve Trileaflet aortic valve. No aortic valve stenosis or regurgitation. Tricuspid Valve Structurally normal tricuspid valve. Mild tricuspid regurgitation. Pulmonic Valve Trace pulmonic regurgitation. Pericardium No pericardial effusion. Aorta Normal size aortic root and proximal ascending aorta. CONCLUSIONS Mild increased left ventricular wall thickness Left ventricular ejection fraction 50-55% Bilateral right ventricular dilation Trace to mild mitral regurgitation Mild tricuspid regurgitation RVSP 20 Previewed by: Dr. Hugo Soto DO (Electronically Signed) Final Date: 13 Oct 2022 09:01
== END 2022-10-12 14:09 | disposition home or self-care (01) ==
LOC: EC 01:16 → 6NMEDSUR 04:04
PROVIDERS: ADMIT Hospitalist; ATTEND Hospitalist
DX: R07.9 Chest pain, unspecified (principal); R00.2 Palpitations; E87.6 Hypokalemia; R51.9 Headache, unspecified; I25.2 Old myocardial infarction; Z87.891 Personal history of nicotine dependence; J44.9 Chronic obstructive pulmonary disease, unspecified; Z86.718 Personal history of other venous thrombosis and embolism; Z87.11 Personal history of peptic ulcer disease; Z86.19 Personal history of other infectious and parasitic diseases; H40.9 Unspecified glaucoma; H91.90 Unspecified hearing loss, unspecified ear; F41.9 Anxiety disorder, unspecified; K21.9 Gastro-esophageal reflux disease without esophagitis; M19.90 Unspecified osteoarthritis, unspecified site; F32.A Depression, unspecified; R13.10 Dysphagia, unspecified; G89.29 Other chronic pain; M54.2 Cervicalgia; M54.50 Low back pain, unspecified; Z90.710 Acquired absence of both cervix and uterus; Z98.890 Other specified postprocedural states; Z81.8 Family history of other mental and behavioral disorders; Z82.49 Family history of ischemic heart disease and other diseases of the circulatory system; F10.11 Alcohol abuse, in remission; F14.11 Cocaine abuse, in remission; Z79.82 Long term (current) use of aspirin; Z79.899 Other long term (current) drug therapy; Z88.1 Allergy status to other antibiotic agents; Z91.040 Latex allergy status; Z91.018 Allergy to other foods; Z88.8 Allergy status to other drugs, medicaments and biological substances; Z91.048 Other nonmedicinal substance allergy status
CPT/HCPCS: 96374; 96375; 99285; 36415; 93005; 93306; 93351; 85379; 80053; 83735; 84484; 85025; 85610; 85730; 81001; 87086; 71046; G0378 ×2; J0696; J1885

== ENCOUNTER 2022-11-13 11:27 | Day surgery (SDC) | payer MEDICARE, OTHER ==
[2022-11-13 12:30] VITALS: TEMP 98.1
[2022-11-13] MEDS ORDERED: PROPOFOL 10 MG/ML 20 ML VIAL IV ONE (13:46)
[2022-11-13] MEDS ORDERED: LIDOCAINE 2% INJ 20 MG/ML (2 ML VIAL) ONE (13:46)
--- NOTE | 2022-11-13 14:10 | P.PCN ---
Date of Procedure: 11/13/22 Procedure(s) Performed: BRIEF HISTORY: Patient is a 57-year-old, pleasant, white female scheduled for an upper endoscopy as a part of evaluation of intermittent dysphagia to solids for the last 1 year duration. PROCEDURE PERFORMED: Esophagogastroduodenoscopy with balloon dilation. PREOPERATIVE DIAGNOSIS: Intermittent dysphagia to solids. IV sedation per anesthesia. PROCEDURE: After informed consent was obtained, the patient was brought into the endoscopy unit. IV sedation was administered by Anesthesia under continuous monitoring. Initially the Olympus GIF-140 video endoscope was inserted into the mouth. Esophagus intubated without any difficulty. It was gradually advanced into the stomach and duodenum and carefully examined. The bulb and the second part of the duodenum appeared normal. The scope at this time was withdrawn to the stomach, adequately insufflated with air, and upon careful examination, mucosa of the antrum, body, cardia and the fundus appeared normal. The scope was then withdrawn into the esophagus. The GE junction was located at 39 cm from the incisors. Small hiatal hernia noted. There was a distal esophageal Schatzki's ring that was dilated using 15-18 mm TTS balloon in a sequential fashion for 60 seconds. Following dilation there was a mucosal tear with oozing identified. There were erosions with circumferential erythema at the GE junction consistent with LA grade B reflux esophagitis. The rest of the esophagus appeared normal. There were no erosions or ulcerations seen and the patient tolerated the procedure well. IMPRESSION: 1. Distal esophageal Schatzki's ring status post balloon dilation using 15-18 mm TTS balloon as described above. 2. Small Hiatal hernia. 3. Circumferential erythema of the GE junction consistent with LA grade B reflux esophagitis RECOMMENDATIONS: The findings of this examination were discussed with the patient as well as a family. She was advised to follow with the biopsy results. She will be started on omeprazole 20 mg daily and was advised to follow antireflux measures. Recommend to be on a clear liquid diet for lunch today..
[2022-11-13 14:20] VITALS: RESP 16
[2022-11-13 14:36] VITALS: BP 129/78; PULSE 69
== END 2022-11-13 15:08 | disposition home or self-care (01) ==
LOC: ORWHC2ENDO 11:27
PROVIDERS: ATTEND Internal Medicine Gastroenterology
DX: K22.2 Esophageal obstruction (principal); K44.9 Diaphragmatic hernia without obstruction or gangrene; K21.00 Gastro-esophageal reflux disease with esophagitis, without bleeding; J44.9 Chronic obstructive pulmonary disease, unspecified; F41.8 Other specified anxiety disorders; Z87.891 Personal history of nicotine dependence; Z88.5 Allergy status to narcotic agent; Z91.041 Radiographic dye allergy status; Z88.1 Allergy status to other antibiotic agents
CPT/HCPCS: 43249; J2704; J2001; C1726

== ENCOUNTER 2023-01-30 12:59 | Emergency (ER) | payer MEDICARE, OTHER ==
[2023-01-30 13:11] VITALS: BP 158/90; PULSE 85; RESP 20; TEMP 98.3
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
[2023-01-30] MEDS ORDERED: DICLOFENAC SODIUM GEL 100 GM TUBE TOPICAL ONE (14:05)
[2023-01-30 14:06] LABS: Basophils # (A) 0.1 k/uL (0-0.2); Basophils % (A) 1 %; Eosinophils # (A) 0.2 k/uL (0-0.7); Eosinophils % (A) 3 %; HCT 45.4 % (34.0-46.0); HGB 15.3 gm/dL (11.4-16.0); Lymphocytes # (A) 2.2 k/uL (1.0-4.8); Lymphocytes % (A) 33 %; MCH 31.3 pg (25.0-35.0); MCHC 33.7 g/dL (31.0-37.0); Mean Platelet Volume 7.3; Monocytes # (A) 0.4 k/uL (0-1.0); Monocytes % (A) 6 %; Neutrophils # (A) 3.6 k/uL (1.3-7.7); Neutrophils % (A) 54 %; Platelet Count 262 k/uL (150-450); RBC 4.88 m/uL (3.80-5.40); RDW 13.2 % (11.5-15.5); WBC 6.6 k/uL (3.8-10.6)
[2023-01-30 14:23] LABS: ALT 33 U/L (4-34); AST 29 U/L (14-36); African American GFR (CKD) >90 (>60 ml/min/1.73 sqM); Albumin 4.7 g/dL (3.5-5.0); Alkaline Phosphatase 97 U/L (38-126); Anion Gap 8 mmol/L; Blood Urea Nitrogen 18 mg/dL (7-17); Calcium 9.5 mg/dL (8.4-10.2); Carbon Dioxide 26 mmol/L (22-30); Chloride 106 mmol/L (98-107); Glucose 94 mg/dL (74-99); Lipase 165 U/L (23-300); Non-African American GFR(CKD) >90 (>60 ml/min/1.73 sqM); Potassium 3.8 mmol/L (3.5-5.1); Sodium 140 mmol/L (137-145); Total Bilirubin 0.7 mg/dL (0.2-1.3); Total Protein 7.9 g/dL (6.3-8.2)
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
== END 2023-01-30 15:40 | disposition home or self-care (01) ==
LOC: EC 12:59
DX: S52.501A Unspecified fracture of the lower end of right radius, initial encounter for closed fracture (principal); J44.9 Chronic obstructive pulmonary disease, unspecified; M19.90 Unspecified osteoarthritis, unspecified site; G47.30 Sleep apnea, unspecified; Z86.59 Personal history of other mental and behavioral disorders; Z87.891 Personal history of nicotine dependence; Z79.1 Long term (current) use of non-steroidal anti-inflammatories (NSAID); Z79.899 Other long term (current) drug therapy; Z79.82 Long term (current) use of aspirin; Z91.018 Allergy to other foods; Z91.040 Latex allergy status; Z88.5 Allergy status to narcotic agent; Z88.6 Allergy status to analgesic agent; Z88.8 Allergy status to other drugs, medicaments and biological substances; Z88.1 Allergy status to other antibiotic agents; V89.2XXA Person injured in unspecified motor-vehicle accident, traffic, initial encounter; Y92.411 Interstate highway as the place of occurrence of the external cause
CPT/HCPCS: 29125; 36415; 70450; 71250; 72125; 80053; 83690; 85025; 93005; 99285

== ENCOUNTER → 2023-05-05 | Outpatient (CLI) | payer MEDICARE, OTHER ==
[2023-05-06 03:17] LABS: ALT 19 U/L (8-44); AST 14 U/L (13-35); Albumin 4.3 g/dL (3.8-4.9); Albumin/Globulin Ratio 1.87 Ratio (1.60-3.17); Alkaline Phosphatase 102 U/L (41-126); Calcium 9.8 mg/dL (8.7-10.3); Carbon Dioxide 26.1 mmol/L (21.6-31.8); Chloride 106 mmol/L (96-109); Globulin 2.3 g/dL (1.6-3.3); Glucose 102 mg/dL (70-110); Potassium 3.7 mmol/L (3.5-5.5); Sodium 143 mmol/L (135-145); T4, Free (Free Thyroxine) 1.15 ng/dL (0.80-1.80); Total Bilirubin 0.3 mg/dL (0.3-1.2); Total Protein 6.6 g/dL (6.2-8.2)
== END | disposition home or self-care (01) ==
LOC: LABWHC1 14:22
PROVIDERS: ATTEND Internal Medicine
DX: E04.9 Nontoxic goiter, unspecified (principal); E55.9 Vitamin D deficiency, unspecified
CPT/HCPCS: 36415; 80053; 82306; 84439; 84443

== ENCOUNTER → 2023-05-20 | Outpatient (CLI) | payer MEDICARE, OTHER ==
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
== END | disposition home or self-care (01) ==
LOC: RADXRMAIN 16:17
PROVIDERS: ATTEND Family Medicine
DX: S59.911A Unspecified injury of right forearm, initial encounter (principal); X58.XXXA Exposure to other specified factors, initial encounter

== ENCOUNTER → 2023-07-06 | Outpatient (CLI) | payer MEDICARE, OTHER ==
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
== END | disposition home or self-care (01) ==
LOC: RADXRMAIN 15:17
PROVIDERS: ATTEND Family Medicine
DX: K59.09 Other constipation (principal); J98.4 Other disorders of lung
CPT/HCPCS: 74022

== ENCOUNTER 2023-10-15 21:08 | Emergency (ER) | payer MEDICARE, OTHER ==
--- NOTE | 2023-10-15 22:03 | ED ---
General Adult HPI - General Chief complaint: Recheck/Abnormal Lab/Rx Stated complaint: hypertension Time Seen by Provider: 10/15/23 21:25 Source: patient, RN notes reviewed, old records reviewed Mode of arrival: EMS Limitations: no limitations - History of Present Illness Initial comments: 58-year-old female presenting with elevated blood pressure. Patient measured blood pressure at home at 144/80. She did contact paramedics. She states that she had not eaten much throughout the day and was making dinner. She states that this is not abnormal for her. She does admit to some anxiety surrounding a lawsuit that is currently pending. She also started a new supplement 3 days prior and believes this may be contributing to her elevated blood pressure. She has no headache. No chest pain. No physical symptoms at this time. - Related Data Home Medications Medication Instructions Recorded Confirmed Latanoprost Ophth [Xalatan 0.005%] 1 drop BOTH EYES HS 09/30/15 11/13/22 Carboxymethylcellulose Sodium 1 drop BOTH EYES DAILY PRN 01/11/19 11/13/22 [Refresh Tears] Multivitamins, Thera [Multivitamin 1 tab PO DAILY 01/11/19 11/12/22 (formulary)] Ascorbic Acid [Vitamin C] 1,000 mg PO DAILY 10/11/22 11/13/22 Cholecalciferol [Vitamin D3 (25 25 mcg PO DAILY 10/11/22 11/12/22 Mcg = 1000 Iu)] Cyanocobalamin (Vitamin B-12) 1,000 mcg PO DAILY 10/11/22 11/12/22 [Vitamin B-12] Olopatadine HCl [Pataday Once 1 drop BOTH EYES DAILY 10/11/22 11/13/22 Daily Relief] Aspirin 81 mg PO DAILY 11/12/22 11/12/22 Ibuprofen [Motrin] 800 mg PO DIRECTED PRN 11/12/22 11/12/22 Unk Zinc 1 tab PO DAILY 11/12/22 11/12/22 Allergies Allergy/AdvReac Type Severity Reaction Status Date / Time acetaminophen [From Vicodin] Allergy Nausea Verified 01/30/23 13:15 cashew nut Allergy Unknown Verified 11/13/22 12:33 erythromycin base Allergy Swelling, Verified 11/13/22 12:33 [Erythromycin Base] itching & arthraligia hydrocodone [From Vicodin] Allergy Nausea Verified 01/30/23 13:15 Iodine and Iodide Containing Allergy heart Verified 11/13/22 12:33 Produc feels funny latex Allergy Dyspnea Verified 11/13/22 12:33 strawberry Allergy Unknown Verified 11/13/22 12:33 cocoa AdvReac heart races Verified 11/13/22 12:33 codeine AdvReac Nausea Verified 01/30/23 13:15 diphenhydramine AdvReac "very Verified 11/13/22 12:33 [From Benadryl] sensitive" melatonin AdvReac "very Verified 11/13/22 12:33 sensitive" Review of Systems ROS Statement: Those systems with pertinent positive or pertinent negative responses have been documented in the HPI. ROS Other: All systems not noted in ROS Statement are negative. Past Medical History Past Medical History: Asthma, Chest Pain / Angina, COPD, Deep Vein Thrombosis (DVT), Eye Disorder, GERD/Reflux, Osteoarthritis (OA), Sleep Apnea/CPAP/BIPAP Additional Past Medical History / Comment(s): pt states at times she has an irregular heart beat, 2002 DVT in ankles bilateral thighs post hysterectomy per pt, bilateral glaucoma, bilateral [place]innitis/[place], dysphagia-makes sure she chews food well/esophageal stricture with dilation, past stomach ulcer, chronic pain lower back/cervica and bilateral knees, past fungal infection/christa and was on diflucan for "years" doesnt work anymore, past ETOH/crack cocaine but quit both in 2005.. bladder hurts with increased sugar intake. hx HCV 1 and 2 . pt does not have a cpap .told not to lay flat. Last Myocardial Infarction Date:: 04/2006 History of Any Multi-Drug Resistant Organisms: None Reported Past Surgical History: Hysterectomy, Tonsillectomy Additional Past Surgical History / Comment(s): egd with dilation, D&C, eye laser for muscle, laser for HPV 2004 , colonoscopy Past Anesthesia/Blood Transfusion Reactions: Previous Problems w/ Anesthesia Additional Past Anesthesia/Blood Transfusion Reaction / Comment(s): past hx of trouble waking up. pt told after tonsilectomy she almost but not told why. Past Psychological History: Anxiety, Depression Smoking Status: Former smoker Past Alcohol Use History: None Reported Past Drug Use History: None Reported - Past Family History Mother Additional Family Medical History / Comment(s): Mother at age 31 as she was hit by a motor vehicle with history of depression. Father Family Medical History: Coronary Artery Disease (CAD) Additional Family Medical History / Comment(s): Father at age 54 after his third heart surgery. Sister(s) Additional Family Medical History / Comment(s): Patient has 3 sisters and one from a staph infection. Brother(s) Additional Family Medical History / Comment(s): Patient has 2 brothers and one has history of blood clots and anxiety. Patient has 3 children with no major medical problems. General Exam Limitations: no limitations General appearance: alert, in no apparent distress Head exam: Present: atraumatic, normocephalic Eye exam: Present: normal appearance, PERRL ENT exam: Present: normal exam Neck exam: Present: normal inspection. Absent: tenderness, meningismus Respiratory exam: Present: normal lung sounds bilaterally. Absent: respiratory distress, wheezes Cardiovascular Exam: Present: regular rate, normal rhythm GI/Abdominal exam: Present: soft. Absent: distended, tenderness, guarding, rebound Extremities exam: Present: normal inspection Neurological exam: Present: alert, oriented X3, CN II-XII intact. Absent: motor sensory deficit Psychiatric exam: Present: anxious Skin exam: Present: warm, dry, intact. Absent: cyanosis, diaphoretic Course Vital Signs 10/15/23 21:19 Blood Pressure 158/83 Medical Decision Making - Medical Decision Making Was pt. sent in by a medical professional or institution ([facility], SALICYLIC ACID BLENDER, urgent care, hospital, or fpc...) When possible be specific @ -No Did you speak to anyone other than the patient for history (EMS, parent, family, police, friend...)? What history was obtained from this source @ -No Did you review nursing and triage notes (agree or disagree)? Why? @ -I reviewed and agree with nursing and triage notes Were old charts reviewed (outside hosp., previous admission, EMS record, old EKG, old radiological studies, urgent care reports/EKG's, fpc records)? Report findings @ -No old charts were reviewed Differential Diagnosis hypertension, hypertensive urgency or emergency, anxiety. EKG interpreted by me (3pts min.). @ -As above X-rays interpreted by me (1pt min.). @ -None done CT interpreted by me (1pt min.). @ -None done U/S interpreted by me (1pt. min.). @ -None done What testing was considered but not performed or refused? (CT, X-rays, U/S, labs)? Why? @ -None What meds were considered but not given or refused? Why? @ -None Did you discuss the management of the patient with other professionals (professionals i.e. Dr., PA, SALICYLIC ACID BLENDER, lab, RT, psych nurse, social work nurse, web content producer, teacher, major gifts officer, showcase maker)? Give summary @ -No Was smoking cessation discussed for >3mins.? @ -No Was critical care preformed (if so, how long)? @ -No Were there social determinants of health that impacted care today? How? (Homelessness, low income, unemployed, alcoholism, drug addiction, transportation, low edu. Level, literacy, decrease access to med. care, nursing home, rehab)? @ -No Was there de-escalation of care discussed even if they declined (Discuss DNR or withdrawal of care, Hospice)? DNR status @ -No What co-morbidities impacted this encounter? (DM, HTN, Smoking, COPD, CAD, Cancer, CVA, ARF, Chemo, Hep., AIDS, mental health diagnosis, sleep apnea, morbid obesity)? @ -None Was patient admitted / discharged? Hospital course, mention meds given and route, prescriptions, significant lab abnormalities, going to OR and other pertinent info. @ -[58-year-old female with mildly elevated blood pressure without symptoms. Patient admits to some anxiety surrounding a lawsuit which is pending and there may be a settlement in her favor. She states that she did think about this prior to feeling slightly anxious and then subsequently checking her blood pressure. Patient without complaint currently. Blood pressure monitored in the emergency department mildly elevated. Patient will take a journal of her blood pressures and follow closely with her primary care provider. Undiagnosed new problem with uncertain prognosis? @ -No Drug Therapy requiring intensive monitoring for toxicity (Heparin, Nitro, Insulin, Cardizem)? @ -No Were any procedures done? @ -No Diagnosis/symptom? @ -Mildly elevated blood pressure Acute, or Chronic, or Acute on Chronic? @ -Acute Uncomplicated (without systemic symptoms) or Complicated (systemic symptoms)? @ -Default Side effects of treatment? @ -No Exacerbation, Progression, or Severe Exacerbation? @ -No Poses a threat to life or bodily function? How? (Chest pain, [place], [place], pneumonia, PE, COPD, DKA, ARF, appy, cholecystitis, CVA, Diverticulitis, Homicidal, Suicidal, threat to staff... and all critical care pts) @ -No Disposition Clinical Impression: Elevated blood pressure reading Disposition: HOME SELF-CARE Instructions (If sedation given, give patient instructions): Hypertension (ED) Is patient prescribed a controlled substance at d/c from ED?: No Referrals: Rachelle Burciaga MD [Primary Care Provider] - 1-2 days
[2023-10-15 22:34] VITALS: BP 127/65
[2023-10-15 22:35] VITALS: PULSE 71; RESP 18; TEMP 97.2
== END 2023-10-15 22:40 | disposition home or self-care (01) ==
LOC: EC 21:08
DX: R03.0 Elevated blood-pressure reading, without diagnosis of hypertension (principal); Z87.891 Personal history of nicotine dependence; Z91.040 Latex allergy status; Z91.041 Radiographic dye allergy status; Z91.018 Allergy to other foods; Z88.8 Allergy status to other drugs, medicaments and biological substances; Z88.5 Allergy status to narcotic agent
CPT/HCPCS: 99284

== ENCOUNTER → 2024-01-10 | Outpatient (CLI) | payer MEDICARE, OTHER ==
--- NOTE | 2024-02-23 11:08 | US ---
Site ID [id number] Patient Annette Anaya E ID [id number] Age/Gender: 58Y, F Order # N/A Procedure US kidneys/renal and bladder Date 01/10/2024 2:12:00 PM EXAMINATION TYPE: US kidneys/renal and bladder DATE OF EXAM: 02/02/2024 COMPARISON: NONE CLINICAL INDICATION: Female, 58 year old with history of hematuria, CKD stage I. EXAM MEASUREMENTS: Right Kidney: 9.6 x 6.2 x 5.0 cm Left Kidney: 10.6 x 5.5 x 4.5 cm Right Kidney: wnl Left Kidney: wnl Bladder: wnl There is no evidence for hydronephrosis at this point in time. No cortical thinning. Cortical medull renea differentiation is maintained bilaterally. No nephrolithiasis is seen. No masses are identified. The urinary bladder is anechoic. IMPRESSION: No hydronephrosis.
== END | disposition home or self-care (01) ==
LOC: RADUSWWP 14:00
PROVIDERS: ATTEND Family Medicine
DX: N18.1 Chronic kidney disease, stage 1 (principal)
CPT/HCPCS: 76770

== ENCOUNTER 2024-01-23 19:22 | Emergency (ER) | payer MEDICARE, OTHER ==
--- NOTE | 2024-02-28 09:41 | XR ---
EXAMINATION TYPE: XR chest 2V DATE OF EXAM: 01/23/2024 COMPARISON: No comparison available on downtime PACS. INDICATION: Nausea TECHNIQUE: Frontal and lateral views of the chest are obtained. FINDINGS: The heart size is normal. The pulmonary vasculature is normal. The lungs are clear. IMPRESSION: 1. No acute pulmonary process.
== END 2024-01-23 23:15 | disposition home or self-care (01) ==
LOC: EC 19:22
DX: R11.0 Nausea (principal)
CPT/HCPCS: 71046; 93005; 99283

== ENCOUNTER 2024-02-20 02:19 | Emergency (ER) | payer MEDICARE, OTHER ==
[2024-02-20 02:38] VITALS: BP 140/74; PULSE 80; RESP 18; TEMP 98.6
[2024-02-20 03:13] LABS: Basophils # (A) 0.1 k/uL (0-0.2); Basophils % (A) 1 %; Eosinophils # (A) 0.2 k/uL (0-0.7); Eosinophils % (A) 3 %; HGB 13.4 gm/dL (11.4-16.0); Lymphocytes % (A) 45 %; MCH 30.7 pg (25.0-35.0); MCHC 32.7 g/dL (31.0-37.0); MCV 93.9 fL (80.0-100.0); Mean Platelet Volume 7.1; Monocytes # (A) 0.4 k/uL (0-1.0); Monocytes % (A) 6 %; Neutrophils # (A) 2.9 k/uL (1.3-7.7); Neutrophils % (A) 43 %; Platelet Count 263 k/uL (150-450); RBC 4.36 m/uL (3.80-5.40); RDW 12.8 % (11.5-15.5); WBC 6.8 k/uL (3.8-10.6)
[2024-02-20 03:32] LABS: ALT 20 U/L (4-34); African American GFR (CKD) >90 (>60 ml/min/1.73 sqM); Albumin 4.2 g/dL (3.5-5.0); Anion Gap 10 mmol/L; Blood Urea Nitrogen 16 mg/dL (7-17); Calcium 9.5 mg/dL (8.4-10.2); Carbon Dioxide 23 mmol/L (22-30); Chloride 106 mmol/L (98-107); Glucose 101 mg/dL (74-99); Non-African American GFR(CKD) >90 (>60 ml/min/1.73 sqM); Sodium 139 mmol/L (137-145); Total Bilirubin 0.8 mg/dL (0.2-1.3); Total Protein 6.7 g/dL (6.3-8.2)
[2024-02-20 03:38] LABS: INR 0.9 (<1.2); Partial Thromboplastin Time 26.6 sec (22.0-30.0); Prothrombin Time 10.4 sec (10.0-12.5)
[2024-02-20 03:43] LABS: AST 33 U/L (14-36); Alkaline Phosphatase 95 U/L (38-126); Magnesium 2.1 mg/dL (1.6-2.3); Potassium 3.8 mmol/L (3.5-5.1)
--- NOTE | 2024-02-20 04:03 | ED ---
Arrhythmia/Palpitations HPI - General Chief Complaint: Arrhythmia/Palpitations Stated Complaint: Chest pain Time Seen by Provider: 02/20/24 02:30 Source: patient Mode of arrival: EMS Limitations: no limitations - History of Present Illness Initial Comments: 58-year-old female presents emergency department reporting palpitations. Patient has been seen in the emergency department several times for the same complaint. States that she wore a Holter monitor. She does not have a diagnosis other than palpitations. States that she was awake at home when she felt like her heart was racing. She does not have any medications to take when this happens. She called EMS. Upon arrival she states she feels improved. She denies any coronary artery disease history. Denies chest pain. No shortness of breath. No swelling. No fevers, chills or cough. No other alleviating, precipitating or modifying factors - Related Data Home Medications Medication Instructions Recorded Confirmed Latanoprost Ophth [Xalatan 0.005%] 1 drop BOTH EYES HS 09/30/15 11/13/22 Carboxymethylcellulose Sodium 1 drop BOTH EYES DAILY PRN 01/11/19 11/13/22 [Refresh Tears] Multivitamins, Thera [Multivitamin 1 tab PO DAILY 01/11/19 11/12/22 (formulary)] Ascorbic Acid [Vitamin C] 1,000 mg PO DAILY 10/11/22 11/13/22 Cholecalciferol [Vitamin D3 (25 25 mcg PO DAILY 10/11/22 11/12/22 Mcg = 1000 Iu)] Cyanocobalamin (Vitamin B-12) 1,000 mcg PO DAILY 10/11/22 11/12/22 [Vitamin B-12] Olopatadine HCl [Pataday Once 1 drop BOTH EYES DAILY 10/11/22 11/13/22 Daily Relief] Aspirin 81 mg PO DAILY 11/12/22 11/12/22 Ibuprofen [Motrin] 800 mg PO DIRECTED PRN 11/12/22 11/12/22 Unk Zinc 1 tab PO DAILY 11/12/22 11/12/22 Allergies Allergy/AdvReac Type Severity Reaction Status Date / Time acetaminophen [From Vicodin] Allergy Nausea Verified 02/20/24 02:32 cashew nut Allergy Unknown Verified 02/20/24 02:32 erythromycin base Allergy Swelling, Verified 02/20/24 02:32 [Erythromycin Base] itching & arthraligia hydrocodone [From Vicodin] Allergy Nausea Verified 02/20/24 02:32 Iodine and Iodide Containing Allergy heart Verified 02/20/24 02:32 Produc feels funny latex Allergy Dyspnea Verified 02/20/24 02:32 strawberry Allergy Unknown Verified 02/20/24 02:32 cocoa AdvReac heart races Verified 02/20/24 02:32 codeine AdvReac Nausea Verified 02/20/24 02:32 diphenhydramine AdvReac "very Verified 02/20/24 02:32 [From Benadryl] sensitive" melatonin AdvReac "very Verified 02/20/24 02:32 sensitive" Review of Systems ROS Statement: Those systems with pertinent positive or pertinent negative responses have been documented in the HPI. ROS Other: All systems not noted in ROS Statement are negative. Past Medical History Past Medical History: Asthma, Chest Pain / Angina, COPD, Deep Vein Thrombosis (DVT), Eye Disorder, GERD/Reflux, Osteoarthritis (OA), Sleep Apnea/CPAP/BIPAP Additional Past Medical History / Comment(s): pt states at times she has an irregular heart beat, 2001 DVT in ankles bilateral thighs post hysterectomy per pt, bilateral glaucoma, bilateral tinnitis/[place], dysphagia-makes sure she chews food well/esophageal stricture with dilation, past stomach ulcer, chronic pain lower back/cervica and bilateral knees, past fungal infection/[place] and was on diflucan for "years" doesnt work anymore, past ETOH/crack cocaine but quit both in 2005.. bladder hurts with increased sugar intake. hx HCV 1 and 2 . pt does not have a cpap .told not to lay flat. Last Myocardial Infarction Date:: 04/2006 History of Any Multi-Drug Resistant Organisms: None Reported Past Surgical History: Hysterectomy, Tonsillectomy Additional Past Surgical History / Comment(s): egd with dilation, D&C, eye laser for muscle, laser for HPV 2004 , colonoscopy Past Anesthesia/Blood Transfusion Reactions: Previous Problems w/ Anesthesia Additional Past Anesthesia/Blood Transfusion Reaction / Comment(s): past hx of trouble waking up. pt told after tonsilectomy she almost but not told why. Past Psychological History: Anxiety, Depression Smoking Status: Former smoker Past Alcohol Use History: None Reported Past Drug Use History: None Reported - Past Family History Mother Additional Family Medical History / Comment(s): Mother at age 31 as she was hit by a motor vehicle with history of depression. Father Family Medical History: Coronary Artery Disease (CAD) Additional Family Medical History / Comment(s): Father at age 54 after his third heart surgery. Sister(s) Additional Family Medical History / Comment(s): Patient has 3 sisters and one from a staph infection. Brother(s) Additional Family Medical History / Comment(s): Patient has 2 brothers and one has history of blood clots and anxiety. Patient has 3 children with no major medical problems. General Exam Limitations: no limitations General appearance: alert, in no apparent distress Head exam: Present: atraumatic, normocephalic, normal inspection Eye exam: Present: normal appearance, PERRL, EOMI. Absent: scleral icterus, conjunctival injection, periorbital swelling ENT exam: Present: normal exam, mucous membranes moist Neck exam: Present: normal inspection. Absent: tenderness, meningismus, lymphadenopathy Respiratory exam: Present: normal lung sounds bilaterally. Absent: respiratory distress, wheezes, rales, rhonchi, stridor Cardiovascular Exam: Present: regular rate, normal rhythm, normal heart sounds. Absent: systolic murmur, diastolic murmur, rubs, gallop, clicks GI/Abdominal exam: Present: soft, normal bowel sounds. Absent: distended, tenderness, guarding, rebound, rigid Extremities exam: Present: normal inspection, full ROM, normal capillary refill. Absent: tenderness, pedal edema, joint swelling, calf tenderness Back exam: Present: normal inspection Neurological exam: Present: alert, oriented X3, CN II-XII intact Psychiatric exam: Present: normal affect, normal mood Skin exam: Present: warm, dry, intact, normal color. Absent: rash Course Vital Signs 02/20/24 02:26 Temperature 98.6 F Pulse Rate 80 Respiratory 18 Rate Blood Pressure 140/74 O2 Sat by Pulse 99 Oximetry Medical Decision Making - Medical Decision Making Was pt. sent in by a medical professional or institution (, PA, OPTIMIZATION ENGINEER, urgent care, hospital, or snf...) When possible be specific @ -No Did you speak to anyone other than the patient for history (EMS, parent, family, police, friend...)? What history was obtained from this source @ -Spoke with EMS for history Did you review nursing and triage notes (agree or disagree)? Why? @ -I reviewed and agree with nursing and triage notes Were old charts reviewed (outside hosp., previous admission, EMS record, old EKG, old radiological studies, urgent care reports/EKG's, snf records)? Report findings @ -No old charts were reviewed Differential Diagnosis (chest pain, altered mental status, abdominal pain women, abdominal pain men, vaginal bleeding, weakness, fever, dyspnea, syncope, headache, dizziness, GI bleed, back pain, seizure, CVA, palpatations, mental health, musculoskeletal)? @ -Differential Palpitations Ventricular arrhythmias, atrial arrhythmias, myocardial infarction, anemia, thyrotoxicosis, electrolyte imbalance, hypokalemia, pulmonary embolism, pulmonary disease, drugs, alcohol, anxiety, stress.... This is not meant to be an all-inclusive list. EKG interpreted by me (3pts min.). @ -Yes and demonstrates sinus rhythm with a rate of 67. CA interval 185. QRS 102. QTc of 416. No acute ST segment elevations or depressions. X-rays interpreted by me (1pt min.). @ -Yes and demonstrates no acute process CT interpreted by me (1pt min.). @ -None done U/S interpreted by me (1pt. min.). @ -None done What testing was considered but not performed or refused? (CT, X-rays, U/S, labs)? Why? @ -None What meds were considered but not given or refused? Why? @ -None Did you discuss the management of the patient with other professionals (professionals i.e. , PA, OPTIMIZATION ENGINEER, lab, RT, psych nurse, hand bindery assembly worker, shipping and receiving associate, teacher, disability liaison officer, director case management)? Give summary @ -No Was smoking cessation discussed for >3mins.? @ -No Was critical care preformed (if so, how long)? @ -No Were there social determinants of health that impacted care today? How? (Homelessness, low income, unemployed, alcoholism, drug addiction, transportation, low edu. Level, literacy, decrease access to med. care, nursing home, rehab)? @ -No Was there de-escalation of care discussed even if they declined (Discuss DNR or withdrawal of care, Hospice)? DNR status @ -No What co-morbidities impacted this encounter? (DM, HTN, Smoking, COPD, CAD, Cancer, CVA, ARF, Chemo, Hep., AIDS, mental health diagnosis, sleep apnea, morbid obesity)? @ -None Was patient admitted / discharged? Hospital course, mention meds given and route, prescriptions, significant lab abnormalities, going to OR and other pertinent info. @ -Upon arrival patient seen and evaluated in room 13. Thorough history and physical exam was performed. Patient placed on continuous pulse ox and cardiac monitoring. Twelve-lead EKG is obtained. Laboratory studies are conducted. Chest x-ray is performed. Results are discussed with the patient. No signs of ectopy on heart monitor. At this time patient is stable for discharge home. Instructed follow-up with the cardiology office for further management of her palpitations Undiagnosed new problem with uncertain prognosis? @ -No Drug Therapy requiring intensive monitoring for toxicity (Heparin, Nitro, Insulin, Cardizem)? @ -No Were any procedures done? @ -No Diagnosis/symptom? @ -Acute palpitations Acute, or Chronic, or Acute on Chronic? @ -Acute on chronic Uncomplicated (without systemic symptoms) or Complicated (systemic symptoms)? @ -Complicated Side effects of treatment? @ -No Exacerbation, Progression, or Severe Exacerbation? @ -No Poses a threat to life or bodily function? How? (Chest pain, [place], [place], pneumonia, PE, COPD, DKA, ARF, appy, cholecystitis, CVA, Diverticulitis, Homicidal, Suic idal, threat to staff... and all critical care pts) @ -No - Lab Data Result diagrams: 02/20/24 02:35 02/20/24 02:35 Lab Results 02/20/24 02/20/24 02/20/24 Range/Units 02:35 02:35 02:35 WBC 6.8 (3.8-10.6) k/uL RBC 4.36 (3.80-5.40) m/uL Hgb 13.4 (11.4-16.0) gm/dL Hct 41.0 (34.0-46.0) % MCV 93.9 (80.0-100.0) fL MCH 30.7 (25.0-35.0) pg MCHC 32.7 (31.0-37.0) g/dL RDW 12.8 (11.5-15.5) % Plt Count 263 (150-450) k/uL MPV 7.1 Neutrophils % 43 % Lymphocytes % 45 % Monocytes % 6 % Eosinophils % 3 % Basophils % 1 % Neutrophils # 2.9 (1.3-7.7) k/uL Lymphocytes # 3.0 (1.0-4.8) k/uL Monocytes # 0.4 (0-1.0) k/uL Eosinophils # 0.2 (0-0.7) k/uL Basophils # 0.1 (0-0.2) k/uL PT 10.4 (10.0-12.5) sec INR 0.9 (<1.2) APTT 26.6 (22.0-30.0) sec Sodium 139 (137-145) mmol/L Potassium 3.8 (3.5-5.1) mmol/L Chloride 106 (98-107) mmol/L Carbon Dioxide 23 (22-30) mmol/L Anion Gap 10 mmol/L BUN 16 (7-17) mg/dL Creatinine 0.74 (0.52-1.04) mg/dL Est GFR (CKD-EPI)AfAm >90 (>60 ml/min/1.73 sqM) Est GFR (CKD-EPI)NonAf >90 (>60 ml/min/1.73 sqM) Glucose 101 H (74-99) mg/dL Calcium 9.5 (8.4-10.2) mg/dL Magnesium 2.1 (1.6-2.3) mg/dL Total Bilirubin 0.8 (0.2-1.3) mg/dL AST 33 (14-36) U/L ALT 20 (4-34) U/L Alkaline Phosphatase 95 (38-126) U/L Troponin I (0.000-0.034) ng/mL Total Protein 6.7 (6.3-8.2) g/dL Albumin 4.2 (3.5-5.0) g/dL TSH 6.000 H (0.465-4.680) mIU/L Free T4 1.26 (0.78-2.19) ng/dL 02/20/24 Range/Units 02:35 WBC (3.8-10.6) k/uL RBC (3.80-5.40) m/uL Hgb (11.4-16.0) gm/dL Hct (34.0-46.0) % MCV (80.0-100.0) fL MCH (25.0-35.0) pg MCHC (31.0-37.0) g/dL RDW (11.5-15.5) % Plt Count (150-450) k/uL MPV Neutrophils % % Lymphocytes % % Monocytes % % Eosinophils % % Basophils % % Neutrophils # (1.3-7.7) k/uL Lymphocytes # (1.0-4.8) k/uL Monocytes # (0-1.0) k/uL Eosinophils # (0-0.7) k/uL Basophils # (0-0.2) k/uL PT (10.0-12.5) sec INR (<1.2) APTT (22.0-30.0) sec Sodium (137-145) mmol/L Potassium (3.5-5.1) mmol/L Chloride (98-107) mmol/L Carbon Dioxide (22-30) mmol/L Anion Gap mmol/L BUN (7-17) mg/dL Creatinine (0.52-1.04) mg/dL Est GFR (CKD-EPI)AfAm (>60 ml/min/1.73 sqM) Est GFR (CKD-EPI)NonAf (>60 ml/min/1.73 sqM) Glucose (74-99) mg/dL Calcium (8.4-10.2) mg/dL Magnesium (1.6-2.3) mg/dL Total Bilirubin (0.2-1.3) mg/dL AST (14-36) U/L ALT (4-34) U/L Alkaline Phosphatase (38-126) U/L Troponin I <0.012 (0.000-0.034) ng/mL Total Protein (6.3-8.2) g/dL Albumin (3.5-5.0) g/dL TSH (0.465-4.680) mIU/L Free T4 (0.78-2.19) ng/dL Disposition Clinical Impression: Palpitations Disposition: HOME SELF-CARE Condition: Stable Instructions (If sedation given, give patient instructions): Heart Palpitations (ED) Additional Instructions: Please talk to your cloth packer about obtaining another night monitor. Return for any new or worsening symptoms Is patient prescribed a controlled substance at d/c from ED?: No Referrals: Rachelle Burciaga MD [Primary Care Provider] - 1-2 days Time of Disposition: 04:46
[2024-02-20 04:41] LABS: T4, Free (Free Thyroxine) 1.26 ng/dL (0.78-2.19)
--- NOTE | 2024-02-20 05:57 | XR ---
EXAM: XR Chest, 2 Views CLINICAL HISTORY: ITS.REASON XR Reason: dysrhythmia TECHNIQUE: Frontal and lateral views of the chest. COMPARISON: Chest radiograph on 10/11/2022 FINDINGS: Hardware: None. Lungs/pleura: Probable nipple shadow over the left lower lung. No focal consolidation. No pleural effusion or pneumothorax. Heart/mediastinum: Normal. No cardiomegaly. Soft tissues: Unremarkable. Bones: No acute fracture. Degenerative changes of the spine. Upper abdomen: Normal. IMPRESSION: No acute disease identified.
== END 2024-02-20 05:05 | disposition home or self-care (01) ==
LOC: EC 02:19
DX: R00.2 Palpitations (principal)
CPT/HCPCS: 36415; 71046; 80053; 83735; 84439; 84443; 84484; 85025; 85610; 85730; 93005; 99285

== ENCOUNTER → 2024-03-17 | Outpatient (CLI) | payer MEDICARE, OTHER ==
--- NOTE | 2024-03-17 18:40 | XR ---
EXAMINATION TYPE: XR abdomen 2V DATE OF EXAM: 03/17/2024 5:56 PM CLINICAL INDICATION:Female, 59 years old with history of [id number] SLOW TRANSIT CONSTIPATION; [facility] COMPARISON: 07/06/2023 TECHNIQUE: Supine and upright views of the abdomen were obtained. FINDINGS: The bowel gas pattern is nonspecific without dilated loops of small or large bowel. Fecal m aterial and gas are demonstrated throughout the colon and rectum, moderate to large in degree. There is no evidence for organomegaly or pneumoperitoneum. The osseous structures appear intact with pooja r degenerative changes. No abnormal calcifications are present. IMPRESSION: * Nonspecific, nonobstructive bowel gas pattern. * Moderate to large colonic stool burden. Correlate for constipation. * If concern persists, recommend followup radiographs or CT. [facility], , 03/17/2024 6:38 PM
== END | disposition home or self-care (01) ==
LOC: RADXRMAIN 17:33
PROVIDERS: ATTEND Family Medicine
CPT/HCPCS: 74019

== ENCOUNTER 2024-05-29 05:14 | Emergency (ER) | payer OTHER ==
--- NOTE | 2024-05-29 05:25 | ED ---
Chest Pain HPI - General Chief Complaint: Back Pain/Injury Stated Complaint: Back Pain Time Seen by Provider: 05/29/24 05:16 Source: patient, EMS, RN notes reviewed, old records reviewed Mode of arrival: ambulatory Limitations: no limitations - Related Data Home Medications Medication Instructions Recorded Confirmed Latanoprost Ophth [Xalatan 0.005%] 1 drop BOTH EYES HS 09/30/15 11/13/22 Carboxymethylcellulose Sodium 1 drop BOTH EYES DAILY PRN 01/11/19 11/13/22 [Refresh Tears] Multivitamins, Thera [Multivitamin 1 tab PO DAILY 01/11/19 11/12/22 (formulary)] Ascorbic Acid [Vitamin C] 1,000 mg PO DAILY 10/11/22 11/13/22 Cholecalciferol [Vitamin D3 (25 25 mcg PO DAILY 10/11/22 11/12/22 Mcg = 1000 Iu)] Cyanocobalamin (Vitamin B-12) 1,000 mcg PO DAILY 10/11/22 11/12/22 [Vitamin B-12] Olopatadine HCl [Pataday Once 1 drop BOTH EYES DAILY 10/11/22 11/13/22 Daily Relief] Aspirin 81 mg PO DAILY 11/12/22 11/12/22 Ibuprofen [Motrin] 800 mg PO DIRECTED PRN 11/12/22 11/12/22 Unk Zinc 1 tab PO DAILY 11/12/22 11/12/22 Allergies Allergy/AdvReac Type Severity Reaction Status Date / Time acetaminophen [From Vicodin] Allergy Nausea Verified 05/29/24 05:22 cashew nut Allergy Unknown Verified 05/29/24 05:22 erythromycin base Allergy Swelling, Verified 05/29/24 05:22 [Erythromycin Base] itching & arthraligia hydrocodone [From Vicodin] Allergy Nausea Verified 05/29/24 05:22 Iodine and Iodide Containing Allergy heart Verified 05/29/24 05:22 Produc feels funny latex Allergy Dyspnea Verified 05/29/24 05:22 strawberry Allergy Unknown Verified 05/29/24 05:22 cocoa AdvReac heart races Verified 05/29/24 05:22 codeine AdvReac Nausea Verified 05/29/24 05:22 diphenhydramine AdvReac "very Verified 05/29/24 05:22 [From Benadryl] sensitive" melatonin AdvReac "very Verified 05/29/24 05:22 sensitive" Review of Systems ROS Statement: Those systems with pertinent positive or pertinent negative responses have been documented in the HPI. ROS Other: All systems not noted in ROS Statement are negative. EKG Findings - EKG Comments: EKG Findings:: EKG sinus 88 NJ 171 QRS 93 QTc 437 - EKG Results: EKG: interpreted by KEREN Past Medical History Past Medical History: Asthma, Chest Pain / Angina, COPD, Deep Vein Thrombosis (D VT), Eye Disorder, GERD/Reflux, Osteoarthritis (OA), Sleep Apnea/CPAP/BIPAP Additional Past Medical History / Comment(s): pt states at times she has an irregular heart beat, 2002 DVT in ankles bilateral thighs post hysterectomy per pt, bilateral glaucoma, bilateral tinnitis/CHILKAT, dysphagia-makes sure she chews food well/esophageal stricture with dilation, past stomach ulcer, chronic pain lower back/cervica and bilateral knees, past fungal infection/christa and was on diflucan for "years" doesnt work anymore, past ETOH/crack cocaine but quit both in 2005.. bladder hurts with increased sugar intake. hx HCV 1 and 2 . pt does not have a cpap .told not to lay flat. Last Myocardial Infarction Date:: 04/2006 History of Any Multi-Drug Resistant Organisms: None Reported Past Surgical History: Hysterectomy, Tonsillectomy Additional Past Surgical History / Comment(s): egd with dilation, D&C, eye laser for muscle, laser for HPV 2004 , colonoscopy Past Anesthesia/Blood Transfusion Reactions: Previous Problems w/ Anesthesia Additional Past Anesthesia/Blood Transfusion Reaction / Comment(s): past hx of trouble waking up. pt told after tonsilectomy she almost but not told why. Past Psychological History: Anxiety, Depression Smoking Status: Former smoker Past Alcohol Use History: None Reported Past Drug Use History: None Reported - Past Family History Mother Additional Family Medical History / Comment(s): Mother at age 31 as she was hit by a motor vehicle with history of depression. Father Family Medical History: Coronary Artery Disease (CAD) Additional Family Medical History / Comment(s): Father at age 54 after his third heart surgery. Sister(s) Additional Family Medical History / Comment(s): Patient has 3 sisters and one from a staph infection. Brother(s) Additional Family Medical History / Comment(s): Patient has 2 brothers and one has history of blood clots and anxiety. Patient has 3 children with no major medical problems. General Exam General appearance: alert, in no apparent distress Head exam: Present: atraumatic, normocephalic, normal inspection Eye exam: Present: normal appearance, PERRL, EOMI. Absent: scleral icterus, conjunctival injection, periorbital swelling ENT exam: Present: normal exam, mucous membranes moist Neck exam: Present: normal inspection. Absent: tenderness, meningismus, lymphadenopathy Respiratory exam: Present: normal lung sounds bilaterally. Absent: respiratory distress, wheezes, rales, rhonchi, stridor Cardiovascular Exam: Present: regular rate, normal rhythm, normal heart sounds. Absent: systolic murmur, diastolic murmur, rubs, gallop, clicks GI/Abdominal exam: Present: soft, normal bowel sounds. Absent: distended, tenderness, guarding, rebound, rigid Extremities exam: Present: normal inspection, full ROM, normal capillary refill. Absent: tenderness, pedal edema, joint swelling, calf tenderness Back exam: Present: normal inspection Neurological exam: Present: alert, oriented X3, CN II-XII intact Psychiatric exam: Present: normal affect, normal mood Skin exam: Present: warm, dry, intact, normal color. Absent: rash Course Vital Signs 05/29/24 05/29/24 05:18 06:37 Temperature 97.9 F 98.1 F Pulse Rate 107 H 73 Respiratory 16 18 Rate Blood Pressure 126/102 134/63 O2 Sat by Pulse 95 96 Oximetry - Reevaluation(s) Reevaluation #1: 05/29/24 Medical records reviewed Reevaluation #2: 05/29/24 Patient symptoms improved Reevaluation #3: 05/29/24 Informed of results questions answered Reevaluation #4: Was pt. sent in by a medical professional or institution (, PA, GPS NAVIGATION INSTALLER, urgent care, hospital, or longterm...) When possible be specific @ -no Did you speak to anyone other than the patient for history (EMS, parent, family, police, friend...)? What history was obtained from this source @ -no Did you review nursing and triage notes (agree or disagree)? Why? @ -agree Are old charts reviewed (outside hosp., previous admission, EMS record, old EKG, old radiological studies, urgent care reports/EKG's, longterm records)? Report findings @ -yes Differential Diagnosis (chest pain, altered mental status, abdominal pain women, abdominal pain men, vaginal bleeding, weakness, fever, dyspnea, syncope, headache, dizziness, GI bleed, back pain, seizure, CVA, palpatations, mental health, musculoskeletal)? @ -prior EKG interpreted by me (3pts min.). @ -yes X-rays interpreted by me (1pt min.). @ -yes negative for acute disease CT interpreted by me (1pt min.). @ -no U/S interpreted by me (1pt. min.). @ -no What testing was considered but not performed or refused? (CT, X-rays, U/S, labs)? Why? @ -none What meds were considered but not given or refused? Why? @ -none Did you discuss the management of the patient with other professionals (professionals i.e. , PA, GPS NAVIGATION INSTALLER, lab, RT, psych nurse, social media intern, cushion builder, teacher, fire prevention officer, caser shoe parts)? Give summary @ -no Was smoking cessation discussed for >3mins.? @ -no Was critical care preformed (if so, how long)? @ -no Were there social determinants of health that impacted care today? How? (Homelessness, low income, unemployed, alcoholism, drug addiction, transportation, low edu. Level, literacy, decrease access to med. care, detention, re hab)? @ -none Was there de-escalation of care discussed even if they declined (Discuss DNR or withdrawal of care, Hospice)? DNR status @ -no What co-morbidities impacted this encounter? (DM, HTN, Smoking, COPD, CAD, Cancer, CVA, ARF, Chemo, Hep., AIDS, mental health diagnosis, sleep apnea, morbid obesity)? @ -none Was patient admitted / discharged? Hospital course, mention meds given and route, prescriptions, significant lab abnormalities, going to OR and other pertinent info. @ - Undiagnosed new problem with uncertain prognosis? @ -no Drug Therapy requiring intensive monitoring for toxicity (Heparin, Nitro, Insulin, Cardizem)? @ -no Were any procedures done? @ -no Diagnosis/symptom? @ - Acute, or Chronic, or Acute on Chronic? @ -Acute Uncomplicated (without systemic symptoms) or Complicated (systemic symptoms)? @ -Complicated Side effects of treatment? @ -no Exacerbation, Progression, or Severe Exacerbation? @ -exacerbation Poses a threat to life or bodily function? How? (Chest pain, USA, LA, pneumonia, PE, COPD, DKA, ARF, appy, cholecystitis, CVA, Diverticulitis, Homicidal, Suicidal, threat to staff... and all critical care pts) @ -yes Reevaluation #5: Differential Chest Pain: Stable Angina, Unstable Angina, STEMI, NSTEMI Aortic Dissection, Pneumothorax, Musculoskeletal, Esophageal Spasm GERD, Cholecystitis, Pancreatitis, Zoster, this is not meant to be an all-inclusive list. Disposition Clinical Impression: Chest pain Disposition: HOME SELF-CARE Condition: Good Instructions (If sedation given, give patient instructions): Chest Pain (ED) Is patient prescribed a controlled substance at d/c from ED?: No Referrals: Rachelle Burciaga MD [Primary Care Provider] - 1-2 days
[2024-05-29 05:49] LABS: Basophils % (A) 1 %; Eosinophils # (A) 0.3 k/uL (0-0.7); Eosinophils % (A) 4 %; HCT 41.7 % (34.0-46.0); HGB 13.9 gm/dL (11.4-16.0); Lymphocytes % (A) 40 %; MCH 30.7 pg (25.0-35.0); MCHC 33.4 g/dL (31.0-37.0); MCV 91.9 fL (80.0-100.0); Mean Platelet Volume 7.5; Monocytes # (A) 0.4 k/uL (0-1.0); Monocytes % (A) 6 %; Neutrophils # (A) 3.4 k/uL (1.3-7.7); Neutrophils % (A) 46 %; Platelet Count 245 k/uL (150-450); RBC 4.54 m/uL (3.80-5.40); RDW 13.4 % (11.5-15.5); WBC 7.4 k/uL (3.8-10.6)
[2024-05-29] MEDS: SODIUM CHLORIDE 0.9% 1,000 ML IV STA (05:53)
[2024-05-29] MEDS: KETOROLAC 15 MG/ML 1 ML VIAL IVP STA (05:54)
[2024-05-29 05:58] LABS: INR 0.9 (<1.2); Partial Thromboplastin Time 24.8 sec (22.0-30.0); Prothrombin Time 10.6 sec (10.0-12.5)
[2024-05-29 06:00] LABS: ALT 45 U/L (4-34); AST 37 U/L (14-36); African American GFR (CKD) >90 (>60 ml/min/1.73 sqM); Albumin 4.5 g/dL (3.5-5.0); Alkaline Phosphatase 106 U/L (38-126); Anion Gap 4 mmol/L; Blood Urea Nitrogen 20 mg/dL (7-17); Carbon Dioxide 26 mmol/L (22-30); Chloride 110 mmol/L (98-107); Glucose 106 mg/dL (74-99); Magnesium 2.2 mg/dL (1.6-2.3); Non-African American GFR(CKD) >90 (>60 ml/min/1.73 sqM); Phosphorus 3.3 mg/dL (2.5-4.5); Potassium 3.4 mmol/L (3.5-5.1); Sodium 140 mmol/L (137-145); Total Bilirubin 0.5 mg/dL (0.2-1.3); Total Protein 6.8 g/dL (6.3-8.2)
[2024-05-29 06:09] LABS: NT-Pro-B-Type Natriuretic Pept 22 pg/mL
[2024-05-29 06:39] VITALS: BP 134/63; PULSE 73; RESP 18; TEMP 98.1
--- NOTE | 2024-05-29 07:35 | XR ---
EXAMINATION TYPE: XR chest 1V portable DATE OF EXAM: 05/29/2024 6:04 AM COMPARISON: 02/20/2024 CLINICAL INDICATION: Female, 59 years old with history of cp, , FINDINGS: Heart normal size. Aorta and pulmonary vasculature within normal limits. There are some overlapping e xternal soft tissues projecting at the base of the lungs but otherwise no consolidation or pleural ef fusion. IMPRESSION: No acute cardiopulmonary process. [facility], , 05/29/2024 7:32 AM
== END 2024-05-29 06:38 | disposition home or self-care (01) ==
LOC: EC 05:14
DX: R07.9 Chest pain, unspecified (principal); Z87.891 Personal history of nicotine dependence; Z88.5 Allergy status to narcotic agent; Z88.6 Allergy status to analgesic agent; Z91.040 Latex allergy status; Z88.8 Allergy status to other drugs, medicaments and biological substances; Z88.1 Allergy status to other antibiotic agents; Z91.018 Allergy to other foods; Z91.041 Radiographic dye allergy status; Z91.048 Other nonmedicinal substance allergy status
CPT/HCPCS: 36415; 71045; 80053; 83735; 83880; 84100; 84484; 85025; 85610; 85730; 93005; 96360; 99284

== ENCOUNTER → 2024-06-20 | Outpatient (CLI) | payer MEDICARE, OTHER ==
[2024-06-20 15:08] VITALS: BP 115/76; PULSE 74; RESP 16; TEMP 98.4
--- NOTE | 2024-06-20 17:25 | P.HPOB ---
History of Present Illness H&P Date: 06/20/24 Chief Complaint: The patient is here for her routine gynecologic exam and ma mmogram. This is a 59-year-old -0-2-3 with an LMP of 2001. The patient is here to establish with this office. She states it has been about 1 year since her last pelvic exam. She is status post LAY for uterine fibroids in 2001. She has multiple gynecologic complaints. She states she has had a very small pea-sized bumps around the vaginal opening which have been irritated for 5 years straight. She thinks these are signs of herpes. She does have a history of genital herpes in the past. She states she had some type of lump inside of the vagina before the hysterectomy. She is not sure her hysterectomy in 2001 treated the lump and she wonders if the lump is still present. She has been with her boyfriend, Edilberto, for the past month. She states she has not been sexually active for 8-1/2 years. She has not had sexual intercourse with her boyfriend, but they have been involved with other none intercourse activities. She states when she gets sexually aroused, she feels like her "tubes hurt". She has a difficult time describing exactly how it feels, but it more feels like pressure in the pelvis and seems to improve slightly when she urinates. She has not had an orgasm since age 40. She attributes the change to an antibiotic which she took for an unknown reason and she is not sure of the antibiotics name. She had some type of vaginal infection that was diagnosed with some type of swab test done at her PCPs office. She states she was treated with some type of antibiotic but she is unsure of what the infection is called and what the antibiotics name is. After listing several types of infections, she thinks it may have been bacterial vaginosis. She states she has noticed a discharge and odor recently as well as an irritated vulva. She cannot describe the appearance of the vaginal discharge but she does not think it has color. Review of Systems The patient's weight has been stable over the last year. She denies res piratory, cardiac, or G.I. problems. Past Medical History Past Medical History: Asthma, Chest Pain / Angina, COPD, Deep Vein Thrombosis (DVT), Eye Disorder, GERD/Reflux, Liver Disease, Myocardial Infarction (DE), Osteoarthritis (OA), Renal Disease, Sleep Apnea/CPAP/BIPAP Additional Past Medical History / Comment(s): 2001 DVT in ankles bilateral thighs post hysterectomy per pt, bilateral glaucoma, bilateral tinnitis/ABSENTEE-SHAWNEE, past stomach ulcer, chronic pain lower back. hx HCV 1 and 2. Cataracts. Angina and DE in 2006. Hypermobile joints. Fibromyalgia. Stage I renal disease. Fatty liver. Memory issues. 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 Last Myocardial Infarction Date:: 04/2006 History of Any Multi-Drug Resistant Organisms: None Reported Past Surgical History: Hysterectomy, Tonsillectomy Additional Past Surgical History / Comment(s): egd with dilation, D&C, eye laser for muscle, laser for HPV 2004 , colonoscopy 2021. LAY 2001 for uterine fibroids. Past Anesthesia/Blood Transfusion Reactions: Previous Problems w/ Anesthesia Additional Past Anesthesia/Blood Transfusion Reaction / Comment(s): past hx of trouble waking up. pt told after tonsilectomy she almost but not told why. Past Psychological History: ADD/ADHD, Anxiety, Depression Additional Psychological History / Comment(s): . Smoking Status: Former smoker Past Alcohol Use History: Abuse (Denies drinking currently.) Additional Past Alcohol Use History / Comment(s): Pt started smoking in 1978 and quit several times but quit for good in 2007. 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 Past Drug Use History: Cocaine (She denies current use of any recreational drugs.) Additional Drug Use History / Comment(s): Pt states she was a crack cocaine addict and quit in 2005. Additional History: She is . She has been with her boyfriend since the end of 2023. She helps take care of of her granddaughter. - Past Family History Mother Additional Family Medical History / Comment(s): Mother at age 31 as she was hit by a motor vehicle with history of depression. Father Family Medical History: Coronary Artery Disease (CAD) Additional Family Medical History / Comment(s): Father at age 54 after his third heart surgery. Sister(s) Family Medical History: Diabetes Mellitus Additional Family Medical History / Comment(s): Patient has 3 sisters and one from a staph infection. Brother(s) Family Medical History: Diabetes Mellitus Additional Family Medical History / Comment(s): Patient has 2 brothers and one has history of blood clots and anxiety. Patient has 3 children with no major medical problems. Medications and Allergies Home Medications Medication Instructions Recorded Confirmed Type Latanoprost Ophth [Xalatan 0.005%] 1 drop BOTH EYES HS 09/30/15 06/20/24 History Carboxymethylcellulose Sodium 1 drop BOTH EYES DAILY PRN 01/11/19 06/20/24 History [Refresh Tears] Multivitamins, Thera [Multivitamin 1 tab PO DAILY 01/11/19 06/20/24 History (formulary)] Ascorbic Acid [Vitamin C] 1,000 mg PO DAILY 10/11/22 06/20/24 History Cholecalciferol [Vitamin D3 (25 25 mcg PO DAILY 10/11/22 06/20/24 History Mcg = 1000 Iu)] Cyanocobalamin (Vitamin B-12) 1,000 mcg PO DAILY 10/11/22 06/20/24 History [Vitamin B-12] Olopatadine HCl [Pataday Once 1 drop BOTH EYES DAILY 10/11/22 06/20/24 History Daily Relief] Aspirin 81 mg PO DAILY 11/12/22 06/20/24 History Ibuprofen [Motrin] 800 mg PO DIRECTED PRN 11/12/22 06/20/24 History Unk Zinc 1 tab PO DAILY 11/12/22 06/20/24 History Ascorbic Acid [Vitamin C] 06/20/24 History Aspirin [Adult Low Dose Aspirin EC] 06/20/24 History Calcium Carbonate [Calcium] 06/20/24 History Allergies Allergy/AdvReac Type Severity Reaction Status Date / Time acetaminophen [From Vicodin] Allergy Nausea Verified 06/20/24 14:52 cashew nut Allergy Unknown Verified 06/20/24 14:52 erythromycin base Allergy Swelling, Verified 06/20/24 14:52 [Erythromycin Base] itching & arthraligia hydrocodone [From Vicodin] Allergy Nausea Verified 06/20/24 14:52 Iodine and Iodide Containing Allergy heart Verified 06/20/24 14:52 Produc feels funny latex Allergy Dyspnea Verified 06/20/24 14:52 strawberry Allergy Unknown Verified 06/20/24 14:52 cocoa AdvReac heart races Verified 06/20/24 14:52 codeine AdvReac Nausea Verified 06/20/24 14:52 diphenhydramine AdvReac "very Verified 06/20/24 14:52 [From Benadryl] sensitive" melatonin AdvReac "very Verified 06/20/24 14:52 sensitive" Exam Vital Signs Temp Pulse Resp BP Pulse Ox 06/20/24 15:00 98.4 F 74 16 115/76 98 Intake and Output 06/20/24 06/20/24 06/20/24 06:59 14:59 22:59 Other: Weight 66.224 kg 66.224 kg Height 5 feet 2 inches, weight 146 pounds, BMI 26.7. This is a well-developed well-nourished white female who is alert and oriented times 3 in no acute distress. Although she seems oriented x 3, she does have some difficulty recalling details such as medication names and diagnoses. HEENT: Within normal limits. NECK: Supple without mass or thyromegaly. CHEST AND LUNGS: Clear to auscultation. HEART: Regular rate and rhythm. BREASTS: Are without mass or discharge. AXILLARY EXAM: Negative for adenopathy. BACK: Negative for CVA tenderness. ABDOMEN: Soft, nontender, without palpable masses. PELVIC EXAM: Normal external genitalia with mild atrophy. There are no vulvar lesions or abnormal lumps noted. At the left aspect of the introitus, there is a benign-appearing mucosal tissue which could represent a remanent of her hymen. This measures approximately 6 x 4 x 9 mm. This tissue appears noninflamed and is nontender. The vagina reveals mild atrophy without lesions. There is some creamy slightly yellowish discharge without odor. There is no evidence of prolapse. There are no palpable adnexal masses, however there is mild generalized pelvic tenderness. RECTAL EXAM: Rectovaginal exam is negative for mass or tenderness and is negative for occult blood. EXTREMITIES: Nontender. IMPRESSION: 1. 59-year-old menopausal female status post LAY for benign reasons, with multiple gynecologic complaints with mild generalized pelvic tenderness, with otherwise unremarkable gynecologic exam. 2. History of genital HSV with no evidence of a current outbreak at this time. 3. Subjective complaint of vulvar bumps which she states she has had for more than 5 years. Her vulvar exam is unremarkable at this time. 4. Pelvic discomfort when she gets sexually aroused. She says she has not been able to achieve orgasm since age 40. There is some mild generalized pelvic tenderness without palpable masses. Differential diagnosis will include pelvic organ engorgement with increased blood flow, bladder or urologic sensations possibly related to a full bladder, and less likely ovarian neoplasm. 5. Vaginal discharge. Differential diagnosis will include bacterial vaginosis and Hope vaginitis. She states she does not believe she could have any type of STD since she has not been sexually active for more than 8 years. PLAN: 1. Pap smears have been discontinued. 2. Self breast awareness was discussed with the patient. We have also discusse d symptoms associated with inflammatory breast cancer. 3. Affirm vaginitis panel has not been obtained from the vagina. 4. I recommended a pelvic ultrasound to further evaluate the pelvic discomfort with sexual arousal as well as the mild generalized pelvic tenderness. 5. She states the vagina feels very uncomfortable with doing the pelvic exam. She thinks this would be a problem if she was to become sexually active. We will rule out vaginal infections. She can consider vaginal lubricants or vaginal moisturizer if she is contemplating being sexually active. We can also consider estrogen cream as well. 6. I have tried to reassure her regarding the fairly normal vulvar findings. I am not sure what she is noticing when she describes vulvar bumps which she has noticed for more than 5 years. 7. She was advised to return in one year for her annual well woman exam and as needed.
--- NOTE | 2024-06-21 08:21 | MM ---
Reason for Exam: Screening (asymptomatic). Last mammogram was performed 5 year(s) and 6 month(s) ago. Patient History: Menarche at age 14. First Full-Term at age 19. Hysterectomy at age 36. Postmenopausal. Endometrial cancer, age 36. Paternal aunt had breast cancer. Risk Values: Phyllis 5 year model risk: 0.9%. NCI Lifetime model risk: 5.7%. Prior Study Comparison: 05/27/2009 Bilateral Screening Mammogram, [facility]. 06/13/2010 Bilateral Screening Mammogram, [facility]. 01/03/2019 Bilateral Screening Mammogram, [facility]. Tissue Density: There are scattered areas of fibroglandular density. Findings: Analyzed By CAD. A few tiny benign-appearing round calcification bilaterally are redemonstrated. A focal asymmetry in the outer aspect subareolar region of left breast on is more prominent versus priors. Further workup is warranted. Overall Assessment: Incomplete: need additional imaging evaluation, BI-RAD 0 Management: Diagnostic Mammogram of the left breast. Advise 3-D views and 3-D true lateral view left breast. Patient should continue monthly self-breast exams. A clinical breast exam by your physician is recommended on an annual basis. This exam should not preclude additional follow-up of suspicious palpable abnormalities. Note on Phyllis scores and lifetime risk: 1. A Phyllis score greater than 3% is considered moderate risk. If this is the case, consider specialist referral to assess eligibility for a risk reducing agent. 2. If overall lifetime risk for the development of breast cancer is 20% or higher, the patient may qualify for future screening with alternating mammogram and breast MRI. [facility], , 06/21/2024 8:18 AM. Electronically signed and approved by: Shahbaz Guy M.D.
== END ==
LOC: WWCWWP 14:30
PROVIDERS: ATTEND Obstetrics & Gynecology
DX: Z12.31 Encounter for screening mammogram for malignant neoplasm of breast (principal); N89.8 Other specified noninflammatory disorders of vagina; R92.323 Mammographic fibroglandular density, bilateral breasts; R92.1 Mammographic calcification found on diagnostic imaging of breast; B37.31 Acute candidiasis of vulva and vagina; B96.89 Other specified bacterial agents as the cause of diseases classified elsewhere; Z78.0 Asymptomatic menopausal state; Z88.5 Allergy status to narcotic agent; Z91.018 Allergy to other foods; Z88.1 Allergy status to other antibiotic agents; Z91.041 Radiographic dye allergy status; Z91.040 Latex allergy status; Z86.19 Personal history of other infectious and parasitic diseases; Z91.09 Other allergy status, other than to drugs and biological substances; Z87.891 Personal history of nicotine dependence; Z80.3 Family history of malignant neoplasm of breast
CPT/HCPCS: 77063; 77067

== ENCOUNTER → 2024-07-06 | Outpatient (CLI) | payer MEDICARE, OTHER ==
--- NOTE | 2024-07-06 14:02 | US ---
EXAMINATION TYPE: US pelvis complete transvag DATE OF EXAM: 07/06/2024 COMPARISON: NONE CLINICAL INDICATION: Female, 59 years old with history of R10.2 PELVIC AND PERINEAL PAIN; Pt states g eneralized pelvic pain, partial hysterectomy in 2001 TECHNIQUE: Transvaginal (TV) and Transabdominal (TA) . Transabdominal grayscale sonographic images of the pelvis were acquired. Transvaginal sonographic im ages were medically necessary to better assess the following anatomy: Ovaries Doppler imaging: Not performed. FINDINGS: Date of LMP: 2001 EXAM MEASUREMENTS: Right Ovary: 2.8 x 1.6 x 1.8 cm Left Ovary: 2.2 x 1.1 x 1.6 cm 1. Uterus: Surgically absent 2. Endometrium: Surgically absent 3. Right Ovary: wnl 4. Left Ovary: wnl 5. Bilateral Adnexa: wnl 6. Posterior cul-de-sac: wnl IMPRESSION: Status post hysterectomy. No specific abnormality seen. [facility], , 07/06/2024 1:59 PM
--- NOTE | 2024-07-07 11:10 | P.PN ---
Progress Note - Text Progress Note Date: 07/07/24 OUTPATIENT FOLLOW-UP NOTE TEST(S)/RESULTS: Pelvic ultrasound done 07/06/2024 was unremarkable. METHOD OF NOTIFICATION: The patient was notified by phone on 07/07/2024. PATIENT COMMENTS: She states she will be scheduling her breast workup following her incomplete screening mammogram. DIAGNOSIS: Unremarkable pelvic ultrasound. DISCUSSION: PLAN: She will schedule her breast workup for her incomplete screening mammogram.
== END | disposition home or self-care (01) ==
LOC: RADUSWWP 13:19
PROVIDERS: ATTEND Obstetrics & Gynecology
DX: R10.2 Pelvic and perineal pain (principal); Z90.710 Acquired absence of both cervix and uterus
CPT/HCPCS: 76830; 76856